=== PATIENT | male | born 1955 ===

== ENCOUNTER 2017-01-08 12:38 | Emergency (ER) | payer MEDICARE, OTHER ==
[2017-01-08 12:39] VITALS: BMI 23.4
[2017-01-08 13:04] VITALS: TEMP 98.5
--- NOTE | 2017-01-08 13:05 | C.PDOC ---
History Of Present Illness <Luisa Christy - Last Filed: 01/08/17 13:01> <Bebeto Wright Jr. - Last Filed: 01/08/17 14:39> A 61 year old male presents to the ER c/o vomiting and high blood pressure today. Patient notes vomiting usually occurs when he has high blood pressure, but patient notes feeling better now. Patient also reports vomiting after taking BP medication. Patient's last dialysis was [address] Juarez at [place]. Patient denies headache, chest pain, fever, chills, or any other complaints. 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 - Last Filed: 01/08/17 14:39> Chief Complaint (Nursing): High Blood Pressure Past Medical History - Medical History PMH: Diabetes, Fractures, HTN, Hypercholesterolemia, End Stage Renal Disease ( Lt. arm AV shunt, Dialysis TTHSAT) Surgical History: Hernia Repair, Pacemaker - Social History Hx Tobacco Use: No Hx Alcohol Use: No Hx Substance Use: No - Immunization History Hx Tetanus Toxoid Vaccination: No Hx Influenza Vaccination: Yes Hx Pneumococcal Vaccination: Yes <Luisa Christy - Last Filed: 01/08/17 13:01> Reviewed: Historical Data, Nursing Documentation, Vital Signs - Medical History PMH: Diabetes, Fractures, HTN, Hypercholesterolemia, End Stage Renal Disease Surgical History: Hernia Repair, Pacemaker Other Surgeries: Cardiac catheterization Family History: States: CAD, Diabetes, Hypertension, Other Other Family History: Sister had cancer. - Social History Hx Tobacco Use: No - Immunization History Hx Tetanus Toxoid Vaccination: No Hx Influenza Vaccination: Yes Hx Pneumococcal Vaccination: Yes <Bebeto Wright Jr. - Last Filed: 01/08/17 14:39> Vital Signs: Last Vital Signs Temp 98.5 F 01/08/17 12:47 Pulse 60 01/08/17 12:47 Resp 16 01/08/17 12:47 BP 192/61 H 01/08/17 12:47 Pulse Ox 95 01/08/17 13:39 - [facility] Procedures ENTERAL INFUSION OF CONCENTRATED NUT. SUBSTANCES (05/07/13) ESOPHAGOGASTRODUODENOSCOPY [EGD] W/CLOSED BIOPSY (05/02/13) HEMODIALYSIS (02/21/15) OPEN RED-INT FIX HUMERUS (02/21/15) PER NERVE ADHESIOLYS NEC (02/21/15) PERCUTANEOUS [ENDOSCOPIC] GASTROSTOMY [PEG] (05/02/13) PERIPH NERVE INCIS NEC (02/21/15) Review Of Systems Except As Marked, All Systems Reviewed And Found Negative. Constitutional: Positive for: Other (High blood pressure). Negative for: Fever , Chills Cardiovascular: Negative for: Chest Pain Gastrointestinal: Positive for: Vomiting (1x today) Neurological: Negative for: Headache <Bebeto Wright Jr. - Last Filed: 01/08/17 14:39> Physical Exam - Physical Exam Appears: Non-toxic, No Acute Distress Skin: Warm, Dry Head: Atraumatic, Normacephalic Cardiovascular: Rhythm Regular, No Murmur Respiratory: Normal Breath Sounds, No Rales, No Rhonchi, No Wheezing Extremity: No Tenderness, No Pedal Edema, No Swelling Neurological/Psych: Oriented x3, Normal Speech <Bebeto Wright Jr. - Last Filed: 01/08/17 14:39> ED Course And Treatment - Laboratory Results Result Diagrams: 01/08/17 14:19 O2 Sat by Pulse Oximetry: 95 (Room air) Pulse Ox Interpretation: Normal <Bebeto Wright Jr. - Last Filed: 01/08/17 14:39> Medical Decision Making <Luisa Christy - Last Filed: 01/08/17 13:01> <Bebeto Wright Jr. - Last Filed: 01/08/17 14:39> Medical Decision Making: Impression: A 61y/o c/o high BP and vomiting Plans: -Blood labs -Nephrology consult -Reassess and disposition (Bebeto Wright Jr.) <Luisa Christy - Last Filed: 01/08/17 13:01> - Scribe Statement The provider has reviewed the documentation as recorded by the Scribe <Bebeto Wright Jr. - Last Filed: 01/08/17 14:39> - Scribe Statement Kamryn guzman All medical record entries made by the Scribe were at my direction and personally dictated by me. I have reviewed the chart and agree that the record accurately reflects my personal performance of the history, physical exam, medical decision making, and the department course for this patient. I have also personally directed, reviewed, and agree with the discharge instructions and disposition. (Bebeto Wright Jr.)
[2017-01-08 14:27] LABS: BASO % 0.5 % (0.0-2.0); EOS # 0.2 K/uL (0.0-0.7); EOS % 2.9 % (0.0-4.0); HEMATOCRIT 28.5 % (35.0-51.0); LYMPH % 12.4 % (20.0-40.0); MEAN CELL VOLUME 88.5 fL (80.0-94.0); MEAN CORPUSCULAR HEMOGLOBIN 28.8 pg (27.0-31.0); MEAN CORPUSCULAR HGB CONC 32.5 g/dL (33.0-37.0); MEAN PLATELET VOLUME 8.6 fL (7.2-11.7); MONO # 0.5 K/uL (0.0-0.8); MONO % 5.9 % (0.0-10.0); RED CELL DISTRIBUTION WIDTH 15.7 % (11.5-14.5)
--- NOTE | 2017-01-08 14:52 | C.PDOC ---
History Of Present Illness Pt is a 61 year old male presents to the ED c/o vomiting and high blood pressure today. Patient notes vomiting usually occurs when he has high blood pressure, but patient notes feeling better now. Pt states that it is not unusual for him to have these episodes of vomiting. Patient did take his BP medication today. Patient's last dialysis was [address] Juarez (renal ) at [place]. Patient denies headache, chest pain, fever, chills, or any other complaints. Pt states he feels much better now and that he is due for dialysis today. PMD: Dr. 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[employer]) Onset/Duration Of Symptoms: Hrs Current Symptoms Are (Timing): Still Present Associated Symptoms: denies: Chest Pain, Headache Severity: Mild Recent travel outside of the [place]: No Additional History Per: Patient, Family Past Medical History Reviewed: Historical Data, Nursing Documentation, Vital Signs Vital Signs: Last Vital Signs Temp 98.5 F 01/08/17 12:47 Pulse 78 01/08/17 15:24 Resp 20 01/08/17 15:24 BP 191/81 H 01/08/17 15:24 Pulse Ox 98 01/08/17 15:24 - Medical History PMH: Diabetes, Fractures, HTN, Hypercholesterolemia, End Stage Renal Disease ( Dialysis TUES,TH,SAT) Surgical History: Hernia Repair, Pacemaker - [facility] Procedures ENTERAL INFUSION OF CONCENTRATED NUT. SUBSTANCES (05/07/13) ESOPHAGOGASTRODUODENOSCOPY [EGD] W/CLOSED BIOPSY (05/02/13) HEMODIALYSIS (02/21/15) OPEN RED-INT FIX HUMERUS (02/21/15) PER NERVE ADHESIOLYS NEC (02/21/15) PERCUTANEOUS [ENDOSCOPIC] GASTROSTOMY [PEG] (05/02/13) PERIPH NERVE INCIS NEC (02/21/15) Family History: States: Other Other Family History: Cancer - Social History Hx Tobacco Use: No Hx Alcohol Use: No Hx Substance Use: No - Immunization History Hx Tetanus Toxoid Vaccination: No Hx Influenza Vaccination: Yes Hx Pneumococcal Vaccination: Yes Review Of Systems Constitutional: Positive for: Other (High blood pressure). Negative for: Fever , Chills Cardiovascular: Negative for: Chest Pain Gastrointestinal: Positive for: Vomiting (1x) Neurological: Negative for: Headache Physical Exam - Physical Exam Appears: Well, Non-toxic, No Acute Distress Skin: Warm, Dry Head: Atraumatic, Normacephalic Eye(s): bilateral: Normal Inspection Ear(s): Bilateral: Normal Nose: Normal Oral Mucosa: Moist Lips: Normal Appearing Neck: Other (no JVD) Chest: Symmetrical Cardiovascular: Rhythm Regular, No Murmur Respiratory: Normal Breath Sounds, No Rales, No Rhonchi, No Wheezing Gastrointestinal/Abdominal: Soft, No Tenderness Extremity: No Tenderness, No Pedal Edema Neurological/Psych: Oriented x3, Normal Speech ED Course And Treatment - Laboratory Results Result Diagrams: 01/08/17 14:19 O2 Sat by Pulse Oximetry: 95 (Room air) Pulse Ox Interpretation: Normal Medical Decision Making Medical Decision Making: Initial Impression: Hypertension with vomiting--not atypical for this patient Initial Plan: I discussed case w/ sales and in home delivery specialist Dr. Juarez. He states if patient is no longer symptomatic, then d/c from ED now. He has called the dialysis center in [place] and they can do dialysis on the patient now. Since pt w/ no GIBSON, no CP and no more vomiting, I will d/c now and arrange for ambulance to take pt to dialysis. Disposition Counseled Patient/Family Regarding: Diagnosis, Need For Followup - Disposition Referrals: Eben Bynum DO [[facility]] - Disposition: HOME/ ROUTINE Disposition Time: 15:06 Condition: IMPROVED Additional Instructions: Mr. Castañeda, thank you for letting us take care of you today. Return to the ER if your symptoms worsen, or if any problems. When you leave the ER today, the ambulance will take you directly to your dialysis center. Follow their recommendations when you arrive. Follow up with Dr. Bynum next week for a re-evaluation. Instructions: Hypertension (ED), End Stage Kidney Disease (ED) Forms: Gen Discharge Inst German Print Language: CHINESE - POA Present On Arrival: None - Clinical Impression Clinical Impression: ESRD (end stage renal disease), HTN (hypertension) - Scribe Statement The provider has reviewed the documentation as recorded by the Scribe Kamryn guzman All medical record entries made by the Scribe were at my direction and personally dictated by me. I have reviewed the chart and agree that the record accurately reflects my personal performance of the history, physical exam, medical decision making, and the department course for this patient. I have also personally directed, reviewed, and agree with the discharge instructions and disposition.
[2017-01-08 15:24] VITALS: BP 191/81; PULSE 78; RESP 20
[2017-01-08 17:06] VITALS: O2SAT 95
== END 2017-01-08 16:10 | disposition home or self-care (01) ==
LOC: C.ER 12:38
DX: I12.0 Hypertensive chronic kidney disease with stage 5 chronic kidney disease or end stage renal disease (principal); N18.6 End stage renal disease

== ENCOUNTER 2017-02-08 14:47 | Inpatient (IN) | payer MEDICARE, OTHER ==
[2017-02-08 14:47] VITALS: BMI 23.4
[2017-02-08 15:19] LABS: BASO % 0.3 % (0.0-2.0); EOS % 0.5 % (0.0-4.0); HEMATOCRIT 32.7 % (35.0-51.0); LYMPH # 1.5 K/uL (1.0-4.3); LYMPH % 24.7 % (20.0-40.0); MEAN CELL VOLUME 88.9 fL (80.0-94.0); MEAN CORPUSCULAR HGB CONC 32.6 g/dL (33.0-37.0); MONO # 0.5 K/uL (0.0-0.8); MONO % 8.6 % (0.0-10.0); RED CELL DISTRIBUTION WIDTH 14.3 % (11.5-14.5); WHITE BLOOD COUNT 6.2 K/uL (4.8-10.8)
[2017-02-08 15:31] LABS: POTASSIUM 4.9 mmol/L (3.6-5.2)
[2017-02-08 15:33] LABS: ALB/GLOB RATIO 1.4 (1.0-2.1); BILIRUBIN,TOTAL 0.8 mg/dL (0.2-1.3); CALCIUM 8.9 mg/dl (8.6-10.4); TOTAL PROTEIN 7.5 g/dL (6.3-8.3)
[2017-02-08 15:35] LABS: INR 1.2
[2017-02-08 15:47] LABS: TROPONIN I 0.101 ng/mL (0.00-0.120)
--- NOTE | 2017-02-08 16:05 | CT ---
PROCEDURE: CT HEAD WITHOUT CONTRAST. HISTORY: generalized weakness COMPARISON: Comparison made with prior CT scan of the brain dated 04/05/[address] scan 10/2012. . TECHNIQUE: Axial computed tomography images were obtained through the head/brain without intravenous contrast. Radiation dose: Total exam DLP = 1045.31 mGy-cm. This CT exam was performed using one or more of the following dose reduction techniques: Automated exposure control, adjustment of the mA and/or kV according to patient size, and/or use of iterative reconstruction technique. FINDINGS: HEMORRHAGE: No acute parenchymal, subarachnoid or extra-axial hemorrhage. 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 Note that the possibility of a small hyperacute infarct on may not be visualized on initial CT imaging. Clinical correlation recommended. Mild to moderate generalized volume loss. VENTRICLES: No evidence of obstructive hydrocephalus. CALVARIUM: Calvarium appears grossly intact. PARANASAL SINUSES: Old right orbital floor fracture through which a small amount of orbital fat has herniated on into the superior margin of the right maxillary antrum. There is also some minor mucosal thickening right maxillary antrum and several ethmoid air cells. MASTOID AIR CELLS: Unremarkable as visualized. No inflammatory changes. OTHER FINDINGS: Hyperdense left globe. Rule out vitreous hemorrhage of versus old injury with developing phthisis bulbi. Right orbital floor fracture on as mentioned above. Status post right cataract surgery. IMPRESSION: No acute intracranial hemorrhage. Chronic bilateral basal nuclei ischemic ischemic changes. Moderate atrophy. . Hyperdense left globe. . Old right orbital floor fracture. Findings discussed with Dr. Salvador at approximately 4 p.m. with written down and read back verification.
[2017-02-08 16:08] LABS: VENOUS BLOOD GAS BASE EXCESS 13.6 mmol/L (0.0-2.0); VENOUS BLOOD GAS PCO2 58 mmHg (40-60); VENOUS BLOOD PH 7.45 (7.32-7.43)
[2017-02-08] MEDS ORDERED: cefTRIAXone IV 1 gm in Dextros 50 ML IV ONE (16:23)
[2017-02-08] MEDS ORDERED: Azithromycin 500mg/250ML NS 500 MG/250 ML BAG IV STA (16:31)
[2017-02-08] MEDS ORDERED: cefTRIAXone IV 1 gm in Dextros 50 ML IVPB ONE (17:04)
--- NOTE | 2017-02-08 17:10 | C.PDOC ---
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 As per , pt went to sleep last night at 10pm, and was asymptomatic at that time. states pt woke up later than usual, 1pm, and noticed that pt was slurring speech, soup was dripping from his mouth and his hand was weak. Otherwise, denies any cough, congestion, chest pain, shortness of breath, dizziness, or any other associated symptoms at this time. Time Seen by Provider: 02/08/17 15:09 Chief Complaint (Nursing): Weakness/Neurological Deficit History Per: Patient, Family History/Exam Limitations: language barrier, physical impairment Onset/Duration Of Symptoms: Hrs Current Symptoms Are (Timing): Still Present Severity: None Pain Scale Rating Of: 0 Recent travel outside of the [place]: No Past Medical History Reviewed: Historical Data, Nursing Documentation, Vital Signs Vital Signs: Last Vital Signs Temp 98.3 F 02/09/17 07:12 Pulse 68 02/09/17 07:12 Resp 18 02/09/17 07:12 BP 174/71 H 02/09/17 09:28 Pulse Ox 93 L 02/09/17 10:36 - Medical History PMH: CVA, Diabetes, Fractures, HTN, Hypercholesterolemia, End Stage Renal Disease (Dialysis TUES,THURS,SAT) Surgical History: Hernia Repair, Pacemaker - [facility] Procedures ENTERAL INFUSION OF CONCENTRATED NUT. SUBSTANCES (05/07/13) ESOPHAGOGASTRODUODENOSCOPY [EGD] W/CLOSED BIOPSY (05/02/13) HEMODIALYSIS (02/21/15) OPEN RED-INT FIX HUMERUS (02/21/15) PER NERVE ADHESIOLYS NEC (02/21/15) PERCUTANEOUS [ENDOSCOPIC] GASTROSTOMY [PEG] (05/02/13) PERIPH NERVE INCIS NEC (02/21/15) Family History: States: Unknown Family Hx - Social History Hx Tobacco Use: No Hx Alcohol Use: No Hx Substance Use: No - Immunization History Hx Tetanus Toxoid Vaccination: No Hx Influenza Vaccination: Yes Hx Pneumococcal Vaccination: Yes Review Of Systems Except As Marked, All Systems Reviewed And Found Negative. Constitutional: Negative for: Fever, Chills ENT: Negative for: Nose Congestion Cardiovascular: Negative for: Chest Pain, Palpitations Respiratory: Negative for: Cough, Shortness of Breath Gastrointestinal: Negative for: Nausea, Vomiting, Abdominal Pain Neurological: Positive for: Weakness (right side), Other (facial droop). Negative for: Numbness, Headache, Dizziness Physical Exam - Physical Exam Appears: Non-toxic, No Acute Distress Skin: Normal Color, Warm, Dry Head: Atraumatic, Normacephalic Eye(s): bilateral: Normal Inspection, EOMI Nose: Normal Oral Mucosa: Moist Neck: Normal ROM, Supple Chest: Symmetrical Cardiovascular: Rhythm Regular Respiratory: Normal Breath Sounds, No Rales, No Rhonchi, No Wheezing Gastrointestinal/Abdominal: Soft, No Tenderness Back: No CVA Tenderness, No Vertebral Tenderness Neurological/Psych: Oriented x3 ED Course And Treatment - Laboratory Results Result Diagrams: 02/09/17 08:03 02/09/17 08:03 ECG: Interpreted By Me, Viewed By Me ECG Rhythm: Atrial Fibrillation ECG Interpretation: No Changes From Prior Interpretation Of ECG: Non-specific changes. No acute change from prior EKG on 02/23/15. Rate From EC (bpm) O2 Sat by Pulse Oximetry: 93 - CT Scan/US Head CT Other Rad Studies (CT/US): Read By Radiologist, Radiology Report Reviewed CT/US Interpretation: FINDINGS: HEMORRHAGE: No acute parenchymal, subarachnoid or extra-axial hemorrhage. 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 Note that the possibility of a small hyperacute infarct on may not be visualized on initial CT imaging. Clinical correlation recommended. Mild to moderate generalized volume loss. VENTRICLES: No evidence of obstructive hydrocephalus. CALVARIUM: Calvarium appears grossly intact. PARANASAL SINUSES: Old right orbital floor fracture through which a small amount of orbital fat has herniated on into the superior margin of the right maxillary antrum. There is also some minor mucosal thickening right maxillary antrum and several ethmoid air cells. MASTOID AIR CELLS: Unremarkable as visualized. No inflammatory changes. OTHER FINDINGS: Hyperdense left globe. Rule out vitreous hemorrhage of versus old injury with developing phthisis bulbi. Right orbital floor fracture on as mentioned above. Status post right cataract surgery. IMPRESSION: No acute intracranial hemorrhage. Chronic bilateral basal nuclei ischemic ischemic changes. Moderate atrophy. . Hyperdense left globe. . Old right orbital floor fracture. Findings discussed with Dr. Salvador at approximately 4 p.m. with written down and read back verification. Progress Note: Labs, EKG, CXR, head CT was ordered. Patient was given Tylenol, Azithromycin, and Rocephin in the ER. Spoke with neurologist educational manager, Dr. Hagen , at 17:10, who requested consult with Dr. Bradley. Case discussed with Dr. Hudson at 17:15 who agrees with plan and admission. Case discussed with Dr Salvador, who evlauated pt and agreed upon plan and discharge. NIHSS Stroke Scale - Date/Time Evaluation Performed Date Performed: 02/08/17 Time Performed: 15:00 When Was NIHSS Performed: Baseline - How Severe is the Stoke Level of Consciousness: 0=Alert LOC to Questions: 0=Both comments correct LOC to commands: 0=Obeys both correctly Best Gaze: 0=Normal Visual: 0=No visual loss Facial: 1=Minor asymmetry Motor Arm - Left: 0=No drift Motor Arm - Right: 0=No drift Motor Leg - Left: 0=No drift Motor Leg - Right: 0=No drift Limb Ataxia: 0=Absent Sensory: 0=Normal Best Language: 1=Mild to moderate aphasia Dysarthia: 0=Normal articulation Extinction & Inattention (Neglect): 0=Normal, no object Score: 2 Severity Of Stroke: 0= No Stroke Disposition - Disposition Disposition: HOSPITALIZED Disposition Time: 18:00 Condition: STABLE - Clinical Impression Clinical Impression: ESRD (end stage renal disease), Slurred speech, Pneumonia, Muscle weakness - PA / DIETARY SERVICES DIRECTOR / Resident Statement MD/DO has reviewed & agrees with the documentation as recorded. - Scribe Statement The provider has reviewed the documentation as recorded by the Bethibsophie Scott All medical record entries made by the Betty were at my direction and personally dictated by me. I have reviewed the chart and agree that the record accurately reflects my personal performance of the history, physical exam, medical decision making, and the department course for this patient. I have also personally directed, reviewed, and agree with the discharge instructions and disposition.
--- NOTE | 2017-02-08 17:31 | RAD ---
HISTORY: pain COMPARISON: Comparison chest 03/01/2015 examination is somewhat limited due to patient rotation to FINDINGS: LUNGS: Elevation right hemidiaphragm possibly due to eventration. There also appears to be some mild right lower lobe atelectasis and possibly small effusion. . Right lower lobe infiltrate not excluded. . PLEURA: No significant pleural effusion identified, no pneumothorax apparent. CARDIOVASCULAR: Re- demonstrated is bipolar pacemaker. Heart appears enlarged. OSSEOUS STRUCTURES: No significant abnormalities. VISUALIZED UPPER ABDOMEN: Normal. OTHER FINDINGS: None. IMPRESSION: Elevation right hemidiaphragm. Right basilar atelectasis with possible small effusion. Right basilar infiltrate not excluded
[2017-02-08] MEDS ORDERED: Azithromycin 500mg/250ML NS 500 MG/250 ML BAG IVPB ONE (18:03)
[2017-02-08] MEDS ORDERED: Sodium Chloride 0.9% 1,000 ML IV SCH (19:15)
--- NOTE | 2017-02-08 19:32 | CP.PCM.HP ---
<Ehsan Lopez - Last Filed: 02/08/17 19:18> History of Present Illness - History of Present Illness History of Present Illness: cc: "slurred speech and fever" HPI: Patient is a 61 year old male with PMHx of DM, Htn, CVA in 2011, NE in 2011 , Pacemaker placement in 2011, presenting to the ED complaining of slurred speech and fever. Patient's at bedside giving history. Patient's went to wake up patient in AM, but he appeared a lot more lethargic than usual. When she tried to talk to him, she could not understand a word that he said, she said his speech was slurred. She also noticed he felt like he had a fever, so she brought him in to the hospital. At baseline, patient had no speech deficits since his last CVA, but the states his neck has been sidebent and rigid from him. He is also unable to ambulate due to fracturing his hip a few years ago, he is bedbound/ wheelchair bound at home. Patient currently has no acute complaints. The states his speech had improved since he has been in the hospital PMD: Dr. Bynum PMHx: As stated above PSHx: hernia repair, Gastric tube placement/removal, pacemaker placement Allergies: NKDA Fam hx: noncontributory Social hx: Denies smoking or drug hx. Former social drinker. Lives at home with . Present on Admission - Present on Admission Any Indicators Present on Admission: No Review of Systems - Constitutional Constitutional: Fever. absent: Anorexia, Chills, Weakness - EENT Eyes: absent: Blurred Vision, Change in Vision - Cardiovascular Cardiovascular: absent: Chest Pain, Claudication, Irregular Heart Rhythm, Leg Edema, Palpitations, Pedal Edema - Respiratory Respiratory: absent: Cough, Dyspnea, Wheezing - Gastrointestinal Gastrointestinal: absent: Abdominal Pain, Constipation, Diarrhea, Loose Stools, Nausea, Vomiting - Genitourinary Genitourinary: absent: Difficulty Urinating, Dysuria - Musculoskeletal Musculoskeletal: absent: Arthralgias, Atrophy - Integumentary Integumentary: absent: Bleeding Lesions, Change in Hair, Striae, Swelling, Wounds - Neurological Neurological: Abnormal Speech. absent: Abnormal Movements, Tingling, Tremor, Weakness - Psychiatric Psychiatric: absent: Anhedonia, Anxiety, Panic Attacks, Suicidal Ideation - Endocrine Endocrine: absent: Fatigue, Palpitations Past Patient History - Tetanus Immunizations Tetanus Immunization: Unknown - Past Medical History & Family History Past Medical History?: Yes - Past Social History Smoking Status: Never Smoked Chewing Tobacco Use: No Cigar Use: No Alcohol: None Drugs: Denies Home Situation {Lives}: With Family - CARDIAC Hx Hypercholesterolemia: Yes Hx Hypertension: Yes Hx Pacemaker: Yes - PULMONARY Hx Respiratory Disorders: No - NEUROLOGICAL HX Cerebrovascular Accident: Yes (MULTIPLE) - HEENT Hx HEENT Problems: Yes Hx Cataracts: Yes - RENAL Date of Last Dialysis Treatment: 01/06/17 - ENDOCRINE/METABOLIC Hx Endocrine Disorders: Yes Hx Diabetes Mellitus Type 2: Yes - HEMATOLOGICAL/ONCOLOGICAL Hx Blood Disorders: Yes Hx Blood Transfusions: Yes - INTEGUMENTARY Hx Dermatological Problems: No - MUSCULOSKELETAL/RHEUMATOLOGICAL Hx Fractures: Yes - GASTROINTESTINAL Hx Gastrointestinal Disorders: Yes Hx Constipation: Yes Other/Comment: history of PEG tube; no longer in - GENITOURINARY/GYNECOLOGICAL Hx Genitourinary Disorders: Yes Other/Comment: oliguria d/t dialysis - PSYCHIATRIC Hx Substance Use: No - SURGICAL HISTORY Hx Surgeries: Yes Other/Comment: hx of pacemaker and PEG - ANESTHESIA Hx Anesthesia: Yes Hx Anesthesia Reactions: No Meds Allergies/Adverse Reactions: Allergies Allergy/AdvReac Type Severity Reaction Status Date / Time No Known Allergies Allergy Verified 01/08/17 12:57 Physical Exam - Constitutional Appears: Non-toxic, No Acute Distress, Older Than Stated Age, Chronically Ill - Head Exam Head Exam: ATRAUMATIC, NORMAL INSPECTION, NORMOCEPHALIC - Eye Exam Pupil Exam: NORMAL ACCOMODATION, PERRL - ENT Exam ENT Exam: Mucous Membranes Moist - Neck Exam Additional comments: sidebent to left and rigid - Respiratory Exam Respiratory Exam: Clear to Auscultation Bilateral, NORMAL BREATHING PATTERN. absent: Prolonged Expiratory Phase, Rales, Rhonchi, Wheezes - Cardiovascular Exam Cardiovascular Exam: REGULAR RHYTHM, +S1, +S2 - GI/Abdominal Exam GI & Abdominal Exam: Normal Bowel Sounds, Soft. absent: Distended, Guarding, Hypoactive Bowel Sounds, Organomegaly, Tenderness - Extremities Exam Extremities exam: Positive for: normal capillary refill - Neurological Exam Neurological exam: Alert, CN II-XII Intact, Oriented x3, Reflexes Normal - Psychiatric Exam Psychiatric exam: Normal Affect, Normal Mood - Skin Skin Exam: Dry, Intact, Normal Color, Warm Results - Vital Signs Recent Vital Signs: Last Vital Signs Temp 99.3 F 02/08/17 18:21 Pulse 71 02/08/17 18:21 Resp 20 02/08/17 18:21 BP 160/66 H 02/08/17 18:21 Pulse Ox 93 L 02/08/17 18:58 - Labs Result Diagrams: 02/08/17 15:15 02/08/17 15:15 Assessment & Plan (1) Slurred speech Status: Acute Comment: Head CT- 02/08/17- No acute intracranial hemorrhage. Chronic bilateral basal nuclei ischemic changes. Moderate atrophy (Please see full report). Consult Neuro- Dr. Bradley. f/u MRI Brain w/o contrast. f/u carotids. will consider statin starting tomorrow. f/u swallow eval. NPO except meds. IVF NS @ 40cc/hr. NGT inserted today, okay for use. Asa 325mg ordered for today, Asa 81mg PO Daily starting tomorrow. Continue home med: Plavix 75mg PO Daily (2) Fever Status: Acute Comment: Tmax in ED- 102.8. WBC- 6.2. Lactate 1.1. F/u blood and urine cultures. f/u UA. CXR- 02/08/17- elevation of right hemidiaphragm. R basilar atelectasis with possible small effusion. R basilar infiltrate not excluded. given one dose of Vanco 1gm IVPB. Started on Azithromycin 500mg IVPB Daily (02/08). Started on Ceftriaxone 1gm IVPB Daily (02/08/17). f/u procalcitonin (3) EKG abnormalities Status: Acute Comment: Consult Cardio- Dr. Kirk. EKG shows questionable atrial fibrillation with t wave changes compared to previous EKG in 2015. Called [employer]- scheduled for interrogation tomorrow AM- confirmed [employer] Pacemaker in place. Will hold off on anticoagulation until rhythm is confirmed. HAS BLED score of 4- 8.9% risk of bleeding. ROMIs negative x 1, f/u ROMIs x 2 and EKGs x 2 (4) Diabetes mellitus Status: Chronic Comment: Accuchecks Q6h. Hold off on home insulin- Levemir 6U in AM and 14U in PM due to NPO. RISS. f/u HgbA1C (5) ESRD (end stage renal disease) Status: Chronic Comment: Consult nephro- Dr. Juarez. on Dialysis TTHS. Continue Renvela 800mg PO TID (6) HTN (hypertension) Status: Chronic Comment: Continue home meds: Norvasc 10mg PO Daily. Metoprolol 25mg PO BID. Hydralazine 10mg PO Daily (7) Prophylactic measure Status: Acute Comment: Protonix 40mg PO Daily. SCDs NIHSS Stroke Scale - Date/Time Evaluation Performed Date Performed: 02/08/17 Time Performed: 15:00 - How Severe is the Stoke Level of Consciousness: 0=Alert LOC to Questions: 0=Both comments correct LOC to commands: 0=Obeys both correctly Best Gaze: 0=Normal Visual: 0=No visual loss Facial: 0=Normal Motor Arm - Left: 0=No drift Motor Arm - Right: 0=No drift Motor Leg - Left: 0=No drift Motor Leg - Right: 0=No drift Limb Ataxia: 0=Absent Sensory: 0=Normal Best Language: 0=No aphasia Dysarthia: 1=Mild to moderate slurring Extinction & Inattention (Neglect): 0=Normal, no object Score: 1 Severity Of Stroke: 1-4= Minor Stroke <Vero Hudson V - Last Filed: 02/08/17 21:25> Results - Vital Signs Recent Vital Signs: Last Vital Signs Temp 99.7 F H 02/08/17 19:30 Pulse 60 02/08/17 20:18 Resp 20 02/08/17 19:30 BP 153/66 H 02/08/17 19:30 Pulse Ox 95 02/08/17 19:30 - Labs Result Diagrams: 02/08/17 15:15 02/08/17 15:15 Attending/Attestation - Attestation I have personally seen and examined this patient.: Yes I have fully participated in the care of the patient.: Yes I have reviewed all pertinent clinical information: Yes Notes (Text): Patient seen, examined in [facility] Bed 4 in the Emergency Room at approximately 6: 05PM on 02/08/17 Patient at bedside with his . Patient is awake, alert, but soft spoken. Per discussion with patient and , patient was tired more than his usual, reported dry cough, throat irritation, and associated subjective fevers. Denies recent travel, denies sick contacts. Patient lives on the 1st floor of apartment. Patient walkers with rolling chair. Patient had a prior stroke with associated deficits including right sided weakness, neck stiffness, unable to move his head side to side since the stroke per his , NE, and pacemaker placed in 2011, and noted multiple fractures in 2014. Patient used to have peg tube which was removed one year ago. 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 Chavez. Patient completed his dialysis yesterday without difficulty per discussion with , but she reports patient appears more tired that usual. In the ED, patient ordered for Rocephin and Azithromycin and Tylenol. Patient ordered for Aspirin stat. Assisted resident of placement of NGT tube, since patient did not take his oral medications today. Per review of chest xray, pending official report, appears below the diaphragm. Reviewed EKG with resident , patient have noted noise, difficult to discern p wave, no prior history of atrial fibrillation noted in review of EMR. In review of EMR, history of CVA, NE, PPM, HTN, DM, ESRD T//Thursday, and hx of multiple fractures. Discussed with ED PA, who had spoken with neurologist, Dr Hagen, symptoms likely due to infection worsening prior stroke symptoms On my exam, patient is side bent to the right, and neck difficult to move-->per has been like this since prior stroke, not an acute change. Patient speaks one to two words in liberian, but is lethargic, but follows commands including drinking water thru a straw for NGT tube insertion, strength 4/5 lower extremities, negative Babinskis' bilateral, sensation intact. PPM over left side of chest-nontender. Per patient has not fired nor felt burning sensation. Assessment/Plan (1) Slurred speech Status: Acute Comment: Head CT- 02/08/17- No acute intracranial hemorrhage. Chronic bilateral basal nuclei ischemic changes. Moderate atrophy (Please see full report). Consult Neuro- Dr. Bradley. f/u MRI Brain w/o contrast. f/u carotids. will consider statin starting tomorrow. f/u swallow eval. NPO except meds. IVF NS @ 40cc/hr. NGT inserted today, okay for use. Asa 325mg ordered for today, Asa 81mg PO Daily starting tomorrow. Continue home med: Plavix 75mg PO Daily Ordered for hgba1c, Lipid panel (2) Fever Status: Acute Comment: Tmax in ED- 102.8. WBC- 6.2. Lactate 1.1. F/u blood and urine cultures. f/u UA. CXR- 02/08/17- elevation of right hemidiaphragm. R basilar atelectasis with possible small effusion. R basilar infiltrate not excluded. Ordered for one dose of Vanco 1gm IVPB. In the ED, patient started on Azithromycin 500mg IVPB Daily (02/08/17). Started on Ceftriaxone 1gm IVPB Daily (02/08/17). Florastor 250mg PO bid f/u procalcitonin Order for Strep pneumonie, urine legionella, and Mycoplasma IgM (3) EKG abnormalities Status: Acute Comment: Consult Cardio- Dr. Kirk. EKG shows questionable atrial fibrillation with t wave changes compared to previous EKG in 2015. Resident Called [employer]- scheduled for interrogation tomorrow AM- confirmed [employer] Pacemaker in place. Will hold off on anticoagulation until rhythm is confirmed. HAS BLED score of 4 - 8.9% risk of bleeding. ROMIs negative x 1, f/u ROMIs x 2 and EKGs x 2 (4) Diabetes mellitus Status: Chronic Comment: Accuchecks Q6h. Hold off on home insulin- Levemir 6U in AM and 14U in PM due to NPO. f/u HgbA1C and lipid in AM (5) ESRD (end stage renal disease) Status: Chronic Comment: Consult nephro- Dr. Juarez. on Dialysis TTHS. Continue Renvela 800mg PO TID Consent for dialysis obtained by the resident (6) HTN (hypertension) Status: Chronic Comment: Continue home meds: Norvasc 10mg PO Daily. Metoprolol 25mg PO BID. will hold Hydralazine 10mg PO Daily Patient is ESRD on //Thu as outpatient (7) Prior history of CVA Head CT- 02/08/17- No acute intracranial hemorrhage. Chronic bilateral basal nuclei ischemic changes. Moderate atrophy (Please see full report). Consult Neuro- Dr. Bradley. f/u MRI Brain w/o contrast. (8) Prophylactic measure Status: Acute Comment: Protonix 40mg PO Daily. SCDs b/l Heparin 5000 units subq 12hours Swallow eval and treat PT/OT eval NGT tube in place Swallow eval
[2017-02-08] MEDS ORDERED: Acetaminophen 650mg/20.3ml solution UD NG PRN (19:41)
[2017-02-08] MEDS: Dextrose 5%/0.45% NS 1,000 ML IV SCH (21:31)
[2017-02-08] MEDS: (Novolin R) Insulin Human Regular 100 units/ml vial SC SCH (22:21)
[2017-02-09] MEDS: (Novolin R) Insulin Human Regular 100 units/ml vial SC SCH ×4 (02:40→20:24)
[2017-02-09 08:14] LABS: BASO % 0.6 % (0.0-2.0); EOS # 0.3 K/uL (0.0-0.7); HEMATOCRIT 29.9 % (35.0-51.0); LYMPH # 1.8 K/uL (1.0-4.3); LYMPH % 33.5 % (20.0-40.0); MEAN CELL VOLUME 88.2 fL (80.0-94.0); MEAN CORPUSCULAR HEMOGLOBIN 29.1 pg (27.0-31.0); MEAN PLATELET VOLUME 8.4 fL (7.2-11.7); MONO # 0.5 K/uL (0.0-0.8); MONO % 9.3 % (0.0-10.0); NRBC % 0.1 % (0.0-2.0); RED CELL DISTRIBUTION WIDTH 14.3 % (11.5-14.5); WHITE BLOOD COUNT 5.5 K/uL (4.8-10.8)
[2017-02-09 08:20] LABS: INR 1.1
[2017-02-09 08:22] LABS: POTASSIUM 4.7 mmol/L (3.6-5.2)
[2017-02-09 08:24] LABS: ALB/GLOB RATIO 1.3 (1.0-2.1); BILIRUBIN,TOTAL 0.8 mg/dL (0.2-1.3)
[2017-02-09 08:25] LABS: CALCIUM 8.8 mg/dl (8.6-10.4); MAGNESIUM 2.2 mg/dL (1.6-2.3)
[2017-02-09 08:54] LABS: THYROID STIMULATING HORMONE 0.74 mIU/L (0.46-4.68)
--- NOTE | 2017-02-09 09:43 | CP.PCM.PN ---
<BeniSarah pimentel - Last Filed: 02/09/17 15:41> Subjective - Date & Time of Evaluation Date of Evaluation: 02/09/17 Time of Evaluation: 09:26 - Subjective Subjective: Patient seen and examined at bedside. Per , patient's speech has improved but still is not normal. Patient denies headache, confusion, chest pain, palpitations, shortness of breath, abdominal pain, nausea, vomiting, constipation and diarrhea. He continues to have neck pain and immobility of neck which is noted to be chronic in nature. EKG reviewed and does not show atrial fibrillation. Objective - Vital Signs/Intake and Output Vital Signs (last 24 hours): Temp Pulse Resp BP Pulse Ox 98.3 F 68 18 136/63 99 02/09/17 07:12 02/09/17 07:12 02/09/17 07:12 02/09/17 07:12 02/09/17 07:12 Intake and Output: 02/09/17 02/09/17 06:59 18:59 Intake Total 350 Balance 350 - Medications Medications: Current Medications Acetaminophen (Tylenol 650mg/20.3ml Solution Ud) 650 mg NG Q6 PRN PRN Reason: Fever >100.4 F Amlodipine Besylate (Norvasc) 10 mg PO DAILY [facility] Aspirin (Aspirin Chewable) 81 mg PO DAILY [facility] Clopidogrel Bisulfate (Plavix) 75 mg PO DAILY [facility] Heparin Sodium (Porcine) (Heparin) 5,000 units SC Q12 [facility] Last Admin: 02/08/17 22:18 Dose: 5,000 units Hydroxyzine HCl (Atarax) 25 mg PO DAILY [facility] Azithromycin 500 mg/ Sodium (Chloride) 250 mls @ 250 mls/hr IVPB DAILY [facility] Ceftriaxone Sodium 1 gm/ (Sodium Chloride) 100 mls @ 100 mls/hr IVPB DAILY [facility] Dextrose/Sodium Chloride (Dextrose 5%/0.45% Ns 1000 Ml) 1,000 mls @ 50 mls/hr IV .Q20H [facility] Last Admin: 02/08/17 21:31 Dose: 50 mls/hr Insulin Human Regular (Novolin R) 0 unit SC Q6H [facility] PRN Reason: Protocol Last Admin: 02/09/17 08:18 Dose: 2 unit Metoprolol Tartrate (Lopressor) 25 mg PO Q12H [facility] Last Admin: 06/04/17 22:19 Dose: 25 mg Pantoprazole Sodium (Protonix Susp) 40 mg PO DAILY [facility] Saccharomyces Boulardii (Florastor) 250 mg PO BID [facility] Sevelamer Carbonate (Renvela) 800 mg PO TIDCC [facility] - Labs Labs: 02/09/17 08:03 02/09/17 08:03 PT 12.4 SECONDS (9.7-12.2) H 02/09/17 08:03 INR 1.1 02/09/17 08:03 APTT 28 SECONDS (21-34) 02/09/17 08:03 - Constitutional Appears: Non-toxic, No Acute Distress - Head Exam Head Exam: ATRAUMATIC, NORMAL INSPECTION, NORMOCEPHALIC - Eye Exam Eye Exam: EOMI, PERRL - ENT Exam ENT Exam: Mucous Membranes Moist - Neck Exam Neck Exam: Tenderness. absent: Full ROM Additional comments: side bent right - Respiratory Exam Respiratory Exam: Clear to Ausculation Bilateral, NORMAL BREATHING PATTERN. absent: Rales, Rhonchi, Wheezes - Cardiovascular Exam Cardiovascular Exam: +S1, +S2. absent: Bradycardia, Tachycardia, Murmur - GI/Abdominal Exam GI & Abdominal Exam: Soft, Normal Bowel Sounds. absent: Distended, Guarding, Rigid, Tenderness - Extremities Exam Extremities Exam: absent: Pedal Edema, Tenderness - Neurological Exam Neurological Exam: Alert, Awake, Oriented x3 Neuro motor strength exam: Left Upper Extremity: 5, Right Upper Extremity: 5, Left Lower Extremity: 5, Right Lower Extremity: 5 Additional comments: negative babinksi sensation intact bilaterally - Psychiatric Exam Psychiatric exam: Normal Affect, Normal Mood - Skin Skin Exam: Intact, Normal Color Assessment and Plan - Assessment and Plan (Free Text) Assessment: (1) Slurred speech likely secondary to metabolic causes Rule out CVA Patient has history of previous CVA Head CT- 02/08/17- No acute intracranial hemorrhage. Chronic bilateral basal nuclei ischemic changes. Moderate atrophy (Please see full report). Neuro, Dr. Hernandez, consulted. Follow-up recommendations. Recommends patient be continued on dual antiplatelet therapy for about 3 weeks as per the CHANCE trial. Afterward, continue only Plavix 75 mg daily, indefinitely. ASA 325 mg tab given f/u MRI Brain w/o contrast Carotid Doppler - mild disease to bilateral carotid arteries Will repeat CT Head without contrast tomorrow AM Lipid Panel: Triglycerides 231, Cholesterol 160, LDL 65, HDL 21 Patient failed swallow evaluation and was made NPO except meds. Speech evaluated and recommended finely chopped diet with thin liquids. Will discontinue NG tube. ASA 81mg po daily Continue home med: Plavix 75mg PO Daily (2) Fever WBC 5.5, afebrile overnight Tylenol 650 mg NG Q6 PRN for fever Tmax in ED- 102.8. WBC- 6.2. Lactate 1.1. f/u blood and urine cultures CXR- 02/08/17- elevation of right hemidiaphragm. R basilar atelectasis with possible small effusion. R basilar infiltrate not excluded. Given one dose of Vanco 1gm IVPB. Continue Azithromycin 500mg IVPB Daily (started 02/08/17) and Ceftriaxone 1gm IVPB Daily (started 02/08/17) f/u procalcitonin (3) EKG abnormalities EKG shows questionable atrial fibrillation with t wave changes compared to previous EKG in 2015. RAFFY: 0.1150 (02/08 22:37), 0.1220 (02/09 03:17) Consult Cardio- Dr. Kirk. Per Dr. Kirk - no atrial fibrillation identified on interrogation of pacemaker. Atrial leads will be adjusted. [employer] contacted and confirmed pacemaker in place. HAS BLED score of 4- 8.9% risk of bleeding. (4) Diabetes mellitus glucose 170 Accuchecks Q6h. home insulin- Levemir 6U in AM and 14U in PM - held RISS. f/u HgbA1C Monitor (5) ESRD (end stage renal disease) BUN/CR: 34/7.6 Nephrology- Dr. Juarez consulted. On Dialysis TTHS. Patient for dialysis tomorrow. Continue Renvela 800mg PO TID (6) HTN (hypertension) Continue home meds: Norvasc 10mg PO Daily. Metoprolol 25mg PO BID. Hydralazine 10mg PO Daily (7) Prophylactic measure Protonix 40mg PO Daily SCDs Florastor 250 mg po BID <Vero Hudson V - Last Filed: 02/09/17 17:26> Objective - Vital Signs/Intake and Output Vital Signs (last 24 hours): Temp Pulse Resp BP Pulse Ox 99.7 F H 60 18 134/64 93 L 02/09/17 16:00 02/09/17 16:00 02/09/17 16:00 02/09/17 16:00 02/09/17 17:03 Intake and Output: 02/09/17 02/09/17 06:59 18:59 Intake Total 350 Balance 350 - Medications Medications: Current Medications Acetaminophen (Tylenol 650mg/20.3ml Solution Ud) 650 mg NG Q6 PRN PRN Reason: Fever >100.4 F Amlodipine Besylate (Norvasc) 10 mg PO DAILY [facility] Last Admin: 02/09/17 10:50 Dose: 10 mg Aspirin (Aspirin Chewable) 81 mg PO DAILY [facility] Last Admin: 02/09/17 10:13 Dose: 81 mg Clopidogrel Bisulfate (Plavix) 75 mg PO DAILY [facility] Last Admin: 02/09/17 10:48 Dose: 75 mg Famotidine (Pepcid) 20 mg PO BID [facility] Last Admin: 02/09/17 13:02 Dose: 20 mg Heparin Sodium (Porcine) (Heparin) 5,000 units SC Q12 [facility] Last Admin: 02/09/17 10:48 Dose: 5,000 units Hydroxyzine HCl (Atarax) 25 mg PO DAILY [facility] Last Admin: 02/09/17 11:00 Dose: 25 mg Azithromycin 500 mg/ Sodium (Chloride) 250 mls @ 250 mls/hr IVPB DAILY [facility] Last Admin: 02/09/17 10:52 Dose: 250 mls/hr Ceftriaxone Sodium 1 gm/ (Sodium Chloride) 100 mls @ 100 mls/hr IVPB DAILY [facility] Last Admin: 02/09/17 10:49 Dose: 100 mls/hr Dextrose/Sodium Chloride (Dextrose 5%/0.45% Ns 1000 Ml) 1,000 mls @ 50 mls/hr IV .Q20H [facility] Last Admin: 02/08/17 21:31 Dose: 50 mls/hr Insulin Human Regular (Novolin R) 0 unit SC Q6H [facility] PRN Reason: Protocol Last Admin: 02/09/17 14:37 Dose: 6 unit Metoprolol Tartrate (Lopressor) 25 mg PO Q12H [facility] Last Admin: 02/09/17 09:28 Dose: 25 mg Saccharomyces Boulardii (Florastor) 250 mg PO BID [facility] Last Admin: 02/09/17 10:52 Dose: 250 mg Sevelamer Carbonate (Renvela) 800 mg PO TIDCC [facility] Last Admin: 02/09/17 14:26 Dose: 800 mg - Labs Labs: 02/09/17 08:03 02/09/17 08:03 PT 12.4 SECONDS (9.7-12.2) H 02/09/17 08:03 INR 1.1 02/09/17 08:03 APTT 28 SECONDS (21-34) 02/09/17 08:03 Attending/Attestation - Attestation I have personally seen and examined this patient.: Yes I have fully participated in the care of the patient.: Yes I have reviewed all pertinent clinical information, including history, physical exam and plan: Yes Notes (Text): Patient seen, examined and case discussed with day-time resident. patient seen at bedside with and patient's sister at bedside. Neurology consult-->appreciate evaluation Cardiology consult-->appreciate evaluation, patient's pacemaker interrogated, does not show events of atrial fib, per discussion with cards, and history of normal stress test Swallow eval appreciated; will discontinue NGT and start feed Assessment/Plan (1) Slurred speech Status: Acute Comment: Head CT- 02/08/17- No acute intracranial hemorrhage. Chronic bilateral basal nuclei ischemic changes. Moderate atrophy (Please see full report). Consult Neuro- Dr. Bradley. f/u carotids. Swallow eval: finely chopped solids for ease and thin liquids. Asa 81mg PO Daily; Plavix 75mg PO Daily for 3 weeks and then after Plavix indefinitely per neurology hgba1c:8.4, Lipid panel: Chol:231 TG;160 HDL:65 LDL: 21 (2) Fever Status: Acute Comment: Tmax in ED- 102.8. WBC- 6.2. Lactate 1.1. F/u blood and urine cultures. f/u UA. CXR- 02/08/17- elevation of right hemidiaphragm. R basilar atelectasis with possible small effusion. R basilar infiltrate not excluded. Received one dose of Vanco 1gm IVPB in the ED In the ED, patient started on Azithromycin 500mg IVPB Daily (02/08/17). Started on Ceftriaxone 1gm IVPB Daily (02/08/17). Florastor 250mg PO bid Procalcitonin:0.93 Order for Strep pneumonie, urine legionella, and Mycoplasma IgM pending Blood cultures Pending (3) EKG abnormalities Non-STEMI Status: Acute Comment: Consult Cardio- Dr. Kirk. EKG shows questionable atrial fibrillation with t wave changes compared to previous EKG in 2015. Resident Called [employer]- scheduled for interrogation tomorrow AM- confirmed [employer] Pacemaker in place. Pacemaker interrogated: no atrial fibrillation noted Continue Aspirin 81mg Po daily and Plavix 75mg Po daily (4) Diabetes mellitus Status: Chronic Comment: Accuchecks Q6h. hgba1c:8.4 Hold off on home insulin- Levemir 6U in AM and 14U in PM due to NPO. hgba1c:8.4, Lipid panel: Chol:231 TG;160 HDL:65 LDL: 21 (5) ESRD (end stage renal disease) Status: Chronic Comment: Consult nephro- Dr. Juarez. on Dialysis TTHS. Continue Renvela 800mg PO TID Consent for dialysis obtained by the resident Will resume dialysis tomorrow (6) HTN (hypertension) Status: Chronic Comment: Continue home meds: Norvasc 10mg PO Daily. Metoprolol 25mg PO BID. Patient is ESRD on //Thu as in patient (7) Prior history of CVA Head CT- 02/08/17- No acute intracranial hemorrhage. Chronic bilateral basal nuclei ischemic changes. Moderate atrophy (Please see full report). Consult Neuro- Dr. Bradley. f/u MRI Brain w/o contrast. (8) Prophylactic measure Status: Acute Comment: Protonix 40mg PO Daily. SCDs b/l Heparin 5000 units subq 12hours PT/OT eval Swallow eval: finely chopped solids for ease and thin liquids.
[2017-02-09] MEDS ORDERED: Pantoprazole 40 mg Susp UD PO SCH (10:00)
--- NOTE | 2017-02-09 10:20 | RAD ---
HISTORY: s/p NGT tube placement COMPARISON: 02/08/2017 at 3:18 p.m. FINDINGS: LUNGS: No active pulmonary disease. PLEURA: Minimally elevated right hemidiaphragm. Possible small right pleural effusion with mild blunting of the right costophrenic angle. No evidence of left pleural effusion. No pneumothorax. CARDIOVASCULAR: Possible mild cardiomegaly. Permanent pacemaker. No congestive change. OSSEOUS STRUCTURES: No significant abnormalities. VISUALIZED UPPER ABDOMEN: Normal. OTHER FINDINGS: New nasogastric tube extends to left upper quadrant of the abdomen. IMPRESSION: Possible small right pleural effusion. No acute infiltrate. New nasogastric tube in grossly appropriate position.
--- NOTE | 2017-02-09 10:28 | CP.PCM.CON ---
<Be Martin - Last Filed: 02/09/17 10:28> History of Present Illness - History of Present Illness History of Present Illness: Consult Note for Dr. Kirk 61 y/o M with PMH of HTN, DM, CVA with no residual deficits, [place] and Pacemaker placement in 2011 presented with difficulty speaking and subjective fever at home. Pt was initially accompanied by his when arriving to the hospital, although she is not at bedside this morning. According to patient and previous medical records, pt had increasing lethargy at home since yesterday morning. Pt was unable to effectively communicated with his as his speech was slurred. At this point, she did notice a subjective fever and was brought into the hospital. Pt is wheelchair bound at home due to hx of fractured hip. Head CT in the ED showed chronic ischemic basal ganglia changes and moderate atrophy, with no acute intracranial findings. PMH: HTN, DM, CVA with no residual deficits, [place] Surgical Hx: hernia repair, Gastric tube placement/removal, pacemaker placement in 2011 Social hx: Denies tobacco or illicit drug use. Prior alcohol use. Allergies: NKDA Review of Systems - Constitutional Constitutional: Fever, Lethargy. absent: Headache - Cardiovascular Cardiovascular: absent: Chest Pain, Palpitations - Respiratory Respiratory: absent: Cough, Dyspnea - Gastrointestinal Gastrointestinal: absent: Diarrhea, Vomiting - Genitourinary Genitourinary: absent: Hematuria - Neurological Neurological: absent: Syncope Past Patient History - Tetanus Immunizations Tetanus Immunization: Unknown - Past Medical History & Family History Past Medical History?: Yes - Past Social History Smoking Status: Never Smoked - CARDIAC Hx Hypercholesterolemia: Yes Hx Hypertension: Yes - PULMONARY Hx Respiratory Disorders: No - NEUROLOGICAL HX Cerebrovascular Accident: Yes (right side residual weakness) - HEENT Hx HEENT Problems: Yes Hx Cataracts: Yes - RENAL Date of Last Dialysis Treatment: 01/06/17 - ENDOCRINE/METABOLIC Hx Diabetes Mellitus Type 2: Yes - HEMATOLOGICAL/ONCOLOGICAL Hx Blood Disorders: Yes Hx Blood Transfusions: Yes - INTEGUMENTARY Hx Dermatological Problems: No - MUSCULOSKELETAL/RHEUMATOLOGICAL Hx Fractures: Yes - GASTROINTESTINAL Hx Gastrointestinal Disorders: Yes Hx Constipation: Yes Other/Comment: history of PEG tube; no longer in - GENITOURINARY/GYNECOLOGICAL Hx Genitourinary Disorders: Yes Other/Comment: oliguria d/t dialysis - PSYCHIATRIC Hx Substance Use: No - SURGICAL HISTORY Hx Surgeries: Yes Other/Comment: hx of pacemaker and PEG - ANESTHESIA Hx Anesthesia: Yes Hx Anesthesia Reactions: No Meds Allergies/Adverse Reactions: Allergies Allergy/AdvReac Type Severity Reaction Status Date / Time No Known Allergies Allergy Verified 01/08/17 12:57 - Medications Medications: Current Medications Acetaminophen (Tylenol 650mg/20.3ml Solution Ud) 650 mg NG Q6 PRN PRN Reason: Fever >100.4 F Amlodipine Besylate (Norvasc) 10 mg PO DAILY [facility] Aspirin (Aspirin Chewable) 81 mg PO DAILY [facility] Clopidogrel Bisulfate (Plavix) 75 mg PO DAILY [facility] Heparin Sodium (Porcine) (Heparin) 5,000 units SC Q12 [facility] Last Admin: 02/08/17 22:18 Dose: 5,000 units Hydroxyzine HCl (Atarax) 25 mg PO DAILY [facility] Azithromycin 500 mg/ Sodium (Chloride) 250 mls @ 250 mls/hr IVPB DAILY [facility] Ceftriaxone Sodium 1 gm/ (Sodium Chloride) 100 mls @ 100 mls/hr IVPB DAILY [facility] Dextrose/Sodium Chloride (Dextrose 5%/0.45% Ns 1000 Ml) 1,000 mls @ 50 mls/hr IV .Q20H [facility] Last Admin: 02/08/17 21:31 Dose: 50 mls/hr Insulin Human Regular (Novolin R) 0 unit SC Q6H [facility] PRN Reason: Protocol Last Admin: 02/09/17 08:18 Dose: 2 unit Metoprolol Tartrate (Lopressor) 25 mg PO Q12H [facility] Last Admin: 02/09/17 09:28 Dose: 25 mg Pantoprazole Sodium (Protonix Susp) 40 mg PO DAILY [facility] Saccharomyces Boulardii (Florastor) 250 mg PO BID [facility] Sevelamer Carbonate (Renvela) 800 mg PO TIDCC [facility] Last Admin: 02/09/17 09:24 Dose: 800 mg Physical Exam - Constitutional Appears: Non-toxic, No Acute Distress - Head Exam Head Exam: ATRAUMATIC, NORMAL INSPECTION, NORMOCEPHALIC - ENT Exam ENT Exam: Mucous Membranes Dry Additional comments: NGT in place - Respiratory Exam Respiratory Exam: Clear to Auscultation Bilateral, NORMAL BREATHING PATTERN. absent: Rhonchi, Wheezes - Cardiovascular Exam Cardiovascular Exam: RRR, +S1, +S2 - GI/Abdominal Exam GI & Abdominal Exam: Normal Bowel Sounds, Soft. absent: Tenderness - Extremities Exam Extremities exam: Positive for: normal inspection. Negative for: calf tenderness - Neurological Exam Neurological exam: Alert Results - Vital Signs Recent Vital Signs: Last Vital Signs Temp 98.3 F 02/09/17 07:12 Pulse 68 02/09/17 07:12 Resp 18 02/09/17 07:12 BP 174/71 H 02/09/17 09:28 Pulse Ox 99 02/09/17 07:12 - Labs Result Diagrams: 02/09/17 08:03 02/09/17 08:03 Labs: Laboratory Results - last 24 hr 02/08/17 02/08/17 02/08/17 21:45 22:37 22:37 WBC RBC Hgb Hct MCV MCH MCHC RDW Plt Count MPV Neut % (Auto) Lymph % (Auto) [place] % (Auto) Eos % (Auto) Baso % (Auto) Neut # Lymph # [place] # Eos # Baso # PT INR APTT 29 Sodium Potassium Chloride Carbon Dioxide Anion Gap BUN Creatinine Est GFR ( Amer) Est GFR (Non-Af Amer) POC Glucose (mg/dL) 214 H Random Glucose Calcium Phosphorus Magnesium Total Bilirubin AST ALT Alkaline Phosphatase Total Creatine Kinase CK-MB (Mass) Troponin I, Quant Total Protein Albumin Globulin Albumin/Globulin Ratio Triglycerides Cholesterol LDL Cholesterol Direct HDL Cholesterol TSH 3rd Generation Blood Type A POSITIVE Antibody Screen Negative 02/08/17 02/09/17 02/09/17 22:37 01:57 03:17 WBC RBC Hgb Hct MCV MCH MCHC RDW Plt Count MPV Neut % (Auto) Lymph % (Auto) [place] % (Auto) Eos % (Auto) Baso % (Auto) Neut # Lymph # [place] # Eos # Baso # PT INR APTT Sodium Potassium Chloride Carbon Dioxide Anion Gap BUN Creatinine Est GFR ( Amer) Est GFR (Non-Af Amer) POC Glucose (mg/dL) 190 H Random Glucose Calcium Phosphorus Magnesium Total Bilirubin AST ALT Alkaline Phosphatase Total Creatine Kinase 57 47 L CK-MB (Mass) 0.78 0.77 Troponin I, Quant 0.1150 0.1220 H* Total Protein Albumin Globulin Albumin/Globulin Ratio Triglycerides Cholesterol LDL Cholesterol Direct HDL Cholesterol TSH 3rd Generation Blood Type Antibody Screen 02/09/17 02/09/17 02/09/17 06:44 08:03 08:03 WBC 5.5 RBC 3.39 L Hgb 9.9 L Hct 29.9 L MCV 88.2 MCH 29.1 MCHC 33.0 RDW 14.3 Plt Count 229 MPV 8.4 Neut % (Auto) 51.6 Lymph % (Auto) 33.5 [place] % (Auto) 9.3 Eos % (Auto) 5.0 H Baso % (Auto) 0.6 Neut # 2.8 Lymph # 1.8 [place] # 0.5 Eos # 0.3 Baso # 0.0 PT INR APTT Sodium 137 Potassium 4.7 Chloride 89 L Carbon Dioxide 35 H Anion Gap 18 BUN 34 H Creatinine 7.6 H* D Est GFR ( Amer) 9 Est GFR (Non-Af Amer) 7 POC Glucose (mg/dL) 193 H Random Glucose 170 H Calcium 8.8 Phosphorus 5.0 H Magnesium 2.2 Total Bilirubin 0.8 AST 17 D ALT 15 L Alkaline Phosphatase 94 Total Creatine Kinase CK-MB (Mass) Troponin I, Quant Total Protein 7.0 Albumin 4.0 Globulin 3.0 Albumin/Globulin Ratio 1.3 Triglycerides 231 H D Cholesterol 160 LDL Cholesterol Direct 65 HDL Cholesterol 21 L TSH 3rd Generation 0.74 Blood Type Antibody Screen 02/09/17 08:03 WBC RBC Hgb Hct MCV MCH MCHC RDW Plt Count MPV Neut % (Auto) Lymph % (Auto) [place] % (Auto) Eos % (Auto) Baso % (Auto) Neut # Lymph # [place] # Eos # Baso # PT 12.4 H INR 1.1 APTT 28 Sodium Potassium Chloride Carbon Dioxide Anion Gap BUN Creatinine Est GFR ( Amer) Est GFR (Non-Af Amer) POC Glucose (mg/dL) Random Glucose Calcium Phosphorus Magnesium Total Bilirubin AST ALT Alkaline Phosphatase Total Creatine Kinase CK-MB (Mass) Troponin I, Quant Total Protein Albumin Globulin Albumin/Globulin Ratio Triglycerides Cholesterol LDL Cholesterol Direct HDL Cholesterol TSH 3rd Generation Blood Type Antibody Screen Assessment & Plan (1) EKG abnormalities Assessment and Plan: No atrial fibrillation at this time. Continue current medical management with ASA, amlodipine, plavix, lopressor. Status: Acute (2) Pacemaker Assessment and Plan: Awaiting pacemaker interrogation by [employer] Status: Chronic <Nilson Kirk - Last Filed: 02/09/17 11:42> Meds - Medications Medications: Current Medications Acetaminophen (Tylenol 650mg/20.3ml Solution Ud) 650 mg NG Q6 PRN PRN Reason: Fever >100.4 F Amlodipine Besylate (Norvasc) 10 mg PO DAILY [facility] Last Admin: 02/09/17 10:50 Dose: 10 mg Aspirin (Aspirin Chewable) 81 mg PO DAILY [facility] Clopidogrel Bisulfate (Plavix) 75 mg PO DAILY [facility] Last Admin: 02/09/17 10:48 Dose: 75 mg Famotidine (Pepcid) 20 mg PO BID [facility] Heparin Sodium (Porcine) (Heparin) 5,000 units SC Q12 [facility] Last Admin: 02/09/17 10:48 Dose: 5,000 units Hydroxyzine HCl (Atarax) 25 mg PO DAILY [facility] Last Admin: 02/09/17 11:00 Dose: 25 mg Azithromycin 500 mg/ Sodium (Chloride) 250 mls @ 250 mls/hr IVPB DAILY [facility] Last Admin: 02/09/17 10:52 Dose: 250 mls/hr Ceftriaxone Sodium 1 gm/ (Sodium Chloride) 100 mls @ 100 mls/hr IVPB DAILY [facility] Last Admin: 02/09/17 10:49 Dose: 100 mls/hr Dextrose/Sodium Chloride (Dextrose 5%/0.45% Ns 1000 Ml) 1,000 mls @ 50 mls/hr IV .Q20H [facility] Last Admin: 02/08/17 21:31 Dose: 50 mls/hr Insulin Human Regular (Novolin R) 0 unit SC Q6H [facility] PRN Reason: Protocol Last Admin: 02/09/17 08:18 Dose: 2 unit Metoprolol Tartrate (Lopressor) 25 mg PO Q12H [facility] Last Admin: 02/09/17 09:28 Dose: 25 mg Saccharomyces Boulardii (Florastor) 250 mg PO BID [facility] Last Admin: 02/09/17 10:52 Dose: 250 mg Sevelamer Carbonate (Renvela) 800 mg PO TIDCC [facility] Last Admin: 02/09/17 09:24 Dose: 800 mg Results - Vital Signs Recent Vital Signs: Last Vital Signs Temp 98.3 F 02/09/17 07:12 Pulse 68 02/09/17 07:12 Resp 18 02/09/17 07:12 BP 174/71 H 02/09/17 09:28 Pulse Ox 93 L 02/09/17 10:36 - Labs Result Diagrams: 02/09/17 08:03 02/09/17 08:03 Labs: Laboratory Results - last 24 hr 02/08/17 02/08/17 02/08/17 21:45 22:37 22:37 WBC RBC Hgb Hct MCV MCH MCHC RDW Plt Count MPV Neut % (Auto) Lymph % (Auto) [place] % (Auto) Eos % (Auto) Baso % (Auto) Neut # Lymph # [place] # Eos # Baso # PT INR APTT 29 Sodium Potassium Chloride Carbon Dioxide Anion Gap BUN Creatinine Est GFR ( Amer) Est GFR (Non-Af Amer) POC Glucose (mg/dL) 214 H Random Glucose Calcium Phosphorus Magnesium Total Bilirubin AST ALT Alkaline Phosphatase Total Creatine Kinase CK-MB (Mass) Troponin I, Quant Total Protein Albumin Globulin Albumin/Globulin Ratio Triglycerides Cholesterol LDL Cholesterol Direct HDL Cholesterol TSH 3rd Generation Blood Type A POSITIVE Antibody Screen Negative 02/08/17 02/09/17 02/09/17 22:37 01:57 03:17 WBC RBC Hgb Hct MCV MCH MCHC RDW Plt Count MPV Neut % (Auto) Lymph % (Auto) [place] % (Auto) Eos % (Auto) Baso % (Auto) Neut # Lymph # [place] # Eos # Baso # PT INR APTT Sodium Potassium Chloride Carbon Dioxide Anion Gap BUN Creatinine Est GFR ( Amer) Est GFR (Non-Af Amer) POC Glucose (mg/dL) 190 H Random Glucose Calcium Phosphorus Magnesium Total Bilirubin AST ALT Alkaline Phosphatase Total Creatine Kinase 57 47 L CK-MB (Mass) 0.78 0.77 Troponin I, Quant 0.1150 0.1220 H* Total Protein Albumin Globulin Albumin/Globulin Ratio Triglycerides Cholesterol LDL Cholesterol Direct HDL Cholesterol TSH 3rd Generation Blood Type Antibody Screen 02/09/17 02/09/17 02/09/17 06:44 08:03 08:03 WBC 5.5 RBC 3.39 L Hgb 9.9 L Hct 29.9 L MCV 88.2 MCH 29.1 MCHC 33.0 RDW 14.3 Plt Count 229 MPV 8.4 Neut % (Auto) 51.6 Lymph % (Auto) 33.5 [place] % (Auto) 9.3 Eos % (Auto) 5.0 H Baso % (Auto) 0.6 Neut # 2.8 Lymph # 1.8 [place] # 0.5 Eos # 0.3 Baso # 0.0 PT INR APTT Sodium 137 Potassium 4.7 Chloride 89 L Carbon Dioxide 35 H Anion Gap 18 BUN 34 H Creatinine 7.6 H* D Est GFR ( Amer) 9 Est GFR (Non-Af Amer) 7 POC Glucose (mg/dL) 193 H Random Glucose 170 H Calcium 8.8 Phosphorus 5.0 H Magnesium 2.2 Total Bilirubin 0.8 AST 17 D ALT 15 L Alkaline Phosphatase 94 Total Creatine Kinase CK-MB (Mass) Troponin I, Quant Total Protein 7.0 Albumin 4.0 Globulin 3.0 Albumin/Globulin Ratio 1.3 Triglycerides 231 H D Cholesterol 160 LDL Cholesterol Direct 65 HDL Cholesterol 21 L TSH 3rd Generation 0.74 Blood Type Antibody Screen 02/09/17 08:03 WBC RBC Hgb Hct MCV MCH MCHC RDW Plt Count MPV Neut % (Auto) Lymph % (Auto) [place] % (Auto) Eos % (Auto) Baso % (Auto) Neut # Lymph # [place] # Eos # Baso # PT 12.4 H INR 1.1 APTT 28 Sodium Potassium Chloride Carbon Dioxide Anion Gap BUN Creatinine Est GFR ( Amer) Est GFR (Non-Af Amer) POC Glucose (mg/dL) Random Glucose Calcium Phosphorus Magnesium Total Bilirubin AST ALT Alkaline Phosphatase Total Creatine Kinase CK-MB (Mass) Troponin I, Quant Total Protein Albumin Globulin Albumin/Globulin Ratio Triglycerides Cholesterol LDL Cholesterol Direct HDL Cholesterol TSH 3rd Generation Blood Type Antibody Screen Attending/Attestation - Attestation I have personally seen and examined this patient.: Yes I have fully participated in the care of the patient.: Yes I have reviewed all pertinent clinical information: Yes Notes (Text): 02/09/17 11:41 no atrial fibrillation on interrogation. Will adjust sensitivity of atrial lead to improve detection
[2017-02-09] MEDS: Saccharomyces Boulardi 250 mg Cap PO SCH ×2 (10:52→18:10)
[2017-02-09] MEDS: Azithromycin 500 MG in Sodium Chloride 0.9% 250 ML IVPB SCH (10:52)
[2017-02-09] MEDS ORDERED: Pantoprazole 40 mg EC Tab PO SCH (11:30)
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
--- NOTE | 2017-02-09 13:02 | CP.PCM.CON ---
History of Present Illness - History of Present Illness History of Present Illness: HPI: Patient is a 61 year old male with PMHx of DM, Htn, CVA in 2012, AK in 2012 , Pacemaker placement in 2012, presenting to the ED complaining of slurred speech and fever. Patient's at bedside giving history. Patient's went to wake up patient in AM, but he appeared a lot more lethargic than usual. When she tried to talk to him, she could not understand a word that he said, she said his speech was slurred. She also noticed he felt like he had a fever, so she brought him in to the hospital. At baseline, patient had no speech deficits since his last CVA, but the states his neck has been sidebent and rigid from him. He is also unable to ambulate due to fracturing his hip a few years ago, he is bedbound/ wheelchair bound at home. Patient currently has no acute complaints. The states his speech had improved since he has been in the hospital PMD: Dr. Bynum PMHx: As stated above PSHx: hernia repair, Gastric tube placement/removal, pacemaker placement Allergies: NKDA Fam hx: noncontributory Social hx: Denies smoking or drug hx. Former social drinker. Lives at home with . Events noted. Agree with neuro workup and treatment for pneumonia. Will arrange for dialysis in AM. Review of Systems - Review of Systems Systems not reviewed;Unavailable: Dementia Past Patient History - Tetanus Immunizations Tetanus Immunization: Unknown - Past Medical History & Family History Past Medical History?: Yes - Past Social History Smoking Status: Never Smoked - CARDIAC Hx Hypercholesterolemia: Yes Hx Hypertension: Yes - PULMONARY Hx Respiratory Disorders: No - NEUROLOGICAL HX Cerebrovascular Accident: Yes (right side residual weakness) - HEENT Hx HEENT Problems: Yes Hx Cataracts: Yes - RENAL Date of Last Dialysis Treatment: 01/06/17 - ENDOCRINE/METABOLIC Hx Diabetes Mellitus Type 2: Yes - HEMATOLOGICAL/ONCOLOGICAL Hx Blood Disorders: Yes Hx Blood Transfusions: Yes - INTEGUMENTARY Hx Dermatological Problems: No - MUSCULOSKELETAL/RHEUMATOLOGICAL Hx Fractures: Yes - GASTROINTESTINAL Hx Gastrointestinal Disorders: Yes Hx Constipation: Yes Other/Comment: history of PEG tube; no longer in - GENITOURINARY/GYNECOLOGICAL Hx Genitourinary Disorders: Yes Other/Comment: oliguria d/t dialysis - PSYCHIATRIC Hx Substance Use: No - SURGICAL HISTORY Hx Surgeries: Yes Other/Comment: hx of pacemaker and PEG - ANESTHESIA Hx Anesthesia: Yes Hx Anesthesia Reactions: No Meds Allergies/Adverse Reactions: Allergies Allergy/AdvReac Type Severity Reaction Status Date / Time No Known Allergies Allergy Verified 01/08/17 12:57 - Medications Medications: Current Medications Acetaminophen (Tylenol 650mg/20.3ml Solution Ud) 650 mg NG Q6 PRN PRN Reason: Fever >100.4 F Amlodipine Besylate (Norvasc) 10 mg PO DAILY [facility] Last Admin: 02/09/17 10:50 Dose: 10 mg Aspirin (Aspirin Chewable) 81 mg PO DAILY [facility] Clopidogrel Bisulfate (Plavix) 75 mg PO DAILY [facility] Last Admin: 02/09/17 10:48 Dose: 75 mg Famotidine (Pepcid) 20 mg PO BID [facility] Heparin Sodium (Porcine) (Heparin) 5,000 units SC Q12 [facility] Last Admin: 02/09/17 10:48 Dose: 5,000 units Hydroxyzine HCl (Atarax) 25 mg PO DAILY [facility] Last Admin: 02/09/17 11:00 Dose: 25 mg Azithromycin 500 mg/ Sodium (Chloride) 250 mls @ 250 mls/hr IVPB DAILY [facility] Last Admin: 02/09/17 10:52 Dose: 250 mls/hr Ceftriaxone Sodium 1 gm/ (Sodium Chloride) 100 mls @ 100 mls/hr IVPB DAILY [facility] Last Admin: 02/09/17 10:49 Dose: 100 mls/hr Dextrose/Sodium Chloride (Dextrose 5%/0.45% Ns 1000 Ml) 1,000 mls @ 50 mls/hr IV .Q20H [facility] Last Admin: 02/08/17 21:31 Dose: 50 mls/hr Insulin Human Regular (Novolin R) 0 unit SC Q6H [facility] PRN Reason: Protocol Last Admin: 02/09/17 08:18 Dose: 2 unit Metoprolol Tartrate (Lopressor) 25 mg PO Q12H [facility] Last Admin: 02/09/17 09:28 Dose: 25 mg Saccharomyces Boulardii (Florastor) 250 mg PO BID [facility] Last Admin: 02/09/17 10:52 Dose: 250 mg Sevelamer Carbonate (Renvela) 800 mg PO TIDCC [facility] Last Admin: 02/09/17 09:24 Dose: 800 mg Physical Exam - Constitutional Appears: No Acute Distress, Chronically Ill - Head Exam Head Exam: ATRAUMATIC, NORMAL INSPECTION - Eye Exam Eye Exam: EOMI, Normal appearance - Neck Exam Neck exam: Positive for: Normal Inspection. Negative for: Tenderness - Respiratory Exam Respiratory Exam: Decreased Breath Sounds, NORMAL BREATHING PATTERN - Cardiovascular Exam Cardiovascular Exam: Irregular Rhythm, +S1 - GI/Abdominal Exam GI & Abdominal Exam: Soft. absent: Tenderness - Extremities Exam Extremities exam: Positive for: normal inspection. Negative for: tenderness - Neurological Exam Neurological exam: Altered, Motor Sensory Deficit Results - Vital Signs Recent Vital Signs: Last Vital Signs Temp 98.3 F 02/09/17 07:12 Pulse 68 02/09/17 07:12 Resp 18 02/09/17 07:12 BP 174/71 H 02/09/17 09:28 Pulse Ox 93 L 02/09/17 10:36 - Labs Result Diagrams: 02/09/17 08:03 02/09/17 08:03 Labs: Laboratory Results - last 24 hr 02/08/17 02/08/17 02/08/17 21:45 22:37 22:37 WBC RBC Hgb Hct MCV MCH MCHC RDW Plt Count MPV Neut % (Auto) Lymph % (Auto) Millard % (Auto) Eos % (Auto) Baso % (Auto) Neut # Lymph # Millard # Eos # Baso # PT INR APTT 29 Sodium Potassium Chloride Carbon Dioxide Anion Gap BUN Creatinine Est GFR ( Amer) Est GFR (Non-Af Amer) POC Glucose (mg/dL) 214 H Random Glucose Calcium Phosphorus Magnesium Total Bilirubin AST ALT Alkaline Phosphatase Total Creatine Kinase CK-MB (Mass) Troponin I, Quant Total Protein Albumin Globulin Albumin/Globulin Ratio Triglycerides Cholesterol LDL Cholesterol Direct HDL Cholesterol TSH 3rd Generation Blood Type A POSITIVE Antibody Screen Negative 02/08/17 02/09/17 02/09/17 22:37 01:57 03:17 WBC RBC Hgb Hct MCV MCH MCHC RDW Plt Count MPV Neut % (Auto) Lymph % (Auto) Millard % (Auto) Eos % (Auto) Baso % (Auto) Neut # Lymph # Millard # Eos # Baso # PT INR APTT Sodium Potassium Chloride Carbon Dioxide Anion Gap BUN Creatinine Est GFR ( Amer) Est GFR (Non-Af Amer) POC Glucose (mg/dL) 190 H Random Glucose Calcium Phosphorus Magnesium Total Bilirubin AST ALT Alkaline Phosphatase Total Creatine Kinase 57 47 L CK-MB (Mass) 0.78 0.77 Troponin I, Quant 0.1150 0.1220 H* Total Protein Albumin Globulin Albumin/Globulin Ratio Triglycerides Cholesterol LDL Cholesterol Direct HDL Cholesterol TSH 3rd Generation Blood Type Antibody Screen 02/09/17 02/09/17 02/09/17 06:44 08:03 08:03 WBC 5.5 RBC 3.39 L Hgb 9.9 L Hct 29.9 L MCV 88.2 MCH 29.1 MCHC 33.0 RDW 14.3 Plt Count 229 MPV 8.4 Neut % (Auto) 51.6 Lymph % (Auto) 33.5 Millard % (Auto) 9.3 Eos % (Auto) 5.0 H Baso % (Auto) 0.6 Neut # 2.8 Lymph # 1.8 Millard # 0.5 Eos # 0.3 Baso # 0.0 PT INR APTT Sodium 137 Potassium 4.7 Chloride 89 L Carbon Dioxide 35 H Anion Gap 18 BUN 34 H Creatinine 7.6 H* D Est GFR ( Amer) 9 Est GFR (Non-Af Amer) 7 POC Glucose (mg/dL) 193 H Random Glucose 170 H Calcium 8.8 Phosphorus 5.0 H Magnesium 2.2 Total Bilirubin 0.8 AST 17 D ALT 15 L Alkaline Phosphatase 94 Total Creatine Kinase CK-MB (Mass) Troponin I, Quant Total Protein 7.0 Albumin 4.0 Globulin 3.0 Albumin/Globulin Ratio 1.3 Triglycerides 231 H D Cholesterol 160 LDL Cholesterol Direct 65 HDL Cholesterol 21 L TSH 3rd Generation 0.74 Blood Type Antibody Screen 02/09/17 08:03 WBC RBC Hgb Hct MCV MCH MCHC RDW Plt Count MPV Neut % (Auto) Lymph % (Auto) Millard % (Auto) Eos % (Auto) Baso % (Auto) Neut # Lymph # Millard # Eos # Baso # PT 12.4 H INR 1.1 APTT 28 Sodium Potassium Chloride Carbon Dioxide Anion Gap BUN Creatinine Est GFR ( Amer) Est GFR (Non-Af Amer) POC Glucose (mg/dL) Random Glucose Calcium Phosphorus Magnesium Total Bilirubin AST ALT Alkaline Phosphatase Total Creatine Kinase CK-MB (Mass) Troponin I, Quant Total Protein Albumin Globulin Albumin/Globulin Ratio Triglycerides Cholesterol LDL Cholesterol Direct HDL Cholesterol TSH 3rd Generation Blood Type Antibody Screen Assessment & Plan (1) Slurred speech Status: Acute Priority: High (2) CVA, old, aphasia Status: Acute (3) Diabetes mellitus Status: Chronic (4) ESRD (end stage renal disease) Status: Chronic (5) HTN (hypertension) Status: Chronic - Assessment and Plan (Free Text) Plan: Arrange for dialysis IV ABs Neuro workup
--- NOTE | 2017-02-09 13:12 | CARD ---
APPROVED REPORT EKG Measurement Heart [id number] <Conclusion> Atrial fibrillation Left ventricular hypertrophy with QRS widening Cannot rule out Septal infarct, age undetermined Marked ST abnormality, possible inferior subendocardial injury Abnormal ECG
[2017-02-09] MEDS: Dextrose 5%/0.45% NS 1,000 ML IV SCH ×2 (18:09→22:42)
--- NOTE | 2017-02-09 21:14 | CARD ---
APPROVED REPORT EXAM: Two-dimensional and M-mode echocardiogram with Doppler and color Doppler. Other Information Quality : AverageRhythm : NSR INDICATION CVA/TIA Atrial Fibrillation Surgery/Intervention Pacemaker: RISK FACTORS Hypertension Diabetes M-Mode DIMENSIONS RVDd1.68 (2.1-3.2cm)Left Atrium (MM)3.79 (2.5-4.0cm) IVSd1.37 (0.7-1.1cm)Aortic Root4.02 (2.2-3.7cm) LVDd6.40 (4.0-5.6cm)Aortic Cusp Exc.2.07 (1.5-2.0cm) PWd1.48 (0.7-1.1cm)FS (%) 32 % LVDs4.37 (2.0-3.8cm)LVEF (%)59 (>50%) Aortic Valve AoV Peak Idihtagp878.2cm/Jorge Peak GR.8mmHg Mitral Valve MV E Lzsuipii85.5cm/sMV A Ccmzhwty30.9cm/sE/A ratio1.2 TDI E/Lateral E'0.0E/Medial E'0.0 Tricuspid Valve TR Peak Gkomrosu310fn/sTR Peak Gr.[id number] LEFT VENTRICLE The left ventricle is normal size. There is mild concentric left ventricular hypertrophy. Left ventricle systolic function is mildly impaired. The Ejection Fraction is 50-55%. There is global hypokinesis of the left ventricle. Transmitral Doppler flow pattern is Grade I-abnormal relaxation pattern. There is no ventricular septal defect visualized. RIGHT VENTRICLE The right ventricle is normal size. The right ventricular systolic function is normal. There is a pacemaker lead in the right ventricle. ATRIA The left atrium size is normal. The right atrium size is normal. AORTIC VALVE The aortic valve is tri-cuspid. The aortic valve is normal in structure. No aortic regurgitation is present. There is no aortic valvular stenosis. MITRAL VALVE Mitral annular calcification is mild. There is no evidence of mitral valve prolapse. Mitral regurgitation is trace. TRICUSPID VALVE The tricuspid valve is normal in structure. There is mild tricuspid regurgitation. Right ventricular systolic pressure is estimated at 50-60 mmHg. There is moderate-severe pulmonary hypertension. PULMONIC VALVE The pulmonary valve is normal in structure. There is trace pulmonic valvular regurgitation. GREAT VESSELS The aortic root is mildly enlarged. The IVC is normal in size and collapses >50% with inspiration. PERICARDIAL EFFUSION There is no pericardial effusion. <Conclusion> There is mild concentric left ventricular hypertrophy. Left ventricle systolic function is mildly impaired. The Ejection Fraction is 50-55%. Transmitral Doppler flow pattern is Grade I-abnormal relaxation pattern. Mitral regurgitation is trace. There is moderate-severe pulmonary hypertension. The aortic root is mildly enlarged.
[2017-02-09 21:54] LABS: RBC URINE < 1 /hpf (0-3); URINE BILIRUBIN NEGATIVE (NEGATIVE); URINE BLOOD NEGATIVE (NEGATIVE); URINE COLOR Yellow (YELLOW); URINE GLUCOSE (UA) 1+ mg/dL (Normal); URINE KETONE NEGATIVE (NEGATIVE); URINE LEUKOCYTE ESTERASE NEG Leu/uL (Negative); URINE PROTEIN 2+ mg/dL (NEGATIVE); URINE UROBILINOGEN NORMAL mg/dL (0.2-1.0); WBC URINE 1 /hpf (0-5)
[2017-02-10] MEDS: (Novolin R) Insulin Human Regular 100 units/ml vial SC SCH ×3 (02:15→14:16)
[2017-02-10 06:33] LABS: BASO % 0.5 % (0.0-2.0); EOS # 0.5 K/uL (0.0-0.7); EOS % 9.6 % (0.0-4.0); LYMPH # 1.9 K/uL (1.0-4.3); LYMPH % 35.6 % (20.0-40.0); MEAN CELL VOLUME 87.9 fL (80.0-94.0); MEAN CORPUSCULAR HEMOGLOBIN 28.5 pg (27.0-31.0); MEAN CORPUSCULAR HGB CONC 32.4 g/dL (33.0-37.0); MEAN PLATELET VOLUME 8.5 fL (7.2-11.7); MONO # 0.5 K/uL (0.0-0.8); MONO % 8.5 % (0.0-10.0); NRBC % 0.1 % (0.0-2.0); RED CELL DISTRIBUTION WIDTH 14.3 % (11.5-14.5); WHITE BLOOD COUNT 5.4 K/uL (4.8-10.8)
[2017-02-10 06:42] LABS: POTASSIUM 4.6 mmol/L (3.6-5.2)
[2017-02-10 06:44] LABS: ALB/GLOB RATIO 1.3 (1.0-2.1); BILIRUBIN,TOTAL 0.7 mg/dL (0.2-1.3); TOTAL PROTEIN 6.4 g/dL (6.3-8.3)
[2017-02-10 06:45] LABS: CALCIUM 8.5 mg/dl (8.6-10.4); MAGNESIUM 2.1 mg/dL (1.6-2.3); PHOSPHOROUS 5.2 mg/dL (2.5-4.5)
--- NOTE | 2017-02-10 07:21 | CP.PCM.PN ---
<Sarah Clement - Last Filed: 02/10/17 11:24> Subjective - Date & Time of Evaluation Date of Evaluation: 02/10/17 Time of Evaluation: 07:16 - Subjective Subjective: Patient seen and examined at hemodialysis. Patient is speaking more clearly today. He notes he feels well and is asking when he will be discharged home. Patient denies headache but continues to have chronic neck stiffness. He is tolerating finely chopped diet well and having normal bowel movements. Patient denies fever, chills, chest pain, shortness of breath, palpitations, nausea, vomiting, abdominal pain and dysuria. Objective - Vital Signs/Intake and Output Vital Signs (last 24 hours): Temp Pulse Resp BP Pulse Ox 98.4 F 61 20 158/73 H 96 02/10/17 00:17 02/10/17 01:15 02/10/17 00:17 02/10/17 00:17 02/10/17 00:17 - Medications Medications: Current Medications Acetaminophen (Tylenol 650mg/20.3ml Solution Ud) 650 mg NG Q6 PRN PRN Reason: Fever >100.4 F Amlodipine Besylate (Norvasc) 10 mg PO DAILY [facility] Last Admin: 02/09/17 10:50 Dose: 10 mg Aspirin (Aspirin Chewable) 81 mg PO DAILY [facility] Last Admin: 02/09/17 10:13 Dose: 81 mg Clopidogrel Bisulfate (Plavix) 75 mg PO DAILY [facility] Last Admin: 02/09/17 10:48 Dose: 75 mg Famotidine (Pepcid) 20 mg PO BID [facility] Last Admin: 02/09/17 18:10 Dose: 20 mg Heparin Sodium (Porcine) (Heparin) 5,000 units SC Q12 [facility] Last Admin: 02/09/17 21:07 Dose: 5,000 units Hydroxyzine HCl (Atarax) 25 mg PO DAILY [facility] Last Admin: 02/09/17 11:00 Dose: 25 mg Azithromycin 500 mg/ Sodium (Chloride) 250 mls @ 250 mls/hr IVPB DAILY [facility] Last Admin: 02/09/17 10:52 Dose: 250 mls/hr Ceftriaxone Sodium 1 gm/ (Sodium Chloride) 100 mls @ 100 mls/hr IVPB DAILY [facility] Last Admin: 02/09/17 10:49 Dose: 100 mls/hr Dextrose/Sodium Chloride (Dextrose 5%/0.45% Ns 1000 Ml) 1,000 mls @ 50 mls/hr IV .Q20H [facility] Last Admin: 02/09/17 22:42 Dose: 50 mls/hr Insulin Human Regular (Novolin R) 0 unit SC Q6H [facility] PRN Reason: Protocol Last Admin: 02/10/17 02:15 Dose: Not Given Metoprolol Tartrate (Lopressor) 25 mg PO Q12H [facility] Last Admin: 02/09/17 20:25 Dose: 25 mg Saccharomyces Boulardii (Florastor) 250 mg PO BID [facility] Last Admin: 02/09/17 18:10 Dose: 250 mg Sevelamer Carbonate (Renvela) 800 mg PO TIDCC [facility] Last Admin: 02/09/17 18:10 Dose: 800 mg - Labs Labs: 02/10/17 06:18 02/10/17 06:18 PT 12.4 SECONDS (9.7-12.2) H 02/09/17 08:03 INR 1.1 02/09/17 08:03 APTT 28 SECONDS (21-34) 02/09/17 08:03 - Constitutional Appears: Non-toxic, No Acute Distress - Head Exam Head Exam: ATRAUMATIC, NORMAL INSPECTION, NORMOCEPHALIC - Eye Exam Eye Exam: EOMI, Normal appearance - ENT Exam ENT Exam: Mucous Membranes Moist - Neck Exam Neck Exam: absent: Full ROM Additional comments: side bent right - Respiratory Exam Respiratory Exam: Clear to Ausculation Bilateral, NORMAL BREATHING PATTERN. absent: Rales, Rhonchi, Wheezes - Cardiovascular Exam Cardiovascular Exam: +S1, +S2. absent: Bradycardia, Tachycardia, Murmur - GI/Abdominal Exam GI & Abdominal Exam: Soft, Normal Bowel Sounds. absent: Firm, Guarding, Tenderness - Extremities Exam Extremities Exam: Normal Inspection. absent: Pedal Edema, Tenderness - Neurological Exam Neurological Exam: Alert, Awake, Oriented x3 Neuro motor strength exam: Left Upper Extremity: 5, Right Upper Extremity: 5, Left Lower Extremity: 4, Right Lower Extremity: 4 - Psychiatric Exam Psychiatric exam: Normal Affect, Normal Mood - Skin Skin Exam: Intact, Normal Color Assessment and Plan - Assessment and Plan (Free Text) Assessment: (1) Slurred speech likely secondary to metabolic causes Rule out CVA Patient has history of previous CVA Head CT- 02/08/17- No acute intracranial hemorrhage. Chronic bilateral basal nuclei ischemic changes. Moderate atrophy (Please see full report). Neuro, Dr. Hernandez, consulted. Follow-up recommendations. Recommends patient be continued on dual antiplatelet therapy for about 3 weeks as per the CHANCE trial. Afterward, continue only Plavix 75 mg daily, indefinitely. f/u repeat CT Head without contrast ASA 325 mg tab given Carotid Doppler - mild disease to bilateral carotid arteries Lipid Panel: Triglycerides 231, Cholesterol 160, LDL 65, HDL 21 Tolerating finely chopped diet with thin liquids. NG tube discontinued. ASA 81mg po daily Continue home med: Plavix 75mg PO Daily (2) Fever WBC 5.4, Tmax 99.7 over 24 hours Tylenol 650 mg NG Q6 PRN for fever Tmax in ED- 102.8. WBC- 6.2. Lactate 1.1. f/u blood and urine cultures CXR- 02/08/17- elevation of right hemidiaphragm. R basilar atelectasis with possible small effusion. R basilar infiltrate not excluded. Given one dose of Vanco 1gm IVPB. Continue Azithromycin 500mg IVPB Daily (started 02/08/17) and Ceftriaxone 1gm IVPB Daily (started 02/08/17) procalcitonin mildly elevated at 0.93 (3) EKG abnormalities EKG shows questionable atrial fibrillation with t wave changes compared to previous EKG in 2015. Echocardiogram: mild concentric left ventricular hypertrophy. Left ventricle systolic function mildly impaired. EF is 50-55%. Grade I abnormal relaxation pattern. Trace mitral regurgitation. Moderate-severe pulmonary hypertension. Aortic root is mildly enlarged (see full report). RAFFY: 0.1150 (02/08 22:37), 0.1220 (02/09 03:17). Dr. Kirk notes patient had normal stress test in the past. Consult Cardio- Dr. Kirk. Per Dr. Kirk - no atrial fibrillation identified on interrogation of pacemaker. Atrial leads will be adjusted. [employer] contacted and confirmed pacemaker in place. HAS BLED score of 4- 8.9% risk of bleeding. (4) Diabetes mellitus glucose 112 Accuchecks Q6h. home insulin- Levemir 6U in AM and 14U in PM - held RISS. f/u HgbA1C Monitor (5) ESRD (end stage renal disease) BUN/CR: 45/9.4 Nephrology- Dr. Juarez consulted. On Dialysis TTHS. Patient for dialysis today. Continue Renvela 800mg PO TID (6) HTN (hypertension) BP: 158/73 Continue home meds: Norvasc 10mg PO Daily. Metoprolol 25mg PO BID. Hydralazine 10mg PO Daily Monitor (7) Prophylactic measure Protonix 40mg PO Daily [facility] Florastor 250 mg po BID <Vero Hudson V - Last Filed: 02/12/17 07:24> Objective - Vital Signs/Intake and Output Vital Signs (last 24 hours): Temp Pulse Resp BP Pulse Ox 98.8 F 60 20 155/66 H 96 02/11/17 23:00 02/12/17 00:00 02/11/17 23:00 02/11/17 23:00 02/11/17 23:00 Intake and Output: 02/12/17 02/12/17 06:59 18:59 Intake Total 300 Output Total 100 Balance 200 - Medications Medications: Current Medications Acetaminophen (Tylenol 650mg/20.3ml Solution Ud) 650 mg NG Q6 PRN PRN Reason: Fever >100.4 F Amlodipine Besylate (Norvasc) 10 mg PO DAILY [facility] Last Admin: 02/11/17 09:27 Dose: 10 mg Aspirin (Aspirin Chewable) 81 mg PO DAILY [facility] Last Admin: 02/11/17 09:28 Dose: 81 mg Clopidogrel Bisulfate (Plavix) 75 mg PO DAILY [facility] Last Admin: 02/11/17 09:27 Dose: 75 mg Docusate Sodium (Colace) 100 mg PO BID [facility] Last Admin: 02/11/17 17:30 Dose: 100 mg Famotidine (Pepcid) 20 mg PO BID [facility] Last Admin: 02/11/17 17:30 Dose: 20 mg Heparin Sodium (Porcine) (Heparin) 5,000 units SC Q12 [facility] Last Admin: 02/11/17 22:26 Dose: 5,000 units Hydroxyzine HCl (Atarax) 25 mg PO DAILY [facility] Last Admin: 02/11/17 09:26 Dose: 25 mg Azithromycin 500 mg/ Sodium (Chloride) 250 mls @ 250 mls/hr IVPB DAILY [facility] Last Admin: 02/11/17 10:36 Dose: 250 mls/hr Ceftriaxone Sodium 1 gm/ (Sodium Chloride) 100 mls @ 100 mls/hr IVPB DAILY [facility] Last Admin: 02/11/17 09:26 Dose: 100 mls/hr Vancomycin/Sodium Chloride (Vancocin) 1 gm in 200 mls @ 133.333 mls/hr IVPB TTS [facility] Stop: 02/17/17 10:01 Insulin Human Regular (Novolin R) 0 unit SC Q6H [facility] PRN Reason: Protocol Last Admin: 02/12/17 02:40 Dose: Not Given Metoprolol Tartrate (Lopressor) 25 mg PO Q12H [facility] Last Admin: 02/11/17 09:27 Dose: 25 mg Saccharomyces Boulardii (Florastor) 250 mg PO BID [facility] Last Admin: 02/11/17 17:30 Dose: 250 mg Sevelamer Carbonate (Renvela) 800 mg PO TIDCC [facility] Last Admin: 02/11/17 17:30 Dose: 800 mg - Labs Labs: 02/12/17 06:02 02/12/17 06:02 PT 12.4 SECONDS (9.7-12.2) H 02/09/17 08:03 INR 1.1 02/09/17 08:03 APTT 28 SECONDS (21-34) 02/09/17 08:03 Attending/Attestation - Attestation I have personally seen and examined this patient.: Yes I have fully participated in the care of the patient.: Yes I have reviewed all pertinent clinical information, including history, physical exam and plan: Yes Notes (Text): This is a late computer entry for 02/10/17. Patient seen, examined and case discussed with day-time resident. Patient ordered for repeat CT head and noted for chronic issues. Patient's dysarthria is improving. Patient is currently on IV antibiotics. Blood culture shows prelim gram negative cocci, will consult infectious disease. Patient currently on IV abx to cover for infection. Assessment/Plan (1) Slurred speech Status: Acute Comment: Likely secondary to metabolic changes Head CT- 02/08/17- No acute intracranial hemorrhage. Chronic bilateral basal nuclei ischemic changes. Moderate atrophy (Please see full report). Head CT-02/10/17 - chronic bilateral basal nuclei ischemic changes are seen agan. Note: that the possibility of a small hyercuate infract on may not be visualized on initial CT imaging. Suspect minor periventircular white matter ischemic changes as well. Mild to moderate generalized volume los (Please see full report) Consult Neuro- Dr. Bradley. Carotids: mild disease noted on prelim Swallow eval: finely chopped solids for ease and thin liquids. Asa 81mg PO Daily; Plavix 75mg PO Daily for 3 weeks and then after Plavix indefinitely per neurology hgba1c:8.4, Lipid panel: Chol:231 TG;160 HDL:65 LDL: 21 (2) Fever Status: Acute Comment: Infectious disease (Dr. Jeffers) on board-->help appreciated Tmax in ED- 102.8. WBC- 6.2. Lactate 1.1. F/u blood and urine cultures. f/u UA. CXR- 02/08/17- elevation of right hemidiaphragm. R basilar atelectasis with possible small effusion. R basilar infiltrate not excluded. Received one dose of Vanco 1gm IVPB in the ED, and during dialysis today In the ED, patient started on Azithromycin 500mg IVPB Daily (02/08/17). Started on Ceftriaxone 1gm IVPB Daily (02/08/17), Vancomycin 1gram IV TTHS (active since ) Florastor 250mg PO bid Procalcitonin:0.93 Strep pneumonie, urine legionella, and Mycoplasma IgM: negative Blood cultures: prelim read (3) EKG abnormalities Non-STEMI Status: Acute Comment: Consult Cardio- Dr. Kirk. EKG shows questionable atrial fibrillation with t wave changes compared to previous EKG in 2015. Interrogorated no noted atrial fibrillation Echocardiogram: mild concentric left ventricular hypertrophy. Left ventricle systolic function mildly impaired. EF is 50-55%. Grade I abnormal relaxation pattern. Trace mitral regurgitation. Moderate-severe pulmonary hypertension. Aortic root is mildly enlarged (see full report). Pacemaker interrogated: no atrial fibrillation noted Continue Aspirin 81mg Po daily and Plavix 75mg Po daily (4) Diabetes mellitus Status: Chronic Comment: Accuchecks Q6h. hgba1c:8.4 Hold off on home insulin- Levemir 6U in AM and 14U in PM due to NPO. hgba1c:8.4, Lipid panel: Chol:231 TG;160 HDL:65 LDL: 21 (5) ESRD (end stage renal disease) Status: Chronic Comment: Consult nephro- Dr. Juarez. on Dialysis TTHS. Continue Renvela 800mg PO TID Consent for dialysis obtained by the resident (6) HTN (hypertension) Status: Chronic Comment: Continue home meds: Norvasc 10mg PO Daily. Metoprolol 25mg PO BID. Patient is ESRD on //Thu as in patient (7) Prior history of CVA Head CT- 02/08/17- No acute intracranial hemorrhage. Chronic bilateral basal nuclei ischemic changes. Moderate atrophy (Please see full report). Consult Neuro- DrRick Bradley. Head CT-02/10/17 - chronic bilateral basal nuclei ischemic changes are seen agan. Note: that the possibility of a small hyercuate infract on may not be visualized on initial CT imaging. Suspect minor periventircular white matter ischemic changes as well. Mild to moderate generalized volume los (Please see full report) (8) Prophylactic measure Status: Acute Comment: Protonix 40mg PO Daily. SCDs b/l Heparin 5000 units subq 12hours PT/OT eval Swallow eval: finely chopped solids for ease and thin liquids.
[2017-02-10] MEDS: Saccharomyces Boulardi 250 mg Cap PO SCH ×2 (10:46→19:45)
--- NOTE | 2017-02-10 11:03 | CP.PCM.PN ---
Subjective - Date & Time of Evaluation Date of Evaluation: 02/10/17 Time of Evaluation: 11:02 - Subjective Subjective: seen in hd today, arousable, able to answer questions estimated uf 2.5L bp acceptable labs reviewed Objective - Vital Signs/Intake and Output Vital Signs (last 24 hours): Temp Pulse Resp BP Pulse Ox 98 F 60 16 153/67 H 99 02/10/17 09:15 02/10/17 10:28 02/10/17 10:28 02/10/17 10:28 02/10/17 09:15 - Medications Medications: Current Medications Acetaminophen (Tylenol 650mg/20.3ml Solution Ud) 650 mg NG Q6 PRN PRN Reason: Fever >100.4 F Amlodipine Besylate (Norvasc) 10 mg PO DAILY [facility] Last Admin: 02/09/17 10:50 Dose: 10 mg Aspirin (Aspirin Chewable) 81 mg PO DAILY [facility] Last Admin: 02/10/17 10:46 Dose: Not Given Clopidogrel Bisulfate (Plavix) 75 mg PO DAILY [facility] Last Admin: 02/09/17 10:48 Dose: 75 mg Famotidine (Pepcid) 20 mg PO BID [facility] Last Admin: 02/10/17 10:47 Dose: Not Given Heparin Sodium (Porcine) (Heparin) 5,000 units SC Q12 [facility] Last Admin: 02/10/17 10:47 Dose: Not Given Hydroxyzine HCl (Atarax) 25 mg PO DAILY [facility] Last Admin: 02/09/17 11:00 Dose: 25 mg Azithromycin 500 mg/ Sodium (Chloride) 250 mls @ 250 mls/hr IVPB DAILY [facility] Last Admin: 02/09/17 10:52 Dose: 250 mls/hr Ceftriaxone Sodium 1 gm/ (Sodium Chloride) 100 mls @ 100 mls/hr IVPB DAILY [facility] Last Admin: 02/09/17 10:49 Dose: 100 mls/hr Dextrose/Sodium Chloride (Dextrose 5%/0.45% Ns 1000 Ml) 1,000 mls @ 50 mls/hr IV .Q20H [facility] Last Admin: 02/09/17 22:42 Dose: 50 mls/hr Insulin Human Regular (Novolin R) 0 unit SC Q6H [facility] PRN Reason: Protocol Last Admin: 02/10/17 08:23 Dose: Not Given Metoprolol Tartrate (Lopressor) 25 mg PO Q12H [facility] Last Admin: 02/10/17 10:47 Dose: Not Given Saccharomyces Boulardii (Florastor) 250 mg PO BID [facility] Last Admin: 02/10/17 10:46 Dose: Not Given Sevelamer Carbonate (Renvela) 800 mg PO TIDCC [facility] Last Admin: 02/10/17 07:59 Dose: 800 mg - Labs Labs: 02/10/17 06:18 02/10/17 06:18 PT 12.4 SECONDS (9.7-12.2) H 02/09/17 08:03 INR 1.1 02/09/17 08:03 APTT 28 SECONDS (21-34) 02/09/17 08:03 - Constitutional Appears: Non-toxic, No Acute Distress, Older Than Stated Age - Head Exam Head Exam: NORMAL INSPECTION - Eye Exam Eye Exam: Normal appearance - ENT Exam ENT Exam: Mucous Membranes Moist, Normal Exam - Neck Exam Neck Exam: Normal Inspection - Respiratory Exam Respiratory Exam: Clear to Ausculation Bilateral, NORMAL BREATHING PATTERN - Cardiovascular Exam Cardiovascular Exam: REGULAR RHYTHM, RRR - GI/Abdominal Exam GI & Abdominal Exam: Distended, Soft, Normal Bowel Sounds - Extremities Exam Extremities Exam: Normal Inspection (lue av fistula) Assessment and Plan (1) Pneumonia Status: Acute (2) Slurred speech Status: Acute (3) ESRD (end stage renal disease) Status: Chronic (4) Diabetes mellitus Status: Chronic (5) HTN (hypertension) Status: Chronic - Assessment and Plan (Free Text) Assessment: hd today and tts bp acceptable neuro management
--- NOTE | 2017-02-10 11:28 | CP.PCM.PN ---
<Be Martin - Last Filed: 02/10/17 16:26> Subjective - Date & Time of Evaluation Date of Evaluation: 02/10/17 Time of Evaluation: 11:26 - Subjective Subjective: Pt seen and examined at bedside. No acute events overnight as per nursing. Pt is able to speak more clearly than yesterday. Pt states that he believes he is at his baseline and does not feel tired or lethargic. NGT removed yesterday. Pt with no acute complaints at this time. Denies CP, SOB, N/V/D. Objective - Vital Signs/Intake and Output Vital Signs (last 24 hours): Temp Pulse Resp BP Pulse Ox 98 F 60 16 153/67 H 99 02/10/17 09:15 02/10/17 10:28 02/10/17 10:28 02/10/17 10:28 02/10/17 09:15 - Medications Medications: Current Medications Acetaminophen (Tylenol 650mg/20.3ml Solution Ud) 650 mg NG Q6 PRN PRN Reason: Fever >100.4 F Amlodipine Besylate (Norvasc) 10 mg PO DAILY [facility] Last Admin: 02/09/17 10:50 Dose: 10 mg Aspirin (Aspirin Chewable) 81 mg PO DAILY [facility] Last Admin: 02/10/17 10:46 Dose: Not Given Clopidogrel Bisulfate (Plavix) 75 mg PO DAILY [facility] Last Admin: 02/09/17 10:48 Dose: 75 mg Famotidine (Pepcid) 20 mg PO BID [facility] Last Admin: 02/10/17 10:47 Dose: Not Given Heparin Sodium (Porcine) (Heparin) 5,000 units SC Q12 [facility] Last Admin: 02/10/17 10:47 Dose: Not Given Hydroxyzine HCl (Atarax) 25 mg PO DAILY [facility] Last Admin: 02/09/17 11:00 Dose: 25 mg Azithromycin 500 mg/ Sodium (Chloride) 250 mls @ 250 mls/hr IVPB DAILY [facility] Last Admin: 02/09/17 10:52 Dose: 250 mls/hr Ceftriaxone Sodium 1 gm/ (Sodium Chloride) 100 mls @ 100 mls/hr IVPB DAILY [facility] Last Admin: 02/09/17 10:49 Dose: 100 mls/hr Dextrose/Sodium Chloride (Dextrose 5%/0.45% Ns 1000 Ml) 1,000 mls @ 50 mls/hr IV .Q20H [facility] Last Admin: 02/09/17 22:42 Dose: 50 mls/hr Insulin Human Regular (Novolin R) 0 unit SC Q6H [facility] PRN Reason: Protocol Last Admin: 02/10/17 08:23 Dose: Not Given Metoprolol Tartrate (Lopressor) 25 mg PO Q12H [facility] Last Admin: 02/10/17 10:47 Dose: Not Given Saccharomyces Boulardii (Florastor) 250 mg PO BID [facility] Last Admin: 02/10/17 10:46 Dose: Not Given Sevelamer Carbonate (Renvela) 800 mg PO TIDCC [facility] Last Admin: 02/10/17 07:59 Dose: 800 mg - Labs Labs: 02/10/17 06:18 02/10/17 06:18 PT 12.4 SECONDS (9.7-12.2) H 02/09/17 08:03 INR 1.1 02/09/17 08:03 APTT 28 SECONDS (21-34) 02/09/17 08:03 - Constitutional Appears: Non-toxic, No Acute Distress - Head Exam Head Exam: ATRAUMATIC, NORMAL INSPECTION, NORMOCEPHALIC - Respiratory Exam Respiratory Exam: Clear to Ausculation Bilateral, NORMAL BREATHING PATTERN. absent: Rhonchi, Wheezes - Cardiovascular Exam Cardiovascular Exam: RRR, +S1, +S2 - GI/Abdominal Exam GI & Abdominal Exam: Soft, Normal Bowel Sounds. absent: Tenderness - Extremities Exam Extremities Exam: Normal Inspection. absent: Pedal Edema - Neurological Exam Neurological Exam: Alert, Awake Assessment and Plan (1) EKG abnormalities Assessment & Plan: No atrial fibrillation on interrogation Atrial lead sensitivity adjusted Pt tolerating well Continue current medical management Status: Acute (2) Pacemaker Assessment & Plan: Pacemaker interrogation showed no atrial fibrillation. Atrial leads adjusted Rate controlled Status: Chronic <Nilson Kirk - Last Filed: 02/11/17 10:08> Objective - Vital Signs/Intake and Output Vital Signs (last 24 hours): Temp Pulse Resp BP Pulse Ox 98.7 F 84 18 158/79 H 100 02/11/17 07:15 02/11/17 07:15 02/11/17 07:15 02/11/17 09:27 02/11/17 07:15 Intake and Output: 02/11/17 02/11/17 06:59 18:59 Intake Total 850 Output Total 0 Balance 850 - Medications Medications: Current Medications Acetaminophen (Tylenol 650mg/20.3ml Solution Ud) 650 mg NG Q6 PRN PRN Reason: Fever >100.4 F Amlodipine Besylate (Norvasc) 10 mg PO DAILY [facility] Last Admin: 02/11/17 09:27 Dose: 10 mg Aspirin (Aspirin Chewable) 81 mg PO DAILY [facility] Last Admin: 02/11/17 09:28 Dose: 81 mg Clopidogrel Bisulfate (Plavix) 75 mg PO DAILY [facility] Last Admin: 02/11/17 09:27 Dose: 75 mg Famotidine (Pepcid) 20 mg PO BID [facility] Last Admin: 02/11/17 09:27 Dose: 20 mg Heparin Sodium (Porcine) (Heparin) 5,000 units SC Q12 [facility] Last Admin: 02/11/17 09:27 Dose: 5,000 units Hydroxyzine HCl (Atarax) 25 mg PO DAILY [facility] Last Admin: 02/11/17 09:26 Dose: 25 mg Azithromycin 500 mg/ Sodium (Chloride) 250 mls @ 250 mls/hr IVPB DAILY [facility] Last Admin: 02/10/17 15:15 Dose: 250 mls/hr Ceftriaxone Sodium 1 gm/ (Sodium Chloride) 100 mls @ 100 mls/hr IVPB DAILY [facility] Last Admin: 02/11/17 09:26 Dose: 100 mls/hr Vancomycin/Sodium Chloride (Vancocin) 1 gm in 200 mls @ 133.333 mls/hr IVPB TTS [facility] Stop: 02/17/17 10:01 Insulin Human Regular (Novolin R) 0 unit SC Q6H [facility] PRN Reason: Protocol Last Admin: 02/11/17 09:25 Dose: 2 unit Metoprolol Tartrate (Lopressor) 25 mg PO Q12H [facility] Last Admin: 02/11/17 09:27 Dose: 25 mg Saccharomyces Boulardii (Florastor) 250 mg PO BID [facility] Last Admin: 02/11/17 09:27 Dose: 250 mg Sevelamer Carbonate (Renvela) 800 mg PO TIDCC [facility] Last Admin: 02/11/17 07:35 Dose: 800 mg - Labs Labs: 02/11/17 06:07 02/11/17 06:07 PT 12.4 SECONDS (9.7-12.2) H 02/09/17 08:03 INR 1.1 02/09/17 08:03 APTT 28 SECONDS (21-34) 02/09/17 08:03 Attending/Attestation - Attestation I have personally seen and examined this patient.: Yes I have fully participated in the care of the patient.: Yes I have reviewed all pertinent clinical information, including history, physical exam and plan: Yes Notes (Text): 02/11/17 10:07 Pt feeling better for dialysis continue bp control
--- NOTE | 2017-02-10 12:06 | CARD ---
APPROVED REPORT EKG Measurement Heart [id number] ID [id number] <Conclusion> Atrial-paced rhythm with prolonged AV conduction Left ventricular hypertrophy with QRS widening and repolarization abnormality Abnormal ECG
[2017-02-10] MEDS ORDERED: Vancomycin 750mg/D5W 150 ml 150 ML IV ONE (14:30)
--- NOTE | 2017-02-10 14:53 | CT ---
PROCEDURE: CT HEAD WITHOUT CONTRAST. HISTORY: reevaluation for presentation of slurred speech COMPARISON: None available. TECHNIQUE: Axial computed tomography images were obtained through the head/brain without intravenous contrast. Radiation dose: Total exam DLP = mGy-cm. This CT exam was performed using one or more of the following dose reduction techniques: Automated exposure control, adjustment of the mA and/or kV according to patient size, and/or use of iterative reconstruction technique. FINDINGS: HEMORRHAGE: No acute intracranial hemorrhage. 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 Note that the possibility of a small hyperacute infarct on may not be visualized on initial CT imaging. Clinical correlation recommended. Suspect minor chronic periventricular white matter ischemic changes as well. If acute infarct suspected clinically recommend followup MRI. Mild to moderate generalized volume loss. VENTRICLES: No evidence of obstructive hydrocephalus CALVARIUM: Unremarkable. PARANASAL SINUSES: Unremarkable as visualized. No significant inflammatory changes. MASTOID AIR CELLS: Unremarkable as visualized. No inflammatory changes. OTHER FINDINGS: No change dense left globe. IMPRESSION: Chronic bilateral basal nuclei ischemic changes are again seen. Note that the possibility of a small hyperacute infarct on may not be visualized on initial CT imaging. Clinical correlation recommended. Suspect minor chronic periventricular white matter ischemic changes as well. If acute infarct suspected clinically recommend followup MRI provided that there are no contraindications to MRI in this patient. Mild to moderate generalized volume loss.
[2017-02-10] MEDS: Azithromycin 500 MG in Sodium Chloride 0.9% 250 ML IVPB SCH (15:15)
--- NOTE | 2017-02-10 16:15 | VASCLAB ---
PROCEDURE: HISTORY: a fib, CVA COMPARISON: None available. TECHNIQUE: Grayscale and duplex Doppler evaluation of the cervical carotid and vertebral arteries were performed. The common carotid, carotid bifurcations and cervical Internal Carotid Artery (ICA) and proximal External Carotid Artery (ECA) were evaluated. The vertebral arteries were evaluated for gross patency and flow direction. Report prepared by Royer Mcdowell, BS, RVT. FINDINGS: RIGHT CAROTID ARTERIES: 1. Common Carotid Artery: No significant focal plaque formation of the right common carotid artery. Maximum Peak Systolic velocity: 82 cm/sec: End-diastolic velocity 9 cm/sec. 2. Carotid Bifurcation: Calcific plaque formation. Maximum Peak Systolic velocity: 87 cm/sec: End-diastolic velocity 11 cm/sec. 3. Internal Carotid Artery: Calcific Plaque description: 3.1. Proximal Segment: Peak systolic velocity 86 cm/sec: End-diastolic velocity 11 cm/sec - % stenosis 0-15% 3.2. Middle Segment: Peak systolic velocity 54 cm/sec: End-diastolic velocity 11 cm/sec - % stenosis 0-15% 3.3. Distal Segment: Peak systolic velocity 57 cm/sec: End-diastolic velocity 11 cm/sec - % stenosis 0-15% 4. External Carotid Artery: No significant focal plaque formation. Peak systolic velocity 143 cm/sec 5. ICA/CCA Ratio: 1.1 LEFT CAROTID ARTERIES: 1. Common Carotid Artery: No significant focal plaque formation of the left common carotid artery. Maximum Peak Systolic velocity: 91 cm/sec: End-diastolic velocity 0 cm/sec. 2. Carotid Bifurcation: plaque formation. Maximum Peak Systolic velocity: 82 cm/sec: End-diastolic velocity 0 cm/sec. 3. Internal Carotid Artery: Plaque description: 3.1. Proximal Segment: Peak systolic velocity 78 cm/sec: End-diastolic velocity 13 cm/sec - % stenosis 0-15% 3.2. Middle Segment: Peak systolic velocity 60 cm/sec: End-diastolic velocity 14 cm/sec - % stenosis 0-15% 3.3. Distal Segment: Peak systolic velocity 64 cm/sec: End-diastolic velocity 14 cm/sec - % stenosis 0-15% 4. External Carotid Artery: No significant focal plaque formation. Peak systolic velocity 129 cm/sec 5. ICA/CCA Ratio: 0.9 VERTEBRAL ARTERIES: 1. Right Vertebral Artery: The right vertebral artery flow direction is antegrade. 2. Left Vertebral Artery: The left vertebral artery flow direction is antegrade. OTHER FINDINGS: 1. Right Brachial Blood pressure: 148 mmHg. 2. Left Brachial Blood pressure: 142 mmHg. IMPRESSION: RIGHT: Duplex scan does not suggest hemodynamically significant stenosis of the right extracranial carotid arteries. LEFT: Duplex scan does not suggest hemodynamically significant stenosis of the left extracranial carotid arteries.
[2017-02-10] MEDS ORDERED: Vancomycin 1 gm/NS 200 ml 1 GM/200 ML BAG IVPB ONE (16:30)
[2017-02-10] MEDS ORDERED: Gentamicin 80 mg in 0.9% NS 80 MG/100 ML BAG IVPB SCH (17:30)
[2017-02-10] MEDS ORDERED: Gentamicin 80 mg in 0.9% NS 80 MG/100 ML BAG IVPB ONE (20:00)
[2017-02-11] MEDS: (Novolin R) Insulin Human Regular 100 units/ml vial SC SCH ×2 (02:25→09:25)
[2017-02-11] MEDS: Dextrose 5%/0.45% NS 1,000 ML IV SCH (05:40)
[2017-02-11 06:28] LABS: BASO % 0.5 % (0.0-2.0); EOS # 0.4 K/uL (0.0-0.7); EOS % 8.9 % (0.0-4.0); HEMATOCRIT 29.1 % (35.0-51.0); LYMPH # 1.6 K/uL (1.0-4.3); LYMPH % 34.1 % (20.0-40.0); MEAN CELL VOLUME 88.2 fL (80.0-94.0); MEAN CORPUSCULAR HEMOGLOBIN 28.8 pg (27.0-31.0); MEAN CORPUSCULAR HGB CONC 32.6 g/dL (33.0-37.0); MEAN PLATELET VOLUME 8.7 fL (7.2-11.7); MONO # 0.4 K/uL (0.0-0.8); MONO % 8.4 % (0.0-10.0); RED CELL DISTRIBUTION WIDTH 14.2 % (11.5-14.5); WHITE BLOOD COUNT 4.8 K/uL (4.8-10.8)
[2017-02-11 07:03] LABS: POTASSIUM 4.3 mmol/L (3.6-5.2)
[2017-02-11 07:05] LABS: ALB/GLOB RATIO 1.2 (1.0-2.1); BILIRUBIN,TOTAL 0.7 mg/dL (0.2-1.3); TOTAL PROTEIN 6.6 g/dL (6.3-8.3)
[2017-02-11 07:06] LABS: CALCIUM 8.4 mg/dl (8.6-10.4); PHOSPHOROUS 4.6 mg/dL (2.5-4.5)
[2017-02-11] MEDS: Saccharomyces Boulardi 250 mg Cap PO SCH ×2 (09:27→17:30)
--- NOTE | 2017-02-11 10:08 | CP.PCM.PN ---
<Sarah Clement - Last Filed: 02/11/17 11:16> Subjective - Date & Time of Evaluation Date of Evaluation: 02/11/17 Time of Evaluation: 09:50 - Subjective Subjective: Patient seen and examined at bedside. Patient demonstrating clear speech and is alert and oriented. He denies decreased strength. Patient also denies fever, chills, cough, shortness of breath, chest pain, and palpitations. Patient notes constipation and slight abdominal discomfort but denies nausea/vomiting. He is tolerating diet well. Patient informed he has infection in his blood and will be treated with antibiotics. Objective - Vital Signs/Intake and Output Vital Signs (last 24 hours): Temp Pulse Resp BP Pulse Ox 98.7 F 84 18 158/79 H 100 02/11/17 07:15 02/11/17 07:15 02/11/17 07:15 02/11/17 09:27 02/11/17 07:15 Intake and Output: 02/11/17 02/11/17 06:59 18:59 Intake Total 850 Output Total 0 Balance 850 - Medications Medications: Current Medications Acetaminophen (Tylenol 650mg/20.3ml Solution Ud) 650 mg NG Q6 PRN PRN Reason: Fever >100.4 F Amlodipine Besylate (Norvasc) 10 mg PO DAILY [facility] Last Admin: 02/11/17 09:27 Dose: 10 mg Aspirin (Aspirin Chewable) 81 mg PO DAILY [facility] Last Admin: 02/11/17 09:28 Dose: 81 mg Clopidogrel Bisulfate (Plavix) 75 mg PO DAILY [facility] Last Admin: 02/11/17 09:27 Dose: 75 mg Famotidine (Pepcid) 20 mg PO BID [facility] Last Admin: 02/11/17 09:27 Dose: 20 mg Heparin Sodium (Porcine) (Heparin) 5,000 units SC Q12 [facility] Last Admin: 02/11/17 09:27 Dose: 5,000 units Hydroxyzine HCl (Atarax) 25 mg PO DAILY [facility] Last Admin: 02/11/17 09:26 Dose: 25 mg Azithromycin 500 mg/ Sodium (Chloride) 250 mls @ 250 mls/hr IVPB DAILY [facility] Last Admin: 02/10/17 15:15 Dose: 250 mls/hr Ceftriaxone Sodium 1 gm/ (Sodium Chloride) 100 mls @ 100 mls/hr IVPB DAILY [facility] Last Admin: 02/11/17 09:26 Dose: 100 mls/hr Vancomycin/Sodium Chloride (Vancocin) 1 gm in 200 mls @ 133.333 mls/hr IVPB TTS [facility] Stop: 02/17/17 10:01 Insulin Human Regular (Novolin R) 0 unit SC Q6H [facility] PRN Reason: Protocol Last Admin: 02/11/17 09:25 Dose: 2 unit Metoprolol Tartrate (Lopressor) 25 mg PO Q12H [facility] Last Admin: 02/11/17 09:27 Dose: 25 mg Saccharomyces Boulardii (Florastor) 250 mg PO BID [facility] Last Admin: 02/11/17 09:27 Dose: 250 mg Sevelamer Carbonate (Renvela) 800 mg PO TIDCC [facility] Last Admin: 02/11/17 07:35 Dose: 800 mg - Labs Labs: 02/11/17 06:07 02/11/17 06:07 PT 12.4 SECONDS (9.7-12.2) H 02/09/17 08:03 INR 1.1 02/09/17 08:03 APTT 28 SECONDS (21-34) 02/09/17 08:03 - Constitutional Appears: Non-toxic, No Acute Distress - Head Exam Head Exam: ATRAUMATIC, NORMAL INSPECTION, NORMOCEPHALIC - Eye Exam Eye Exam: EOMI, PERRL - ENT Exam ENT Exam: Mucous Membranes Moist - Respiratory Exam Respiratory Exam: Clear to Ausculation Bilateral, NORMAL BREATHING PATTERN. absent: Rales, Rhonchi, Wheezes - Cardiovascular Exam Cardiovascular Exam: +S1, +S2. absent: Tachycardia, Murmur - GI/Abdominal Exam GI & Abdominal Exam: Soft, Normal Bowel Sounds. absent: Firm, Guarding, Tenderness - Extremities Exam Extremities Exam: Normal Inspection. absent: Pedal Edema, Tenderness - Neurological Exam Neurological Exam: Alert, Awake, Oriented x3 Neuro motor strength exam: Left Upper Extremity: 5, Right Upper Extremity: 5, Left Lower Extremity: 4, Right Lower Extremity: 4 - Psychiatric Exam Psychiatric exam: Normal Affect, Normal Mood - Skin Skin Exam: Intact, Normal Color Assessment and Plan - Assessment and Plan (Free Text) Assessment: (1) Slurred speech likely secondary to metabolic causes Resolved Rule out CVA Patient has history of previous CVA Head CT (02/08/17): No acute intracranial hemorrhage. Chronic bilateral basal nuclei ischemic changes. Moderate atrophy (Please see full report). Neuro, Dr. Hernandez, consulted. Follow-up recommendations. Recommends patient be continued on dual antiplatelet therapy for about 3 weeks as per the CHANCE trial. Afterward, continue only Plavix 75 mg daily, indefinitely. (see full report) Repeat CT Head without contrast (02/10/17): Chronic bilateral basal nuclei ischemic changes are again seen. Note that the possibility of a small hyperacute infarct on may not be visualized on initial CT imaging. Suspect minor chronic periventricular white matter ischemic changes as well. Mild to moderate generalized volume loss. (see full report) ASA 325 mg tab given Carotid Doppler - mild disease to bilateral carotid arteries Lipid Panel: Triglycerides 231, Cholesterol 160, LDL 65, HDL 21 Tolerating finely chopped diet with thin liquids. NG tube discontinued. ASA 81mg po daily Continue home med: Plavix 75mg PO Daily (2) Bacteremia Blood culture (02/08/17): positive for Micrococcus and related genera. Awaiting sensitivities. Infectious disease Dr. Jeffers, consulted. Started patient on Gentamicin 80 mg IVPB once (02/10/17), Vancomycin 1 gm IVPB once (02/10/17) and Vancomycin 1 gm IVPB TTS (active on 02/12/17) Repeat blood culture f/u repeat procalcitonin WBC 5.9, afebrile over 24 hours Tylenol 650 mg NG Q6 PRN for fever Continue Azithromycin 500mg IVPB Daily (started 02/08/17) and Ceftriaxone 1gm IVPB Daily (started 02/08/17) for possible pneumonia. Mycoplasma pneumon IgM negative. f/u serum L. Pneumo. f/u repeat CXR. procalcitonin mildly elevated at 0.93 Tmax in ED- 102.8. WBC- 6.2. Lactate 1.1. f/u blood and urine cultures CXR- 02/08/17- elevation of right hemidiaphragm. R basilar atelectasis with possible small effusion. R basilar infiltrate not excluded. Given one dose of Vanco 1gm IVPB. (3) EKG abnormalities EKG shows questionable atrial fibrillation with t wave changes compared to previous EKG in 2015. Echocardiogram: mild concentric left ventricular hypertrophy. Left ventricle systolic function mildly impaired. EF is 50-55%. Grade I abnormal relaxation pattern. Trace mitral regurgitation. Moderate-severe pulmonary hypertension. Aortic root is mildly enlarged (see full report). RAFFY: 0.1150 (02/08 22:37), 0.1220 (02/09 03:17). Dr. Kirk notes patient had normal stress test in the past. Consult Cardio- Dr. Kirk. Per Dr. Kirk - no atrial fibrillation identified on interrogation of pacemaker. Atrial leads adjusted. [employer] contacted and confirmed pacemaker in place. HAS BLED score of 4- 8.9% risk of bleeding. (4) Diabetes mellitus glucose 144 Accuchecks Q6h. home insulin- Levemir 6U in AM and 14U in PM - held RISS. f/u HgbA1C Monitor (5) ESRD (end stage renal disease) BUN/CR: 27/6.2 Nephrology- Dr. Juarez consulted. On Dialysis TTHS. Patient tolerated hemodialysis well last year. Continue Renvela 800mg PO TID (6) HTN (hypertension) Continue home meds: Norvasc 10mg PO Daily. Metoprolol 25mg PO BID. Hydralazine 10mg PO Daily Monitor (7) Prophylactic measure Protonix 40mg PO Daily Heparin 5000 units SC q12h [facility] Florastor 250 mg po BID (8) Discharge Planning Case Management referral for possible discharge to [facility] <Vero Hudson V - Last Filed: 02/12/17 07:20> Objective - Vital Signs/Intake and Output Vital Signs (last 24 hours): Temp Pulse Resp BP Pulse Ox 98.8 F 60 20 155/66 H 96 02/11/17 23:00 02/12/17 00:00 02/11/17 23:00 02/11/17 23:00 02/11/17 23:00 Intake and Output: 02/12/17 02/12/17 06:59 18:59 Intake Total 300 Output Total 100 Balance 200 - Medications Medications: Current Medications Acetaminophen (Tylenol 650mg/20.3ml Solution Ud) 650 mg NG Q6 PRN PRN Reason: Fever >100.4 F Amlodipine Besylate (Norvasc) 10 mg PO DAILY [facility] Last Admin: 02/11/17 09:27 Dose: 10 mg Aspirin (Aspirin Chewable) 81 mg PO DAILY [facility] Last Admin: 06/07/17 09:28 Dose: 81 mg Clopidogrel Bisulfate (Plavix) 75 mg PO DAILY [facility] Last Admin: 02/11/17 09:27 Dose: 75 mg Docusate Sodium (Colace) 100 mg PO BID [facility] Last Admin: 02/11/17 17:30 Dose: 100 mg Famotidine (Pepcid) 20 mg PO BID [facility] Last Admin: 02/11/17 17:30 Dose: 20 mg Heparin Sodium (Porcine) (Heparin) 5,000 units SC Q12 [facility] Last Admin: 02/11/17 22:26 Dose: 5,000 units Hydroxyzine HCl (Atarax) 25 mg PO DAILY [facility] Last Admin: 02/11/17 09:26 Dose: 25 mg Azithromycin 500 mg/ Sodium (Chloride) 250 mls @ 250 mls/hr IVPB DAILY [facility] Last Admin: 02/11/17 10:36 Dose: 250 mls/hr Ceftriaxone Sodium 1 gm/ (Sodium Chloride) 100 mls @ 100 mls/hr IVPB DAILY [facility] Last Admin: 02/11/17 09:26 Dose: 100 mls/hr Vancomycin/Sodium Chloride (Vancocin) 1 gm in 200 mls @ 133.333 mls/hr IVPB TTS [facility] Stop: 02/17/17 10:01 Insulin Human Regular (Novolin R) 0 unit SC Q6H [facility] PRN Reason: Protocol Last Admin: 02/12/17 02:40 Dose: Not Given Metoprolol Tartrate (Lopressor) 25 mg PO Q12H [facility] Last Admin: 02/11/17 09:27 Dose: 25 mg Saccharomyces Boulardii (Florastor) 250 mg PO BID [facility] Last Admin: 02/11/17 17:30 Dose: 250 mg Sevelamer Carbonate (Renvela) 800 mg PO TIDCC [facility] Last Admin: 02/11/17 17:30 Dose: 800 mg - Labs Labs: 02/12/17 06:02 02/12/17 06:02 PT 12.4 SECONDS (9.7-12.2) H 02/09/17 08:03 INR 1.1 02/09/17 08:03 APTT 28 SECONDS (21-34) 02/09/17 08:03 Attending/Attestation - Attestation I have personally seen and examined this patient.: Yes I have fully participated in the care of the patient.: Yes I have reviewed all pertinent clinical information, including history, physical exam and plan: Yes Notes (Text): This is a late computer entry fo 02/11/17. Patient seen, examined and case discussed with day-time resident. patient seen at bedside this morning. Patient is clinically improving, speech is improving, Blood culture came back showing Micrococcus; discussed with infectious disease: unclear if this a skin contaminant; repeated chest xray, blood cultures, and procalcitonin. Patient is currently on IV antibotics. Procalcitonin is improved. Repeat Blood cultures ordered and collected-->received Case management for subacute rehab re-eval Assessment/Plan (1) Slurred speech Status: Acute Comment: Head CT- 02/08/17- No acute intracranial hemorrhage. Chronic bilateral basal nuclei ischemic changes. Moderate atrophy (Please see full report). Head CT-02/10/17 - chronic bilateral basal nuclei ischemic changes are seen agan. Note: that the possibility of a small hyercuate infract on may not be visualized on initial CT imaging. Suspect minor periventircular white matter ischemic changes as well. Mild to moderate generalized volume los (Please see full report) Consult Neuro- Dr. Bradley. Carotids: normal Swallow eval: finely chopped solids for ease and thin liquids. Asa 81mg PO Daily; Plavix 75mg PO Daily for 3 weeks and then after Plavix indefinitely per neurology hgba1c:8.4, Lipid panel: Chol:231 TG;160 HDL:65 LDL: 21 (2) Fever Status: Acute Comment: Infectious disease (Dr. Jeffers) on board-->help appreciated Tmax in ED- 102.8. WBC- 6.2. Lactate 1.1. F/u blood and urine cultures. f/u UA. CXR- 02/08/17- elevation of right hemidiaphragm. R basilar atelectasis with possible small effusion. R basilar infiltrate not excluded. Received one dose of Vanco 1gm IVPB in the ED In the ED, patient started on Azithromycin 500mg IVPB Daily (02/08/17). Started on Ceftriaxone 1gm IVPB Daily (02/08/17), Vancomycin 1gram IV TTHS (active since ) Florastor 250mg PO bid Procalcitonin:0.93-->0.39 Strep pneumonie, urine legionella, and Mycoplasma IgM: negative Blood cultures: Micrococcus (1 out of 2 bottles) (3) EKG abnormalities Non-STEMI Status: Acute Comment: Consult Cardio- Dr. Kirk. EKG shows questionable atrial fibrillation with t wave changes compared to previous EKG in 2015. Interrogorated no noted atrial fibrillation Pacemaker interrogated: no atrial fibrillation noted Continue Aspirin 81mg Po daily and Plavix 75mg Po daily (4) Diabetes mellitus Status: Chronic Comment: Accuchecks Q6h. hgba1c:8.4 Hold off on home insulin- Levemir 6U in AM and 14U in PM due to NPO. hgba1c:8.4, Lipid panel: Chol:231 TG;160 HDL:65 LDL: 21 (5) ESRD (end stage renal disease) Status: Chronic Comment: Consult nephro- Dr. Juarez. on Dialysis TTHS. Continue Renvela 800mg PO TID Consent for dialysis obtained by the resident (6) HTN (hypertension) Status: Chronic Comment: Continue home meds: Norvasc 10mg PO Daily. Metoprolol 25mg PO BID. Patient is ESRD on //Thu as in patient (7) Prior history of CVA Head CT- 02/08/17- No acute intracranial hemorrhage. Chronic bilateral basal nuclei ischemic changes. Moderate atrophy (Please see full report). Consult Neuro- Dr. Bradley. Head CT-02/10/17 - chronic bilateral basal nuclei ischemic changes are seen agan. Note: that the possibility of a small hyercuate infract on may not be visualized on initial CT imaging. Suspect minor periventircular white matter ischemic changes as well. Mild to moderate generalized volume los (Please see full report) (8) Prophylactic measure Status: Acute Comment: Protonix 40mg PO Daily. SCDs b/l Heparin 5000 units subq 12hours PT/OT eval Swallow eval: finely chopped solids for ease and thin liquids.
[2017-02-11] MEDS: Azithromycin 500 MG in Sodium Chloride 0.9% 250 ML IVPB SCH (10:36)
[2017-02-11] MEDS ORDERED: Bisacodyl 5mg EC Tab PO ONE (11:13)
--- NOTE | 2017-02-11 13:07 | RAD ---
HISTORY: evaluate for pneumonia COMPARISON: 02/08/2017. FINDINGS: LUNGS: The lungs are clear. PLEURA: No significant pleural effusion identified, no pneumothorax apparent. CARDIOVASCULAR: The heart is normal in size. There is stable position of a left-sided dual lead transvenous permanent pacing device. OSSEOUS STRUCTURES: No significant abnormalities. VISUALIZED UPPER ABDOMEN: Normal. OTHER FINDINGS: None. IMPRESSION: No active pulmonary disease.
[2017-02-11 14:14] LABS: RBC URINE < 1 /hpf (0-3); URINE BILIRUBIN NEGATIVE (NEGATIVE); URINE BLOOD NEGATIVE (NEGATIVE); URINE COLOR Straw (YELLOW); URINE GLUCOSE (UA) 1+ mg/dL (Normal); URINE KETONE NEGATIVE (NEGATIVE); URINE LEUKOCYTE ESTERASE NEG Leu/uL (Negative); URINE PROTEIN 1+ mg/dL (NEGATIVE); URINE UROBILINOGEN NORMAL mg/dL (0.2-1.0); WBC URINE < 1 /hpf (0-5)
--- NOTE | 2017-02-11 14:22 | CP.PCM.PN ---
Subjective - Date & Time of Evaluation Date of Evaluation: 02/11/17 Time of Evaluation: 13:20 - Subjective Subjective: no acute events on ab eating small amounts on ivf at 50 cc/hr family at bedside no chest pain not sob no change in urine production no rash no headache no fever Objective - Vital Signs/Intake and Output Vital Signs (last 24 hours): Temp Pulse Resp BP Pulse Ox 98.7 F 86 18 158/79 H 100 02/11/17 07:15 02/11/17 08:00 02/11/17 07:15 02/11/17 09:27 02/11/17 07:15 Intake and Output: 02/11/17 02/11/17 06:59 18:59 Intake Total 850 Output Total 0 Balance 850 - Medications Medications: Current Medications Acetaminophen (Tylenol 650mg/20.3ml Solution Ud) 650 mg NG Q6 PRN PRN Reason: Fever >100.4 F Amlodipine Besylate (Norvasc) 10 mg PO DAILY [facility] Last Admin: 02/11/17 09:27 Dose: 10 mg Aspirin (Aspirin Chewable) 81 mg PO DAILY [facility] Last Admin: 02/11/17 09:28 Dose: 81 mg Clopidogrel Bisulfate (Plavix) 75 mg PO DAILY [facility] Last Admin: 02/11/17 09:27 Dose: 75 mg Docusate Sodium (Colace) 100 mg PO BID [facility] Famotidine (Pepcid) 20 mg PO BID [facility] Last Admin: 02/11/17 09:27 Dose: 20 mg Heparin Sodium (Porcine) (Heparin) 5,000 units SC Q12 [facility] Last Admin: 02/11/17 09:27 Dose: 5,000 units Hydroxyzine HCl (Atarax) 25 mg PO DAILY [facility] Last Admin: 02/11/17 09:26 Dose: 25 mg Azithromycin 500 mg/ Sodium (Chloride) 250 mls @ 250 mls/hr IVPB DAILY [facility] Last Admin: 02/11/17 10:36 Dose: 250 mls/hr Ceftriaxone Sodium 1 gm/ (Sodium Chloride) 100 mls @ 100 mls/hr IVPB DAILY [facility] Last Admin: 02/11/17 09:26 Dose: 100 mls/hr Vancomycin/Sodium Chloride (Vancocin) 1 gm in 200 mls @ 133.333 mls/hr IVPB TTS [facility] Stop: 02/17/17 10:01 Insulin Human Regular (Novolin R) 0 unit SC Q6H [facility] PRN Reason: Protocol Last Admin: 02/11/17 09:25 Dose: 2 unit Metoprolol Tartrate (Lopressor) 25 mg PO Q12H [facility] Last Admin: 02/11/17 09:27 Dose: 25 mg Saccharomyces Boulardii (Florastor) 250 mg PO BID [facility] Last Admin: 02/11/17 09:27 Dose: 250 mg Sevelamer Carbonate (Renvela) 800 mg PO TIDCC [facility] Last Admin: 02/11/17 12:00 Dose: 800 mg - Labs Labs: 02/11/17 06:07 02/11/17 06:07 PT 12.4 SECONDS (9.7-12.2) H 02/09/17 08:03 INR 1.1 02/09/17 08:03 APTT 28 SECONDS (21-34) 02/09/17 08:03 - Constitutional Appears: Chronically Ill - Eye Exam Eye Exam: EOMI - ENT Exam ENT Exam: Mucous Membranes Moist - Neck Exam Neck Exam: Full ROM. absent: Lymphadenopathy - Respiratory Exam Respiratory Exam: Clear to Ausculation Bilateral. absent: Accessory Muscle Use - Cardiovascular Exam Cardiovascular Exam: REGULAR RHYTHM. absent: Rubs - GI/Abdominal Exam GI & Abdominal Exam: Soft. absent: Guarding, Tenderness - Extremities Exam Extremities Exam: absent: Pedal Edema - Neurological Exam Neurological Exam: Awake, Oriented x3 Additional comments: weakness on right Assessment and Plan - Assessment and Plan (Free Text) Assessment: esrd, HD tomorrow new weakness, improving bacteremia, on ab old cva
--- NOTE | 2017-02-11 16:50 | CP.PCM.PN ---
<Be Martin - Last Filed: 02/11/17 16:47> Subjective - Date & Time of Evaluation Date of Evaluation: 02/11/17 Time of Evaluation: 16:47 - Subjective Subjective: Pt seen and examined at bedside. Pt doing well overnight with no acute events. Pt states he is doing well today and is resting comfortably in his bed. Pt continues to have have adequate BP and HR control. Denies CP, SOB, N/V/D, fever. Objective - Vital Signs/Intake and Output Vital Signs (last 24 hours): Temp Pulse Resp BP Pulse Ox 98.1 F 59 L 20 131/65 97 02/11/17 15:05 02/11/17 15:05 02/11/17 15:05 02/11/17 15:05 02/11/17 15:05 Intake and Output: 02/11/17 02/11/17 06:59 18:59 Intake Total 850 Output Total 0 Balance 850 - Medications Medications: Current Medications Acetaminophen (Tylenol 650mg/20.3ml Solution Ud) 650 mg NG Q6 PRN PRN Reason: Fever >100.4 F Amlodipine Besylate (Norvasc) 10 mg PO DAILY [facility] Last Admin: 02/11/17 09:27 Dose: 10 mg Aspirin (Aspirin Chewable) 81 mg PO DAILY [facility] Last Admin: 02/11/17 09:28 Dose: 81 mg Clopidogrel Bisulfate (Plavix) 75 mg PO DAILY [facility] Last Admin: 02/11/17 09:27 Dose: 75 mg Docusate Sodium (Colace) 100 mg PO BID [facility] Famotidine (Pepcid) 20 mg PO BID [facility] Last Admin: 02/11/17 09:27 Dose: 20 mg Heparin Sodium (Porcine) (Heparin) 5,000 units SC Q12 [facility] Last Admin: 02/11/17 09:27 Dose: 5,000 units Hydroxyzine HCl (Atarax) 25 mg PO DAILY [facility] Last Admin: 02/11/17 09:26 Dose: 25 mg Azithromycin 500 mg/ Sodium (Chloride) 250 mls @ 250 mls/hr IVPB DAILY [facility] Last Admin: 02/11/17 10:36 Dose: 250 mls/hr Ceftriaxone Sodium 1 gm/ (Sodium Chloride) 100 mls @ 100 mls/hr IVPB DAILY [facility] Last Admin: 02/11/17 09:26 Dose: 100 mls/hr Vancomycin/Sodium Chloride (Vancocin) 1 gm in 200 mls @ 133.333 mls/hr IVPB TTS [facility] Stop: 02/17/17 10:01 Insulin Human Regular (Novolin R) 0 unit SC Q6H [facility] PRN Reason: Protocol Last Admin: 02/11/17 09:25 Dose: 2 unit Metoprolol Tartrate (Lopressor) 25 mg PO Q12H [facility] Last Admin: 02/11/17 09:27 Dose: 25 mg Saccharomyces Boulardii (Florastor) 250 mg PO BID [facility] Last Admin: 02/11/17 09:27 Dose: 250 mg Sevelamer Carbonate (Renvela) 800 mg PO TIDCC [facility] Last Admin: 02/11/17 12:00 Dose: 800 mg - Labs Labs: 02/11/17 06:07 02/11/17 06:07 PT 12.4 SECONDS (9.7-12.2) H 02/09/17 08:03 INR 1.1 02/09/17 08:03 APTT 28 SECONDS (21-34) 02/09/17 08:03 - Constitutional Appears: Non-toxic, No Acute Distress - Head Exam Head Exam: ATRAUMATIC, NORMAL INSPECTION, NORMOCEPHALIC - ENT Exam ENT Exam: Mucous Membranes Moist - Respiratory Exam Respiratory Exam: Clear to Ausculation Bilateral, NORMAL BREATHING PATTERN. absent: Rhonchi, Wheezes - Cardiovascular Exam Cardiovascular Exam: RRR, +S1, +S2 - GI/Abdominal Exam GI & Abdominal Exam: Soft, Normal Bowel Sounds. absent: Tenderness - Extremities Exam Extremities Exam: Normal Inspection. absent: Pedal Edema - Neurological Exam Neurological Exam: Alert, Awake - Skin Skin Exam: Intact, Normal Color, Warm Assessment and Plan (1) EKG abnormalities Assessment & Plan: Atrial lead adjusted, pt doing well Hemodynamically stable Continue current medical management Status: Acute (2) Pacemaker Assessment & Plan: Atrial leads adjusted No A-fib Hemodynamically stable Continue current medical management Status: Chronic <Nilson Kirk A - Last Filed: 02/11/17 20:20> Objective - Vital Signs/Intake and Output Vital Signs (last 24 hours): Temp Pulse Resp BP Pulse Ox 98.1 F 59 L 20 131/65 97 02/11/17 15:05 02/11/17 15:05 02/11/17 15:05 02/11/17 15:05 02/11/17 15:05 - Medications Medications: Current Medications Acetaminophen (Tylenol 650mg/20.3ml Solution Ud) 650 mg NG Q6 PRN PRN Reason: Fever >100.4 F Amlodipine Besylate (Norvasc) 10 mg PO DAILY [facility] Last Admin: 02/11/17 09:27 Dose: 10 mg Aspirin (Aspirin Chewable) 81 mg PO DAILY [facility] Last Admin: 02/11/17 09:28 Dose: 81 mg Clopidogrel Bisulfate (Plavix) 75 mg PO DAILY [facility] Last Admin: 02/11/17 09:27 Dose: 75 mg Docusate Sodium (Colace) 100 mg PO BID [facility] Famotidine (Pepcid) 20 mg PO BID [facility] Last Admin: 02/11/17 09:27 Dose: 20 mg Heparin Sodium (Porcine) (Heparin) 5,000 units SC Q12 [facility] Last Admin: 02/11/17 09:27 Dose: 5,000 units Hydroxyzine HCl (Atarax) 25 mg PO DAILY [facility] Last Admin: 02/11/17 09:26 Dose: 25 mg Azithromycin 500 mg/ Sodium (Chloride) 250 mls @ 250 mls/hr IVPB DAILY [facility] Last Admin: 02/11/17 10:36 Dose: 250 mls/hr Ceftriaxone Sodium 1 gm/ (Sodium Chloride) 100 mls @ 100 mls/hr IVPB DAILY [facility] Last Admin: 02/11/17 09:26 Dose: 100 mls/hr Vancomycin/Sodium Chloride (Vancocin) 1 gm in 200 mls @ 133.333 mls/hr IVPB TTS [facility] Stop: 02/17/17 10:01 Insulin Human Regular (Novolin R) 0 unit SC Q6H [facility] PRN Reason: Protocol Last Admin: 02/11/17 09:25 Dose: 2 unit Metoprolol Tartrate (Lopressor) 25 mg PO Q12H [facility] Last Admin: 02/11/17 09:27 Dose: 25 mg Saccharomyces Boulardii (Florastor) 250 mg PO BID [facility] Last Admin: 02/11/17 09:27 Dose: 250 mg Sevelamer Carbonate (Renvela) 800 mg PO TIDCC [facility] Last Admin: 02/11/17 12:00 Dose: 800 mg - Labs Labs: 02/11/17 06:07 02/11/17 06:07 PT 12.4 SECONDS (9.7-12.2) H 02/09/17 08:03 INR 1.1 02/09/17 08:03 APTT 28 SECONDS (21-34) 02/09/17 08:03 Attending/Attestation - Attestation I have personally seen and examined this patient.: Yes I have fully participated in the care of the patient.: Yes I have reviewed all pertinent clinical information, including history, physical exam and plan: Yes Notes (Text): 02/11/17 20:20 ppm a lead reprogrammed
--- NOTE | 2017-02-11 18:38 | CON ---
DATE: 02/11/2017 REQUESTING PHYSICIAN: Dr. Hudson for a positive blood culture. HISTORY OF PRESENT ILLNESS: This patient is a 61-year-old male. He came in with slurred speech and fever. He has a history of diabetes, hypertension. He had a CVA in 2011 and also had an MO in 2011, had a pacemaker placed in 2011. He has a history of fracture of the pelvis and since then he has be en bedridden and came in with slurred speech and high fever. The fever just started that morning and he was very lethargic and brought to the hospital. He was having slurred speech and his neck was al so a little rigid and he has not been ambulating and has been bed/chair and wheelchair bound. I am a sked to see him because his blood culture yesterday came back as Micrococcus and I was asked to see h im. He is awake, alert at this time, able to answer a few questions. He only speaks Australian. He de nies any pain at this time. Denies any cough, cold. PAST MEDICAL HISTORY: Significant for diabetes, hypertension, CVA, MO, pacemaker placement in 2011. He has end-stage renal disease and has been on dialysis for the last 5 years. PAST SURGICAL HISTORY: Significant for hernia repair. He had a gastrostomy tube at one time when he had CVA and then it was removed. He also had a pacemaker placed and has an AV fistula on the left a rm. ALLERGIES: He is not allergic to any medicine. FAMILY HISTORY: Noncontributory. SOCIAL HISTORY: Negative for smoking or drinking now. He is a former social drinker. He lives at [facility] with his and they take care of him. MEDICATIONS: He is on Tylenol, Norvasc, aspirin, Zithromax, Rocephin, Plavix, Colace and famotidine. Also, on heparin, Atarax, Novolin R, Lopressor, Florastor, Renvela and he received vancomycin, whic h we gave yesterday and then he is going to get it tomorrow. He is on vancomycin and Rocephin as wel l as Zithromax. He has been here from 02/08, today is 02/11, so third day. REVIEW OF SYSTEMS: He came in with fever. He had no chills. He had no ear, nose, throat problems. No chest pain reported. No irregular heart. No palpitations. No pedal edema. He had no cough, no shortness of breath, no wheezing, no abdominal pain, no nausea, no vomiting, no diarrhea, no loose B M. No urinary complaints reported as such, he makes very little urine. He has end-stage renal disea se. Denied any joint pains, has no bleeding issues, no sacral wounds. He did have abnormal speech w hich corrected and the voices anyway different after the old CVA which was in 2011. He is bedbound. There is no psych history of any anxiety, panic attacks or suicidal ideation and he has no endocrine problems. No diabetes reported. His past medical history is as above. He has had multiple CVAs in the past time I am told and last dialysis before coming was on 02/06/2017. PHYSICAL EXAMINATION: VITAL SIGNS: Now I find his T-max is 98.7, pulse is 86, blood pressure is 158/79, respirations are 1 8. HEAD: Atraumatic, normocephalic. Tongue is moist. GENERAL: He is following commands voice appears to be normal. HEENT: Head is atraumatic, normocephalic. Eye movements are unremarkable, no icterus, no pallor pre sent. NECK: Supple. ANTOINE is flat. LUNGS: Clear. No crackles or rales heard. He does have a pacemaker on the left side, which was cody emily in 2011, the site appears unremarkable. HEART: S1, S2 is regular. No murmurs appreciated. ABDOMEN: Soft, nontender, no guarding, no rigidity present. On the left side he has an AV fistula w ith a dressing. EXTREMITIES: No edema, clubbing or cyanosis. LABORATORY DATA: Noted. Labs show white count is 4.8, hemoglobin 9.5, hematocrit 29.1, platelet cou nt is 233. Sodium is 135, potassium 4.3, chloride is 93, CO2 is 28, anion gap is 18, BUN was 27, cre atinine 6.2. He has end-stage renal disease. His sugars were fine . He also had serology done for hepatitis B, which is negative. Legionella is pending. Mycoplasma IgM is negative. UA shows protein 2+, glu cose 2+, otherwise his WBC is only 1. He already had an echo done, I was told on this admission, eran wang was on 02/08. Hence, I am not going to repeat another echo as it was just done on this admission and indication was CVA, TIA and atrial fibrillation. It shows final reading is mild concentric left ventricular hypertrophy, left ventricular systolic function is mildly impaired, ejection fraction is 50%-55%, mild regurg, moderate to severe pulmonary hypertension, aortic root is mildly enlarged, but there is no mention of any endocarditis. He had 2 sets of blood cultures on 02/08, one was negative and the other one is reported as Micrococcus and this could possibly be skin contaminant as one other set is negative and may be related to contaminated with dairy products on his skin or other. is negative and repeat cultures were done yesterday I am told by the attending, so blood cultur e set was done today, and only 1 set was done today. I would repeat another set in a little bit toda y again and if those 2 sets are negative I would assume that this was a skin contaminant. The patien t did come in with fever and his x-ray showed pneumonia and infiltrate on the right base. It could b e secondary to pneumonia. His last x-ray is reported to be negative at this time. If he improves, w ill send him home on an oral antibiotic soon, but I want to make sure the cultures are negative in e next 48. At this time, I would continue the vancomycin and we are waiting for the legionella titer to cut out the Zithromax and would leave the Rocephin. We will follow. Tonya Jeffers MD cc: [id number] TT: 02/11/2017 18:37:56 Confirmation # [id number] Dictation # [id number] adri
[2017-02-11] MEDS ORDERED: POLYETHYLENE GLYCOL 3350 17 GM/Dose PACKET PO SCH (22:00)
[2017-02-12] MEDS: (Novolin R) Insulin Human Regular 100 units/ml vial SC SCH ×3 (02:40→14:44)
--- NOTE | 2017-02-12 05:53 | CP.PCM.PN ---
<Sarah Clement - Last Filed: 02/12/17 13:19> Subjective - Date & Time of Evaluation Date of Evaluation: 02/12/17 Time of Evaluation: 05:53 - Subjective Subjective: Pt seen and examined at hemodialysis. Patient currently is resting comfortably and has no complaints. He denies fever, chills, nausea, vomiting, and abdominal pain. Patient denies weakness. Objective - Vital Signs/Intake and Output Vital Signs (last 24 hours): Temp Pulse Resp BP Pulse Ox 98.8 F 60 20 155/66 H 96 02/11/17 23:00 02/12/17 00:00 02/11/17 23:00 02/11/17 23:00 02/11/17 23:00 Intake and Output: 02/11/17 02/12/17 18:59 06:59 Intake Total 250 Output Total 100 Balance 150 - Medications Medications: Current Medications Acetaminophen (Tylenol 650mg/20.3ml Solution Ud) 650 mg NG Q6 PRN PRN Reason: Fever >100.4 F Amlodipine Besylate (Norvasc) 10 mg PO DAILY [facility] Last Admin: 02/11/17 09:27 Dose: 10 mg Aspirin (Aspirin Chewable) 81 mg PO DAILY [facility] Last Admin: 02/11/17 09:28 Dose: 81 mg Clopidogrel Bisulfate (Plavix) 75 mg PO DAILY [facility] Last Admin: 02/11/17 09:27 Dose: 75 mg Docusate Sodium (Colace) 100 mg PO BID [facility] Last Admin: 02/11/17 17:30 Dose: 100 mg Famotidine (Pepcid) 20 mg PO BID [facility] Last Admin: 02/11/17 17:30 Dose: 20 mg Heparin Sodium (Porcine) (Heparin) 5,000 units SC Q12 [facility] Last Admin: 02/11/17 22:26 Dose: 5,000 units Hydroxyzine HCl (Atarax) 25 mg PO DAILY [facility] Last Admin: 02/11/17 09:26 Dose: 25 mg Azithromycin 500 mg/ Sodium (Chloride) 250 mls @ 250 mls/hr IVPB DAILY [facility] Last Admin: 02/11/17 10:36 Dose: 250 mls/hr Ceftriaxone Sodium 1 gm/ (Sodium Chloride) 100 mls @ 100 mls/hr IVPB DAILY [facility] Last Admin: 02/11/17 09:26 Dose: 100 mls/hr Vancomycin/Sodium Chloride (Vancocin) 1 gm in 200 mls @ 133.333 mls/hr IVPB TTS [facility] Stop: 02/17/17 10:01 Insulin Human Regular (Novolin R) 0 unit SC Q6H [facility] PRN Reason: Protocol Last Admin: 02/12/17 02:40 Dose: Not Given Metoprolol Tartrate (Lopressor) 25 mg PO Q12H [facility] Last Admin: 02/11/17 09:27 Dose: 25 mg Saccharomyces Boulardii (Florastor) 250 mg PO BID [facility] Last Admin: 02/11/17 17:30 Dose: 250 mg Sevelamer Carbonate (Renvela) 800 mg PO TIDCC [facility] Last Admin: 02/11/17 17:30 Dose: 800 mg - Labs Labs: 02/11/17 06:07 02/11/17 06:07 PT 12.4 SECONDS (9.7-12.2) H 02/09/17 08:03 INR 1.1 02/09/17 08:03 APTT 28 SECONDS (21-34) 02/09/17 08:03 - Constitutional Appears: Non-toxic, No Acute Distress - Head Exam Head Exam: ATRAUMATIC, NORMAL INSPECTION, NORMOCEPHALIC - Eye Exam Eye Exam: EOMI, Normal appearance, PERRL - ENT Exam ENT Exam: Mucous Membranes Moist - Neck Exam Neck Exam: absent: Full ROM Additional comments: side bent right - Respiratory Exam Respiratory Exam: Clear to Ausculation Bilateral, NORMAL BREATHING PATTERN. absent: Rales, Rhonchi, Wheezes - Cardiovascular Exam Cardiovascular Exam: +S1, +S2. absent: Bradycardia, Tachycardia - GI/Abdominal Exam GI & Abdominal Exam: Soft, Normal Bowel Sounds. absent: Distended, Firm, Tenderness - Extremities Exam Extremities Exam: absent: Pedal Edema, Tenderness - Neurological Exam Neurological Exam: Alert, Awake, Oriented x3 - Psychiatric Exam Psychiatric exam: Normal Affect - Skin Skin Exam: Intact, Normal Color Assessment and Plan - Assessment and Plan (Free Text) Assessment: (1) Slurred speech likely secondary to metabolic causes Resolved Rule out CVA Patient has history of previous CVA Head CT (02/08/17): No acute intracranial hemorrhage. Chronic bilateral basal nuclei ischemic changes. Moderate atrophy (Please see full report). Neuro, Dr. Hernandez, consulted. Follow-up recommendations. Recommends patient be continued on dual antiplatelet therapy for about 3 weeks as per the CHANCE trial. Afterward, continue only Plavix 75 mg daily, indefinitely. (see full report) Repeat CT Head without contrast (02/10/17): Chronic bilateral basal nuclei ischemic changes are again seen. Note that the possibility of a small hyperacute infarct on may not be visualized on initial CT imaging. Suspect minor chronic periventricular white matter ischemic changes as well. Mild to moderate generalized volume loss. (see full report) ASA 325 mg tab given Carotid Doppler - mild disease to bilateral carotid arteries Lipid Panel: Triglycerides 231, Cholesterol 160, LDL 65, HDL 21 Tolerating finely chopped diet with thin liquids. NG tube discontinued. ASA 81mg po daily Continue home med: Plavix 75mg PO Daily (2) Bacteremia Blood culture (02/08/17): positive for Micrococcus and related genera. Awaiting sensitivities. Infectious disease Dr. Jeffers, consulted. Per Dr. Jeffers, as one blood cx was negative and the other positive, likely due to skin contaminate. Will follow-up repeat blood cultures x2 and if negative after 48 hours, patient can be discharged on po antibiotics. Started patient on Gentamicin 80 mg IVPB once (02/10/17), Vancomycin 1 gm IVPB once (02/10/17) and Vancomycin 1 gm IVPB TTS (active on 02/12/17) Repeat blood culture f/u repeat procalcitonin WBC 5.9, afebrile over 24 hours Tylenol 650 mg NG Q6 PRN for fever Continue Azithromycin 500mg IVPB Daily (started 02/08/17) and Ceftriaxone 1gm IVPB Daily (started 02/08/17) for possible pneumonia. Mycoplasma pneumon IgM negative. f/u serum L. Pneumo. f/u repeat CXR. procalcitonin mildly elevated at 0.93 Tmax in ED- 102.8. WBC- 6.2. Lactate 1.1. f/u blood and urine cultures CXR- 02/08/17- elevation of right hemidiaphragm. R basilar atelectasis with possible small effusion. R basilar infiltrate not excluded. Given one dose of Vanco 1gm IVPB. (3) EKG abnormalities EKG shows questionable atrial fibrillation with t wave changes compared to previous EKG in 2015. Echocardiogram: mild concentric left ventricular hypertrophy. Left ventricle systolic function mildly impaired. EF is 50-55%. Grade I abnormal relaxation pattern. Trace mitral regurgitation. Moderate-severe pulmonary hypertension. Aortic root is mildly enlarged (see full report). RAFFY: 0.1150 (02/08 22:37), 0.1220 (02/09 03:17). Dr. Kirk notes patient had normal stress test in the past. Consult Cardio- Dr. Kirk. Per Dr. Kirk - no atrial fibrillation identified on interrogation of pacemaker. Atrial leads adjusted. [employer] contacted and confirmed pacemaker in place. HAS BLED score of 4- 8.9% risk of bleeding. (4) Diabetes mellitus glucose 106 Accuchecks Q6h. home insulin- Levemir 6U in AM and 14U in PM - held RISS. f/u HgbA1C Monitor (5) ESRD (end stage renal disease) BUN/CR: 37/8.2 Hemodialysis today Nephrology- Dr. Juarez consulted. On Dialysis TTHS. Patient tolerated hemodialysis well last year. Continue Renvela 800mg PO TID (6) HTN (hypertension) Continue home meds: Norvasc 10mg PO Daily. Metoprolol 25mg PO BID. Hydralazine 10mg PO Daily Monitor (7) Prophylactic measure Protonix 40mg PO Daily Heparin 5000 units SC q12h SCDs Florastor 250 mg po BID (8) Discharge Planning Case Management referral for possible discharge to [facility] <Vero Hudson V - Last Filed: 02/12/17 15:51> Objective - Vital Signs/Intake and Output Vital Signs (last 24 hours): Temp Pulse Resp BP Pulse Ox 98.5 F 60 20 153/69 H 100 02/12/17 14:00 02/12/17 14:00 02/12/17 14:00 02/12/17 14:00 02/12/17 14:00 Intake and Output: 02/12/17 02/12/17 06:59 18:59 Intake Total 300 720 Output Total 100 Balance 200 720 - Medications Medications: Current Medications Acetaminophen (Tylenol 650mg/20.3ml Solution Ud) 650 mg NG Q6 PRN PRN Reason: Fever >100.4 F Amlodipine Besylate (Norvasc) 10 mg PO DAILY [facility] Last Admin: 02/12/17 10:15 Dose: Not Given Aspirin (Aspirin Chewable) 81 mg PO DAILY [facility] Last Admin: 02/12/17 14:36 Dose: 81 mg Clopidogrel Bisulfate (Plavix) 75 mg PO DAILY [facility] Last Admin: 02/12/17 14:36 Dose: 75 mg Docusate Sodium (Colace) 100 mg PO BID [facility] Last Admin: 02/12/17 10:29 Dose: Not Given Epoetin Shahram (Procrit) 10,000 unit IV TTS [facility] Stop: 02/17/17 10:01 Last Admin: 02/12/17 12:29 Dose: 10,000 unit Famotidine (Pepcid) 20 mg PO BID [facility] Last Admin: 02/12/17 10:30 Dose: Not Given Heparin Sodium (Porcine) (Heparin) 5,000 units SC Q12 [facility] Last Admin: 02/12/17 10:29 Dose: Not Given Hydroxyzine HCl (Atarax) 25 mg PO DAILY [facility] Last Admin: 02/12/17 14:36 Dose: 25 mg Azithromycin 500 mg/ Sodium (Chloride) 250 mls @ 250 mls/hr IVPB DAILY [facility] Last Admin: 02/12/17 14:58 Dose: 250 mls/hr Ceftriaxone Sodium 1 gm/ (Sodium Chloride) 100 mls @ 100 mls/hr IVPB DAILY [facility] Last Admin: 02/12/17 13:39 Dose: 100 mls/hr Vancomycin/Sodium Chloride (Vancocin) 1 gm in 200 mls @ 133.333 mls/hr IVPB TTS [facility] Stop: 02/17/17 10:01 Insulin Human Regular (Novolin R) 0 unit SC Q6H [facility] PRN Reason: Protocol Last Admin: 02/12/17 14:44 Dose: Not Given Metoprolol Tartrate (Lopressor) 25 mg PO Q12H [facility] Last Admin: 02/12/17 10:14 Dose: Not Given Saccharomyces Boulardii (Florastor) 250 mg PO BID [facility] Last Admin: 02/12/17 10:29 Dose: Not Given Sevelamer Carbonate (Renvela) 800 mg PO TIDCC [facility] Last Admin: 02/12/17 14:35 Dose: 800 mg - Labs Labs: 02/12/17 06:02 02/12/17 06:02 PT 12.4 SECONDS (9.7-12.2) H 02/09/17 08:03 INR 1.1 02/09/17 08:03 APTT 28 SECONDS (21-34) 02/09/17 08:03 Attending/Attestation - Attestation I have personally seen and examined this patient.: Yes I have fully participated in the care of the patient.: Yes I have reviewed all pertinent clinical information, including history, physical exam and plan: Yes Notes (Text): Patient seen, examined, and case discussed with day-time resident. Patient appears clinically improving and reports he would like to go home. Speech improving. Procalcitonin improved. Patient to be re-evaluated by infectious disease today for consideration for possible discharge home. Patient is currently on IV antibiotics. Discussed with lab, patient's repeat blood cultures are negative currently. Assessment/Plan (1) Slurred speech Status: Acute Comment: Likely due to metabolic causes Head CT- 02/08/17- No acute intracranial hemorrhage. Chronic bilateral basal nuclei ischemic changes. Moderate atrophy (Please see full report). Head CT-02/10/17 - chronic bilateral basal nuclei ischemic changes are seen agan. Note: that the possibility of a small hyercuate infract on may not be visualized on initial CT imaging. Suspect minor periventircular white matter ischemic changes as well. Mild to moderate generalized volume los (Please see full report) Consult Neuro- Dr. Bradley. Carotid duplex: does not suggest hemodynamically significant stenosis of the right extracranial cartoid arteries Swallow eval: finely chopped solids for ease and thin liquids. Recommended for dual platelet therapy: Asa 81mg PO Daily and Plavix 75mg PO Daily for 3 weeks; and then after Plavix indefinitely. hgba1c:8.4, Lipid panel: Chol:231 TG;160 HDL:65 LDL: 21 (2) Fever Status: Acute Comment: Infectious disease (Dr. Jeffers) on board-->help appreciated Tmax in ED- 102.8. WBC- 6.2. Lactate 1.1. Tmax: 98.9F CXR- 02/08/17- elevation of right hemidiaphragm. R basilar atelectasis with possible small effusion. R basilar infiltrate not excluded. CXR- 02/11/17- no active pulmonary disease Florastor 250mg PO bid Procalcitonin:0.93-->0.39 Strep pneumonie, urine legionella, and Mycoplasma IgM: negative Blood cultures (02/08/17): Micrococcus (1 out of 2 bottles) Urine culture (02/09/17): no growth Urine culture (02/11/17): no growth Abx: Rocephin 1 gram IV qdaily Azithromycin 500mg IV q daily Vancomycin 1 gram //Thu (active since 02/12/17-02/17/17) (3) EKG abnormalities Non-STEMI Status: Resolved Comment: Cardiology on board- Dr. Kirk-->he;p appreciated EKG shows questionable atrial fibrillation with t wave changes compared to previous EKG in 2015 on admission Interrogated no noted atrial fibrillation Continue Aspirin 81mg Po daily and Plavix 75mg Po daily Echocardiogram (02/09/17): mild concentric left ventricular hypertrophy, left ventricle systolic function is mildly impaired. EF: 50-55%. Mitral regurgitation is trace. Moderate-sever pulmonary hypertension. Aortic root is mildly enlarged (4) Diabetes mellitus Status: Chronic Comment: Accuchecks Q6h. hgba1c:8.4 Hold off on home insulin- Levemir 6U in AM and 14U in PM due to NPO. hgba1c:8.4, Lipid panel: Chol:231 TG;160 HDL:65 LDL: 21 (5) ESRD (end stage renal disease) Status: Chronic Comment: Consult nephro- Dr. Juarez. on Dialysis TTHS. Continue Renvela 800mg PO TID Consent for dialysis obtained by the resident (6) HTN (hypertension) Status: Chronic Comment: Continue home meds: Norvasc 10mg PO Daily. Metoprolol 25mg PO BID. Patient is ESRD on as in patient (7) Prior history of CVA Head CT- 02/08/17- No acute intracranial hemorrhage. Chronic bilateral basal nuclei ischemic changes. Moderate atrophy (Please see full report). Consult Neuro- Dr. Bradley. Head CT-02/10/17 - chronic bilateral basal nuclei ischemic changes are seen agan. Note: that the possibility of a small hyercuate infract on may not be visualized on initial CT imaging. Suspect minor periventircular white matter ischemic changes as well. Mild to moderate generalized volume los (Please see full report) (8) Prophylactic measure Status: Acute Comment: Protonix 40mg PO Daily. SCDs b/l Heparin 5000 units subq 12hours PT/OT eval-->family refuses service per review of case management notes Swallow eval: finely chopped solids for ease and thin liquids. Disposition: Follow-up with infectious disease regarding if patient is stable for discharge from their standpoint and ABx upon discharge.
[2017-02-12 06:13] LABS: BASO % 0.8 % (0.0-2.0); EOS # 0.4 K/uL (0.0-0.7); EOS % 10.1 % (0.0-4.0); HEMATOCRIT 26.7 % (35.0-51.0); LYMPH # 1.7 K/uL (1.0-4.3); LYMPH % 38.4 % (20.0-40.0); MEAN CELL VOLUME 87.4 fL (80.0-94.0); MEAN CORPUSCULAR HEMOGLOBIN 29.2 pg (27.0-31.0); MEAN CORPUSCULAR HGB CONC 33.4 g/dL (33.0-37.0); MEAN PLATELET VOLUME 8.4 fL (7.2-11.7); MONO # 0.4 K/uL (0.0-0.8); MONO % 9.3 % (0.0-10.0); NRBC % 0.1 % (0.0-2.0); RED CELL DISTRIBUTION WIDTH 14.2 % (11.5-14.5); WHITE BLOOD COUNT 4.4 K/uL (4.8-10.8)
[2017-02-12 06:25] LABS: POTASSIUM 4.5 mmol/L (3.6-5.2)
[2017-02-12 06:27] LABS: ALB/GLOB RATIO 1.3 (1.0-2.1); BILIRUBIN,TOTAL 0.6 mg/dL (0.2-1.3); TOTAL PROTEIN 6.3 g/dL (6.3-8.3)
[2017-02-12 06:28] LABS: CALCIUM 8.5 mg/dl (8.6-10.4); MAGNESIUM 2.2 mg/dL (1.6-2.3); PHOSPHOROUS 4.9 mg/dL (2.5-4.5)
--- NOTE | 2017-02-12 09:52 | CP.PCM.PN ---
Subjective - Date & Time of Evaluation Date of Evaluation: 02/12/17 Time of Evaluation: 09:48 - Subjective Subjective: Progress note for Dr. Kirk Pt seen and examined at bedside. No acute events overnight as per nursing. Pt states he feels well at this time and is back to normal. Denies CP, SOB, N/V/D, fever, trouble speaking. Objective - Vital Signs/Intake and Output Vital Signs (last 24 hours): Temp Pulse Resp BP Pulse Ox 98.9 F 60 16 159/71 H 97 02/12/17 09:05 02/12/17 09:05 02/12/17 09:00 02/12/17 09:46 02/12/17 09:05 Intake and Output: 02/12/17 02/12/17 06:59 18:59 Intake Total 300 Output Total 100 Balance 200 - Medications Medications: Current Medications Acetaminophen (Tylenol 650mg/20.3ml Solution Ud) 650 mg NG Q6 PRN PRN Reason: Fever >100.4 F Amlodipine Besylate (Norvasc) 10 mg PO DAILY [facility] Last Admin: 02/11/17 09:27 Dose: 10 mg Aspirin (Aspirin Chewable) 81 mg PO DAILY [facility] Last Admin: 02/11/17 09:28 Dose: 81 mg Clopidogrel Bisulfate (Plavix) 75 mg PO DAILY [facility] Last Admin: 02/11/17 09:27 Dose: 75 mg Docusate Sodium (Colace) 100 mg PO BID [facility] Last Admin: 02/11/17 17:30 Dose: 100 mg Famotidine (Pepcid) 20 mg PO BID [facility] Last Admin: 02/11/17 17:30 Dose: 20 mg Heparin Sodium (Porcine) (Heparin) 5,000 units SC Q12 [facility] Last Admin: 02/11/17 22:26 Dose: 5,000 units Hydroxyzine HCl (Atarax) 25 mg PO DAILY [facility] Last Admin: 02/11/17 09:26 Dose: 25 mg Azithromycin 500 mg/ Sodium (Chloride) 250 mls @ 250 mls/hr IVPB DAILY [facility] Last Admin: 02/11/17 10:36 Dose: 250 mls/hr Ceftriaxone Sodium 1 gm/ (Sodium Chloride) 100 mls @ 100 mls/hr IVPB DAILY [facility] Last Admin: 02/11/17 09:26 Dose: 100 mls/hr Vancomycin/Sodium Chloride (Vancocin) 1 gm in 200 mls @ 133.333 mls/hr IVPB TTS [facility] Stop: 02/17/17 10:01 Insulin Human Regular (Novolin R) 0 unit SC Q6H [facility] PRN Reason: Protocol Last Admin: 02/12/17 08:22 Dose: Not Given Metoprolol Tartrate (Lopressor) 25 mg PO Q12H [facility] Last Admin: 02/11/17 09:27 Dose: 25 mg Saccharomyces Boulardii (Florastor) 250 mg PO BID [facility] Last Admin: 02/11/17 17:30 Dose: 250 mg Sevelamer Carbonate (Renvela) 800 mg PO TIDCC [facility] Last Admin: 02/12/17 08:21 Dose: 800 mg - Labs Labs: 02/12/17 06:02 02/12/17 06:02 PT 12.4 SECONDS (9.7-12.2) H 02/09/17 08:03 INR 1.1 02/09/17 08:03 APTT 28 SECONDS (21-34) 02/09/17 08:03 - Constitutional Appears: Non-toxic, No Acute Distress - Head Exam Head Exam: ATRAUMATIC, NORMAL INSPECTION, NORMOCEPHALIC - Respiratory Exam Respiratory Exam: Clear to Ausculation Bilateral, NORMAL BREATHING PATTERN. absent: Rales, Rhonchi - Cardiovascular Exam Cardiovascular Exam: RRR, +S1, +S2 - GI/Abdominal Exam GI & Abdominal Exam: Soft, Normal Bowel Sounds. absent: Tenderness - Extremities Exam Extremities Exam: Normal Inspection. absent: Calf Tenderness, Pedal Edema - Neurological Exam Neurological Exam: Alert, Awake, Oriented x3 - Skin Skin Exam: Intact, Normal Color, Warm Assessment and Plan (1) Pacemaker Assessment & Plan: No atrial fibrillation noted Rate and BP adequately controlled at this time Continue current medical management Status: Chronic
[2017-02-12] MEDS ORDERED: Vancomycin 1 gm/NS 200 ml 1 GM/200 ML BAG IVPB SCH (10:00)
[2017-02-12] MEDS ORDERED: Epoetin Alfa 10,000 unit/ml Dialysis IV SCH (10:00)
--- NOTE | 2017-02-12 10:18 | CP.PCM.PN ---
Subjective - Date & Time of Evaluation Date of Evaluation: 02/12/17 Time of Evaluation: 10:15 - Subjective Subjective: Seen at dialysis - to UF 2500ml; tolertating treatment On treatment for bacteremia More alert; less dysneic No CP, n, v, diarrhea Objective - Vital Signs/Intake and Output Vital Signs (last 24 hours): Temp Pulse Resp BP Pulse Ox 98.9 F 60 16 159/71 H 97 02/12/17 09:05 02/12/17 09:05 02/12/17 09:00 02/12/17 09:46 02/12/17 09:05 Intake and Output: 02/12/17 02/12/17 06:59 18:59 Intake Total 300 Output Total 100 Balance 200 - Medications Medications: Current Medications Acetaminophen (Tylenol 650mg/20.3ml Solution Ud) 650 mg NG Q6 PRN PRN Reason: Fever >100.4 F Amlodipine Besylate (Norvasc) 10 mg PO DAILY [facility] Last Admin: 02/11/17 09:27 Dose: 10 mg Aspirin (Aspirin Chewable) 81 mg PO DAILY [facility] Last Admin: 02/11/17 09:28 Dose: 81 mg Clopidogrel Bisulfate (Plavix) 75 mg PO DAILY [facility] Last Admin: 02/11/17 09:27 Dose: 75 mg Docusate Sodium (Colace) 100 mg PO BID [facility] Last Admin: 02/11/17 17:30 Dose: 100 mg Epoetin Shahram (Procrit) 10,000 unit IV TTS [facility] Stop: 02/17/17 10:01 Famotidine (Pepcid) 20 mg PO BID [facility] Last Admin: 02/11/17 17:30 Dose: 20 mg Heparin Sodium (Porcine) (Heparin) 5,000 units SC Q12 [facility] Last Admin: 02/11/17 22:26 Dose: 5,000 units Hydroxyzine HCl (Atarax) 25 mg PO DAILY [facility] Last Admin: 02/11/17 09:26 Dose: 25 mg Azithromycin 500 mg/ Sodium (Chloride) 250 mls @ 250 mls/hr IVPB DAILY [facility] Last Admin: 02/11/17 10:36 Dose: 250 mls/hr Ceftriaxone Sodium 1 gm/ (Sodium Chloride) 100 mls @ 100 mls/hr IVPB DAILY [facility] Last Admin: 02/11/17 09:26 Dose: 100 mls/hr Vancomycin/Sodium Chloride (Vancocin) 1 gm in 200 mls @ 133.333 mls/hr IVPB TTS [facility] Stop: 02/17/17 10:01 Insulin Human Regular (Novolin R) 0 unit SC Q6H [facility] PRN Reason: Protocol Last Admin: 02/12/17 08:22 Dose: Not Given Metoprolol Tartrate (Lopressor) 25 mg PO Q12H [facility] Last Admin: 02/11/17 09:27 Dose: 25 mg Saccharomyces Boulardii (Florastor) 250 mg PO BID [facility] Last Admin: 02/11/17 17:30 Dose: 250 mg Sevelamer Carbonate (Renvela) 800 mg PO TIDCC [facility] Last Admin: 02/12/17 08:21 Dose: 800 mg - Labs Labs: 02/12/17 06:02 02/12/17 06:02 PT 12.4 SECONDS (9.7-12.2) H 02/09/17 08:03 INR 1.1 02/09/17 08:03 APTT 28 SECONDS (21-34) 02/09/17 08:03 - Constitutional Appears: No Acute Distress, Chronically Ill - Head Exam Head Exam: ATRAUMATIC, NORMAL INSPECTION - Eye Exam Eye Exam: EOMI, Normal appearance - Neck Exam Neck Exam: Normal Inspection. absent: Tenderness - Respiratory Exam Respiratory Exam: Clear to Ausculation Bilateral, NORMAL BREATHING PATTERN - Cardiovascular Exam Cardiovascular Exam: REGULAR RHYTHM, +S1 - GI/Abdominal Exam GI & Abdominal Exam: Soft. absent: Tenderness - Extremities Exam Extremities Exam: Normal Inspection. absent: Tenderness - Neurological Exam Neurological Exam: Alert, CN II-XII Intact - Skin Skin Exam: Dry, Warm Assessment and Plan (1) Slurred speech Status: Acute (2) CVA, old, aphasia Status: Acute (3) Diabetes mellitus Status: Chronic (4) ESRD (end stage renal disease) Status: Chronic (5) HTN (hypertension) Status: Chronic (6) Bacteremia Status: Acute - Assessment and Plan (Free Text) Plan: IV ABs Dialysis TTS Adequate UF Monitor labs Restart EPO
[2017-02-12] MEDS: Saccharomyces Boulardi 250 mg Cap PO SCH ×2 (10:29→17:39)
[2017-02-12 14:49] VITALS: RESP 20
[2017-02-12] MEDS: Azithromycin 500 MG in Sodium Chloride 0.9% 250 ML IVPB SCH (14:58)
[2017-02-12 16:00] VITALS: BP 154/69; TEMP 98; O2SAT 97
--- NOTE | 2017-02-12 16:00 | CP.PCM.PN ---
Subjective - Date & Time of Evaluation Date of Evaluation: 02/12/17 Time of Evaluation: 04:00 - Subjective Subjective: dictated Objective - Vital Signs/Intake and Output Vital Signs (last 24 hours): Temp Pulse Resp BP Pulse Ox 98.0 F 64 20 154/69 H 97 02/12/17 15:05 02/12/17 15:05 02/12/17 15:05 02/12/17 15:05 02/12/17 15:05 Intake and Output: 02/12/17 02/12/17 06:59 18:59 Intake Total 300 720 Output Total 100 Balance 200 720 - Medications Medications: Current Medications Acetaminophen (Tylenol 650mg/20.3ml Solution Ud) 650 mg NG Q6 PRN PRN Reason: Fever >100.4 F Amlodipine Besylate (Norvasc) 10 mg PO DAILY [facility] Last Admin: 02/12/17 10:15 Dose: Not Given Aspirin (Aspirin Chewable) 81 mg PO DAILY [facility] Last Admin: 02/12/17 14:36 Dose: 81 mg Clopidogrel Bisulfate (Plavix) 75 mg PO DAILY [facility] Last Admin: 02/12/17 14:36 Dose: 75 mg Docusate Sodium (Colace) 100 mg PO BID [facility] Last Admin: 02/12/17 10:29 Dose: Not Given Epoetin Shahram (Procrit) 10,000 unit IV TTS [facility] Stop: 02/17/17 10:01 Last Admin: 02/12/17 12:29 Dose: 10,000 unit Famotidine (Pepcid) 20 mg PO BID [facility] Last Admin: 02/12/17 10:30 Dose: Not Given Heparin Sodium (Porcine) (Heparin) 5,000 units SC Q12 [facility] Last Admin: 02/12/17 10:29 Dose: Not Given Hydroxyzine HCl (Atarax) 25 mg PO DAILY [facility] Last Admin: 02/12/17 14:36 Dose: 25 mg Azithromycin 500 mg/ Sodium (Chloride) 250 mls @ 250 mls/hr IVPB DAILY [facility] Last Admin: 02/12/17 14:58 Dose: 250 mls/hr Ceftriaxone Sodium 1 gm/ (Sodium Chloride) 100 mls @ 100 mls/hr IVPB DAILY [facility] Last Admin: 02/12/17 13:39 Dose: 100 mls/hr Vancomycin/Sodium Chloride (Vancocin) 1 gm in 200 mls @ 133.333 mls/hr IVPB TTS [facility] Stop: 02/17/17 10:01 Insulin Detemir (Levemir) 10 unit SC HS [facility] Insulin Human Regular (Novolin R) 0 unit SC Q6H [facility] PRN Reason: Protocol Last Admin: 02/12/17 14:44 Dose: Not Given Metoprolol Tartrate (Lopressor) 25 mg PO Q12H [facility] Last Admin: 02/12/17 10:14 Dose: Not Given Saccharomyces Boulardii (Florastor) 250 mg PO BID [facility] Last Admin: 02/12/17 10:29 Dose: Not Given Sevelamer Carbonate (Renvela) 800 mg PO TIDCC [facility] Last Admin: 02/12/17 14:35 Dose: 800 mg - Labs Labs: 02/12/17 06:02 02/12/17 06:02 PT 12.4 SECONDS (9.7-12.2) H 02/09/17 08:03 INR 1.1 02/09/17 08:03 APTT 28 SECONDS (21-34) 02/09/17 08:03
[2017-02-12 16:02] VITALS: PULSE 60
--- NOTE | 2017-02-12 16:47 | PN ---
DATE: 02/12/2017 SUBJECTIVE: The patient is afebrile. He feels better. He is not coughing. No fever. He wants to go home. He is getting some IV fluids. He is getting his IV antibiotics at this time. PHYSICAL EXAMINATION: VITAL SIGNS: T-max is 98, pulse is 64, blood pressure 154/69, respirations are 20. HEENT: Head is atraumatic, normocephalic. NECK: Supple. LUNGS: Clear. No crackles or rales present. HEART: S1, S2 are regular. ABDOMEN: Soft, nontender, no guarding, no rigidity present. EXTREMITIES: No edema, clubbing or cyanosis. Is mostly bedbound. LABORATORY DATA: He gets dialysis on Tuesdays, and Saturdays. White count is 4.4, hemoglo bin 8.9, hematocrit 26.7, platelet count is 222. Creatinine is 8.2. The x-ray which was done today shows no acute active disease. He is, therefore, in the hospital at this time, so he will be going h ome probably and the repeat culture is negative for 24 hours. Urine culture is negative. His one cu lture was micrococcus, which probably is a contaminant or real. It is unclear, but echo is negative a nd he did come with a fever of 102, could have been related to pneumonia and/or this bacteremia. Sug gest at this time to get vancomycin after each dialysis 1 gram for next 4 doses and to continue Zithr omax for 2 days more. We will follow. Discussed the plan with the resident. Tonya Jeffers MD cc: [id number] TT: 02/12/2017 16:46:13 Confirmation # [id number] Dictation # [id number]
[2017-02-12] MEDS ORDERED: Insulin Detemir 100 units/ml Vial (Levemir) SC SCH (22:00)
--- NOTE | 2017-02-13 22:24 | CP.PCM.DIS ---
Provider - Provider Date of Admission: 02/08/17 17:15 Attending physician: Vero Hudson DO Consults: Dr. Bradley - Neurology Dr. Jeffers - ID Dr. Juarez - Nephrology Time Spent in preparation of Discharge (in minutes): 31 Hospital Course - Lab Results Lab Results: Micro Results 02/08/17 20:00 Blood Blood Culture - Final NO GROWTH AFTER 5 DAYS 02/08/17 20:00 Blood Gram Stain - Final TEST NOT PERFORMED 02/11/17 11:30 Blood Blood Culture - Preliminary NO GROWTH AFTER 48 HOURS 02/11/17 12:00 Blood Blood Culture - Preliminary NO GROWTH AFTER 48 HOURS 02/12/17 14:12 Blood-Venous Blood Culture - Preliminary NO GROWTH AFTER 24 HOURS 02/11/17 13:56 Urine Urine Culture - Final No Growth (<1,000 CFU/ML) 02/09/17 Unknown Urine,Clean Catch Urine Culture - Final No Growth (<1,000 CFU/ML) 02/08/17 20:00 Blood S.aureus & Coag-Neg Staph PNA FISH - Final 02/08/17 20:00 Blood Blood Culture - Final Micrococcus & Related Genera 02/08/17 20:00 Blood Gram Stain - Final Most Recent Lab Values WBC 4.4 K/uL (4.8-10.8) L 02/12/17 06:02 RBC 3.05 Mil/uL (4.40-5.90) L 02/12/17 06:02 Hgb 8.9 g/dL (12.0-18.0) L 02/12/17 06:02 Hct 26.7 % (35.0-51.0) L 02/12/17 06:02 MCV 87.4 fL (80.0-94.0) 02/12/17 06:02 MCH 29.2 pg (27.0-31.0) 02/12/17 06:02 MCHC 33.4 g/dL (33.0-37.0) 02/12/17 06:02 RDW 14.2 % (11.5-14.5) 02/12/17 06:02 Plt Count 222 K/uL (130-400) 02/12/17 06:02 MPV 8.4 fL (7.2-11.7) 02/12/17 06:02 Neut % (Auto) 41.4 % (50.0-75.0) L 02/12/17 06:02 Lymph % (Auto) 38.4 % (20.0-40.0) 02/12/17 06:02 [place] % (Auto) 9.3 % (0.0-10.0) 02/12/17 06:02 Eos % (Auto) 10.1 % (0.0-4.0) H 02/12/17 06:02 Baso % (Auto) 0.8 % (0.0-2.0) 02/12/17 06:02 Neut # 1.8 K/uL (1.8-7.0) 02/12/17 06:02 Lymph # 1.7 K/uL (1.0-4.3) 02/12/17 06:02 [place] # 0.4 K/uL (0.0-0.8) 02/12/17 06:02 Eos # 0.4 K/uL (0.0-0.7) 02/12/17 06:02 Baso # 0.0 K/uL (0.0-0.2) 02/12/17 06:02 PT 12.4 SECONDS (9.7-12.2) H 02/09/17 08:03 INR 1.1 02/09/17 08:03 APTT 28 SECONDS (21-34) 02/09/17 08:03 pO2 31 mm/Hg (30-55) 02/08/17 16:05 VBG pH 7.45 (7.32-7.43) H 02/08/17 16:05 VBG pCO2 58 mmHg (40-60) 02/08/17 16:05 VBG HCO3 34.6 mmol/L 02/08/17 16:05 VBG Total CO2 42.1 mmol/L (22-28) H 02/08/17 16:05 VBG O2 Sat (Calc) 66.8 % (40-65) H 02/08/17 16:05 VBG Base Excess 13.6 mmol/L (0.0-2.0) H 02/08/17 16:05 VBG Potassium 4.3 mmol/L (3.6-5.2) 02/08/17 16:05 Sodium 138.0 mmol/l (132-148) 02/08/17 16:05 Chloride 98.0 mmol/L (98-107) 02/08/17 16:05 Glucose 255 mg/dl (75-110) H 02/08/17 16:05 Lactate 1.1 mmol/L (0.7-2.1) 02/08/17 16:05 Sodium 135 mmol/L (132-148) 02/12/17 06:02 Potassium 4.5 mmol/L (3.6-5.2) 02/12/17 06:02 Chloride 93 mmol/L (98-107) L 02/12/17 06:02 Carbon Dioxide 28 mmol/L (22-30) 02/12/17 06:02 Anion Gap 19 (10-20) 02/12/17 06:02 BUN 37 mg/dL (9-20) H 02/12/17 06:02 Creatinine 8.2 MG/DL (0.8-1.5) H* D 02/12/17 06:02 Est GFR ( Amer) 8 02/12/17 06:02 Est GFR (Non-Af Amer) 7 02/12/17 06:02 POC Glucose (mg/dL) 131 mg/dL (65-110) H 02/12/17 11:04 Random Glucose 106 mg/dL (75-110) 02/12/17 06:02 Hemoglobin A1c 8.4 % (4.2-6.5) H 02/08/17 15:15 Calcium 8.5 mg/dl (8.6-10.4) L 02/12/17 06:02 Phosphorus 4.9 mg/dL (2.5-4.5) H 02/12/17 06:02 Magnesium 2.2 mg/dL (1.6-2.3) 02/12/17 06:02 Total Bilirubin 0.6 mg/dL (0.2-1.3) 02/12/17 06:02 AST 26 U/L (17-59) 02/12/17 06:02 ALT 12 U/L (21-72) L 02/12/17 06:02 Alkaline Phosphatase 92 U/L (38-126) 02/12/17 06:02 Total Creatine Kinase 47 U/L (55-170) L 02/09/17 03:17 CK-MB (Mass) 0.77 ng/mL (0.0-3.38) 02/09/17 03:17 Troponin I 0.1010 ng/mL (0.00-0.120) 02/08/17 15:15 Troponin I, Quant 0.1220 ng/mL (0.00-0.120) H* 02/09/17 03:17 Total Protein 6.3 g/dL (6.3-8.3) 02/12/17 06:02 Albumin 3.6 g/dL (3.5-5.0) 02/12/17 06:02 Globulin 2.7 gm/dL (2.2-3.9) 02/12/17 06:02 Albumin/Globulin Ratio 1.3 (1.0-2.1) 02/12/17 06:02 Triglycerides 231 mg/dL (0-149) H D 02/09/17 08:03 Cholesterol 160 mg/dL (0-199) 02/09/17 08:03 LDL Cholesterol Direct 65 mg/dL (0-129) 02/09/17 08:03 HDL Cholesterol 21 mg/dL (30-70) L 02/09/17 08:03 Procalcitonin 0.39 NG/ML (0.19-0.49) 02/11/17 11:44 TSH 3rd Generation 0.74 mIU/L (0.46-4.68) 02/09/17 08:03 Venous Blood Potassium 4.3 mmol/L (3.6-5.2) 02/08/17 16:05 Urine Color Straw (YELLOW) 02/11/17 14:03 Urine Clarity Clear (Clear) 02/11/17 14:03 Urine pH 9.0 (5.0-8.0) 02/11/17 14:03 Ur Specific Purdy 1.005 (1.003-1.030) 02/11/17 14:03 Urine Protein 1+ mg/dL (NEGATIVE) H 02/11/17 14:03 Urine Glucose (UA) 1+ mg/dL (Normal) H 02/11/17 14:03 Urine Ketones Negative mg/dL (NEGATIVE) 02/11/17 14:03 Urine Blood Negative (NEGATIVE) 02/11/17 14:03 Urine Nitrate Negative (NEGATIVE) 02/11/17 14:03 Urine Bilirubin Negative (NEGATIVE) 02/11/17 14:03 Urine Urobilinogen Normal mg/dL (0.2-1.0) 02/11/17 14:03 Ur Leukocyte Esterase Neg Odilia/uL (Negative) 02/11/17 14:03 Urine WBC (Auto) < 1 /hpf (0-5) 02/11/17 14:03 Urine RBC (Auto) < 1 /hpf (0-3) 02/11/17 14:03 Hep Bs Antigen Negative (NEGATIVE) 02/10/17 17:40 Mycoplasma pneumon IgM Negative (NEGATIVE) 02/08/17 22:37 Blood Type A POSITIVE 02/08/17 22:37 Antibody Screen Negative 02/08/17 22:37 Discharge Exam - Head Exam Head Exam: ATRAUMATIC, NORMAL INSPECTION, NORMOCEPHALIC Discharge Plan - Discharge Medications Prescriptions: Azithromycin 500 mg PO DAILY #2 tablet - Follow Up Plan Condition: STABLE Disposition: HOME/ ROUTINE Instructions: Azithromycin (By mouth), Dialysis Diet (DC), Pneumonia (DC), End Stage Kidney Disease (DC) Additional Instructions: Patient medically stable for discharge home. Patient to resume home medications. Patient to complete antibiotics as prescribed: Azithromycin 500 mg tab by mouth daily for 2 days Vancomycin 1 gm by IVPB on hemodialysis days x 4 days Patient to receive home physical therapy. Patient instructed to follow-up with his primary care doctor within one week of discharge. Patient instructed to return to the emergency department if symptoms recur. Patient given detailed instructions at bedside. Patient understands and agrees. Referrals: Bo Juarez MD [Staff Provider] -
== END 2017-02-12 19:45 | disposition home or self-care (01) | DRG 193 ==
LOC: C.ER 14:47 → C.9E 17:15 → C.6T 18:10
PROVIDERS: ADMIT Hospitalist; ATTEND Hospitalist
PROC: 5A1D00Z (ICD-10-PCS; principal; 2017-02-12)
DX: J18.9 Pneumonia, unspecified organism (principal); N18.6 End stage renal disease; I12.0 Hypertensive chronic kidney disease with stage 5 chronic kidney disease or end stage renal disease; E11.22 Type 2 diabetes mellitus with diabetic chronic kidney disease; R78.81 Bacteremia; I27.2 Other secondary pulmonary hypertension; I69.351 Hemiplegia and hemiparesis following cerebral infarction affecting right dominant side; G31.89 Other specified degenerative diseases of nervous system; Z95.0 Presence of cardiac pacemaker; E78.00 Pure hypercholesterolemia, unspecified; Z79.4 Long term (current) use of insulin; M62.81 Muscle weakness (generalized); Z74.01 Bed confinement status; R47.1 Dysarthria and anarthria; I25.2 Old myocardial infarction; I34.0 Nonrheumatic mitral (valve) insufficiency

== ENCOUNTER 2017-07-16 19:35 | Inpatient (IN) | payer MEDICARE, OTHER ==
[2017-07-16 19:35] VITALS: BMI 23.4
[2017-07-16 20:09] LABS: BASO # 0.1 K/uL (0.0-0.2); BASO % 0.6 % (0.0-2.0); HEMATOCRIT 30.9 % (35.0-51.0); LYMPH % 9.4 % (20.0-40.0); MEAN CORPUSCULAR HEMOGLOBIN 29.3 pg (27.0-31.0); MEAN CORPUSCULAR HGB CONC 32.4 g/dL (33.0-37.0); MEAN PLATELET VOLUME 8.9 fL (7.2-11.7); MONO # 1.2 K/uL (0.0-0.8); MONO % 10.7 % (0.0-10.0)
[2017-07-16] MEDS ORDERED: Acetaminophen 650mg/20.3ml solution UD PO STA (20:10)
[2017-07-16 20:12] LABS: VENOUS BLOOD GAS BASE EXCESS 11.5 mmol/L (0.0-2.0); VENOUS BLOOD GAS PCO2 61 mmHg (40-60); VENOUS BLOOD PH 7.41 (7.32-7.43)
[2017-07-16] MEDS ORDERED: Acetaminophen 650mg/20.3ml solution UD ONE (20:12)
[2017-07-16] MEDS ORDERED: Sodium Chloride 0.9% 1,000 ML ONE (20:17)
[2017-07-16 20:18] LABS: INR 1.2
[2017-07-16 20:19] LABS: POTASSIUM 3.6 mmol/L (3.6-5.2)
[2017-07-16 20:21] LABS: MEAN CELL VOLUME 90.4 fL (80.0-94.0); PLATELET COUNT 335 K/uL (130-400); WHITE BLOOD COUNT 10.9 K/uL (4.8-10.8)
[2017-07-16 20:22] LABS: BILIRUBIN,TOTAL 1.1 mg/dL (0.2-1.3); TOTAL PROTEIN 9.4 g/dL (6.3-8.3)
[2017-07-16 20:23] LABS: CALCIUM 9.1 mg/dl (8.6-10.4)
[2017-07-16] MEDS ORDERED: Vancomycin 1 GM 1 GM/250 ML BAG IVPB STA (20:39)
[2017-07-16] MEDS ORDERED: Sodium Chloride 0.9% 500 ML IV ONE (20:40)
[2017-07-16] MEDS ORDERED: cefTRIAXone 2 GM in Sodium Chloride 0.9% 100 ML IVPB STA (20:40)
--- NOTE | 2017-07-16 20:41 | C.PDOC ---
History Of Present Illness 61 y/o male with PMHx of DM and End stage renal disease presents to ED with complaints of fever and cough with associated decrease of energy for 2 days. As per patient is not as talkative as usual and cough is productive with yellow phlegm. After dialysis today patient was less active and was brought to ED for evaluation, patient noted to have 101 fever. No other complaints at this time. PMD: Dr. Bynum Chief Complaint (Nursing): Cough, Cold, Congestion History Per: Patient, Family History/Exam Limitations: no limitations Onset/Duration Of Symptoms: Hrs Current Symptoms Are (Timing): Still Present Past Medical History Reviewed: Historical Data, Nursing Documentation, Vital Signs Vital Signs: Last Vital Signs Temp 98.5 F 07/16/17 22:28 Pulse 69 07/16/17 22:28 Resp 20 07/16/17 22:28 BP 129/46 L 07/16/17 22:28 Pulse Ox 98 07/16/17 22:28 - Medical History PMH: CVA, Diabetes, Fractures, HTN, Hypercholesterolemia, End Stage Renal Disease (Dialysis TUES,THURS,SAT), Chronic Kidney Disease Surgical History: Hernia Repair, Pacemaker - [facility] Procedures ENTERAL INFUSION OF CONCENTRATED NUT. SUBSTANCES (05/07/13) ESOPHAGOGASTRODUODENOSCOPY [EGD] W/CLOSED BIOPSY (05/02/13) HEMODIALYSIS (02/21/15) OPEN RED-INT FIX HUMERUS (02/21/15) PER NERVE ADHESIOLYS NEC (02/21/15) PERCUTANEOUS [ENDOSCOPIC] GASTROSTOMY [PEG] (05/02/13) PERFORMANCE OF URINARY FILTRATION, SINGLE (02/08/17) PERIPH NERVE INCIS NEC (02/21/15) Family History: States: No Known Family Hx - Social History Hx Tobacco Use: No Hx Alcohol Use: No Hx Substance Use: No - Immunization History Hx Tetanus Toxoid Vaccination: No Hx Influenza Vaccination: Yes Hx Pneumococcal Vaccination: Yes Review Of Systems Constitutional: Positive for: Fever. Negative for: Chills, Sweats Respiratory: Positive for: Cough Gastrointestinal: Negative for: Nausea, Vomiting Skin: Negative for: Rash Neurological: Positive for: Weakness. Negative for: Numbness Physical Exam - Physical Exam Appears: Other (Lethargic ) Skin: Warm, Dry, No Rash Head: Atraumatic, Normacephalic Eye(s): bilateral: Normal Inspection, PERRL, EOMI Oral Mucosa: Moist Neck: Normal ROM, Supple Chest: Symmetrical, Other (Pacer to left chest wall) Cardiovascular: Rhythm Regular Respiratory: No Rales, Rhonchi (On auscultation bilaterally), No Wheezing Gastrointestinal/Abdominal: Soft, No Tenderness, No Guarding, No Rebound Extremity: No Tenderness, No Deformity, Other (AV fistula to left anticubital fossa) Pulses: Left Radial: Normal, Right Radial: Normal Neurological/Psych: Oriented x3, Normal Speech, Normal Cognition, Normal Cranial Nerves, Normal Motor, Normal Sensation ED Course And Treatment - Laboratory Results Result Diagrams: 07/16/17 20:02 07/16/17 20:02 ECG: Interpreted By Me ECG Rhythm: Sinus Rhythm, 1st Degree HB ECG Interpretation: No Acute Changes Interpretation Of ECG: NSR,LVH with strain,1st deg AV block O2 Sat by Pulse Oximetry: 98 (RA) Pulse Ox Interpretation: Normal - Radiology CXR: Interpreted by Me CXR Interpretation: Yes: Infiltrates, Other (R perihilar infiltrate) - Physician Consult Information Time Consulting Physician Contacted: 21:35 Physician Contacted: Perez Frey (approved of admission under sepsis and pneumonia) Medical Decision Making Medical Decision Making: Impression: Sepsis likely from Pulmonary Source Plan: IV fluids, Antibiotics, Progress: Admit to medical services Disposition - Disposition Disposition: HOSPITALIZED Disposition Time: 01:01 Condition: SERIOUS - Clinical Impression Clinical Impression: Pneumonia, Sepsis - Scribe Statement The provider has reviewed the documentation as recorded by the Bethibsophie German All medical record entries made by the Scribe were at my direction and personally dictated by me. I have reviewed the chart and agree that the record accurately reflects my personal performance of the history, physical exam, medical decision making, and the department course for this patient. I have also personally directed, reviewed, and agree with the discharge instructions and disposition. Decision To Admit - Pt Status Changed To: Hospital Disposition Of: Inpatient - Admit Certification Admit to Inpatient:: After my assessment, the patient will require hospitalization for at least two midnights. This is because of the severity of symptoms shown, intensity of services needed, and/or the medical risk in this patient being treated as an outpatient. - InPatient: Physician Admission Certification: I certify that this patient requires 2 or more midnights of care for the following reason:: pneumonia,sepsis - . Bed Request Type: Telemetry Admitting Physician: Perez Frey Patient Diagnosis: Pneumonia, Sepsis
[2017-07-16] MEDS ORDERED: Vancomycin 1 gm/NS 200 ml 1 GM/200 ML BAG IVPB STA (20:43)
[2017-07-16] MEDS ORDERED: cefTRIAXone 2 GM in Dextrose 5% In Water 100 ML IVPB STA (20:43)
[2017-07-16 21:22] LABS: BASOPHIL 1 % (0-2); NEUTROPHIL 72 % (50-75); TOTAL CELLS COUNTED 100
--- NOTE | 2017-07-16 21:46 | CP.PCM.HP ---
<Surinder Vargas - Last Filed: 07/17/17 07:02> History of Present Illness - History of Present Illness History of Present Illness: CC: "My cold is getting worse and I've been coughing a lot" HPI: Patient is a 61 year old male, with PMHx of T1DM, [place], Pacemaker implantation, CVA, HTN, hyperlipidemia, presenting to [facility] ED c/o fever and cough. Family at bedside helping with interpretation and history. Family reports patient began complaining of chills and cough two days ago. The cough has worsened and he is now producing yellow sputum. They deny taking patient's temperature at home. Patient went for schedule dialysis today and family noted he was "more sluggish than usual" and becoming increasingly short of breath, so they wanted him brought to ED for evaluation. states 3 liters were taken off at dialysis, and patients dry weight is 78 kg. They report patient adheres to 32 oz fluid restriction daily. Both family members reports "cold like symptoms: runny nose, cough, chills" over the past few days. Patient denies chest pain, palpitations, abdominal pain, nausea, vomiting, or diarrhea. PMHx: T1DM, IN, Pacemaker implantation, CVA, HTN, hyperlipidemia PShx: Pacemaker (2011) FAm hx: Mom: Diabetes, Father: denies Soc hx: denies tobacco/etoh/illici drug use Allergies: No known Meds: Hydralazine 10mg PO BID, Amlodipine 10mg Daily, Pepcid 20mg Daily, Clopidogrel 75mg Daily, Renvela 800mg TID, Lopressor 25mg BID Levemir 14 units AM, 6 units PM, Humalog sliding scale PMD: Bynum Nephro: Larry Cardio: Carlos Present on Admission - Present on Admission Any Indicators Present on Admission: No Review of Systems - Constitutional Constitutional: Chills, Fatigue. absent: Fever, Headache, Night Sweats, Weight Loss - EENT Eyes: absent: Change in Vision Ears: absent: Decreased Hearing Nose/Mouth/Throat: absent: Nasal Discharge, Sinus Pressure, Sore Throat - Cardiovascular Cardiovascular: Dyspnea. absent: Chest Pain, Chest Pain at Rest - Respiratory Respiratory: Dyspnea, Chest Congestion - Gastrointestinal Gastrointestinal: absent: Abdominal Pain, Nausea, Vomiting - Genitourinary Genitourinary: absent: Dysuria - Musculoskeletal Musculoskeletal: absent: Back Pain, Numbness, Tingling - Integumentary Integumentary: absent: Dry Skin, Wounds - Neurological Neurological: absent: Tingling, Weakness - Psychiatric Psychiatric: absent: Anxiety, Depression - Endocrine Endocrine: Fatigue Past Patient History - Infectious Disease Hx of Infectious Diseases: None - Tetanus Immunizations Tetanus Immunization: Unknown - Past Medical History & Family History Past Medical History?: Yes - Past Social History Smoking Status: Never Smoked - CARDIAC Hx Hypercholesterolemia: Yes Hx Hypertension: Yes Hx Pacemaker: Yes - PULMONARY Hx Respiratory Disorders: No - NEUROLOGICAL HX Cerebrovascular Accident: Yes (right side residual weakness) - HEENT Hx HEENT Problems: Yes Hx Cataracts: Yes - RENAL Hx Chronic Kidney Disease: Yes - ENDOCRINE/METABOLIC Hx Diabetes Mellitus Type 2: Yes - HEMATOLOGICAL/ONCOLOGICAL Hx Blood Disorders: Yes Hx Blood Transfusions: Yes - INTEGUMENTARY Hx Dermatological Problems: No - MUSCULOSKELETAL/RHEUMATOLOGICAL Hx Fractures: Yes - GASTROINTESTINAL Hx Gastrointestinal Disorders: Yes Hx Constipation: Yes Other/Comment: history of PEG tube; no longer in - GENITOURINARY/GYNECOLOGICAL Hx Genitourinary Disorders: Yes Other/Comment: oliguria d/t dialysis - PSYCHIATRIC Hx Substance Use: No - SURGICAL HISTORY Hx Surgeries: Yes Hx Orthopedic Surgery: Yes (right humerus fx post fall) Other/Comment: hx of pacemaker and PEG - ANESTHESIA Hx Anesthesia: Yes Hx Anesthesia Reactions: No Hx Malignant Hyperthermia: No Meds Allergies/Adverse Reactions: Allergies Allergy/AdvReac Type Severity Reaction Status Date / Time No Known Allergies Allergy Verified 07/16/17 19:39 Physical Exam - Constitutional Appears: Chronically Ill - Head Exam Head Exam: ATRAUMATIC, NORMOCEPHALIC - Eye Exam Eye Exam: EOMI. absent: Scleral icterus - ENT Exam ENT Exam: Mucous Membranes Moist - Neck Exam Additional comments: No JVD appreciated - Respiratory Exam Respiratory Exam: Rhonchi. absent: Clear to Auscultation Bilateral, Rales, Wheezes - Cardiovascular Exam Cardiovascular Exam: +S1, +S2. absent: Systolic Murmur Additional comments: PAcemaker noted - GI/Abdominal Exam GI & Abdominal Exam: Normal Bowel Sounds, Soft. absent: Guarding, Rigid, Tenderness - Extremities Exam Extremities exam: Positive for: normal inspection. Negative for: pedal edema, tenderness Additional comments: AVF to left antecubital fossa - Back Exam Back exam: absent: CVA tenderness (L), CVA tenderness (R) - Neurological Exam Neurological exam: Alert, Oriented x3 - Psychiatric Exam Psychiatric exam: Normal Affect, Normal Mood - Skin Skin Exam: Normal Color, Warm Results - Vital Signs Recent Vital Signs: Last Vital Signs Temp 99.5 F 07/16/17 20:52 Pulse 70 07/16/17 21:32 Resp 18 07/16/17 21:32 BP 125/42 L 07/16/17 21:32 Pulse Ox 99 07/16/17 21:32 - Labs Result Diagrams: 07/17/17 06:00 07/17/17 06:00 Labs: Laboratory Results - last 24 hr 07/16/17 07/16/17 07/16/17 20:02 20:02 20:02 WBC 10.9 H D RBC 3.42 L Hgb 10.0 L Hct 30.9 L MCV 90.4 D MCH 29.3 MCHC 32.4 L RDW 16.0 H Plt Count 335 D MPV 8.9 Neut % (Auto) 79.3 H Lymph % (Auto) 9.4 L [place] % (Auto) 10.7 H Eos % (Auto) 0.0 Baso % (Auto) 0.6 Neut # 8.7 H Lymph # 1.0 [place] # 1.2 H Eos # 0.0 Baso # 0.1 Neutrophils % (Manual) 72 Band Neutrophils % 11 H* Lymphocytes % (Manual) 6 L Monocytes % (Manual) 10 Basophils % (Manual) 1 Platelet Estimate Normal Hypochromasia (manual) Slight Poikilocytosis (manual Slight Anisocytosis (manual) Slight Target Cells Slight PT 13.6 H INR 1.2 APTT 30 pO2 VBG pH VBG pCO2 VBG HCO3 VBG Total CO2 VBG O2 Sat (Calc) VBG Base Excess VBG Potassium Glucose Lactate Sodium 137 Potassium 3.6 Chloride 89 L Carbon Dioxide 33 H Anion Gap 19 BUN 14 Creatinine 3.6 H Est GFR ( Amer) 21 Est GFR (Non-Af Amer) 17 Random Glucose 183 H Calcium 9.1 Total Bilirubin 1.1 AST 19 ALT 22 Alkaline Phosphatase 152 H Total Protein 9.4 H Albumin 4.7 Globulin 4.7 H Albumin/Globulin Ratio 1.0 Venous Blood Potassium 07/16/17 20:08 WBC RBC Hgb Hct MCV MCH MCHC RDW Plt Count MPV Neut % (Auto) Lymph % (Auto) [place] % (Auto) Eos % (Auto) Baso % (Auto) Neut # Lymph # [place] # Eos # Baso # Neutrophils % (Manual) Band Neutrophils % Lymphocytes % (Manual) Monocytes % (Manual) Basophils % (Manual) Platelet Estimate Hypochromasia (manual) Poikilocytosis (manual Anisocytosis (manual) Target Cells PT INR APTT pO2 19 L VBG pH 7.41 VBG pCO2 61 H VBG HCO3 32.1 VBG Total CO2 40.6 H VBG O2 Sat (Calc) 31.5 L VBG Base Excess 11.5 H VBG Potassium 3.6 Glucose 206 H Lactate 3.0 H Sodium 139.0 Potassium Chloride 96.0 L Carbon Dioxide Anion Gap BUN Creatinine Est GFR ( Amer) Est GFR (Non-Af Amer) Random Glucose Calcium Total Bilirubin AST ALT Alkaline Phosphatase Total Protein Albumin Globulin Albumin/Globulin Ratio Venous Blood Potassium 3.6 Assessment & Plan - Assessment and Plan (Free Text) Plan: Sepsis SIRS: (Temp >100.9, Resp >20) Source: Pneumonia CODE SEPSIS initiated Pt febrile (Tmax 101.9 =- rectal) WBC 10.9 - left shift, 11 Bands Lactate 3.0 - repeat lactate 0.9 CXR (07/16/17): Questionable Right perihilar infiltrate (wet read, f/u official report) -f/u CT Chest EKG: NSR, 1st degree AV block, T wave inversions in LVH strain pattern Avelox 400mg IV Q24H - Ceftriaxone 2gm IV once in ED Vancomycin 1gm IV Stat - check AM level NS 500c bolus ONCE in ED Possible Pneumonia Patient febrile (Tmax 101.9 - rectal) CXR (07/16/17): Questionable Right perihilar infiltrate (wet read, f/u official report) Avelox 400mg IV Q24H - Ceftriaxone 2gm IV once in ED Vancomycin 1gm IV Stat - check AM level to determine Vancomycin dose moving forward Tylenol 650mg Q6H PRN fever f/u atypicals, influenza f/u procalcitonin ESRD Dialysis (-Thu) Dr. Juarez, Nephro consult: help appreciated -f/u reccs Hx of CVA CVA 2011, sequelae of right sided weakness CAD Clopidogrel 75mg PO Daily HTN Mild Hypotension on admission Continue Home meds: Amlodipine 10mg Daily Hydralazine 10mg PO BID T1DM Levemir 6 units AM, 14 units PM MISS Hypoglycemia protocol Accuchecks A1C in 01/21: 8.4 f/u A1c, lipid panel Prophylaxis SCDs Heparin 5000u Q12H Pepcid 20mg PO BID Surinder Gagnonkathleen PGY-[address] Frey <Perez Frey - Last Filed: 07/17/17 07:49> Results - Vital Signs Recent Vital Signs: Last Vital Signs Temp 98.4 F 07/16/17 23:55 Pulse 73 07/17/17 04:03 Resp 20 07/16/17 23:55 BP 119/59 L 07/16/17 23:55 Pulse Ox 98 07/17/17 01:01 - Labs Result Diagrams: 07/17/17 06:00 07/17/17 06:00 Labs: Laboratory Results - last 24 hr 07/16/17 07/16/17 07/16/17 20:02 20:02 20:02 WBC 10.9 H D RBC 3.42 L Hgb 10.0 L Hct 30.9 L MCV 90.4 D MCH 29.3 MCHC 32.4 L RDW 16.0 H Plt Count 335 D MPV 8.9 Neut % (Auto) 79.3 H Lymph % (Auto) 9.4 L [place] % (Auto) 10.7 H Eos % (Auto) 0.0 Baso % (Auto) 0.6 Neut # 8.7 H Lymph # 1.0 [place] # 1.2 H Eos # 0.0 Baso # 0.1 Neutrophils % (Manual) 72 Band Neutrophils % 11 H* Lymphocytes % (Manual) 6 L Monocytes % (Manual) 10 Basophils % (Manual) 1 Platelet Estimate Normal Hypochromasia (manual) Slight Poikilocytosis (manual Slight Anisocytosis (manual) Slight Target Cells Slight PT 13.6 H INR 1.2 APTT 30 pO2 VBG pH VBG pCO2 VBG HCO3 VBG Total CO2 VBG O2 Sat (Calc) VBG Base Excess VBG Potassium Glucose Lactate Sodium 137 Potassium 3.6 Chloride 89 L Carbon Dioxide 33 H Anion Gap 19 BUN 14 Creatinine 3.6 H Est GFR ( Amer) 21 Est GFR (Non-Af Amer) 17 POC Glucose (mg/dL) Random Glucose 183 H Lactic Acid Calcium 9.1 Phosphorus Magnesium Total Bilirubin 1.1 AST 19 ALT 22 Alkaline Phosphatase 152 H Total Protein 9.4 H Albumin 4.7 Globulin 4.7 H Albumin/Globulin Ratio 1.0 Triglycerides Cholesterol LDL Cholesterol Direct HDL Cholesterol Venous Blood Potassium Random Vancomycin Influenza Typ A,B (EIA) 07/16/17 07/16/17 07/17/17 20:08 22:52 01:37 WBC RBC Hgb Hct MCV MCH MCHC RDW Plt Count MPV Neut % (Auto) Lymph % (Auto) [place] % (Auto) Eos % (Auto) Baso % (Auto) Neut # Lymph # [place] # Eos # Baso # Neutrophils % (Manual) Band Neutrophils % Lymphocytes % (Manual) Monocytes % (Manual) Basophils % (Manual) Platelet Estimate Hypochromasia (manual) Poikilocytosis (manual Anisocytosis (manual) Target Cells PT INR APTT pO2 19 L VBG pH 7.41 VBG pCO2 61 H VBG HCO3 32.1 VBG Total CO2 40.6 H VBG O2 Sat (Calc) 31.5 L VBG Base Excess 11.5 H VBG Potassium 3.6 Glucose 206 H Lactate 3.0 H Sodium 139.0 Potassium Chloride 96.0 L Carbon Dioxide Anion Gap BUN Creatinine Est GFR ( Amer) Est GFR (Non-Af Amer) POC Glucose (mg/dL) Random Glucose Lactic Acid 0.9 Calcium Phosphorus Magnesium Total Bilirubin AST ALT Alkaline Phosphatase Total Protein Albumin Globulin Albumin/Globulin Ratio Triglycerides Cholesterol LDL Cholesterol Direct HDL Cholesterol Venous Blood Potassium 3.6 Random Vancomycin Influenza Typ A,B (EIA) Negative for flu a/b 07/17/17 07/17/17 07/17/17 06:00 06:00 06:00 WBC 9.8 RBC 3.13 L Hgb 9.3 L Hct 28.2 L MCV 90.2 MCH 29.7 MCHC 33.0 RDW 15.9 H Plt Count 309 MPV 9.1 Neut % (Auto) 76.4 H Lymph % (Auto) 12.3 L [place] % (Auto) 10.9 H Eos % (Auto) 0.2 Baso % (Auto) 0.2 Neut # 7.5 H Lymph # 1.2 [place] # 1.1 H Eos # 0.0 Baso # 0.0 Neutrophils % (Manual) Band Neutrophils % Lymphocytes % (Manual) Monocytes % (Manual) Basophils % (Manual) Platelet Estimate Hypochromasia (manual) Poikilocytosis (manual Anisocytosis (manual) Target Cells PT INR APTT pO2 VBG pH VBG pCO2 VBG HCO3 VBG Total CO2 VBG O2 Sat (Calc) VBG Base Excess VBG Potassium Glucose Lactate Sodium 137 Potassium 3.7 Chloride 92 L Carbon Dioxide 33 H Anion Gap 16 BUN 21 H Creatinine 4.2 H Est GFR ( Amer) 18 Est GFR (Non-Af Amer) 15 POC Glucose (mg/dL) Random Glucose 127 H Lactic Acid Calcium 9.0 Phosphorus 3.5 Magnesium 1.9 Total Bilirubin 1.2 AST 17 ALT 28 Alkaline Phosphatase 123 Total Protein 7.5 Albumin 4.2 Globulin 3.3 Albumin/Globulin Ratio 1.3 Triglycerides 187 H Cholesterol 130 LDL Cholesterol Direct 45 HDL Cholesterol 25 L Venous Blood Potassium Random Vancomycin 14.48 Influenza Typ A,B (EIA) 07/17/17 07/17/17 06:00 06:48 WBC RBC Hgb Hct MCV MCH MCHC RDW Plt Count MPV Neut % (Auto) Lymph % (Auto) [place] % (Auto) Eos % (Auto) Baso % (Auto) Neut # Lymph # [place] # Eos # Baso # Neutrophils % (Manual) Band Neutrophils % Lymphocytes % (Manual) Monocytes % (Manual) Basophils % (Manual) Platelet Estimate Hypochromasia (manual) Poikilocytosis (manual Anisocytosis (manual) Target Cells PT INR APTT pO2 VBG pH VBG pCO2 VBG HCO3 VBG Total CO2 VBG O2 Sat (Calc) VBG Base Excess VBG Potassium Glucose Lactate Sodium Potassium Chloride Carbon Dioxide Anion Gap BUN Creatinine Est GFR ( Amer) Est GFR (Non-Af Amer) POC Glucose (mg/dL) 134 H Random Glucose Lactic Acid 0.9 Calcium Phosphorus Magnesium Total Bilirubin AST ALT Alkaline Phosphatase Total Protein Albumin Globulin Albumin/Globulin Ratio Triglycerides Cholesterol LDL Cholesterol Direct HDL Cholesterol Venous Blood Potassium Random Vancomycin Influenza Typ A,B (EIA) Attending/Attestation - Attestation I have personally seen and examined this patient.: Yes I have fully participated in the care of the patient.: Yes I have reviewed all pertinent clinical information: Yes Notes (Text): Assessment * Fever with no clear source, with family sick with clinically viral URTI, suspected same cause DD of secondary bact infn, bacterimia * ESRD on HD, TTS * Multiple prior strokes * Patient is bed/wheel chair bound but normally alert and oriented, this admission was tiered but oriented x3 * DM Plan * Empiric vanco, avelox * Continue HD, nephrology consult * CT chest if recurrent fever to confirm pna * GI and DVT prophylaxis.
--- NOTE | 2017-07-17 00:58 | PCM.SEPTIC ---
Sepsis Progress Note - Reassessment Type Date of Evaluation: 07/17/17 Time of Evaluation: 00:57 Reassessment Type: Non-invasive reassessment - Non Invasive Reassessment Were the most recent vital sign reviewed: Yes Vital Sign (Latest): Temp Pulse Resp BP Pulse Ox 98.5 F 69 20 129/46 L 98 07/16/17 22:28 07/16/17 22:28 07/16/17 22:28 07/16/17 22:28 07/16/17 22:28 Cardiovascular: Yes: Regular Rate, Rhythm. No: Edema, JVD, Murmur, Bradycardia , Tachycardia Respiratory: Yes: Rhonchi Capillary Refill: Normal (Less than 2 sec) Pulses: Normal Radial, Normal Dorsalis Pedis, Normal Posterior Tibialis Skin: Warm, Dry - Invasive Reassessment (complete 2 of 4) Was a Central Venous Pressure Measurement obtained within 6 Hours after the presentation of septic shock: No Was a bedside cardiovascular ultrasound performed within 6 hours after the presentation of septic shock: No Fluid Challenge performed: Yes
[2017-07-17 06:04] LABS: BASO % 0.2 % (0.0-2.0); EOS % 0.2 % (0.0-4.0); HEMATOCRIT 28.2 % (35.0-51.0); LYMPH # 1.2 K/uL (1.0-4.3); LYMPH % 12.3 % (20.0-40.0); MEAN CELL VOLUME 90.2 fL (80.0-94.0); MEAN CORPUSCULAR HEMOGLOBIN 29.7 pg (27.0-31.0); MEAN PLATELET VOLUME 9.1 fL (7.2-11.7); MONO # 1.1 K/uL (0.0-0.8); MONO % 10.9 % (0.0-10.0); RED CELL DISTRIBUTION WIDTH 15.9 % (11.5-14.5); WHITE BLOOD COUNT 9.8 K/uL (4.8-10.8)
[2017-07-17 06:18] LABS: POTASSIUM 3.7 mmol/L (3.6-5.2)
[2017-07-17 06:20] LABS: ALB/GLOB RATIO 1.3 (1.0-2.1); BILIRUBIN,TOTAL 1.2 mg/dL (0.2-1.3); TOTAL PROTEIN 7.5 g/dL (6.3-8.3)
[2017-07-17 06:21] LABS: MAGNESIUM 1.9 mg/dL (1.6-2.3); PHOSPHOROUS 3.5 mg/dL (2.5-4.5)
--- NOTE | 2017-07-17 07:55 | RAD ---
HISTORY: congestion fever COMPARISON: Portable chest 02/11/2017. FINDINGS: Bipolar Tay cardiac pacemaker again identified. An interval vascular stent is seen at the left subclavian region. LUNGS: Limited right basilar atelectasis or infiltrate is identified. None is seen the left. Overall inspiratory volume appears diminished. PLEURA: No significant pleural effusion identified, no pneumothorax apparent. CARDIOVASCULAR: Prominent cardiac silhouette appears stable. No pulmonary vascular derangement. OSSEOUS STRUCTURES: No significant abnormalities. VISUALIZED UPPER ABDOMEN: Normal. OTHER FINDINGS: None. IMPRESSION: Limited right basilar atelectasis or infiltrate is identified. None is seen the left. Stable prominent appearing cardiac silhouette.
[2017-07-17] MEDS: Moxifloxacin IV 400mg/250ml NS 400 MG/250 ML BAG IVPB SCH (10:33)
[2017-07-17] MEDS: Insulin Detemir 100 units/ml Vial (Levemir) SC SCH ×2 (10:34→17:45)
[2017-07-17] MEDS: Brimonidine 0.2% Opth Sol (5ml) OD SCH ×2 (10:47→17:37)
--- NOTE | 2017-07-17 14:31 | CP.PCM.CON ---
History of Present Illness - History of Present Illness History of Present Illness: Patient is a 61 year old male, with PMHx of T1DM, MT, Pacemaker implantation, CVA, HTN, hyperlipidemia, presenting to [facility] ED c/o fever and cough. Family at bedside helping with interpretation and history. Family reports patient began complaining of chills and cough two days ago. The cough has worsened and he is now producing yellow sputum. They deny taking patient's temperature at home. Patient went for schedule dialysis today and family noted he was "more sluggish than usual" and becoming increasingly short of breath, so they wanted him brought to ED for evaluation. states 3 liters were taken off at dialysis, and patients dry weight is 78 kg. They report patient adheres to 32 oz fluid restriction daily. Both family members reports "cold like symptoms: runny nose, cough, chills" over the past few days. Patient denies chest pain, palpitations, abdominal pain, nausea, vomiting, or diarrhea. PMHx: T1DM, MT, Pacemaker implantation, CVA, HTN, hyperlipidemia; ESRD PShx: Pacemaker (2011); AV fistula FAm hx: Mom: Diabetes, Father: denies Soc hx: denies tobacco/etoh/illici drug use Allergies: No known Meds: Hydralazine 10mg PO BID, Amlodipine 10mg Daily, Pepcid 20mg Daily, Clopidogrel 75mg Daily, Renvela 800mg TID, Lopressor 25mg BID Levemir 14 units AM, 6 units PM, Humalog sliding scale PMD: Bynum Nephro: Larry Cardio: Carlos had Tmax 101.9 in ED; afebrile since on dialysis TTS dry cough; otherwise feel ok Review of Systems - Constitutional Constitutional: Fever, Weakness - EENT Eyes: absent: As Per HPI, Blind Spots, Blurred Vision, Change in Vision, Decreased Night Vision, Diplopia, Discharge, Dry Eye, Exophthalmos, Floaters, Irritation, Itchy Eyes, Loss of Peripheral Vision, Pain, Photophobia, Requires Corrective Lenses, Sees Flashes, Spots in Vision, Tunnel Vision, Other Visual Disturbances, Loss of Vision, Other Ears: absent: As Per HPI, Decreased Hearing, Ear Discharge, Ear Pain, Tinnitus, Abnormal Hearing, Disequilibrium, Dizziness, Other Nose/Mouth/Throat: absent: As Per HPI, Epistaxis, Nasal Congestion, Nasal Discharge, Nasal Obstruction, Nasal Trauma, Nose Pain, Post Nasal Drip, Sinus Pain, Sinus Pressure, Bleeding Gums, Change in Voice, Dental Pain, Dry Mouth, Dysphagia, Halitosis, Hoarsness, Lip Swelling, Mouth Lesions, Mouth Pain, Odynophagia, Sore Throat, Throat Swelling, Tongue Swelling, Facial Pain, Neck Pain, Neck Mass, Other - Cardiovascular Cardiovascular: Dyspnea on Exertion, Palpitations - Respiratory Respiratory: Cough, Dyspnea - Gastrointestinal Gastrointestinal: absent: As Per HPI, Abdominal Pain, Belching, Bloating, Change in Bowel Habits, Change in Stool Character, Coffee Ground Emesis, Constipation, Cramping, Diarrhea, Dyspepsia, Dysphagia, Early Satiety, Excessive Flatus, Fecal Incontinence, Heartburn, Hematemesis, Hematochezia, Loose Stools, Melena, Nausea, Odynophagia, Temesmus, Vomiting, Other - Genitourinary Genitourinary: As Per HPI - Musculoskeletal Musculoskeletal: Muscle Cramps, Muscle Weakness - Integumentary Integumentary: absent: As Per HPI, Acne, Alopecia, Bleeding Lesions, Change in Hair, Change in Nails, Change in Pigmentation, Changing Lesions, Dry Skin, Erythema, Furuncle, Hirsutism, Lesions, New Lesions, Non-Healing Lesions, Photosensitivity, Pruritus, Rash, Skin Pain, Skin Ulcer, Sores, Striae, Swelling , Unusual Bruising, Wounds, Jaundice, Other - Neurological Neurological: Focal Weakness, Weakness Past Patient History - Infectious Disease Hx of Infectious Diseases: None - Tetanus Immunizations Tetanus Immunization: Unknown - Past Medical History & Family History Past Medical History?: Yes Past Family History: Reviewed and not pertinent - Past Social History Smoking Status: Never Smoked Chewing Tobacco Use: No Cigar Use: No Alcohol: None Drugs: Denies Home Situation {Lives}: With Family - CARDIAC Hx Hypercholesterolemia: Yes Hx Hypertension: Yes Hx Pacemaker: Yes - PULMONARY Hx Respiratory Disorders: No - NEUROLOGICAL HX Cerebrovascular Accident: Yes (right side residual weakness) - HEENT Hx HEENT Problems: Yes Hx Cataracts: Yes - RENAL Hx Chronic Kidney Disease: Yes - ENDOCRINE/METABOLIC Hx Diabetes Mellitus Type 2: Yes - HEMATOLOGICAL/ONCOLOGICAL Hx Blood Disorders: Yes Hx Blood Transfusions: Yes - INTEGUMENTARY Hx Dermatological Problems: No - MUSCULOSKELETAL/RHEUMATOLOGICAL Hx Fractures: Yes - GASTROINTESTINAL Hx Gastrointestinal Disorders: Yes Hx Constipation: Yes Other/Comment: history of PEG tube; no longer in - GENITOURINARY/GYNECOLOGICAL Hx Genitourinary Disorders: Yes Other/Comment: oliguria d/t dialysis - PSYCHIATRIC Hx Substance Use: No - SURGICAL HISTORY Hx Surgeries: Yes Hx Orthopedic Surgery: Yes (right humerus fx post fall) Other/Comment: hx of pacemaker and PEG - ANESTHESIA Hx Anesthesia: Yes Hx Anesthesia Reactions: No Hx Malignant Hyperthermia: No Meds Allergies/Adverse Reactions: Allergies Allergy/AdvReac Type Severity Reaction Status Date / Time No Known Allergies Allergy Verified 07/16/17 19:39 - Medications Medications: Current Medications Acetaminophen (Tylenol 325mg Tab) 650 mg PO Q6 PRN PRN Reason: Fever >100.4 F Amlodipine Besylate (Norvasc) 10 mg PO DAILY [facility] Last Admin: 07/17/17 10:32 Dose: 10 mg Brimonidine Tartrate (Alphagan 0.2% Opht) 0 ml OD BID [facility] Last Admin: 07/17/17 10:47 Dose: 1 drop Clopidogrel Bisulfate (Plavix) 75 mg PO DAILY [facility] Last Admin: 07/17/17 10:32 Dose: 75 mg Famotidine (Pepcid) 20 mg PO DAILY [facility] Last Admin: 07/17/17 12:38 Dose: 20 mg Heparin Sodium (Porcine) (Heparin) 5,000 units SC Q12 [facility] Last Admin: 07/17/17 10:32 Dose: 5,000 units Hydralazine HCl (Apresoline) 10 mg PO BID [facility] Last Admin: 07/17/17 10:44 Dose: 10 mg Moxifloxacin HCl (Avelox Iv 400mg/250ml Ns) 400 mg in 250 mls @ 167 mls/hr IVPB Q24H [facility] Last Admin: 07/17/17 10:33 Dose: 167 mls/hr Insulin Detemir (Levemir) 6 unit SC QAM [facility] Last Admin: 07/17/17 10:34 Dose: 6 unit Insulin Detemir (Levemir) 14 unit SC QPM [facility] Metoprolol Tartrate (Lopressor) 25 mg PO BID [facility] Last Admin: 07/17/17 10:37 Dose: 25 mg Sevelamer Carbonate (Renvela) 800 mg PO TIDCC [facility] Last Admin: 07/17/17 12:38 Dose: 800 mg Physical Exam - Constitutional Appears: Non-toxic, No Acute Distress, Chronically Ill - Head Exam Head Exam: ATRAUMATIC, NORMAL INSPECTION - Eye Exam Eye Exam: EOMI, Normal appearance - Neck Exam Neck exam: Positive for: Normal Inspection. Negative for: Tenderness - Respiratory Exam Respiratory Exam: Clear to Auscultation Bilateral, NORMAL BREATHING PATTERN - Cardiovascular Exam Cardiovascular Exam: REGULAR RHYTHM, +S1 - GI/Abdominal Exam GI & Abdominal Exam: Soft. absent: Tenderness - Extremities Exam Extremities exam: Positive for: normal inspection. Negative for: pedal edema, tenderness - Neurological Exam Neurological exam: Alert, Motor Sensory Deficit - Skin Skin Exam: Dry, Warm Results - Vital Signs Recent Vital Signs: Last Vital Signs Temp 97 F L 07/17/17 07:25 Pulse 71 07/17/17 07:25 Resp 18 07/17/17 07:25 BP 135/65 07/17/17 10:37 Pulse Ox 93 L 07/17/17 07:25 - Labs Result Diagrams: 07/17/17 06:00 07/17/17 06:00 Labs: Laboratory Results - last 24 hr 07/16/17 07/16/17 07/16/17 20:02 20:02 20:02 WBC 10.9 H D RBC 3.42 L Hgb 10.0 L Hct 30.9 L MCV 90.4 D MCH 29.3 MCHC 32.4 L RDW 16.0 H Plt Count 335 D MPV 8.9 Neut % (Auto) 79.3 H Lymph % (Auto) 9.4 L [place] % (Auto) 10.7 H Eos % (Auto) 0.0 Baso % (Auto) 0.6 Neut # 8.7 H Lymph # 1.0 [place] # 1.2 H Eos # 0.0 Baso # 0.1 Neutrophils % (Manual) 72 Band Neutrophils % 11 H* Lymphocytes % (Manual) 6 L Monocytes % (Manual) 10 Basophils % (Manual) 1 Platelet Estimate Normal Hypochromasia (manual) Slight Poikilocytosis (manual Slight Anisocytosis (manual) Slight Target Cells Slight PT 13.6 H INR 1.2 APTT 30 pO2 VBG pH VBG pCO2 VBG HCO3 VBG Total CO2 VBG O2 Sat (Calc) VBG Base Excess VBG Potassium Glucose Lactate Sodium 137 Potassium 3.6 Chloride 89 L Carbon Dioxide 33 H Anion Gap 19 BUN 14 Creatinine 3.6 H Est GFR ( Amer) 21 Est GFR (Non-Af Amer) 17 POC Glucose (mg/dL) Random Glucose 183 H Hemoglobin A1c Lactic Acid Calcium 9.1 Phosphorus Magnesium Total Bilirubin 1.1 AST 19 ALT 22 Alkaline Phosphatase 152 H Total Protein 9.4 H Albumin 4.7 Globulin 4.7 H Albumin/Globulin Ratio 1.0 Triglycerides Cholesterol LDL Cholesterol Direct HDL Cholesterol Procalcitonin Venous Blood Potassium Random Vancomycin Influenza Typ A,B (EIA) 07/16/17 07/16/17 07/17/17 20:08 22:52 01:37 WBC RBC Hgb Hct MCV MCH MCHC RDW Plt Count MPV Neut % (Auto) Lymph % (Auto) [place] % (Auto) Eos % (Auto) Baso % (Auto) Neut # Lymph # [place] # Eos # Baso # Neutrophils % (Manual) Band Neutrophils % Lymphocytes % (Manual) Monocytes % (Manual) Basophils % (Manual) Platelet Estimate Hypochromasia (manual) Poikilocytosis (manual Anisocytosis (manual) Target Cells PT INR APTT pO2 19 L VBG pH 7.41 VBG pCO2 61 H VBG HCO3 32.1 VBG Total CO2 40.6 H VBG O2 Sat (Calc) 31.5 L VBG Base Excess 11.5 H VBG Potassium 3.6 Glucose 206 H Lactate 3.0 H Sodium 139.0 Potassium Chloride 96.0 L Carbon Dioxide Anion Gap BUN Creatinine Est GFR ( Amer) Est GFR (Non-Af Amer) POC Glucose (mg/dL) Random Glucose Hemoglobin A1c Lactic Acid 0.9 Calcium Phosphorus Magnesium Total Bilirubin AST ALT Alkaline Phosphatase Total Protein Albumin Globulin Albumin/Globulin Ratio Triglycerides Cholesterol LDL Cholesterol Direct HDL Cholesterol Procalcitonin Venous Blood Potassium 3.6 Random Vancomycin Influenza Typ A,B (EIA) Negative for flu a/b 07/17/17 07/17/17 07/17/17 06:00 06:00 06:00 WBC 9.8 RBC 3.13 L Hgb 9.3 L Hct 28.2 L MCV 90.2 MCH 29.7 MCHC 33.0 RDW 15.9 H Plt Count 309 MPV 9.1 Neut % (Auto) 76.4 H Lymph % (Auto) 12.3 L [place] % (Auto) 10.9 H Eos % (Auto) 0.2 Baso % (Auto) 0.2 Neut # 7.5 H Lymph # 1.2 [place] # 1.1 H Eos # 0.0 Baso # 0.0 Neutrophils % (Manual) Band Neutrophils % Lymphocytes % (Manual) Monocytes % (Manual) Basophils % (Manual) Platelet Estimate Hypochromasia (manual) Poikilocytosis (manual Anisocytosis (manual) Target Cells PT INR APTT pO2 VBG pH VBG pCO2 VBG HCO3 VBG Total CO2 VBG O2 Sat (Calc) VBG Base Excess VBG Potassium Glucose Lactate Sodium 137 Potassium 3.7 Chloride 92 L Carbon Dioxide 33 H Anion Gap 16 BUN 21 H Creatinine 4.2 H Est GFR ( Amer) 18 Est GFR (Non-Af Amer) 15 POC Glucose (mg/dL) Random Glucose 127 H Hemoglobin A1c Lactic Acid Calcium 9.0 Phosphorus 3.5 Magnesium 1.9 Total Bilirubin 1.2 AST 17 ALT 28 Alkaline Phosphatase 123 Total Protein 7.5 Albumin 4.2 Globulin 3.3 Albumin/Globulin Ratio 1.3 Triglycerides 187 H Cholesterol 130 LDL Cholesterol Direct 45 HDL Cholesterol 25 L Procalcitonin Venous Blood Potassium Random Vancomycin 14.48 Influenza Typ A,B (EIA) 07/17/17 07/17/17 07/17/17 06:00 06:00 06:00 WBC RBC Hgb Hct MCV MCH MCHC RDW Plt Count MPV Neut % (Auto) Lymph % (Auto) [place] % (Auto) Eos % (Auto) Baso % (Auto) Neut # Lymph # [place] # Eos # Baso # Neutrophils % (Manual) Band Neutrophils % Lymphocytes % (Manual) Monocytes % (Manual) Basophils % (Manual) Platelet Estimate Hypochromasia (manual) Poikilocytosis (manual Anisocytosis (manual) Target Cells PT INR APTT pO2 VBG pH VBG pCO2 VBG HCO3 VBG Total CO2 VBG O2 Sat (Calc) VBG Base Excess VBG Potassium Glucose Lactate Sodium Potassium Chloride Carbon Dioxide Anion Gap BUN Creatinine Est GFR ( Amer) Est GFR (Non-Af Amer) POC Glucose (mg/dL) Random Glucose Hemoglobin A1c 8.5 H Lactic Acid 0.9 Calcium Phosphorus Magnesium Total Bilirubin AST ALT Alkaline Phosphatase Total Protein Albumin Globulin Albumin/Globulin Ratio Triglycerides Cholesterol LDL Cholesterol Direct HDL Cholesterol Procalcitonin 20.68 H Venous Blood Potassium Random Vancomycin Influenza Typ A,B (EIA) 07/17/17 07/17/17 06:48 11:18 WBC RBC Hgb Hct MCV MCH MCHC RDW Plt Count MPV Neut % (Auto) Lymph % (Auto) [place] % (Auto) Eos % (Auto) Baso % (Auto) Neut # Lymph # [place] # Eos # Baso # Neutrophils % (Manual) Band Neutrophils % Lymphocytes % (Manual) Monocytes % (Manual) Basophils % (Manual) Platelet Estimate Hypochromasia (manual) Poikilocytosis (manual Anisocytosis (manual) Target Cells PT INR APTT pO2 VBG pH VBG pCO2 VBG HCO3 VBG Total CO2 VBG O2 Sat (Calc) VBG Base Excess VBG Potassium Glucose Lactate Sodium Potassium Chloride Carbon Dioxide Anion Gap BUN Creatinine Est GFR ( Amer) Est GFR (Non-Af Amer) POC Glucose (mg/dL) 134 H 188 H Random Glucose Hemoglobin A1c Lactic Acid Calcium Phosphorus Magnesium Total Bilirubin AST ALT Alkaline Phosphatase Total Protein Albumin Globulin Albumin/Globulin Ratio Triglycerides Cholesterol LDL Cholesterol Direct HDL Cholesterol Procalcitonin Venous Blood Potassium Random Vancomycin Influenza Typ A,B (EIA) Assessment & Plan (1) CVA (cerebral vascular accident) Status: Acute (2) Type 2 diabetes mellitus with diabetic nephropathy Status: Acute (3) ESRD (end stage renal disease) Status: Chronic (4) HTN (hypertension) Status: Chronic (5) Pacemaker Status: Chronic - Assessment and Plan (Free Text) Plan: Blood cultures IV ABs- ordered If fevers persist or culture positive consider OMAR to r/o vegetation
--- NOTE | 2017-07-17 18:21 | CP.PCM.PN ---
<Jeffry Baird - Last Filed: 07/17/17 18:37> Subjective - Date & Time of Evaluation Date of Evaluation: 07/17/17 Time of Evaluation: 18:14 - Subjective Subjective: PGY1 Note for Dr. Whitlock HPI: Patient seen and examined at bedside. No chest pain or SOB. No fevers or chills. Doing well with no complaints at this time Objective - Vital Signs/Intake and Output Vital Signs (last 24 hours): Temp Pulse Resp BP Pulse Ox 99.8 F H 67 20 118/61 95 07/17/17 15:08 07/17/17 15:08 07/17/17 15:08 07/17/17 17:45 07/17/17 15:08 Intake and Output: 07/17/17 07/17/17 06:59 18:59 Intake Total 100 730 Output Total 0 Balance 100 730 - Medications Medications: Current Medications Acetaminophen (Tylenol 325mg Tab) 650 mg PO Q6 PRN PRN Reason: Fever >100.4 F Amlodipine Besylate (Norvasc) 10 mg PO DAILY [facility] Last Admin: 07/17/17 10:32 Dose: 10 mg Brimonidine Tartrate (Alphagan 0.2% Opht) 0 ml OD BID [facility] Last Admin: 07/17/17 17:37 Dose: 1 drop Clopidogrel Bisulfate (Plavix) 75 mg PO DAILY [facility] Last Admin: 07/17/17 10:32 Dose: 75 mg Famotidine (Pepcid) 20 mg PO DAILY [facility] Last Admin: 07/17/17 12:38 Dose: 20 mg Heparin Sodium (Porcine) (Heparin) 5,000 units SC Q12 [facility] Last Admin: 07/17/17 10:32 Dose: 5,000 units Hydralazine HCl (Apresoline) 10 mg PO BID [facility] Last Admin: 07/17/17 17:41 Dose: 10 mg Moxifloxacin HCl (Avelox Iv 400mg/250ml Ns) 400 mg in 250 mls @ 167 mls/hr IVPB Q24H [facility] Last Admin: 07/17/17 10:33 Dose: 167 mls/hr Insulin Detemir (Levemir) 6 unit SC QAM [facility] Last Admin: 07/17/17 10:34 Dose: 6 unit Insulin Detemir (Levemir) 14 unit SC QPM [facility] Last Admin: 07/17/17 17:45 Dose: 14 unit Metoprolol Tartrate (Lopressor) 25 mg PO BID [facility] Last Admin: 07/17/17 17:45 Dose: 25 mg Sevelamer Carbonate (Renvela) 800 mg PO TIDCC [facility] Last Admin: 07/17/17 17:37 Dose: 800 mg - Labs Labs: 07/17/17 06:00 07/17/17 06:00 PT 13.6 SECONDS (9.7-12.2) H 07/16/17 20:02 INR 1.2 07/16/17 20:02 APTT 30 SECONDS (21-34) 07/16/17 20:02 - Constitutional Appears: Well, No Acute Distress - Head Exam Head Exam: ATRAUMATIC, NORMAL INSPECTION, NORMOCEPHALIC - Eye Exam Eye Exam: EOMI Pupil Exam: NORMAL ACCOMODATION - Respiratory Exam Respiratory Exam: Clear to Ausculation Bilateral - Cardiovascular Exam Cardiovascular Exam: REGULAR RHYTHM - GI/Abdominal Exam GI & Abdominal Exam: Soft, Normal Bowel Sounds. absent: Distended, Tenderness - Back Exam Back Exam: absent: CVA tenderness (L), CVA tenderness (R) - Neurological Exam Neurological Exam: Alert, Awake, Oriented x3 - Psychiatric Exam Psychiatric exam: Normal Affect, Normal Mood Assessment and Plan - Assessment and Plan (Free Text) Assessment: Sepsis SIRS: (Temp >100.9, Resp >20) Source: Pneumonia CODE SEPSIS initiated Pt febrile (Tmax 101.9 =- rectal) WBC 10.9 - left shift, 11 Bands Lactate 3.0 - repeat lactate 0.9 CXR (07/16/17): R. Basilar infiltrate EKG: NSR, 1st degree AV block, T wave inversions in LVH strain pattern Avelox 400mg IV Q24H - Ceftriaxone 2gm IV once in ED Vancomycin 1gm IV Stat - Random vanco 12 NS 500c bolus ONCE in ED Possible Pneumonia Patient febrile (Tmax 101.9 - rectal) CXR (07/16/17): Questionable Right perihilar infiltrate (wet read, f/u official report) Avelox 400mg IV Q24H - Ceftriaxone 2gm IV once in ED Vancomycin 1gm IV Stat Tylenol 650mg Q6H PRN fever influenza negative procalcitonin 20.68 ESRD Dialysis (-Sat) Dr. Silvestre, Nephro consult: help appreciated - Consider OMAR for vegetations Hx of CVA CVA 2011, sequelae of right sided weakness CAD Clopidogrel 75mg PO Daily HTN Mild Hypotension on admission Continue Home meds: Amlodipine 10mg Daily Hydralazine 10mg PO BID T1DM Levemir 6 units AM, 14 units PM MISS Hypoglycemia protocol Accuchecks A1C in 01/21: 8.4, repeat 8.5 lipid panel * Aminah 130 * TG 187 * LDL 45 * HDL 25 Prophylaxis SCDs Heparin 5000u Q12H Pepcid 20mg PO BID <Juliano Whitlcok - Last Filed: 07/17/17 18:50> Objective - Vital Signs/Intake and Output Vital Signs (last 24 hours): Temp Pulse Resp BP Pulse Ox 99.8 F H 67 20 118/61 95 07/17/17 15:08 07/17/17 15:08 07/17/17 15:08 07/17/17 17:45 07/17/17 15:08 Intake and Output: 07/17/17 07/17/17 06:59 18:59 Intake Total 100 730 Output Total 0 Balance 100 730 - Medications Medications: Current Medications Acetaminophen (Tylenol 325mg Tab) 650 mg PO Q6 PRN PRN Reason: Fever >100.4 F Amlodipine Besylate (Norvasc) 10 mg PO DAILY [facility] Last Admin: 07/17/17 10:32 Dose: 10 mg Brimonidine Tartrate (Alphagan 0.2% Opht) 0 ml OD BID [facility] Last Admin: 07/17/17 17:37 Dose: 1 drop Clopidogrel Bisulfate (Plavix) 75 mg PO DAILY [facility] Last Admin: 07/17/17 10:32 Dose: 75 mg Famotidine (Pepcid) 20 mg PO DAILY [facility] Last Admin: 07/17/17 12:38 Dose: 20 mg Heparin Sodium (Porcine) (Heparin) 5,000 units SC Q12 [facility] Last Admin: 07/17/17 10:32 Dose: 5,000 units Hydralazine HCl (Apresoline) 10 mg PO BID [facility] Last Admin: 07/17/17 17:41 Dose: 10 mg Moxifloxacin HCl (Avelox Iv 400mg/250ml Ns) 400 mg in 250 mls @ 167 mls/hr IVPB Q24H [facility] Last Admin: 07/17/17 10:33 Dose: 167 mls/hr Insulin Detemir (Levemir) 6 unit SC QAM [facility] Last Admin: 07/17/17 10:34 Dose: 6 unit Insulin Detemir (Levemir) 14 unit SC QPM [facility] Last Admin: 07/17/17 17:45 Dose: 14 unit Metoprolol Tartrate (Lopressor) 25 mg PO BID [facility] Last Admin: 07/17/17 17:45 Dose: 25 mg Sevelamer Carbonate (Renvela) 800 mg PO TIDCC [facility] Last Admin: 07/17/17 17:37 Dose: 800 mg - Labs Labs: 07/17/17 06:00 07/17/17 06:00 PT 13.6 SECONDS (9.7-12.2) H 07/16/17 20:02 INR 1.2 07/16/17 20:02 APTT 30 SECONDS (21-34) 07/16/17 20:02 Attending/Attestation - Attestation I have personally seen and examined this patient.: Yes I have fully participated in the care of the patient.: Yes I have reviewed all pertinent clinical information, including history, physical exam and plan: Yes Notes (Text): 1. Sepsis Leukocytosis with bands,lactate high chest x ray with possible infiltrate and has cough with yellow sputum continue Avelox and vanco.Todays Vanco level is 14 give Vanco at dialysis tomorrow follow cultures 2.ESRD on HD d/w Dr silvestre,next dose of vanco tomorrow after dialysis 3.CVA right side weankess Pt is w/c bound 4.CAD-plavix 5.HTN-continue home meds 6.DM-home meds and monitor sugar Prophylaxis SCDs Heparin 5000u Q12H Pepcid 20mg PO BID
--- NOTE | 2017-07-17 18:40 | CP.PCM.PN ---
Subjective - Date & Time of Evaluation Date of Evaluation: 07/17/17 Time of Evaluation: 14:00 - Subjective Subjective: Lying comfortable.c/o cough and feeling warm" Objective - Vital Signs/Intake and Output Vital Signs (last 24 hours): Temp Pulse Resp BP Pulse Ox 99.8 F H 67 20 118/61 95 07/17/17 15:08 07/17/17 15:08 07/17/17 15:08 07/17/17 17:45 07/17/17 15:08 Intake and Output: 07/17/17 07/17/17 06:59 18:59 Intake Total 100 730 Output Total 0 Balance 100 730 - Medications Medications: Current Medications Acetaminophen (Tylenol 325mg Tab) 650 mg PO Q6 PRN PRN Reason: Fever >100.4 F Amlodipine Besylate (Norvasc) 10 mg PO DAILY [facility] Last Admin: 07/17/17 10:32 Dose: 10 mg Brimonidine Tartrate (Alphagan 0.2% Opht) 0 ml OD BID [facility] Last Admin: 07/17/17 17:37 Dose: 1 drop Clopidogrel Bisulfate (Plavix) 75 mg PO DAILY [facility] Last Admin: 07/17/17 10:32 Dose: 75 mg Famotidine (Pepcid) 20 mg PO DAILY [facility] Last Admin: 07/17/17 12:38 Dose: 20 mg Heparin Sodium (Porcine) (Heparin) 5,000 units SC Q12 [facility] Last Admin: 07/17/17 10:32 Dose: 5,000 units Hydralazine HCl (Apresoline) 10 mg PO BID [facility] Last Admin: 07/17/17 17:41 Dose: 10 mg Moxifloxacin HCl (Avelox Iv 400mg/250ml Ns) 400 mg in 250 mls @ 167 mls/hr IVPB Q24H [facility] Last Admin: 07/17/17 10:33 Dose: 167 mls/hr Insulin Detemir (Levemir) 6 unit SC QAM [facility] Last Admin: 07/17/17 10:34 Dose: 6 unit Insulin Detemir (Levemir) 14 unit SC QPM [facility] Last Admin: 07/17/17 17:45 Dose: 14 unit Metoprolol Tartrate (Lopressor) 25 mg PO BID [facility] Last Admin: 07/17/17 17:45 Dose: 25 mg Sevelamer Carbonate (Renvela) 800 mg PO TIDCC [facility] Last Admin: 07/17/17 17:37 Dose: 800 mg - Labs Labs: 07/17/17 06:00 07/17/17 06:00 PT 13.6 SECONDS (9.7-12.2) H 07/16/17 20:02 INR 1.2 07/16/17 20:02 APTT 30 SECONDS (21-34) 07/16/17 20:02 - Constitutional Appears: Non-toxic - Head Exam Head Exam: NORMAL INSPECTION - Eye Exam Eye Exam: Normal appearance - ENT Exam ENT Exam: Mucous Membranes Moist - Neck Exam Neck Exam: Full ROM - Respiratory Exam Respiratory Exam: Rales (few bilateral basal), NORMAL BREATHING PATTERN - Cardiovascular Exam Cardiovascular Exam: REGULAR RHYTHM - GI/Abdominal Exam GI & Abdominal Exam: Soft, Normal Bowel Sounds - Extremities Exam Extremities Exam: Full ROM - Neurological Exam Neurological Exam: Alert - Psychiatric Exam Psychiatric exam: Normal Mood - Skin Skin Exam: Dry Assessment and Plan - Assessment and Plan (Free Text) Assessment: 1. Sepsis Leukocytosis with bands,lactate high chest x ray with possible infiltrate and has cough with yellow sputum continue Avelox and vanco.Todays Vanco level is 14 give Vanco at dialysis tomorrow follow cultures 2.ESRD on HD d/w Dr silvestre,next dose of vanco tomorrow after dialysis 3.CVA right side weankess Pt is w/c bound 4.CAD-plavix 5.HTN-continue home meds 6.DM-home meds and monitor sugar Prophylaxis SCDs Heparin 5000u Q12H Pepcid 20mg PO BID
[2017-07-18] MEDS ORDERED: Vancomycin 1 gm/NS 200 ml 1 GM/200 ML BAG IVPB ONE ×2 (08:00)
[2017-07-18] MEDS: Insulin Detemir 100 units/ml Vial (Levemir) SC SCH ×2 (09:27→20:23)
[2017-07-18] MEDS: Brimonidine 0.2% Opth Sol (5ml) OD SCH ×2 (09:29→19:30)
[2017-07-18] MEDS: Moxifloxacin IV 400mg/250ml NS 400 MG/250 ML BAG IVPB SCH (10:00)
--- NOTE | 2017-07-18 11:01 | CP.PCM.PN ---
Subjective - Date & Time of Evaluation Date of Evaluation: 07/18/17 Time of Evaluation: 10:35 - Subjective Subjective: seen on Hd 2 kg uf says he feels better no chest pain no rash appetite fair no arthralgias no abdominal pain no headache oliguric no nasal congestion cough minimal breathing ok Objective - Vital Signs/Intake and Output Vital Signs (last 24 hours): Temp Pulse Resp BP Pulse Ox 98 F 75 24 104/54 L 100 07/18/17 09:55 07/18/17 09:55 07/18/17 09:55 07/18/17 10:40 07/18/17 07:57 Intake and Output: 07/18/17 07/18/17 06:59 18:59 Intake Total 360 Balance 360 - Medications Medications: Current Medications Acetaminophen (Tylenol 325mg Tab) 650 mg PO Q6 PRN PRN Reason: Fever >100.4 F Amlodipine Besylate (Norvasc) 10 mg PO DAILY [facility] Last Admin: 07/17/17 10:32 Dose: 10 mg Brimonidine Tartrate (Alphagan 0.2% Opht) 0 ml OD BID [facility] Last Admin: 07/17/17 17:37 Dose: 1 drop Clopidogrel Bisulfate (Plavix) 75 mg PO DAILY [facility] Last Admin: 07/18/17 09:27 Dose: 75 mg Famotidine (Pepcid) 20 mg PO DAILY [facility] Last Admin: 07/18/17 09:27 Dose: 20 mg Heparin Sodium (Porcine) (Heparin) 5,000 units SC Q12 [facility] Last Admin: 07/18/17 09:25 Dose: 5,000 units Hydralazine HCl (Apresoline) 10 mg PO BID [facility] Last Admin: 07/17/17 17:41 Dose: 10 mg Moxifloxacin HCl (Avelox Iv 400mg/250ml Ns) 400 mg in 250 mls @ 167 mls/hr IVPB Q24H [facility] Last Admin: 07/17/17 10:33 Dose: 167 mls/hr Insulin Detemir (Levemir) 6 unit SC QAM [facility] Last Admin: 07/18/17 09:27 Dose: 6 unit Insulin Detemir (Levemir) 14 unit SC QPM [facility] Last Admin: 07/17/17 17:45 Dose: 14 unit Metoprolol Tartrate (Lopressor) 25 mg PO BID [facility] Last Admin: 07/17/17 17:45 Dose: 25 mg Sevelamer Carbonate (Renvela) 800 mg PO TIDCC [facility] Last Admin: 07/18/17 08:38 Dose: 800 mg - Labs Labs: 07/17/17 06:00 07/17/17 06:00 PT 13.6 SECONDS (9.7-12.2) H 07/16/17 20:02 INR 1.2 07/16/17 20:02 APTT 30 SECONDS (21-34) 07/16/17 20:02 - Constitutional Appears: Non-toxic, Chronically Ill - Head Exam Head Exam: ATRAUMATIC - Eye Exam Eye Exam: EOMI - ENT Exam ENT Exam: Mucous Membranes Moist - Neck Exam Neck Exam: Full ROM. absent: Lymphadenopathy - Respiratory Exam Respiratory Exam: Decreased Breath Sounds. absent: Accessory Muscle Use - Cardiovascular Exam Cardiovascular Exam: REGULAR RHYTHM. absent: Rubs - Neurological Exam Neurological Exam: Alert, Oriented x3 Assessment and Plan - Assessment and Plan (Free Text) Plan: esrd chf/pneumonia continue uf and AB pulmonary toilet
--- NOTE | 2017-07-18 12:41 | CP.PCM.PN ---
<Jonny Anna - Last Filed: 07/18/17 12:43> Subjective - Date & Time of Evaluation Date of Evaluation: 07/18/17 Time of Evaluation: 12:40 - Subjective Subjective: Progress note. Attending: Dr. Whitlock Pt seen and examined at bedside. No acute distress. No events overnight. No fevers, chills, vomiting, diarrhea. Getting dialysis today. Objective - Vital Signs/Intake and Output Vital Signs (last 24 hours): Temp Pulse Resp BP Pulse Ox 98 F 75 24 104/49 L 100 07/18/17 09:55 07/18/17 11:00 07/18/17 11:00 07/18/17 11:55 07/18/17 07:57 Intake and Output: 07/18/17 07/18/17 06:59 18:59 Intake Total 360 Balance 360 - Medications Medications: Current Medications Acetaminophen (Tylenol 325mg Tab) 650 mg PO Q6 PRN PRN Reason: Fever >100.4 F Last Admin: 07/18/17 12:27 Dose: 650 mg Amlodipine Besylate (Norvasc) 10 mg PO DAILY [facility] Last Admin: 07/17/17 10:32 Dose: 10 mg Brimonidine Tartrate (Alphagan 0.2% Opht) 0 ml OD BID [facility] Last Admin: 07/17/17 17:37 Dose: 1 drop Clopidogrel Bisulfate (Plavix) 75 mg PO DAILY [facility] Last Admin: 07/18/17 09:27 Dose: 75 mg Famotidine (Pepcid) 20 mg PO DAILY [facility] Last Admin: 07/18/17 09:27 Dose: 20 mg Heparin Sodium (Porcine) (Heparin) 5,000 units SC Q12 [facility] Last Admin: 07/18/17 09:25 Dose: 5,000 units Hydralazine HCl (Apresoline) 10 mg PO BID [facility] Last Admin: 07/17/17 17:41 Dose: 10 mg Moxifloxacin HCl (Avelox Iv 400mg/250ml Ns) 400 mg in 250 mls @ 167 mls/hr IVPB Q24H [facility] Last Admin: 07/17/17 10:33 Dose: 167 mls/hr Insulin Detemir (Levemir) 6 unit SC QAM [facility] Last Admin: 07/18/17 09:27 Dose: 6 unit Insulin Detemir (Levemir) 14 unit SC QPM [facility] Last Admin: 07/17/17 17:45 Dose: 14 unit Metoprolol Tartrate (Lopressor) 25 mg PO BID [facility] Last Admin: 07/17/17 17:45 Dose: 25 mg Sevelamer Carbonate (Renvela) 800 mg PO TIDCC [facility] Last Admin: 07/18/17 08:38 Dose: 800 mg - Labs Labs: 07/17/17 06:00 07/17/17 06:00 PT 13.6 SECONDS (9.7-12.2) H 07/16/17 20:02 INR 1.2 07/16/17 20:02 APTT 30 SECONDS (21-34) 07/16/17 20:02 - Constitutional Appears: Non-toxic, No Acute Distress - Head Exam Head Exam: ATRAUMATIC, NORMAL INSPECTION, NORMOCEPHALIC - Eye Exam Eye Exam: EOMI - ENT Exam ENT Exam: Mucous Membranes Moist - Neck Exam Neck Exam: Full ROM, Normal Inspection - Respiratory Exam Respiratory Exam: NORMAL BREATHING PATTERN. absent: Respiratory Distress - Cardiovascular Exam Cardiovascular Exam: +S1, +S2 - GI/Abdominal Exam GI & Abdominal Exam: Soft, Normal Bowel Sounds. absent: Tenderness - Extremities Exam Extremities Exam: Full ROM, Normal Inspection - Neurological Exam Neurological Exam: Alert, Awake, Oriented x3 - Psychiatric Exam Psychiatric exam: Normal Affect, Normal Mood - Skin Skin Exam: Dry, Intact, Normal Color, Warm Assessment and Plan - Assessment and Plan (Free Text) Assessment: This is a 61 yo male with Sepsis -likely secondary to pneumonia -procal elevated at 20 -tylenol for fevers -moxifloxacin 400 mg daily -will given vancomycin after dialysis today. -blood and sputum cultures negative. ESRD Dialysis (--Thu) Dr. Juarez, Nephro consult: help appreciated - Consider OMAR for vegetations -continue renvela Hx of CVA -CVA 2011, sequelae of right sided weakness CAD -Clopidogrel 75mg PO Daily -continue lopressor 25 BID HTN Mild Hypotension on admission Continue Home meds: Amlodipine 10mg Daily Hydralazine 10mg PO BID Type 1 DM -Levemir 6 units AM, 14 units PM -insulin sliding scale Hypoglycemia protocol Accuchecks A1C in 01/21: 8.4, repeat 8.5 lipid panel * Aminah 130 * TG 187 * LDL 45 * HDL 25 GI/DVT Prophylaxis SCDs Heparin 5000u Q12H Pepcid 20mg PO BID discussed with Dr. Whitlock <Juliano Whitlock - Last Filed: 07/19/17 21:29> Objective - Vital Signs/Intake and Output Vital Signs (last 24 hours): Temp Pulse Resp BP Pulse Ox 98.9 F 90 20 120/70 93 L 07/19/17 15:19 07/19/17 15:19 07/19/17 15:19 07/19/17 18:52 07/19/17 15:19 Intake and Output: 07/19/17 07/20/17 18:59 06:59 Intake Total 200 Balance 200 - Medications Medications: Current Medications Acetaminophen (Tylenol 325mg Tab) 650 mg PO Q6 PRN PRN Reason: Fever >100.4 F Last Admin: 07/18/17 12:27 Dose: 650 mg Amlodipine Besylate (Norvasc) 10 mg PO DAILY [facility] Last Admin: 07/19/17 10:05 Dose: 10 mg Brimonidine Tartrate (Alphagan 0.2% Opht) 0 ml OD BID [facility] Last Admin: 07/18/17 19:30 Dose: 1 drop Clopidogrel Bisulfate (Plavix) 75 mg PO DAILY [facility] Last Admin: 07/19/17 10:50 Dose: 75 mg Famotidine (Pepcid) 20 mg PO DAILY [facility] Last Admin: 07/19/17 10:50 Dose: 20 mg Heparin Sodium (Porcine) (Heparin) 5,000 units SC Q12 [facility] Last Admin: 07/19/17 10:50 Dose: 5,000 units Hydralazine HCl (Apresoline) 10 mg PO BID [facility] Last Admin: 07/19/17 10:50 Dose: 10 mg Moxifloxacin HCl (Avelox Iv 400mg/250ml Ns) 400 mg in 250 mls @ 167 mls/hr IVPB Q24H [facility] Last Admin: 07/19/17 10:50 Dose: 167 mls/hr Insulin Detemir (Levemir) 6 unit SC QAM [facility] Last Admin: 07/19/17 10:50 Dose: 1 unit Insulin Detemir (Levemir) 14 unit SC QPM [facility] Last Admin: 07/19/17 18:48 Dose: 14 unit Metoprolol Tartrate (Lopressor) 25 mg PO BID [facility] Last Admin: 07/19/17 18:52 Dose: 25 mg Sevelamer Carbonate (Renvela) 800 mg PO TIDCC [facility] Last Admin: 07/19/17 18:51 Dose: 800 mg - Labs Labs: 07/19/17 08:14 07/19/17 08:14 PT 13.6 SECONDS (9.7-12.2) H 07/16/17 20:02 INR 1.2 07/16/17 20:02 APTT 30 SECONDS (21-34) 07/16/17 20:02 Attending/Attestation - Attestation I have personally seen and examined this patient.: Yes I have fully participated in the care of the patient.: Yes I have reviewed all pertinent clinical information, including history, physical exam and plan: Yes Notes (Text): Patient was seen and examined. Has cough.No SOB,No fever S/P Vanco at dialysis d/w the resident I agree with the resident's documentation of the assessment and the plan
[2017-07-19 08:29] LABS: BASO % 0.4 % (0.0-2.0); EOS # 0.3 K/uL (0.0-0.7); HEMATOCRIT 29.4 % (35.0-51.0); LYMPH # 1.5 K/uL (1.0-4.3); LYMPH % 17.3 % (20.0-40.0); MEAN CELL VOLUME 89.5 fL (80.0-94.0); MEAN CORPUSCULAR HEMOGLOBIN 29.9 pg (27.0-31.0); MEAN CORPUSCULAR HGB CONC 33.4 g/dL (33.0-37.0); MEAN PLATELET VOLUME 8.7 fL (7.2-11.7); MONO # 0.7 K/uL (0.0-0.8); MONO % 8.5 % (0.0-10.0); RED CELL DISTRIBUTION WIDTH 15.6 % (11.5-14.5); WHITE BLOOD COUNT 8.5 K/uL (4.8-10.8)
[2017-07-19 08:44] LABS: POTASSIUM 4.5 mmol/L (3.6-5.2)
[2017-07-19 08:46] LABS: ALB/GLOB RATIO 0.9 (1.0-2.1); BILIRUBIN,TOTAL 0.7 mg/dL (0.2-1.3); PHOSPHOROUS 3.5 mg/dL (2.5-4.5); TOTAL PROTEIN 8.9 g/dL (6.3-8.3)
[2017-07-19 08:47] LABS: CALCIUM 9.7 mg/dl (8.6-10.4); MAGNESIUM 2.2 mg/dL (1.6-2.3)
[2017-07-19] MEDS: Moxifloxacin IV 400mg/250ml NS 400 MG/250 ML BAG IVPB SCH (10:50)
[2017-07-19] MEDS: Insulin Detemir 100 units/ml Vial (Levemir) SC SCH ×2 (10:50→18:48)
--- NOTE | 2017-07-19 14:35 | CP.PCM.PN ---
<Jonny Anna - Last Filed: 07/19/17 14:38> Subjective - Date & Time of Evaluation Date of Evaluation: 07/19/17 Time of Evaluation: 14:30 - Subjective Subjective: Progress note. Attending: Dr. Whitlock Pt seen and examined at bedside. No acute distress. No events overnight. No fevers, chills, vomiting, diarrhea. Some crackles on exam. Objective - Vital Signs/Intake and Output Vital Signs (last 24 hours): Temp Pulse Resp BP Pulse Ox 98.0 F 64 18 132/69 98 07/19/17 08:01 07/19/17 08:01 07/19/17 08:01 07/19/17 10:49 07/19/17 08:01 - Medications Medications: Current Medications Acetaminophen (Tylenol 325mg Tab) 650 mg PO Q6 PRN PRN Reason: Fever >100.4 F Last Admin: 07/18/17 12:27 Dose: 650 mg Amlodipine Besylate (Norvasc) 10 mg PO DAILY [facility] Last Admin: 07/19/17 10:05 Dose: 10 mg Brimonidine Tartrate (Alphagan 0.2% Opht) 0 ml OD BID [facility] Last Admin: 07/18/17 19:30 Dose: 1 drop Clopidogrel Bisulfate (Plavix) 75 mg PO DAILY [facility] Last Admin: 07/19/17 10:50 Dose: 75 mg Famotidine (Pepcid) 20 mg PO DAILY [facility] Last Admin: 07/19/17 10:50 Dose: 20 mg Heparin Sodium (Porcine) (Heparin) 5,000 units SC Q12 [facility] Last Admin: 07/19/17 10:50 Dose: 5,000 units Hydralazine HCl (Apresoline) 10 mg PO BID [facility] Last Admin: 07/19/17 10:50 Dose: 10 mg Moxifloxacin HCl (Avelox Iv 400mg/250ml Ns) 400 mg in 250 mls @ 167 mls/hr IVPB Q24H [facility] Last Admin: 07/19/17 10:50 Dose: 167 mls/hr Insulin Detemir (Levemir) 6 unit SC QAM [facility] Last Admin: 07/19/17 10:50 Dose: 1 unit Insulin Detemir (Levemir) 14 unit SC QPM [facility] Last Admin: 07/18/17 20:23 Dose: 14 unit Metoprolol Tartrate (Lopressor) 25 mg PO BID [facility] Last Admin: 07/19/17 10:49 Dose: 25 mg Sevelamer Carbonate (Renvela) 800 mg PO TIDCC [facility] Last Admin: 07/19/17 12:12 Dose: 800 mg - Labs Labs: 07/19/17 08:14 07/19/17 08:14 PT 13.6 SECONDS (9.7-12.2) H 07/16/17 20:02 INR 1.2 07/16/17 20:02 APTT 30 SECONDS (21-34) 07/16/17 20:02 - Constitutional Appears: Non-toxic, No Acute Distress - Head Exam Head Exam: ATRAUMATIC, NORMAL INSPECTION, NORMOCEPHALIC - Eye Exam Eye Exam: EOMI - ENT Exam ENT Exam: Mucous Membranes Moist - Neck Exam Neck Exam: Full ROM, Normal Inspection - Respiratory Exam Respiratory Exam: Rales. absent: Respiratory Distress - Cardiovascular Exam Cardiovascular Exam: +S1, +S2 - GI/Abdominal Exam GI & Abdominal Exam: Soft, Normal Bowel Sounds. absent: Tenderness - Extremities Exam Extremities Exam: Full ROM, Normal Inspection - Neurological Exam Neurological Exam: Alert, Awake, Oriented x3 - Psychiatric Exam Psychiatric exam: Normal Affect, Normal Mood Assessment and Plan - Assessment and Plan (Free Text) Assessment: This is a 61 yo male with Sepsis -likely secondary to pneumonia -procal elevated at 20 -tylenol for fevers -moxifloxacin 400 mg daily -may need to give additional vanco after next dialysis session. -blood and sputum cultures negative. ESRD Dialysis (T--Sat) Dr. Juarez, Nephro consult: help appreciated - Consider OMAR for vegetations -continue renvela Hx of CVA -CVA 2011, sequelae of right sided weakness CAD -Clopidogrel 75mg PO Daily -continue lopressor 25 BID HTN Mild Hypotension on admission Continue Home meds: Amlodipine 10mg Daily Hydralazine 10mg PO BID Type 1 DM -Levemir 6 units AM, 14 units PM -insulin sliding scale Hypoglycemia protocol Accuchecks A1C in 01/21: 8.4, repeat 8.5 lipid panel * Aminah 130 * TG 187 * LDL 45 * HDL 25 GI/DVT Prophylaxis SCDs Heparin 5000u Q12H Pepcid 20mg PO BID discussed with Dr. Whitlock <Juliano Whitlock - Last Filed: 07/19/17 21:35> Objective - Vital Signs/Intake and Output Vital Signs (last 24 hours): Temp Pulse Resp BP Pulse Ox 98.9 F 90 20 120/70 93 L 07/19/17 15:19 07/19/17 15:19 07/19/17 15:19 07/19/17 18:52 07/19/17 15:19 Intake and Output: 07/19/17 07/20/17 18:59 06:59 Intake Total 200 Balance 200 - Medications Medications: Current Medications Acetaminophen (Tylenol 325mg Tab) 650 mg PO Q6 PRN PRN Reason: Fever >100.4 F Last Admin: 07/18/17 12:27 Dose: 650 mg Amlodipine Besylate (Norvasc) 10 mg PO DAILY [facility] Last Admin: 07/19/17 10:05 Dose: 10 mg Brimonidine Tartrate (Alphagan 0.2% Opht) 0 ml OD BID [facility] Last Admin: 07/18/17 19:30 Dose: 1 drop Clopidogrel Bisulfate (Plavix) 75 mg PO DAILY [facility] Last Admin: 07/19/17 10:50 Dose: 75 mg Famotidine (Pepcid) 20 mg PO DAILY [facility] Last Admin: 07/19/17 10:50 Dose: 20 mg Heparin Sodium (Porcine) (Heparin) 5,000 units SC Q12 [facility] Last Admin: 07/19/17 10:50 Dose: 5,000 units Hydralazine HCl (Apresoline) 10 mg PO BID [facility] Last Admin: 07/19/17 10:50 Dose: 10 mg Moxifloxacin HCl (Avelox Iv 400mg/250ml Ns) 400 mg in 250 mls @ 167 mls/hr IVPB Q24H [facility] Last Admin: 07/19/17 10:50 Dose: 167 mls/hr Insulin Detemir (Levemir) 6 unit SC QAM [facility] Last Admin: 07/19/17 10:50 Dose: 1 unit Insulin Detemir (Levemir) 14 unit SC QPM [facility] Last Admin: 07/19/17 18:48 Dose: 14 unit Metoprolol Tartrate (Lopressor) 25 mg PO BID [facility] Last Admin: 07/19/17 18:52 Dose: 25 mg Sevelamer Carbonate (Renvela) 800 mg PO TIDCC [facility] Last Admin: 07/19/17 18:51 Dose: 800 mg - Labs Labs: 07/19/17 08:14 07/19/17 08:14 PT 13.6 SECONDS (9.7-12.2) H 07/16/17 20:02 INR 1.2 07/16/17 20:02 APTT 30 SECONDS (21-34) 07/16/17 20:02 Attending/Attestation - Attestation I have personally seen and examined this patient.: Yes I have fully participated in the care of the patient.: Yes I have reviewed all pertinent clinical information, including history, physical exam and plan: Yes Notes (Text): Patient was seen and examined Has cough with yellow sputum. No fever,no SOB Had vancomycin yesterday On Moxifloxacin continue home meds Blood culture no growth Pneumonia improving.Possible d/c on oral antibiotics tomorrow
[2017-07-19] MEDS: Brimonidine 0.2% Opth Sol (5ml) OD SCH (18:40)
[2017-07-20 07:28] LABS: BASO % 0.6 % (0.0-2.0); EOS # 0.2 K/uL (0.0-0.7); EOS % 3.6 % (0.0-4.0); HEMATOCRIT 28.3 % (35.0-51.0); LYMPH # 1.6 K/uL (1.0-4.3); LYMPH % 23.8 % (20.0-40.0); MEAN CELL VOLUME 89.8 fL (80.0-94.0); MEAN CORPUSCULAR HEMOGLOBIN 30.1 pg (27.0-31.0); MEAN CORPUSCULAR HGB CONC 33.5 g/dL (33.0-37.0); MEAN PLATELET VOLUME 8.7 fL (7.2-11.7); MONO # 0.7 K/uL (0.0-0.8); MONO % 10.1 % (0.0-10.0); RED CELL DISTRIBUTION WIDTH 15.6 % (11.5-14.5); WHITE BLOOD COUNT 6.9 K/uL (4.8-10.8)
[2017-07-20 07:37] LABS: POTASSIUM 3.9 mmol/L (3.6-5.2)
[2017-07-20 07:39] LABS: ALB/GLOB RATIO 1.3 (1.0-2.1); BILIRUBIN,TOTAL 0.8 mg/dL (0.2-1.3); TOTAL PROTEIN 7.1 g/dL (6.3-8.3)
[2017-07-20 07:40] LABS: MAGNESIUM 2.1 mg/dL (1.6-2.3); PHOSPHOROUS 4.1 mg/dL (2.5-4.5)
[2017-07-20] MEDS: Moxifloxacin IV 400mg/250ml NS 400 MG/250 ML BAG IVPB SCH (09:16)
[2017-07-20] MEDS: Brimonidine 0.2% Opth Sol (5ml) OD SCH ×2 (09:17→18:02)
[2017-07-20] MEDS: Insulin Detemir 100 units/ml Vial (Levemir) SC SCH ×2 (09:20→18:01)
--- NOTE | 2017-07-20 12:17 | CP.PCM.PN ---
Subjective - Date & Time of Evaluation Date of Evaluation: 07/20/17 Time of Evaluation: 12:14 - Subjective Subjective: Doing better no fevers, chills, less cough No CPs, n, v, HAs HG low- continue ESAs, check fe roberto Same ABs per medicine; same dialysis Objective - Vital Signs/Intake and Output Vital Signs (last 24 hours): Temp Pulse Resp BP Pulse Ox 98.4 F 64 18 148/71 96 07/20/17 08:16 07/20/17 08:27 07/20/17 08:16 07/20/17 09:19 07/20/17 08:16 - Medications Medications: Current Medications Acetaminophen (Tylenol 325mg Tab) 650 mg PO Q6 PRN PRN Reason: Fever >100.4 F Last Admin: 07/18/17 12:27 Dose: 650 mg Amlodipine Besylate (Norvasc) 10 mg PO DAILY [facility] Last Admin: 07/20/17 09:19 Dose: 10 mg Brimonidine Tartrate (Alphagan 0.2% Opht) 0 ml OD BID [facility] Last Admin: 07/20/17 09:17 Dose: 1 drop Clopidogrel Bisulfate (Plavix) 75 mg PO DAILY [facility] Last Admin: 07/20/17 09:19 Dose: 75 mg Famotidine (Pepcid) 20 mg PO DAILY [facility] Last Admin: 07/20/17 09:19 Dose: 20 mg Heparin Sodium (Porcine) (Heparin) 5,000 units SC Q12 [facility] Last Admin: 07/20/17 09:19 Dose: 5,000 units Hydralazine HCl (Apresoline) 10 mg PO BID [facility] Last Admin: 07/20/17 09:20 Dose: 10 mg Moxifloxacin HCl (Avelox Iv 400mg/250ml Ns) 400 mg in 250 mls @ 167 mls/hr IVPB Q24H [facility] Last Admin: 07/20/17 09:16 Dose: 167 mls/hr Insulin Detemir (Levemir) 6 unit SC QAM [facility] Last Admin: 07/20/17 09:20 Dose: 6 unit Insulin Detemir (Levemir) 14 unit SC QPM [facility] Last Admin: 07/19/17 18:48 Dose: 14 unit Metoprolol Tartrate (Lopressor) 25 mg PO BID [facility] Last Admin: 11/13/17 09:19 Dose: 25 mg Sevelamer Carbonate (Renvela) 800 mg PO TIDCC [facility] Last Admin: 07/20/17 11:51 Dose: 800 mg - Labs Labs: 07/20/17 07:02 07/20/17 07:02 PT 13.6 SECONDS (9.7-12.2) H 07/16/17 20:02 INR 1.2 07/16/17 20:02 APTT 30 SECONDS (21-34) 07/16/17 20:02 - Constitutional Appears: No Acute Distress, Chronically Ill - Head Exam Head Exam: ATRAUMATIC, NORMAL INSPECTION - Eye Exam Eye Exam: EOMI, Normal appearance - Neck Exam Neck Exam: Normal Inspection. absent: Tenderness - Respiratory Exam Respiratory Exam: Clear to Ausculation Bilateral, NORMAL BREATHING PATTERN - Cardiovascular Exam Cardiovascular Exam: REGULAR RHYTHM, +S1 - GI/Abdominal Exam GI & Abdominal Exam: Soft. absent: Tenderness - Extremities Exam Extremities Exam: Normal Inspection. absent: Tenderness - Neurological Exam Neurological Exam: Awake, Motor Sensory Deficit - Skin Skin Exam: Dry, Warm Assessment and Plan (1) CVA (cerebral vascular accident) Status: Acute (2) Type 2 diabetes mellitus with diabetic nephropathy Status: Acute (3) ESRD (end stage renal disease) Status: Chronic (4) HTN (hypertension) Status: Chronic (5) Pacemaker Status: Chronic - Assessment and Plan (Free Text) Plan: Same dialysis TTS check iron stores IV ABs as per medicine
--- NOTE | 2017-07-20 19:12 | CP.PCM.PN ---
<Deepak Ivory - Last Filed: 07/20/17 18:59> Subjective - Date & Time of Evaluation Date of Evaluation: 07/20/17 Time of Evaluation: 09:45 - Subjective Subjective: PGY-[address] Mclain. No acute events overnight. Patient was seen and examined this AM with brother present. Patient complained of cough, productive, yellow. He denied chest pain, shortness of breath, abdominal pain, fever, chills. Objective - Vital Signs/Intake and Output Vital Signs (last 24 hours): Temp Pulse Resp BP Pulse Ox 98.6 F 65 20 135/63 99 07/20/17 15:25 07/20/17 15:25 07/20/17 15:25 07/20/17 18:01 07/20/17 15:25 - Medications Medications: Current Medications Acetaminophen (Tylenol 325mg Tab) 650 mg PO Q6 PRN PRN Reason: Fever >100.4 F Last Admin: 07/18/17 12:27 Dose: 650 mg Amlodipine Besylate (Norvasc) 10 mg PO DAILY [facility] Last Admin: 07/20/17 09:19 Dose: 10 mg Brimonidine Tartrate (Alphagan 0.2% Opht) 0 ml OD BID [facility] Last Admin: 07/20/17 18:02 Dose: 1 drop Clopidogrel Bisulfate (Plavix) 75 mg PO DAILY [facility] Last Admin: 07/20/17 09:19 Dose: 75 mg Epoetin Shahram (Procrit) 10,000 unit IV TTS [facility] Famotidine (Pepcid) 20 mg PO DAILY [facility] Last Admin: 07/20/17 09:19 Dose: 20 mg Heparin Sodium (Porcine) (Heparin) 5,000 units SC Q12 [facility] Last Admin: 07/20/17 09:19 Dose: 5,000 units Hydralazine HCl (Apresoline) 10 mg PO BID [facility] Last Admin: 07/20/17 18:00 Dose: 10 mg Insulin Detemir (Levemir) 6 unit SC QAM [facility] Last Admin: 07/20/17 09:20 Dose: 6 unit Insulin Detemir (Levemir) 14 unit SC QPM [facility] Last Admin: 07/20/17 18:01 Dose: 14 unit Metoprolol Tartrate (Lopressor) 25 mg PO BID [facility] Last Admin: 07/20/17 18:01 Dose: 25 mg Moxifloxacin HCl (Avelox) 400 mg PO DAILY [facility] Sevelamer Carbonate (Renvela) 800 mg PO TIDCC [facility] Last Admin: 07/20/17 18:00 Dose: 800 mg - Labs Labs: 07/20/17 07:02 07/20/17 07:02 PT 13.6 SECONDS (9.7-12.2) H 07/16/17 20:02 INR 1.2 07/16/17 20:02 APTT 30 SECONDS (21-34) 07/16/17 20:02 - Additional Findings Additional findings: - Constitutional Appears: Chronically Ill - Head Exam Head Exam: ATRAUMATIC, NORMOCEPHALIC - Eye Exam Eye Exam: EOMI. absent: Scleral icterus - ENT Exam ENT Exam: Mucous Membranes Moist - Neck Exam Additional comments: No JVD appreciated - Respiratory Exam Respiratory Exam: Rhonchi. absent: Clear to Auscultation Bilateral, Rales, Wheezes - Cardiovascular Exam Cardiovascular Exam: +S1, +S2. absent: Systolic Murmur Additional comments: PAcemaker noted - GI/Abdominal Exam GI & Abdominal Exam: Normal Bowel Sounds, Soft. absent: Guarding, Rigid, Tenderness - Extremities Exam Extremities exam: Positive for: normal inspection. Negative for: pedal edema, tenderness Additional comments: AVF to left antecubital fossa - Back Exam Back exam: absent: CVA tenderness (L), CVA tenderness (R) - Neurological Exam Neurological exam: Alert, Oriented x3 - Psychiatric Exam Psychiatric exam: Normal Affect, Normal Mood - Skin Skin Exam: Normal Color, Warm Assessment and Plan - Assessment and Plan (Free Text) Assessment: Sepsis Possibly 2/2 to pneumonia On admission: SIRS: (Temp >100.9, Resp >20), Source: Pneumonia, CODE SEPSIS initiated, Pt febrile (Tmax 101.9 =- rectal), WBC 10.9, left shift, 11 Bands On admission: Lactate 3.0, repeat lactate 0.9 Influenza Typ A,B: negative Mycoplasma pneumon IgM negative Mycoplasma pneumon IgG 1.54 (high) procalcitonin 07/17: 20.68 procalcitonin 07/20: 13.32 Meds: Avelox 400mg IV Q24H Tylenol 650mg Q6H PRN fever Imaging: CXR 07/16: Limited right basilar atelectasis or infiltrate is identified. None is seen the left. Stable prominent appearing cardiac silhouette. EKG: NSR, 1st degree AV block, T wave inversions in LVH strain pattern ESRD Dr. Juarez, Nephro consult: help appreciated Dialysis (--Thu) Epoetin 10,000u IV TTS Con't home med sevelamer 800mg PO TIDCC F/U % Iron F/U Ferritin Hx of CVA CVA 2011, sequelae of right sided weakness CAD Clopidogrel 75mg PO Daily HTN Mild Hypotension on admission Continue Home meds: Amlodipine 10mg Daily Hydralazine 10mg PO BID T1DM Levemir 6 units AM, 14 units PM MISS Hypoglycemia protocol Accuchecks A1C in 01/21: 8.4 A1C 07/17: 8.5 Prophylaxis SCDs Heparin 5000u Q12H Pepcid 20mg PO BID Renal Diet <Bebeto Mclain H - Last Filed: 07/21/17 09:38> Objective - Vital Signs/Intake and Output Vital Signs (last 24 hours): Temp Pulse Resp BP Pulse Ox 97.9 F 60 20 152/73 H 100 07/21/17 07:00 07/21/17 07:00 07/21/17 07:00 07/21/17 07:00 07/21/17 07:00 Intake and Output: 07/21/17 07/21/17 06:59 18:59 Intake Total 240 Balance 240 - Medications Medications: Current Medications Acetaminophen (Tylenol 325mg Tab) 650 mg PO Q6 PRN PRN Reason: Fever >100.4 F Last Admin: 07/18/17 12:27 Dose: 650 mg Amlodipine Besylate (Norvasc) 10 mg PO DAILY [facility] Last Admin: 07/20/17 09:19 Dose: 10 mg Brimonidine Tartrate (Alphagan 0.2% Opht) 0 ml OD BID [facility] Last Admin: 07/20/17 18:02 Dose: 1 drop Clopidogrel Bisulfate (Plavix) 75 mg PO DAILY [facility] Last Admin: 07/20/17 09:19 Dose: 75 mg Epoetin Shahram (Procrit) 10,000 unit IV TTS [facility] Famotidine (Pepcid) 20 mg PO DAILY [facility] Last Admin: 07/20/17 09:19 Dose: 20 mg Heparin Sodium (Porcine) (Heparin) 5,000 units SC Q12 [facility] Last Admin: 07/20/17 21:55 Dose: 5,000 units Hydralazine HCl (Apresoline) 10 mg PO BID [facility] Last Admin: 07/20/17 18:00 Dose: 10 mg Insulin Detemir (Levemir) 6 unit SC QAM [facility] Last Admin: 07/20/17 09:20 Dose: 6 unit Insulin Detemir (Levemir) 14 unit SC QPM [facility] Last Admin: 07/20/17 18:01 Dose: 14 unit Metoprolol Tartrate (Lopressor) 25 mg PO BID [facility] Last Admin: 07/20/17 18:01 Dose: 25 mg Moxifloxacin HCl (Avelox) 400 mg PO DAILY [facility] Sevelamer Carbonate (Renvela) 800 mg PO TIDCC [facility] Last Admin: 07/20/17 18:00 Dose: 800 mg - Labs Labs: 07/21/17 06:15 07/21/17 06:15 PT 13.6 SECONDS (9.7-12.2) H 07/16/17 20:02 INR 1.2 07/16/17 20:02 APTT 30 SECONDS (21-34) 07/16/17 20:02 Attending/Attestation - Attestation I have personally seen and examined this patient.: Yes I have fully participated in the care of the patient.: Yes I have reviewed all pertinent clinical information, including history, physical exam and plan: Yes Notes (Text): 07/21/17 09:38 Medical Attending: Patient was seen and examined by me, agrees the above note by the veterinary medical officer. This is a 61-year-old male who is being seen for sepsis secondary to pneumonia. He previously had a much higher lactic acid level, a high pro-calcitonin level temperature as well as a and is on IV Avelox at this time. The patient has end-stage renal disease and has been receiving hemodialysis TTS Also need to follow the patient's blood pressure as well as sugars thank you Bebeot Mclain
[2017-07-21 06:34] LABS: BASO % 0.6 % (0.0-2.0); EOS # 0.3 K/uL (0.0-0.7); HEMATOCRIT 27.5 % (35.0-51.0); LYMPH # 1.6 K/uL (1.0-4.3); LYMPH % 23.9 % (20.0-40.0); MEAN CELL VOLUME 88.9 fL (80.0-94.0); MEAN CORPUSCULAR HEMOGLOBIN 30.3 pg (27.0-31.0); MEAN PLATELET VOLUME 8.4 fL (7.2-11.7); MONO # 0.7 K/uL (0.0-0.8); MONO % 10.3 % (0.0-10.0); RED CELL DISTRIBUTION WIDTH 15.1 % (11.5-14.5); WHITE BLOOD COUNT 6.7 K/uL (4.8-10.8)
[2017-07-21 07:15] LABS: POTASSIUM 4.3 mmol/L (3.6-5.2)
[2017-07-21 07:17] LABS: ALB/GLOB RATIO 1.3 (1.0-2.1); BILIRUBIN,TOTAL 0.8 mg/dL (0.2-1.3)
[2017-07-21] MEDS ORDERED: EPOETIN ALFA 10,000 UNIT/ML ML IV SCH (10:00)
[2017-07-21] MEDS ORDERED: Epoetin Alfa 10,000 unit/ml Dialysis IV SCH (11:00)
--- NOTE | 2017-07-21 11:06 | CARD ---
APPROVED REPORT EKG Measurement Heart [id number] <Conclusion> Sinus rhythm with 1st degree AV block with premature atrial complexes Left ventricular hypertrophy with QRS widening and repolarization abnormality Abnormal ECG
--- NOTE | 2017-07-21 11:11 | CP.PCM.PN ---
Subjective - Date & Time of Evaluation Date of Evaluation: 07/21/17 Time of Evaluation: 11:10 - Subjective Subjective: seen and examined on hd cough improved, yellowish sputum sob improved no chest pain palpitations nausea vomiting diarrhea rash fevers chills Objective - Vital Signs/Intake and Output Vital Signs (last 24 hours): Temp Pulse Resp BP Pulse Ox 97.6 F 62 19 146/53 L 100 07/21/17 09:45 07/21/17 10:58 07/21/17 10:58 07/21/17 10:58 07/21/17 10:58 Intake and Output: 07/21/17 07/21/17 06:59 18:59 Intake Total 240 Balance 240 - Medications Medications: Current Medications Acetaminophen (Tylenol 325mg Tab) 650 mg PO Q6 PRN PRN Reason: Fever >100.4 F Last Admin: 07/18/17 12:27 Dose: 650 mg Amlodipine Besylate (Norvasc) 10 mg PO DAILY [facility] Last Admin: 07/20/17 09:19 Dose: 10 mg Brimonidine Tartrate (Alphagan 0.2% Opht) 0 ml OD BID [facility] Last Admin: 07/20/17 18:02 Dose: 1 drop Clopidogrel Bisulfate (Plavix) 75 mg PO DAILY [facility] Last Admin: 07/20/17 09:19 Dose: 75 mg Epoetin Shahram (Procrit) 10,000 unit IV TTS [facility] Last Admin: 07/21/17 11:02 Dose: 10,000 unit Famotidine (Pepcid) 20 mg PO DAILY [facility] Last Admin: 07/20/17 09:19 Dose: 20 mg Heparin Sodium (Porcine) (Heparin) 5,000 units SC Q12 [facility] Last Admin: 07/20/17 21:55 Dose: 5,000 units Hydralazine HCl (Apresoline) 10 mg PO BID [facility] Last Admin: 07/20/17 18:00 Dose: 10 mg Insulin Detemir (Levemir) 6 unit SC QAM [facility] Last Admin: 07/20/17 09:20 Dose: 6 unit Insulin Detemir (Levemir) 14 unit SC QPM [facility] Last Admin: 07/20/17 18:01 Dose: 14 unit Metoprolol Tartrate (Lopressor) 25 mg PO BID [facility] Last Admin: 07/20/17 18:01 Dose: 25 mg Moxifloxacin HCl (Avelox) 400 mg PO DAILY [facility] Sevelamer Carbonate (Renvela) 800 mg PO TIDCC [facility] Last Admin: 07/20/17 18:00 Dose: 800 mg - Labs Labs: 07/21/17 06:15 07/21/17 06:15 PT 13.6 SECONDS (9.7-12.2) H 07/16/17 20:02 INR 1.2 07/16/17 20:02 APTT 30 SECONDS (21-34) 07/16/17 20:02 - Constitutional Appears: Non-toxic, No Acute Distress, Chronically Ill - Head Exam Head Exam: NORMAL INSPECTION - Eye Exam Eye Exam: Normal appearance - ENT Exam ENT Exam: Mucous Membranes Moist, Normal Exam - Neck Exam Neck Exam: Normal Inspection - Respiratory Exam Respiratory Exam: Clear to Ausculation Bilateral, NORMAL BREATHING PATTERN - Cardiovascular Exam Cardiovascular Exam: REGULAR RHYTHM, RRR - GI/Abdominal Exam GI & Abdominal Exam: Soft, Normal Bowel Sounds - Extremities Exam Extremities Exam: Normal Inspection Additional comments: lue avf hand contractures - Neurological Exam Neurological Exam: Alert, Awake, Oriented x3 - Psychiatric Exam Psychiatric exam: Normal Affect, Normal Mood - Skin Skin Exam: Dry, Warm Assessment and Plan (1) Pneumonia Status: Acute (2) Type 2 diabetes mellitus with diabetic nephropathy Status: Acute (3) CVA, old, aphasia Status: Acute (4) ESRD (end stage renal disease) Status: Chronic (5) HTN (hypertension) Status: Chronic - Assessment and Plan (Free Text) Assessment: maintain hd tts antibiotics supportive care abel w/ hd
--- NOTE | 2017-07-21 11:16 | CP.PCM.PN ---
<Deepak Ivory - Last Filed: 07/21/17 11:12> Subjective - Date & Time of Evaluation Date of Evaluation: 07/21/17 Time of Evaluation: 11:12 - Subjective Subjective: PGY-[address] Mclain. No acute events overnight. Patient was seen and examined this AM at bedside with nurse present who was translating. Patient complains of cough which is better. He denied shortness of breath, chest pain, abdominal pain, fever, chills , nausea, vomiting. He is scheduled to get his dialysis session today. Objective - Vital Signs/Intake and Output Vital Signs (last 24 hours): Temp Pulse Resp BP Pulse Ox 97.6 F 62 19 146/53 L 100 07/21/17 09:45 07/21/17 10:58 07/21/17 10:58 07/21/17 10:58 07/21/17 10:58 Intake and Output: 07/21/17 07/21/17 06:59 18:59 Intake Total 240 Balance 240 - Medications Medications: Current Medications Acetaminophen (Tylenol 325mg Tab) 650 mg PO Q6 PRN PRN Reason: Fever >100.4 F Last Admin: 07/18/17 12:27 Dose: 650 mg Amlodipine Besylate (Norvasc) 10 mg PO DAILY [facility] Last Admin: 07/20/17 09:19 Dose: 10 mg Brimonidine Tartrate (Alphagan 0.2% Opht) 0 ml OD BID [facility] Last Admin: 07/20/17 18:02 Dose: 1 drop Clopidogrel Bisulfate (Plavix) 75 mg PO DAILY [facility] Last Admin: 07/20/17 09:19 Dose: 75 mg Epoetin Shahram (Procrit) 10,000 unit IV TTS [facility] Last Admin: 07/21/17 11:02 Dose: 10,000 unit Famotidine (Pepcid) 20 mg PO DAILY [facility] Last Admin: 07/20/17 09:19 Dose: 20 mg Heparin Sodium (Porcine) (Heparin) 5,000 units SC Q12 [facility] Last Admin: 07/20/17 21:55 Dose: 5,000 units Hydralazine HCl (Apresoline) 10 mg PO BID [facility] Last Admin: 07/20/17 18:00 Dose: 10 mg Insulin Detemir (Levemir) 6 unit SC QAM [facility] Last Admin: 07/20/17 09:20 Dose: 6 unit Insulin Detemir (Levemir) 14 unit SC QPM [facility] Last Admin: 07/20/17 18:01 Dose: 14 unit Metoprolol Tartrate (Lopressor) 25 mg PO BID [facility] Last Admin: 07/20/17 18:01 Dose: 25 mg Moxifloxacin HCl (Avelox) 400 mg PO DAILY [facility] Sevelamer Carbonate (Renvela) 800 mg PO TIDCC [facility] Last Admin: 07/20/17 18:00 Dose: 800 mg - Labs Labs: 07/21/17 06:15 07/21/17 06:15 PT 13.6 SECONDS (9.7-12.2) H 07/16/17 20:02 INR 1.2 07/16/17 20:02 APTT 30 SECONDS (21-34) 07/16/17 20:02 - Additional Findings Additional findings: - Constitutional Appears: Chronically Ill - Head Exam Head Exam: ATRAUMATIC, NORMOCEPHALIC - Eye Exam Eye Exam: EOMI. absent: Scleral icterus - ENT Exam ENT Exam: Mucous Membranes Moist - Neck Exam Additional comments: No JVD appreciated - Respiratory Exam Respiratory Exam: Rhonchi. absent: Clear to Auscultation Bilateral, Rales, Wheezes - Cardiovascular Exam Cardiovascular Exam: +S1, +S2. absent: Systolic Murmur Additional comments: Pacemaker noted - GI/Abdominal Exam GI & Abdominal Exam: Normal Bowel Sounds, Soft. absent: Guarding, Rigid, Tenderness - Extremities Exam Extremities exam: Positive for: normal inspection. Negative for: pedal edema, tenderness Additional comments: AVF to left antecubital fossa - Back Exam Back exam: absent: CVA tenderness (L), CVA tenderness (R) - Neurological Exam Neurological exam: Alert, Oriented x3, right sided weakness from prior CVA - Psychiatric Exam Psychiatric exam: Normal Affect, Normal Mood - Skin Skin Exam: Normal Color, Warm Assessment and Plan - Assessment and Plan (Free Text) Assessment: Sepsis Possibly 2/2 to pneumonia On admission: SIRS: (Temp >100.9, Resp >20), Source: Pneumonia, CODE SEPSIS initiated, Pt febrile (Tmax 101.9 =- rectal), WBC 10.9, left shift, 11 Bands On admission: Lactate 3.0, repeat lactate 0.9 Influenza Typ A,B: negative Mycoplasma pneumon IgM negative Mycoplasma pneumon IgG 1.54 (high) procalcitonin 07/17: 20.68 procalcitonin 07/20: 13.32 Meds: Avelox 400mg IV Q24H Tylenol 650mg Q6H PRN fever Imaging: CXR 07/16: Limited right basilar atelectasis or infiltrate is identified. None is seen the left. Stable prominent appearing cardiac silhouette. EKG: NSR, 1st degree AV block, T wave inversions in LVH strain pattern ESRD Dr. Juarez, Nephro consult: help appreciated Dialysis () Epoetin 10,000u IV TTS Con't home med sevelamer 800mg PO TIDCC F/U % Iron F/U Ferritin Hx of CVA CVA 2011, sequelae of right sided weakness CAD Clopidogrel 75mg PO Daily HTN Mild Hypotension on admission Continue Home meds: Amlodipine 10mg Daily Hydralazine 10mg PO BID T1DM Levemir 6 units AM, 14 units PM MISS Hypoglycemia protocol Accuchecks A1C in 01/21: 8.4 A1C 07/17: 8.5 Prophylaxis SCDs Heparin 5000u Q12H Pepcid 20mg PO BID Renal Diet <Bebeto Mclain H - Last Filed: 07/22/17 07:23> Objective - Vital Signs/Intake and Output Vital Signs (last 24 hours): Temp Pulse Resp BP Pulse Ox 97.6 F 59 L 20 134/66 96 07/21/17 23:30 07/21/17 23:30 07/21/17 23:30 07/21/17 23:30 07/21/17 23:30 Intake and Output: 07/22/17 07/22/17 06:59 18:59 Intake Total 0 Balance 0 - Medications Medications: Current Medications Acetaminophen (Tylenol 325mg Tab) 650 mg PO Q6 PRN PRN Reason: Fever >100.4 F Last Admin: 07/18/17 12:27 Dose: 650 mg Amlodipine Besylate (Norvasc) 10 mg PO DAILY [facility] Last Admin: 07/21/17 14:34 Dose: 10 mg Brimonidine Tartrate (Alphagan 0.2% Opht) 0 ml OD BID [facility] Last Admin: 07/21/17 18:20 Dose: 1 drop Clopidogrel Bisulfate (Plavix) 75 mg PO DAILY [facility] Last Admin: 07/21/17 14:32 Dose: 75 mg Epoetin Shahram (Procrit) 10,000 unit IV TTS [facility] Last Admin: 07/21/17 11:02 Dose: 10,000 unit Famotidine (Pepcid) 20 mg PO DAILY [facility] Last Admin: 07/21/17 14:34 Dose: 20 mg Heparin Sodium (Porcine) (Heparin) 5,000 units SC Q12 [facility] Last Admin: 07/21/17 21:22 Dose: 5,000 units Hydralazine HCl (Apresoline) 10 mg PO BID [facility] Last Admin: 07/21/17 18:19 Dose: 10 mg Insulin Detemir (Levemir) 6 unit SC QAM [facility] Last Admin: 07/21/17 14:31 Dose: 6 unit Insulin Detemir (Levemir) 14 unit SC QPM [facility] Last Admin: 07/21/17 18:21 Dose: 14 unit Metoprolol Tartrate (Lopressor) 25 mg PO BID [facility] Last Admin: 07/21/17 18:19 Dose: 25 mg Moxifloxacin HCl (Avelox) 400 mg PO DAILY [facility] Last Admin: 07/21/17 14:35 Dose: 400 mg Sevelamer Carbonate (Renvela) 800 mg PO TIDCC [facility] Last Admin: 07/21/17 18:20 Dose: 800 mg - Labs Labs: 07/21/17 06:15 07/21/17 06:15 PT 13.6 SECONDS (9.7-12.2) H 07/16/17 20:02 INR 1.2 07/16/17 20:02 APTT 30 SECONDS (21-34) 07/16/17 20:02 Attending/Attestation - Attestation I have personally seen and examined this patient.: Yes I have fully participated in the care of the patient.: Yes I have reviewed all pertinent clinical information, including history, physical exam and plan: Yes Notes (Text): 07/22/17 07:23 Medical attending: Patient was seen and examined by me, agrees the above note by medical assistant ob gyn. At this time was to continue IV antibiotics for sepsis secondary to pneumonia. He previously had a very large temperature as well as a high white blood cell count and left shift with bands since then this is resolved. Her still continue with IV Avelox at this time The blood cultures have been negative for past 4 days now sputum culture results as well Later on in the day underwent hemodialysis for his end-stage renal disease. It is not immediately clear to me how much the patient is able to ambulate or if he is not able to ambulate. Will have PT/OT come by and see the patient. Thank you very much, Bebeto Mclain
[2017-07-21] MEDS: Insulin Detemir 100 units/ml Vial (Levemir) SC SCH ×2 (14:31→18:21)
[2017-07-21] MEDS: Brimonidine 0.2% Opth Sol (5ml) OD SCH ×3 (14:32→18:20)
[2017-07-21 15:58] VITALS: RESP 20
[2017-07-22 07:32] LABS: BASO % 0.4 % (0.0-2.0); EOS # 0.1 K/uL (0.0-0.7); EOS % 2.1 % (0.0-4.0); LYMPH # 1.4 K/uL (1.0-4.3); LYMPH % 20.7 % (20.0-40.0); MEAN CELL VOLUME 89.7 fL (80.0-94.0); MEAN CORPUSCULAR HEMOGLOBIN 30.1 pg (27.0-31.0); MEAN CORPUSCULAR HGB CONC 33.5 g/dL (33.0-37.0); MEAN PLATELET VOLUME 8.2 fL (7.2-11.7); MONO # 0.8 K/uL (0.0-0.8); MONO % 11.6 % (0.0-10.0); RED CELL DISTRIBUTION WIDTH 15.3 % (11.5-14.5)
[2017-07-22 07:54] LABS: ALB/GLOB RATIO 1.2 (1.0-2.1); BILIRUBIN,TOTAL 0.8 mg/dL (0.2-1.3); CALCIUM 8.7 mg/dl (8.6-10.4); POTASSIUM 3.8 mmol/L (3.6-5.2); TOTAL PROTEIN 7.1 g/dL (6.3-8.3)
[2017-07-22 08:43] VITALS: BP 155/63; TEMP 97.8; O2SAT 100
[2017-07-22] MEDS: Brimonidine 0.2% Opth Sol (5ml) OD SCH (09:35)
--- NOTE | 2017-07-22 11:33 | CP.PCM.DIS ---
<Deepak Ivory - Last Filed: 07/22/17 11:30> Provider - Provider Date of Admission: 07/16/17 21:24 Attending physician: Perez Frey MD Primary care physician: Nas Bynum DO Consults: Nephrology - Dr Juarez Time Spent in preparation of Discharge (in minutes): 45 Diagnosis - Discharge Diagnosis (1) Pneumonia Status: Resolved Priority: High (2) Sepsis Status: Resolved Priority: High Hospital Course - Lab Results Lab Results: Micro Results 07/16/17 19:50 Blood-Venous Blood Culture - Final NO GROWTH AFTER 5 DAYS 07/16/17 19:50 Blood-Venous Gram Stain - Final TEST NOT PERFORMED 07/16/17 20:20 Blood-Venous Blood Culture - Final NO GROWTH AFTER 5 DAYS 07/16/17 20:20 Blood-Venous Gram Stain - Final TEST NOT PERFORMED 07/17/17 14:00 Sputum Gram Stain - Final 07/17/17 14:00 Sputum Sputum Culture - Final NORMAL ORAL AMBER Most Recent Lab Values WBC 7.0 K/uL (4.8-10.8) 07/22/17 07:26 RBC 3.24 Mil/uL (4.40-5.90) L 07/22/17 07:26 Hgb 9.7 g/dL (12.0-18.0) L 07/22/17 07:26 Hct 29.0 % (35.0-51.0) L 07/22/17 07:26 MCV 89.7 fL (80.0-94.0) 07/22/17 07:26 MCH 30.1 pg (27.0-31.0) 07/22/17 07:26 MCHC 33.5 g/dL (33.0-37.0) 07/22/17 07:26 RDW 15.3 % (11.5-14.5) H 07/22/17 07:26 Plt Count 368 K/uL (130-400) 07/22/17 07:26 MPV 8.2 fL (7.2-11.7) 07/22/17 07:26 Neut % (Auto) 65.2 % (50.0-75.0) 07/22/17 07:26 Lymph % (Auto) 20.7 % (20.0-40.0) 07/22/17 07:26 Hall % (Auto) 11.6 % (0.0-10.0) H 07/22/17 07: Eos % (Auto) 2.1 % (0.0-4.0) 07/22/17: Baso % (Auto) 0.4 % (0.0-2.0) 07/22/17 07: Neut # 4.5 K/uL (1.8-7.0) 07/22/17: Lymph # 1.4 K/uL (1.0-4.3) 07/22/17: Hall # 0.8 K/uL (0.0-0.8) 07/22/17: Eos # 0.1 K/uL (0.0-0.7) 07/22/17: Baso # 0.0 K/uL (0.0-0.2) 07/22/17 07: Neutrophils % (Manual) 72 % (50-75) 07/16/17 20:02 Band Neutrophils % 11 % (0-2) H* 07/16/17 20:02 Lymphocytes % (Manual) 6 % (20-40) L 07/16/17 20:02 Monocytes % (Manual) 10 % (0-10) 07/16/17 20:02 Basophils % (Manual) 1 % (0-2) 07/16/17 20:02 Platelet Estimate Normal (NORMAL) 07/16/17 20:02 Hypochromasia (manual) Slight 07/16/17 20:02 Poikilocytosis (manual Slight 07/16/17 20:02 Anisocytosis (manual) Slight 07/16/17 20:02 Target Cells Slight 07/16/17 20:02 PT 13.6 SECONDS (9.7-12.2) H 07/16/17 20:02 INR 1.2 07/16/17 20:02 APTT 30 SECONDS (21-34) 07/16/17 20:02 pO2 19 mm/Hg (30-55) L 07/16/17 20:08 VBG pH 7.41 (7.32-7.43) 07/16/17 20:08 VBG pCO2 61 mmHg (40-60) H 07/16/17 20:08 VBG HCO3 32.1 mmol/L 07/16/17 20:08 VBG Total CO2 40.6 mmol/L (22-28) H 07/16/17 20:08 VBG O2 Sat (Calc) 31.5 % (40-65) L 07/16/17 20:08 VBG Base Excess 11.5 mmol/L (0.0-2.0) H 07/16/17 20:08 VBG Potassium 3.6 mmol/L (3.6-5.2) 07/16/17 20:08 Sodium 139.0 mmol/l (132-148) 07/16/17 20:08 Chloride 96.0 mmol/L (98-107) L 07/16/17 20:08 Glucose 206 mg/dl (75-110) H 07/16/17 20:08 Lactate 3.0 mmol/L (0.7-2.1) H 07/16/17 20:08 Sodium 136 mmol/L (132-148) 07/22/17 07:26 Potassium 3.8 mmol/L (3.6-5.2) 07/22/17 07:26 Chloride 95 mmol/L (98-107) L 07/22/17 07:26 Carbon Dioxide 31 mmol/L (22-30) H 07/22/17 07:26 Anion Gap 14 (10-20) 07/22/17 07:26 BUN 38 mg/dL (9-20) H 07/22/17 07:26 Creatinine 5.6 mg/dL (0.8-1.5) H 07/22/17 07:26 Est GFR ( Amer) 13 07/22/17 07:26 Est GFR (Non-Af Amer) 10 07/22/17 07:26 POC Glucose (mg/dL) 164 mg/dL (65-110) H 07/22/17 06:24 Random Glucose 128 mg/dL (75-110) H 07/22/17 07:26 Hemoglobin A1c 8.5 % (4.2-6.5) H 07/17/17 06:00 Lactic Acid 0.9 mmol/L (0.7-2.1) 07/17/17 06:00 Calcium 8.7 mg/dl (8.6-10.4) 07/22/17 07:26 Phosphorus 4.1 mg/dL (2.5-4.5) 07/20/17 07:02 Magnesium 2.1 mg/dL (1.6-2.3) 07/20/17 07:02 % Saturation 22 (20-55) 07/21/17 06:15 Ferritin 815.0 ng/mL 07/21/17 06:15 Total Bilirubin 0.8 mg/dL (0.2-1.3) 07/22/17 07:26 AST 30 U/L (17-59) 07/22/17 07:26 ALT 21 U/L (21-72) D 07/22/17 07:26 Alkaline Phosphatase 149 U/L (38-126) H 07/22/17 07:26 Total Protein 7.1 g/dL (6.3-8.3) 07/22/17 07:26 Albumin 3.9 g/dL (3.5-5.0) 07/22/17 07:26 Globulin 3.2 gm/dL (2.2-3.9) 07/22/17 07:26 Albumin/Globulin Ratio 1.2 (1.0-2.1) 07/22/17 07:26 Triglycerides 187 mg/dL (0-149) H 07/17/17 06:00 Cholesterol 130 mg/dL (0-199) 07/17/17 06:00 LDL Cholesterol Direct 45 mg/dL (0-129) 07/17/17 06:00 HDL Cholesterol 25 mg/dL (30-70) L 07/17/17 06:00 Procalcitonin 13.32 NG/ML (0.19-0.49) H 07/20/17 12:32 Venous Blood Potassium 3.6 mmol/L (3.6-5.2) 07/16/17 20:08 Random Vancomycin 12.94 ug/mL 07/17/17 16:55 Hep Bs Antigen Negative (NEGATIVE) 07/18/17 12:31 Hep Bs Antibody Positive (NEGATIVE) 07/18/17 12:31 Hep B Core IgM Ab Negative (NEGATIVE) 07/18/17 12:31 Influenza Typ A,B (EIA) Negative for flu a/b (NEGATIVE) 07/17/17 01:37 Ur L.pneumophila Ag Negative (NEGATIVE) 07/17/17 00:22 Mycoplasma pneumon IgG 1.54 (<=0.90) H 07/17/17 06:00 Mycoplasma pneumon IgM 134 U/mL (<770) 07/17/17 06:00 - Hospital Course Hospital Course: CC: "My cold is getting worse and I've been coughing a lot" HPI: Patient is a 61 year old male, with PMHx of T1DM, [place], Pacemaker implantation, CVA, HTN, hyperlipidemia, presenting to [facility] ED c/o fever and cough. Family at bedside helping with interpretation and history. Family reports patient began complaining of chills and cough two days ago. The cough has worsened and he is now producing yellow sputum. They deny taking patient's temperature at home. Patient went for schedule dialysis today and family noted he was "more sluggish than usual" and becoming increasingly short of breath, so they wanted him brought to ED for evaluation. states 3 liters were taken off at dialysis, and patients dry weight is 78 kg. They report patient adheres to 32 oz fluid restriction daily. Both family members reports "cold like symptoms: runny nose, cough, chills" over the past few days. Patient denies chest pain, palpitations, abdominal pain, nausea, vomiting, or diarrhea. PMHx: T1DM, [place], Pacemaker implantation, CVA, HTN, hyperlipidemia PShx: Pacemaker (2011) FAm hx: Mom: Diabetes, Father: denies Soc hx: denies tobacco/etoh/illici drug use Allergies: No known Meds: Hydralazine 10mg PO BID, Amlodipine 10mg Daily, Pepcid 20mg Daily, Clopidogrel 75mg Daily, Renvela 800mg TID, Lopressor 25mg BID Levemir 14 units AM, 6 units PM, Humalog sliding scale PMD: Bynum Nephro: Larry Cardio: Gonzalez HOSPITAL COURSE: This is a patient with a history of ESRD, CVA and right-sided weakness who had an admitting diagnosis of sepsis secondary to pneumonia. On admission the patient met sirs criteria with source likely being penumonia. Code sepsis was initiated on admissioni. He was febrile with a temp of 101.9, a WBC of 10.9, left shift, 11 Bands and Lactate 3.0. His influenza, mycoplasma IgM were negative. His mycoplasma IgG was high however that only signifies immunity or infection in the past. His procalcitonin was very high at 20.68, a repeat done 3 days later was 12.32. A CXR done on admission showed "Limited right basilar atelectasis or infiltrate is identified. None is seen the left. Stable prominent appearing cardiac silhouette". An EKG showed NSR, 1st degree AV block , T wave inversions in LVH strain pattern. His infection was treated with Avelox 400mg IV Q24H and his fevers were controlled with tylenol. By discharge he had no leukocytosis and he was afebrile with only a minor cough that was non- productive. Given his ESRD, [employer], Dr Juarez was consulted. He was started on epoetin [id number] IV TTS and his home med sevelamer 800mg PO TIDCC was continued. He resumed his dialysis schedule of . Iron studies were also ordered. His home medications were continued to treat his chronic conditions of CAD, HTN , T1DM. These medications include sevelamer 800mg PO TIDCC, clopidogrel 75mg PO QD, amlodipine 10mg PO QD, hydralazine 10mg PO BID, levemir 6 units in AM and 14 units in PM. He was put on a renal diet. Discharge instructions and discharge medications are shown below. Discharge Exam - Head Exam Head Exam: NORMAL INSPECTION - Additional Findings Additional findings: - Constitutional Appears: Chronically Ill - Head Exam Head Exam: ATRAUMATIC, NORMOCEPHALIC - Eye Exam Eye Exam: EOMI. absent: Scleral icterus - ENT Exam ENT Exam: Mucous Membranes Moist - Neck Exam Additional comments: No JVD appreciated - Respiratory Exam Respiratory Exam: Rhonchi. absent: Clear to Auscultation Bilateral, Rales, Wheezes - Cardiovascular Exam Cardiovascular Exam: +S1, +S2. absent: Systolic Murmur Additional comments: Pacemaker noted - GI/Abdominal Exam GI & Abdominal Exam: Normal Bowel Sounds, Soft. absent: Guarding, Rigid, Tenderness - Extremities Exam Extremities exam: Positive for: normal inspection. Negative for: pedal edema, tenderness Additional comments: AVF to left antecubital fossa - Back Exam Back exam: absent: CVA tenderness (L), CVA tenderness (R) - Neurological Exam Neurological exam: Alert, Oriented x3, right sided weakness from prior CVA - Psychiatric Exam Psychiatric exam: Normal Affect, Normal Mood - Skin Skin Exam: Normal Color, Warm Discharge Plan - Discharge Medications Prescriptions: Moxifloxacin [Avelox] 400 mg PO DAILY 4 Days #4 tab - Follow Up Plan Condition: SERIOUS Disposition: HOME/ ROUTINE Instructions: Moxifloxacin (By mouth), Dialysis Diet (DC), Heart Healthy Diet ( DC), Sepsis (GEN), Pneumonia (DC), End Stage Kidney Disease (DC) Additional Instructions: Patient is medically stable for discharge. Patient will be discharged with a script for the following NEW medication to be taken as instructed: Avelox 400mg PO Daily for 4 days (take 1 tablet by mouth once a day for 4 days) Patient should resume his home medications including: amlodipine 10mg PO QD famotidine 20mg PO QD Sevelamer 800mg PO TID Plavix 75mg PO QD Brimonidine 0.2% OD BID Hydralazine 10mg PO BID Metoprolol tartrate 25mg PO BID Patient should follow-up with his PMD, Dr Bynum, in 1 week so he may be aware of this admission and follow his PMD's instructions. If symptoms return or worsen, patient is to return to the ER. Referrals: Nas Bynum, [Primary Care Provider] - <Bebeto Mclain - Last Filed: 07/23/17 07:21> Provider - Provider Date of Admission: 07/16/17 21:24 Attending physician: Perez Frey MD Primary care physician: Nas Bynum DO Hospital Course - Lab Results Lab Results: Micro Results 07/21/17 10:30 Blood Blood Culture - Preliminary NO GROWTH AFTER 24 HOURS 07/21/17 11:00 Blood Blood Culture - Preliminary NO GROWTH AFTER 24 HOURS 07/16/17 19:50 Blood-Venous Blood Culture - Final NO GROWTH AFTER 5 DAYS 07/16/17 19:50 Blood-Venous Gram Stain - Final TEST NOT PERFORMED 07/16/17 20:20 Blood-Venous Blood Culture - Final NO GROWTH AFTER 5 DAYS 07/16/17 20:20 Blood-Venous Gram Stain - Final TEST NOT PERFORMED 07/17/17 14:00 Sputum Gram Stain - Final 07/17/17 14:00 Sputum Sputum Culture - Final NORMAL ORAL AMBER Most Recent Lab Values WBC 7.0 K/uL (4.8-10.8) 07/22/17 07:26 RBC 3.24 Mil/uL (4.40-5.90) L 07/22/17 07:26 Hgb 9.7 g/dL (12.0-18.0) L 07/22/17 07:26 Hct 29.0 % (35.0-51.0) L 07/22/17 07:26 MCV 89.7 fL (80.0-94.0) 07/22/17 07:26 MCH 30.1 pg (27.0-31.0) 07/22/17 07: MCHC 33.5 g/dL (33.0-37.0) 07/22/17 07: RDW 15.3 % (11.5-14.5) H 07/22/17 07:26 Plt Count 368 K/uL (130-400) 07/22/17 07: MPV 8.2 fL (7.2-11.7) 07/22/17 07:26 Neut % (Auto) 65.2 % (50.0-75.0) 07/22/17 07:26 Lymph % (Auto) 20.7 % (20.0-40.0) 07/22/17 07:26 Hall % (Auto) 11.6 % (0.0-10.0) H 07/22/17 07:26 Eos % (Auto) 2.1 % (0.0-4.0) 07/22/17 07: Baso % (Auto) 0.4 % (0.0-2.0) 07/22/17 07:26 Neut # 4.5 K/uL (1.8-7.0) 07/22/17 07:26 Lymph # 1.4 K/uL (1.0-4.3) 07/22/17 07:26 Hall # 0.8 K/uL (0.0-0.8) 07/22/17 07:26 Eos # 0.1 K/uL (0.0-0.7) 07/22/17 07:26 Baso # 0.0 K/uL (0.0-0.2) 07/22/17 07:26 Neutrophils % (Manual) 72 % (50-75) 07/16/17 20:02 Band Neutrophils % 11 % (0-2) H* 07/16/17 20:02 Lymphocytes % (Manual) 6 % (20-40) L 07/16/17 20:02 Monocytes % (Manual) 10 % (0-10) 07/16/17 20:02 Basophils % (Manual) 1 % (0-2) 07/16/17 20:02 Platelet Estimate Normal (NORMAL) 07/16/17 20:02 Hypochromasia (manual) Slight 07/16/17 20:02 Poikilocytosis (manual Slight 07/16/17 20:02 Anisocytosis (manual) Slight 07/16/17 20:02 Target Cells Slight 07/16/17 20:02 PT 13.6 SECONDS (9.7-12.2) H 07/16/17 20: INR 1.2 07/16/17 20:02 APTT 30 SECONDS (21-34) 07/16/17 20: pO2 19 mm/Hg (30-55) L 07/16/17 20:08 VBG pH 7.41 (7.32-7.43) 07/16/17 20:08 VBG pCO2 61 mmHg (40-60) H 07/16/17 20:08 VBG HCO3 32.1 mmol/L 07/16/17 20:08 VBG Total CO2 40.6 mmol/L (22-28) H 07/16/17 20:08 VBG O2 Sat (Calc) 31.5 % (40-65) L 07/16/17 20:08 VBG Base Excess 11.5 mmol/L (0.0-2.0) H 07/16/17 20:08 VBG Potassium 3.6 mmol/L (3.6-5.2) 07/16/17 20:08 Sodium 139.0 mmol/l (132-148) 07/16/17 20:08 Chloride 96.0 mmol/L (98-107) L 07/16/17 20:08 Glucose 206 mg/dl (75-110) H 07/16/17 20:08 Lactate 3.0 mmol/L (0.7-2.1) H 07/16/17 20:08 Sodium 136 mmol/L (132-148) 07/22/17 07:26 Potassium 3.8 mmol/L (3.6-5.2) 07/22/17 07:26 Chloride 95 mmol/L (98-107) L 07/22/17 07:26 Carbon Dioxide 31 mmol/L (22-30) H 07/22/17 07:26 Anion Gap 14 (10-20) 07/22/17 07:26 BUN 38 mg/dL (9-20) H 07/22/17 07:26 Creatinine 5.6 mg/dL (0.8-1.5) H 07/22/17 07:26 Est GFR ( Amer) 13 07/22/17 07:26 Est GFR (Non-Af Amer) 10 07/22/17 07:26 POC Glucose (mg/dL) 190 mg/dL (65-110) H 07/22/17 10:49 Random Glucose 128 mg/dL (75-110) H 07/22/17 07:26 Hemoglobin A1c 8.5 % (4.2-6.5) H 07/17/17 06:00 Lactic Acid 0.9 mmol/L (0.7-2.1) 07/17/17 06:00 Calcium 8.7 mg/dl (8.6-10.4) 07/22/17 07:26 Phosphorus 4.1 mg/dL (2.5-4.5) 07/20/17 07:02 Magnesium 2.1 mg/dL (1.6-2.3) 07/20/17 07:02 % Saturation 22 (20-55) 07/21/17 06:15 Ferritin 815.0 ng/mL 07/21/17 06:15 Total Bilirubin 0.8 mg/dL (0.2-1.3) 07/22/17 07:26 AST 30 U/L (17-59) 07/22/17 07:26 ALT 21 U/L (21-72) D 07/22/17 07:26 Alkaline Phosphatase 149 U/L (38-126) H 07/22/17 07:26 Total Protein 7.1 g/dL (6.3-8.3) 07/22/17 07:26 Albumin 3.9 g/dL (3.5-5.0) 07/22/17 07:26 Globulin 3.2 gm/dL (2.2-3.9) 07/22/17 07:26 Albumin/Globulin Ratio 1.2 (1.0-2.1) 07/22/17 07:26 Triglycerides 187 mg/dL (0-149) H 07/17/17 06:00 Cholesterol 130 mg/dL (0-199) 07/17/17 06:00 LDL Cholesterol Direct 45 mg/dL (0-129) 07/17/17 06:00 HDL Cholesterol 25 mg/dL (30-70) L 07/17/17 06:00 Procalcitonin 13.32 NG/ML (0.19-0.49) H 07/20/17 12:32 Venous Blood Potassium 3.6 mmol/L (3.6-5.2) 07/16/17 20:08 Random Vancomycin 12.94 ug/mL 07/17/17 16:55 Hep Bs Antigen Negative (NEGATIVE) 07/18/17 12:31 Hep Bs Antibody Positive (NEGATIVE) 07/18/17 12:31 Hep B Core IgM Ab Negative (NEGATIVE) 07/18/17 12:31 Influenza Typ A,B (EIA) Negative for flu a/b (NEGATIVE) 07/17/17 01:37 Ur L.pneumophila Ag Negative (NEGATIVE) 07/17/17 00:22 Mycoplasma pneumon IgG 1.54 (<=0.90) H 07/17/17 06:00 Mycoplasma pneumon IgM 134 U/mL (<770) 07/17/17 06:00 Attending/Attestation - Attestation I have personally seen and examined this patient.: Yes I have fully participated in the care of the patient.: Yes I have reviewed all pertinent clinical information, including history, physical exam and plan: Yes Notes (Text): 07/23/17 07:21 Medical attending: Patient was seen and examined by me, agree with the above note by medical records auditor. The patient will be discharged to home today. From what I understand family did not want him to go to any type of rehabilitation Center. While here he has been on IV antibiotics, he initially had a very elevated temperature when he came in. He never had an elevated white blood cell count however he did have very significant bandemia as well as left shift. Furthermore on admission he had a very high calcitonin levels during his course here is bandemia, left shift, medical calcitonin level decreased. He also continue to receive hemodialysis while here as well Thank you very much, Bebeto Mclain
--- NOTE | 2017-07-22 14:13 | CP.PCM.PN ---
Subjective - Date & Time of Evaluation Date of Evaluation: 07/22/17 Time of Evaluation: 14:10 - Subjective Subjective: Doing better; no new complaint Afebrile course now, no more cough s/p dialysis 07/21- UF 2000ml Likely for discharge today Objective - Vital Signs/Intake and Output Vital Signs (last 24 hours): Temp Pulse Resp BP Pulse Ox 97.8 F 78 20 155/63 H 100 07/22/17 07:00 07/22/17 07:00 07/22/17 07:00 07/22/17 09:35 07/22/17 07:00 Intake and Output: 07/22/17 07/22/17 06:59 18:59 Intake Total 0 Balance 0 - Medications Medications: Current Medications Acetaminophen (Tylenol 325mg Tab) 650 mg PO Q6 PRN PRN Reason: Fever >100.4 F Last Admin: 07/18/17 12:27 Dose: 650 mg Amlodipine Besylate (Norvasc) 10 mg PO DAILY [facility] Last Admin: 07/22/17 09:37 Dose: 10 mg Brimonidine Tartrate (Alphagan 0.2% Opht) 0 ml OD BID [facility] Last Admin: 07/22/17 09:35 Dose: 1 drop Clopidogrel Bisulfate (Plavix) 75 mg PO DAILY [facility] Last Admin: 07/22/17 09:36 Dose: 75 mg Epoetin Shahram (Procrit) 10,000 unit IV TTS [facility] Last Admin: 07/21/17 11:02 Dose: 10,000 unit Famotidine (Pepcid) 20 mg PO DAILY [facility] Last Admin: 07/22/17 09:36 Dose: 20 mg Heparin Sodium (Porcine) (Heparin) 5,000 units SC Q12 [facility] Last Admin: 07/22/17 09:36 Dose: 5,000 units Hydralazine HCl (Apresoline) 10 mg PO BID [facility] Last Admin: 07/22/17 09:34 Dose: 10 mg Insulin Detemir (Levemir) 6 unit SC QAM [facility] Last Admin: 07/21/17 14:31 Dose: 6 unit Insulin Detemir (Levemir) 14 unit SC QPM [facility] Last Admin: 07/21/17 18:21 Dose: 14 unit Metoprolol Tartrate (Lopressor) 25 mg PO BID [facility] Last Admin: 11/15/17 09:35 Dose: 25 mg Moxifloxacin HCl (Avelox) 400 mg PO DAILY [facility] Last Admin: 07/22/17 09:37 Dose: 400 mg Sevelamer Carbonate (Renvela) 800 mg PO TIDCC [facility] Last Admin: 07/22/17 12:52 Dose: 800 mg - Labs Labs: 07/22/17 07:26 07/22/17 07:26 PT 13.6 SECONDS (9.7-12.2) H 07/16/17 20:02 INR 1.2 07/16/17 20:02 APTT 30 SECONDS (21-34) 07/16/17 20:02 - Constitutional Appears: Non-toxic, No Acute Distress, Chronically Ill - Head Exam Head Exam: ATRAUMATIC, NORMAL INSPECTION - Eye Exam Eye Exam: EOMI, Normal appearance - Neck Exam Neck Exam: Normal Inspection. absent: Tenderness - Respiratory Exam Respiratory Exam: Clear to Ausculation Bilateral, NORMAL BREATHING PATTERN - Cardiovascular Exam Cardiovascular Exam: REGULAR RHYTHM, +S1 - GI/Abdominal Exam GI & Abdominal Exam: Soft. absent: Tenderness - Extremities Exam Extremities Exam: Normal Inspection. absent: Tenderness - Neurological Exam Neurological Exam: Alert, Motor Sensory Deficit - Skin Skin Exam: Dry, Warm Assessment and Plan (1) CVA (cerebral vascular accident) Status: Acute (2) Type 2 diabetes mellitus with diabetic nephropathy Status: Acute (3) ESRD (end stage renal disease) Status: Chronic (4) HTN (hypertension) Status: Chronic (5) Pacemaker Status: Chronic - Assessment and Plan (Free Text) Plan: Will follow up at outpt dialysis labs and BP acceptable
[2017-07-22 17:07] VITALS: PULSE 68
== END 2017-07-22 15:52 | disposition home or self-care (01) | DRG 871 ==
LOC: SUPCPDRO 19:35 → C.ER 19:35 → C.9E 21:24 → C.6T 22:23
PROVIDERS: ADMIT Internal Medicine; ATTEND Internal Medicine
PROC: 5A1D70Z Performance of Urinary Filtration, Intermittent, Less than 6 Hours Per Day (ICD-10-PCS; principal; 2017-07-18)
DX: A41.9 Sepsis, unspecified organism (principal); J18.9 Pneumonia, unspecified organism; N18.6 End stage renal disease; I12.0 Hypertensive chronic kidney disease with stage 5 chronic kidney disease or end stage renal disease; E10.21 Type 1 diabetes mellitus with diabetic nephropathy; J98.11 Atelectasis; I69.351 Hemiplegia and hemiparesis following cerebral infarction affecting right dominant side; E10.22 Type 1 diabetes mellitus with diabetic chronic kidney disease; I25.10 Atherosclerotic heart disease of native coronary artery without angina pectoris; E78.00 Pure hypercholesterolemia, unspecified; E78.5 Hyperlipidemia, unspecified; I44.0 Atrioventricular block, first degree; I69.320 Aphasia following cerebral infarction; Z93.1 Gastrostomy status; Z79.4 Long term (current) use of insulin; Z83.3 Family history of diabetes mellitus; Z95.0 Presence of cardiac pacemaker; Z99.2 Dependence on renal dialysis; Z99.3 Dependence on wheelchair

== ENCOUNTER 2017-10-20 17:41 | Emergency (ER) | payer MEDICARE, OTHER ==
[2017-10-20 17:41] VITALS: BMI 23.4
[2017-10-20 19:21] LABS: BASO % 0.6 % (0.0-2.0); EOS # 0.1 K/uL (0.0-0.7); EOS % 1.5 % (0.0-4.0); HEMOGLOBIN 10.7 g/dL (12.0-18.0); LYMPH % 14.1 % (20.0-40.0); MEAN CORPUSCULAR HEMOGLOBIN 29.7 pg (27.0-31.0); MEAN CORPUSCULAR HGB CONC 33.9 g/dL (33.0-37.0); MEAN PLATELET VOLUME 8.2 fL (7.2-11.7); MONO # 0.4 K/uL (0.0-0.8); NEUT # 5.4 K/uL (1.8-7.0); NEUT % 77.8 % (50.0-75.0); NRBC % 0.1 % (0.0-2.0); RBC 3.59 Mil/uL (4.40-5.90); RED CELL DISTRIBUTION WIDTH 14.9 % (11.5-14.5); WHITE BLOOD COUNT 6.9 K/uL (4.8-10.8)
[2017-10-20 19:25] LABS: MEAN CELL VOLUME 87.4 fL (80.0-94.0)
[2017-10-20 19:27] LABS: PROTHROMBIN TIME 11.3 SECONDS (9.7-12.2)
[2017-10-20 19:35] LABS: ALB/GLOB RATIO 1.1 (1.0-2.1); ALBUMIN 4.3 g/dL (3.5-5.0); CALCIUM 9.6 mg/dl (8.6-10.4); GFR AFRICAN-AMERICAN 21; GFR NON-AFRICAN AMERICAN 17
[2017-10-20 19:36] LABS: ALT/SGPT 15 U/L (21-72); AST/SGOT 26 U/L (17-59); BLOOD UREA NITROGEN 18 mg/dL (9-20)
--- NOTE | 2017-10-20 19:39 | CT ---
EXAM: CT Head Without Intravenous Contrast EXAM DATE/TIME: Exam ordered 10/20/2017 6:31 PM CLINICAL HISTORY: 62 years old, male; Signs and symptoms; Altered mental status/memory loss; Confusion or disorientation; Additional info: AMS TECHNIQUE: Axial computed tomography images of the head/brain without intravenous contrast. All CT scans at this facility use one or more dose reduction techniques, viz.: automated exposure control; ma/kV adjustment per patient size (including targeted exams where dose is matched to indication; i.e. head); or iterative reconstruction technique. COMPARISON: No relevant prior studies available. FINDINGS: Brain: Areas of low density are noted within the lentiform nuclei bilaterally each measuring approximately 1.7 x 0.7 cm. (transverse and AP). Basal ganglia calcification is noted. No hemorrhage. No significant white matter disease. Ventricles: Unremarkable. No ventriculomegaly. Bones/joints: Unremarkable. No acute fracture. Soft tissues: Calcifications are noted the within the skin and the scalp. Sinuses: Unremarkable as visualized. No acute sinusitis. Mastoid air cells: Unremarkable as visualized. No mastoid effusion. Orbits: Hyperdensity is noted within the posterior chamber of the left globe. IMPRESSION: 1. No acute findings. 2. Symmetric low density foci noted within the lentiform nuclei suggests prominent perivascular spaces. Lacunar infarct is another consideration. 2. Hyperdensity noted within the left globe may be related to intraocular silicone oil injection.
[2017-10-20 20:13] LABS: SQUAMOUS EPITHIAL < 1 /hpf (0-5); URINE BILIRUBIN NEGATIVE (NEGATIVE); URINE BLOOD NEGATIVE (NEGATIVE); URINE CLARITY Hazy (Clear); URINE COLOR Yellow (YELLOW); URINE GLUCOSE (UA) 1+ mg/dL (Normal); URINE LEUKOCYTE ESTERASE NEG Leu/uL (Negative); URINE NITRATE NEGATIVE (NEGATIVE); URINE PROTEIN 2+ mg/dL (NEGATIVE); URINE UROBILINOGEN NORMAL mg/dL (0.2-1.0)
[2017-10-20 20:33] LABS: BARBITURATES, UR NEGATIVE (NEGATIVE); BENZODIAZEPINES, UR NEGATIVE (NEGATIVE); OPIATES, UR NEGATIVE (NEGATIVE); PHENCYCLIDINE, UR NEGATIVE (NEGATIVE)
--- NOTE | 2017-10-20 21:16 | C.PDOC ---
Time Seen by Provider: 10/20/17 18:03 Chief Complaint (Nursing): Altered Mental Status History Per: Patient, Family Onset/Duration Of Symptoms: Waxing/Waning Current Symptoms Are (Timing): Still Present Usual Baseline: Alert Oriented, Wheelchair Bound Severity: Moderate Additional History Per: Prior Records Associated Symptoms: Confused (?), Other (Hallucinations? Insomnia) Past Medical History Reviewed: Historical Data, Nursing Documentation, Vital Signs Vital Signs: Last Vital Signs Temp 99.2 F 10/20/17 19:30 Pulse 81 10/20/17 19:30 Resp 16 10/20/17 19:30 BP 161/90 H 10/20/17 19:30 Pulse Ox 96 10/20/17 19:30 - Medical History PMH: Atrial Fibrillation, CVA, Diabetes, Fractures, HTN, Hypercholesterolemia, End Stage Renal Disease (Dialysis TUES,THURS,SAT), Chronic Kidney Disease Surgical History: Hernia Repair, Pacemaker - [facility] Procedures (07/16/17) ENTERAL INFUSION OF CONCENTRATED NUT. SUBSTANCES (05/07/13) ESOPHAGOGASTRODUODENOSCOPY [EGD] W/CLOSED BIOPSY (05/02/13) HEMODIALYSIS (02/21/15) OPEN RED-INT FIX HUMERUS (02/21/15) PER NERVE ADHESIOLYS NEC (02/21/15) PERCUTANEOUS [ENDOSCOPIC] GASTROSTOMY [PEG] (05/02/13) PERFORMANCE OF URINARY FILTRATION, SINGLE (02/08/17) PERIPH NERVE INCIS NEC (02/21/15) Family History: States: Unknown Family Hx - Social History Hx Tobacco Use: No Hx Alcohol Use: No Hx Substance Use: No - Immunization History Hx Tetanus Toxoid Vaccination: No Hx Influenza Vaccination: Yes Hx Pneumococcal Vaccination: Yes Review Of Systems Except As Marked, All Systems Reviewed And Found Negative. Constitutional: Negative for: Fever Cardiovascular: Negative for: Chest Pain Respiratory: Negative for: Shortness of Breath Gastrointestinal: Negative for: Vomiting, Abdominal Pain Musculoskeletal: Negative for: Neck Pain Neurological: Negative for: Seizures Psych: Positive for: Psychosis (?), Other (Insomnia). Negative for: Suicidal ideation Physical Exam - Physical Exam Appears: No Acute Distress, Chronically Ill Skin: Warm, Dry Head: Atraumatic Eye(s): bilateral: PERRL, EOMI Neck: Normal ROM, Supple Cardiovascular: Rhythm Irregular Respiratory: Normal Breath Sounds, No Accessory Muscle Use Gastrointestinal/Abdominal: Soft, No Tenderness Extremity: Normal ROM Neurological/Psych: Oriented x3, Slow To Respond With Command ED Course And Treatment - Laboratory Results Result Diagrams: 10/20/17 19:13 10/20/17 19:15 Lab Interpretation: No Changes Compared To Prior Results ECG: Interpreted By Me, Viewed By Me ECG Rhythm: Atrial Fibrillation, Nonspecific Changes ECG Interpretation: No Changes From Prior Interpretation Of ECG: LVH Rate From EC O2 Sat by Pulse Oximetry: 96 Pulse Ox Interpretation: Normal - Radiology CXR: Interpreted by Me, Viewed By Me CXR Interpretation: Yes: No Acute Disease - CT Scan/US CT head Other Rad Studies (CT/US): Read By Radiologist, Radiology Report Reviewed CT/US Interpretation: IMPRESSION: 1. No acute findings. . 2. Symmetric low density foci noted within the lentiform nuclei suggests. prominent perivascular spaces. Lacunar infarct is another consideration. . 2. Hyperdensity noted within the left globe may be related to intraocular. silicone oil injection. Disposition Counseled Patient/Family Regarding: Studies Performed, Diagnosis, Need For Followup, Rx Given - Disposition Disposition: HOME/ ROUTINE Disposition Time: 21:19 Condition: STABLE Additional Instructions: Follow up with your doctor for further evaluation and treatment. Return to the ER if you develop worsening of symptoms or if you have any other concerns. Prescriptions: Zolpidem [Ambien] 5 mg PO HS PRN #10 tab PRN Reason: Insomnia Instructions: Insomnia (ED) Forms: [facility] ([place]), Gen Discharge Inst [place], General Discharge Instructions Print Language: AZERI - Clinical Impression Clinical Impression: Insomnia, Hallucinations
[2017-10-20 21:49] VITALS: BP 151/69; PULSE 75; RESP 20; TEMP 98.6; O2SAT 95
--- NOTE | 2017-10-21 10:27 | RAD ---
HISTORY: AMS COMPARISON: Chest x-ray performed 07/16/17 TECHNIQUE: Chest, one view. FINDINGS: LUNGS: No focal consolidation. Please note that chest x-ray has limited sensitivity for the detection of pulmonary masses. PLEURA: Right pleural thickening versus small pleural effusion. No definite pneumothorax . CARDIOVASCULAR: Cardiomegaly. Left-sided pacemaker. Atherosclerotic calcifications of the aorta. OSSEOUS STRUCTURES: Partially imaged deformity of the proximal right humerus. Partially imaged vascular stent within the left upper extremity. VISUALIZED UPPER ABDOMEN: Elevation of the right hemidiaphragm. OTHER FINDINGS: None. IMPRESSION: Right pleural thickening or small effusion. Cardiomegaly.
--- NOTE | 2017-10-21 16:28 | CARD ---
APPROVED REPORT EKG Measurement Heart [id number] <Conclusion> Atrial fibrillation Left ventricular hypertrophy with QRS widening Marked T wave abnormality, consider anterolateral ischemia Abnormal ECG
== END 2017-10-20 21:59 | disposition home or self-care (01) ==
LOC: C.ER 17:41
DX: G47.00 Insomnia, unspecified (principal); R44.3 Hallucinations, unspecified; E78.00 Pure hypercholesterolemia, unspecified; I48.91 Unspecified atrial fibrillation; I12.0 Hypertensive chronic kidney disease with stage 5 chronic kidney disease or end stage renal disease; N18.6 End stage renal disease; Z99.2 Dependence on renal dialysis
CPT/HCPCS: 70450; 71045; 80053; 81001; 82140; 84484; 85025; 85610; 85730; 93005; 99285; G0480

== ENCOUNTER 2017-12-10 02:56 | Inpatient (IN) | payer MEDICARE, OTHER ==
[2017-12-10 02:58] VITALS: BMI 23.4
--- NOTE | 2017-12-10 03:11 | C.PDOC ---
History Of Present Illness 62 y/o male brought in by family for complaints of chest discomfort. No fever or chills. On arrival patient is speaking in full sentences. Patient has PMHx of previous stroke with resulting left-sided weakness. Time Seen by Provider: 12/10/17 03:08 Chief Complaint (Nursing): Chest Pain History Per: Family History/Exam Limitations: no limitations Onset/Duration Of Symptoms: Hrs Current Symptoms Are (Timing): Still Present Severity: Moderate Pain Scale Rating Of: 4 Reports Recently: Seen In ED, Treated By A Physician, Hospitalized Recent travel outside of the [place]: No Additional History Per: Family Past Medical History Reviewed: Historical Data, Nursing Documentation, Vital Signs Vital Signs: Last Vital Signs Temp 98.6 F 12/10/17 03:12 Pulse 91 H 12/10/17 03:12 Resp 22 12/10/17 03:12 BP 153/62 H 12/10/17 03:12 Pulse Ox 98 12/10/17 04:06 - Medical History PMH: Atrial Fibrillation, CVA, Diabetes, Fractures, HTN, Hypercholesterolemia, End Stage Renal Disease (Dialysis TUES,THURS,SAT), Chronic Kidney Disease Surgical History: Hernia Repair, Pacemaker - [facility] Procedures (07/16/17) ENTERAL INFUSION OF CONCENTRATED NUT. SUBSTANCES (05/07/13) ESOPHAGOGASTRODUODENOSCOPY [EGD] W/CLOSED BIOPSY (05/02/13) HEMODIALYSIS (02/21/15) OPEN RED-INT FIX HUMERUS (02/21/15) PER NERVE ADHESIOLYS NEC (02/21/15) PERCUTANEOUS [ENDOSCOPIC] GASTROSTOMY [PEG] (05/02/13) PERFORMANCE OF URINARY FILTRATION, SINGLE (02/08/17) PERIPH NERVE INCIS NEC (02/21/15) Family History: States: Unknown Family Hx - Social History Hx Tobacco Use: No Hx Alcohol Use: No Hx Substance Use: No - Immunization History Hx Tetanus Toxoid Vaccination: No Hx Influenza Vaccination: Yes Hx Pneumococcal Vaccination: Yes Review Of Systems Constitutional: Negative for: Fever, Chills Cardiovascular: Positive for: Chest Pain Respiratory: Negative for: Shortness of Breath Gastrointestinal: Negative for: Vomiting Musculoskeletal: Negative for: Back Pain Skin: Negative for: Rash Neurological: Positive for: Weakness (chronic left-sided weakness) Psych: Negative for: Anxiety Physical Exam - Physical Exam Appears: Non-toxic, No Acute Distress Skin: Warm, Dry Head: Normacephalic Eye(s): bilateral: Normal Inspection Oral Mucosa: Moist Neck: Supple Chest: Symmetrical, No Tenderness, Other (left pacemaker in place at chest wall) Cardiovascular: Rhythm Regular Respiratory: No Rales, No Rhonchi, No Wheezing Gastrointestinal/Abdominal: Bowel Sounds (tympanic to percussion), Soft, No Tenderness, Distention, No Guarding Back: No CVA Tenderness Extremity: No Tenderness Extremity: Left: Other (Left arm antecubital fossa with AV shunt in place), Bilateral: Atraumatic, Normal Color And Temperature Pulses: Left Dorsalis Pedis: Normal, Right Dorsalis Pedis: Normal Neurological/Psych: Oriented x3, Other (Left-sided weakness from previous stroke ) Gait: Unable To Assess ED Course And Treatment - Laboratory Results Result Diagrams: 12/10/17 04:09 12/10/17 04:09 ECG: Interpreted By Me, Viewed By Me O2 Sat by Pulse Oximetry: 98 (NC) Pulse Ox Interpretation: Normal - Radiology CXR: Interpreted by Me, Viewed By Me CXR Interpretation: Yes: Cardiomegaly, Other (r pacer, mild chf). No: Infiltrates, Fracture Progress Note: Ordered and reviewed: labs, EKG, and chest x-ray. Disposition Discussed With : Sahil Andrea Comment: accepted the pt on his service and took over the care at 5:19AM Counseled Patient/Family Regarding: Studies Performed, Diagnosis - Disposition Disposition: HOSPITALIZED Disposition Time: 03:11 Condition: FAIR Forms: [facility] ([place]) - POA Present On Arrival: Poor Glycemic Control - Clinical Impression Clinical Impression: Chest pain, ESRD needing dialysis - Scribe Statement The provider has reviewed the documentation as recorded by the Betty Llanes Provider Attestation: All medical record entries made by the Betty were at my direction and personally dictated by me. I have reviewed the chart and agree that the record accurately reflects my personal performance of the history, physical exam, medical decision making, and the department course for this patient. I have also personally directed, reviewed, and agree with the discharge instructions and disposition. Decision To Admit - Pt Status Changed To: Hospital Disposition Of: Inpatient - Admit Certification Admit to Inpatient:: After my assessment, the patient will require hospitalization for at least two midnights. This is because of the severity of symptoms shown, intensity of services needed, and/or the medical risk in this patient being treated as an outpatient. - InPatient: Physician Admission Certification: I certify that this patient requires 2 or more midnights of care for the following reason:: After my assessment, the patient will require hospitalization for at least two midnights. This is because of the severity of symptoms shown, intensity of services needed, and/or the medical risk in this patient being treated as an outpatient. - . Bed Request Type: Telemetry Admitting Physician: Sahil Andrea Patient Diagnosis: Chest pain, ESRD needing dialysis
[2017-12-10 04:18] LABS: BASO % 0.7 % (0.0-2.0); EOS # 0.3 K/uL (0.0-0.7); EOS % 4.3 % (0.0-4.0); LYMPH # 0.9 K/uL (1.0-4.3); LYMPH % 13.6 % (20.0-40.0); MEAN CELL VOLUME 87.4 fL (80.0-94.0); MEAN CORPUSCULAR HEMOGLOBIN 28.8 pg (27.0-31.0); MEAN PLATELET VOLUME 7.7 fL (7.2-11.7); MONO # 0.3 K/uL (0.0-0.8); MONO % 4.9 % (0.0-10.0); NEUT # 5.1 K/uL (1.8-7.0); NEUT % 76.5 % (50.0-75.0); RBC 2.98 Mil/uL (4.40-5.90); RED CELL DISTRIBUTION WIDTH 14.9 % (11.5-14.5); WHITE BLOOD COUNT 6.6 K/uL (4.8-10.8)
[2017-12-10 04:19] LABS: HEMOGLOBIN 8.6 g/dL (12.0-18.0)
[2017-12-10 04:20] LABS: INR 1.1; PROTHROMBIN TIME 12.5 SECONDS (9.7-12.2)
[2017-12-10 04:24] LABS: ALB/GLOB RATIO 1.1 (1.0-2.1); ALBUMIN 3.9 g/dL (3.5-5.0); CALCIUM 9.5 mg/dl (8.6-10.4)
[2017-12-10 05:08] LABS: TROPONIN I 0.036 ng/mL (0.00-0.120)
[2017-12-10] MEDS: (Novolin R) Insulin Human Regular 100 units/ml vial SC SCH ×4 (08:29→21:10)
--- NOTE | 2017-12-10 09:35 | CP.PCM.CON ---
History of Present Illness - History of Present Illness History of Present Illness: 62 y/o HM admitted with vague CPs this AM No c/o CPs now; K elevated and pt due for dialysis s/p recent PPM insertion. s/p CVA PMH: ESRD DIALYSIS X 6-7 YEARS HTN DM 1 CVA CHF EPISODES DL PSH: AV FISTULA PPM Review of Systems - Review of Systems Systems not reviewed;Unavailable: Dementia - Constitutional Constitutional: Lethargy, Weakness - EENT Eyes: absent: As Per HPI, Blind Spots, Blurred Vision, Change in Vision, Decreased Night Vision, Diplopia, Discharge, Dry Eye, Exophthalmos, Floaters, Irritation, Itchy Eyes, Loss of Peripheral Vision, Pain, Photophobia, Requires Corrective Lenses, Sees Flashes, Spots in Vision, Tunnel Vision, Other Visual Disturbances, Loss of Vision, Other Ears: absent: As Per HPI, Decreased Hearing, Ear Discharge, Ear Pain, Tinnitus, Abnormal Hearing, Disequilibrium, Dizziness, Other Nose/Mouth/Throat: absent: As Per HPI, Epistaxis, Nasal Congestion, Nasal Discharge, Nasal Obstruction, Nasal Trauma, Nose Pain, Post Nasal Drip, Sinus Pain, Sinus Pressure, Bleeding Gums, Change in Voice, Dental Pain, Dry Mouth, Dysphagia, Halitosis, Hoarsness, Lip Swelling, Mouth Lesions, Mouth Pain, Odynophagia, Sore Throat, Throat Swelling, Tongue Swelling, Facial Pain, Neck Pain, Neck Mass, Other - Cardiovascular Cardiovascular: Chest Pain, Dyspnea on Exertion - Respiratory Respiratory: Dyspnea on Exertion - Gastrointestinal Gastrointestinal: absent: As Per HPI, Abdominal Pain, Belching, Bloating, Change in Bowel Habits, Change in Stool Character, Coffee Ground Emesis, Constipation, Cramping, Diarrhea, Dyspepsia, Dysphagia, Early Satiety, Excessive Flatus, Fecal Incontinence, Heartburn, Hematemesis, Hematochezia, Loose Stools, Melena, Nausea, Odynophagia, Temesmus, Vomiting, Other - Genitourinary Genitourinary: As Per HPI - Musculoskeletal Musculoskeletal: Muscle Cramps, Muscle Weakness, Myalgias - Integumentary Integumentary: Skin Pain - Neurological Neurological: Focal Weakness, Lack of Coordination, Paresthesias Past Patient History - Infectious Disease Hx of Infectious Diseases: None - Tetanus Immunizations Tetanus Immunization: Unknown - Past Medical History & Family History Past Medical History?: Yes Past Family History: Reviewed and not pertinent - Past Social History Smoking Status: Never Smoked Chewing Tobacco Use: No Cigar Use: No Alcohol: None Drugs: Denies Home Situation {Lives}: With Family - CARDIAC Hx Atrial Fibrillation: Yes Hx Hypercholesterolemia: Yes Hx Hypertension: Yes Hx Pacemaker: Yes - PULMONARY Hx Respiratory Disorders: No - NEUROLOGICAL HX Cerebrovascular Accident: Yes - HEENT Hx HEENT Problems: Yes Hx Cataracts: Yes - RENAL Date of Last Dialysis Treatment: 12/08/17 - ENDOCRINE/METABOLIC Hx Endocrine Disorders: Yes Hx Diabetes Mellitus Type 2: Yes - HEMATOLOGICAL/ONCOLOGICAL Hx Blood Disorders: Yes Hx Blood Transfusions: Yes - INTEGUMENTARY Hx Dermatological Problems: No - MUSCULOSKELETAL/RHEUMATOLOGICAL Hx Falls: Yes Hx Fractures: Yes - GASTROINTESTINAL Hx Gastrointestinal Disorders: Yes Hx Constipation: Yes Other/Comment: history of PEG tube; no longer in - GENITOURINARY/GYNECOLOGICAL Hx Genitourinary Disorders: Yes Other/Comment: oliguria d/t dialysis - PSYCHIATRIC Hx Substance Use: No - SURGICAL HISTORY Hx Surgeries: Yes Hx Herniorrhaphy: Yes (bilateral inguina hernia) Hx Orthopedic Surgery: Yes (right humerus fx post fall) Other/Comment: hx of pacemaker and PEG - ANESTHESIA Hx Anesthesia: Yes Hx Anesthesia Reactions: No Hx Malignant Hyperthermia: No Meds Allergies/Adverse Reactions: Allergies Allergy/AdvReac Type Severity Reaction Status Date / Time No Known Allergies Allergy Verified 12/10/17 03:44 - Medications Medications: Current Medications Amlodipine Besylate (Norvasc) 5 mg PO DAILY [facility] Aspirin (Ecotrin) 81 mg PO DAILY [facility] Clopidogrel Bisulfate (Plavix) 75 mg PO DAILY [facility] Cyclobenzaprine HCl (Flexeril) 10 mg PO DAILY [facility] Famotidine (Pepcid) 20 mg PO DAILY [facility] Heparin Sodium (Porcine) (Heparin) 5,000 units SC Q8 [facility] Home Med (Insulin Detemir [Levemir]) 14 unit SC QPM [facility] Hydralazine HCl (Apresoline) 10 mg PO BID [facility] Hydroxyzine HCl (Atarax) 25 mg PO DAILY [facility] Insulin Detemir (Levemir) 6 unit SC QAM [facility] Insulin Human Regular (Novolin R) 0 unit SC ACHS [facility] PRN Reason: Protocol Last Admin: 12/10/17 08:29 Dose: 2 unit Metoprolol Tartrate (Lopressor) 25 mg PO BID [facility] Rosuvastatin Calcium (Crestor) 10 mg PO HS [facility] Sevelamer Carbonate (Renvela) 800 mg PO TID [facility] Physical Exam - Constitutional Appears: No Acute Distress, Older Than Stated Age, Chronically Ill - Head Exam Head Exam: ATRAUMATIC, NORMAL INSPECTION - Eye Exam Eye Exam: EOMI, Normal appearance - Neck Exam Neck exam: Positive for: Normal Inspection. Negative for: Tenderness - Respiratory Exam Respiratory Exam: Clear to Auscultation Bilateral, NORMAL BREATHING PATTERN - Cardiovascular Exam Cardiovascular Exam: REGULAR RHYTHM, +S1 - GI/Abdominal Exam GI & Abdominal Exam: Soft. absent: Tenderness - Extremities Exam Extremities exam: Positive for: normal inspection. Negative for: tenderness - Neurological Exam Neurological exam: Altered, Motor Sensory Deficit - Skin Skin Exam: Dry, Warm Results - Vital Signs Recent Vital Signs: Last Vital Signs Temp 97.9 F 12/10/17 08:09 Pulse 90 12/10/17 08:09 Resp 20 12/10/17 08:09 BP 162/82 H 12/10/17 08:09 Pulse Ox 97 12/10/17 08:09 - Labs Result Diagrams: 12/10/17 04:09 12/10/17 04:09 Labs: Laboratory Results - last 24 hr 12/10/17 12/10/17 12/10/17 04:09 04:09 04:09 WBC 6.6 RBC 2.98 L Hgb 8.6 L D Hct 26.1 L MCV 87.4 MCH 28.8 MCHC 33.0 RDW 14.9 H Plt Count 319 MPV 7.7 Neut % (Auto) 76.5 H Lymph % (Auto) 13.6 L [place] % (Auto) 4.9 Eos % (Auto) 4.3 H Baso % (Auto) 0.7 Neut # (Auto) 5.1 Lymph # (Auto) 0.9 L [place] # (Auto) 0.3 Eos # (Auto) 0.3 Baso # (Auto) 0.0 PT 12.5 H INR 1.1 APTT 30 Sodium 139 Potassium 5.8 H Chloride 95 L Carbon Dioxide 29 Anion Gap 21 H BUN 31 H Creatinine 5.2 H Est GFR ( Amer) 14 Est GFR (Non-Af Amer) 11 POC Glucose (mg/dL) Random Glucose 257 H Calcium 9.5 Magnesium 2.0 Total Bilirubin 0.6 AST 16 L D ALT 11 L D Alkaline Phosphatase 133 H Troponin I NT-Pro-B Natriuret Pep Total Protein 7.5 Albumin 3.9 Globulin 3.6 Albumin/Globulin Ratio 1.1 12/10/17 12/10/17 04:44 06:48 WBC RBC Hgb Hct MCV MCH MCHC RDW Plt Count MPV Neut % (Auto) Lymph % (Auto) [place] % (Auto) Eos % (Auto) Baso % (Auto) Neut # (Auto) Lymph # (Auto) [place] # (Auto) Eos # (Auto) Baso # (Auto) PT INR APTT Sodium Potassium Chloride Carbon Dioxide Anion Gap BUN Creatinine Est GFR ( Amer) Est GFR (Non-Af Amer) POC Glucose (mg/dL) 229 H Random Glucose Calcium Magnesium Total Bilirubin AST ALT Alkaline Phosphatase Troponin I 0.0360 NT-Pro-B Natriuret Pep 56013 H Total Protein Albumin Globulin Albumin/Globulin Ratio Assessment & Plan (1) Type 1 diabetes mellitus with diabetic nephropathy Status: Acute (2) End stage renal disease Status: Acute (3) CVA (cerebral vascular accident) Status: Acute (4) Chest pain Status: Acute (5) Pacemaker Status: Chronic - Assessment and Plan (Free Text) Plan: schedule dialysis [facility] due to hyperkalemia resume meds cardio workup repeat labs
[2017-12-10] MEDS ORDERED: EPOETIN ALFA 10,000 UNIT/ML ML IV ONE (09:45)
--- NOTE | 2017-12-10 09:56 | RAD ---
PROCEDURE: CHEST RADIOGRAPH, 1 VIEW HISTORY: Shortness of breath COMPARISON: 10/20/2017. FINDINGS: There is stable appearance of left subclavian and axillary endovascular stents. LUNGS: There is low lung volume on the right. The left lung is clear. There is severe pulmonary venous congestion. PLEURA: No pneumothorax. Small right pleural effusion. CARDIOVASCULAR: There is persistent moderate cardiomegaly and prominent central vasculature. There is stable position of left-sided dual lead transvenous permanent pacing device. OSSEOUS STRUCTURES: No significant abnormalities. VISUALIZED UPPER ABDOMEN: Normal. OTHER FINDINGS: None. IMPRESSION: Severe pulmonary venous congestion, worse in the right lung with low lung volume on the right and small right pleural effusion. No active pulmonary disease.
[2017-12-10] MEDS ORDERED: Epoetin Alfa 10,000 unit/ml Dialysis IV SCH (10:00)
--- NOTE | 2017-12-10 10:11 | CP.PCM.CON ---
History of Present Illness - History of Present Illness History of Present Illness: Patient is a 62 year old male with past medical history of ESRD on HD, CVA, HTN , HLD, Diabetes Mellitus, s/p pacemaker placement in 2011 presented to [facility] initially with complaints of chest discomfort. While patient was on the floors, patient was thought to have VTACH. Patient was given Amiodarone bolus and transferred to the ICU for monitoring. Upon review of rhythm strip and EKG, patient had paced rhythm. Cardiology to evaluate the patient. Patient is doing well, denies headaches, dizziness, cp, palpitations, sob, abdominal pain. PMD: [place] Allergies: NKDA Medical History: Type 1 diabetes mellitus, pacemaker, CVA, HTN, hyperlipidemia Surgical History: Pacemaker, AV fistula Social History: Denies alcohol, tobacco, drug use Family History: Non-contributory Past Patient History - Infectious Disease Hx of Infectious Diseases: None - Tetanus Immunizations Tetanus Immunization: Unknown - Past Medical History & Family History Past Medical History?: Yes Past Family History: Reviewed and not pertinent - Past Social History Smoking Status: Never Smoked Chewing Tobacco Use: No Cigar Use: No Alcohol: None Drugs: Denies Home Situation {Lives}: With Family - CARDIAC Hx Atrial Fibrillation: Yes Hx Hypercholesterolemia: Yes Hx Hypertension: Yes Hx Pacemaker: Yes - PULMONARY Hx Respiratory Disorders: No - NEUROLOGICAL HX Cerebrovascular Accident: Yes - HEENT Hx HEENT Problems: Yes Hx Cataracts: Yes - RENAL Date of Last Dialysis Treatment: 12/08/17 - ENDOCRINE/METABOLIC Hx Endocrine Disorders: Yes Hx Diabetes Mellitus Type 2: Yes - HEMATOLOGICAL/ONCOLOGICAL Hx Blood Disorders: Yes Hx Blood Transfusions: Yes - INTEGUMENTARY Hx Dermatological Problems: No - MUSCULOSKELETAL/RHEUMATOLOGICAL Hx Falls: Yes Hx Fractures: Yes - GASTROINTESTINAL Hx Gastrointestinal Disorders: Yes Hx Constipation: Yes Other/Comment: history of PEG tube; no longer in - GENITOURINARY/GYNECOLOGICAL Hx Genitourinary Disorders: Yes Other/Comment: oliguria d/t dialysis - PSYCHIATRIC Hx Substance Use: No - SURGICAL HISTORY Hx Surgeries: Yes Hx Herniorrhaphy: Yes (bilateral inguina hernia) Hx Orthopedic Surgery: Yes (right humerus fx post fall) Other/Comment: hx of pacemaker and PEG - ANESTHESIA Hx Anesthesia: Yes Hx Anesthesia Reactions: No Hx Malignant Hyperthermia: No Meds Allergies/Adverse Reactions: Allergies Allergy/AdvReac Type Severity Reaction Status Date / Time No Known Allergies Allergy Verified 12/10/17 03:44 - Medications Medications: Current Medications Amlodipine Besylate (Norvasc) 5 mg PO DAILY [facility] Amlodipine Besylate (Norvasc) 5 mg PO DAILY [facility] Aspirin (Ecotrin) 81 mg PO DAILY [facility] Clopidogrel Bisulfate (Plavix) 75 mg PO DAILY [facility] Cyclobenzaprine HCl (Flexeril) 10 mg PO DAILY [facility] Epoetin Shahram (Procrit) 10,000 unit IV TTS [facility] Famotidine (Pepcid) 20 mg PO DAILY [facility] Heparin Sodium (Porcine) (Heparin) 5,000 units SC Q8 [facility] Home Med (Insulin Detemir [Levemir]) 14 unit SC QPM [facility] Hydralazine HCl (Apresoline) 10 mg PO BID [facility] Hydroxyzine HCl (Atarax) 25 mg PO DAILY [facility] Insulin Detemir (Levemir) 6 unit SC QAM [facility] Insulin Human Regular (Novolin R) 0 unit SC ACHS [facility] PRN Reason: Protocol Last Admin: 12/10/17 08:29 Dose: 2 unit Metoprolol Tartrate (Lopressor) 25 mg PO BID [facility] Rosuvastatin Calcium (Crestor) 10 mg PO HS [facility] Sevelamer Carbonate (Renvela) 800 mg PO TID [facility] Physical Exam - Constitutional Appears: Non-toxic, No Acute Distress, Chronically Ill - Head Exam Head Exam: ATRAUMATIC, NORMAL INSPECTION, NORMOCEPHALIC - Eye Exam Eye Exam: EOMI, Normal appearance Pupil Exam: PERRL - ENT Exam ENT Exam: Mucous Membranes Moist - Respiratory Exam Respiratory Exam: Clear to Auscultation Bilateral, NORMAL BREATHING PATTERN. absent: Rales, Rhonchi, Wheezes - Cardiovascular Exam Cardiovascular Exam: REGULAR RHYTHM - GI/Abdominal Exam GI & Abdominal Exam: Normal Bowel Sounds, Soft - Extremities Exam Extremities exam: Positive for: normal inspection - Neurological Exam Neurological exam: Alert, Oriented x3 - Psychiatric Exam Psychiatric exam: Normal Affect, Normal Mood - Skin Skin Exam: Dry, Normal Color, Warm Results - Vital Signs Recent Vital Signs: Last Vital Signs Temp 97.9 F 12/10/17 08:09 Pulse 79 12/10/17 09:54 Resp 20 12/10/17 09:54 BP 158/77 H 12/10/17 09:54 Pulse Ox 91 L 12/10/17 09:54 - Labs Result Diagrams: 12/10/17 04:09 12/10/17 04:09 Labs: Laboratory Results - last 24 hr 12/10/17 12/10/17 12/10/17 04:09 04:09 04:09 WBC 6.6 RBC 2.98 L Hgb 8.6 L D Hct 26.1 L MCV 87.4 MCH 28.8 MCHC 33.0 RDW 14.9 H Plt Count 319 MPV 7.7 Neut % (Auto) 76.5 H Lymph % (Auto) 13.6 L [place] % (Auto) 4.9 Eos % (Auto) 4.3 H Baso % (Auto) 0.7 Neut # (Auto) 5.1 Lymph # (Auto) 0.9 L [place] # (Auto) 0.3 Eos # (Auto) 0.3 Baso # (Auto) 0.0 PT 12.5 H INR 1.1 APTT 30 Sodium 139 Potassium 5.8 H Chloride 95 L Carbon Dioxide 29 Anion Gap 21 H BUN 31 H Creatinine 5.2 H Est GFR ( Amer) 14 Est GFR (Non-Af Amer) 11 POC Glucose (mg/dL) Random Glucose 257 H Calcium 9.5 Magnesium 2.0 Total Bilirubin 0.6 AST 16 L D ALT 11 L D Alkaline Phosphatase 133 H Troponin I NT-Pro-B Natriuret Pep Total Protein 7.5 Albumin 3.9 Globulin 3.6 Albumin/Globulin Ratio 1.1 12/10/17 12/10/17 04:44 06:48 WBC RBC Hgb Hct MCV MCH MCHC RDW Plt Count MPV Neut % (Auto) Lymph % (Auto) [place] % (Auto) Eos % (Auto) Baso % (Auto) Neut # (Auto) Lymph # (Auto) [place] # (Auto) Eos # (Auto) Baso # (Auto) PT INR APTT Sodium Potassium Chloride Carbon Dioxide Anion Gap BUN Creatinine Est GFR ( Amer) Est GFR (Non-Af Amer) POC Glucose (mg/dL) 229 H Random Glucose Calcium Magnesium Total Bilirubin AST ALT Alkaline Phosphatase Troponin I 0.0360 NT-Pro-B Natriuret Pep 92864 H Total Protein Albumin Globulin Albumin/Globulin Ratio Assessment & Plan - Assessment and Plan (Free Text) Assessment: Patient is a 62 year old male with past medical history of ESRD on HD, Diabetes Mellitus, s/p pacemaker placement presented to [facility] initially with complaints of chest discomfort. Patient had paced rhythm. He is stable at this time. Called [employer] for pacemaker interrogation. Cardiology to evaluate the patient. For HD today. Continue current management. Will observe on telemetry. Plan discussed with Dr Scott.
[2017-12-10] MEDS ORDERED: Sodium Chloride 0.9% 500 ML IV ONE (10:14)
[2017-12-10] MEDS: Insulin Detemir 100 units/ml Vial (Levemir) SC SCH (11:22)
[2017-12-10 15:35] LABS: CK-MB 1.16 ng/mL (0.0-3.38); TROPONIN I 0.088 ng/mL (0.00-0.120)
--- NOTE | 2017-12-10 17:49 | CP.PCM.PN ---
Subjective - Date & Time of Evaluation Date of Evaluation: 12/10/17 Time of Evaluation: 10:00 Objective - Vital Signs/Intake and Output Vital Signs (last 24 hours): Temp Pulse Resp BP Pulse Ox 98 F 667 H 20 139/68 98 12/10/17 13:20 12/10/17 17:00 12/10/17 17:00 12/10/17 17:28 12/10/17 17:00 Intake and Output: 12/10/17 12/10/17 06:59 18:59 Intake Total 620 Balance 620 - Medications Medications: Current Medications Amlodipine Besylate (Norvasc) 10 mg PO DAILY [facility] Last Admin: 12/10/17 11:21 Dose: 10 mg Aspirin (Ecotrin) 81 mg PO DAILY [facility] Last Admin: 12/10/17 11:20 Dose: 81 mg Clopidogrel Bisulfate (Plavix) 75 mg PO DAILY [facility] Last Admin: 12/10/17 11:21 Dose: 75 mg Cyclobenzaprine HCl (Flexeril) 10 mg PO DAILY [facility] Last Admin: 12/10/17 13:12 Dose: 10 mg Epoetin Shahram (Procrit) 10,000 unit IV TTS [facility] Last Admin: 12/10/17 16:31 Dose: Not Given Famotidine (Pepcid) 20 mg PO DAILY [facility] Last Admin: 12/10/17 11:21 Dose: 20 mg Heparin Sodium (Porcine) (Heparin) 5,000 units SC Q8 [facility] Last Admin: 12/10/17 14:52 Dose: 5,000 units Hydralazine HCl (Apresoline) 10 mg PO BID [facility] Last Admin: 12/10/17 17:28 Dose: 10 mg Hydroxyzine HCl (Atarax) 25 mg PO DAILY [facility] Last Admin: 12/10/17 13:12 Dose: 25 mg Insulin Detemir (Levemir) 14 unit SC [facility] Insulin Detemir (Levemir) 6 unit SC QAM [facility] Last Admin: 12/10/17 11:22 Dose: 6 unit Insulin Human Regular (Novolin R) 0 unit SC ACHS [facility] PRN Reason: Protocol Last Admin: 12/10/17 16:44 Dose: Not Given Metoprolol Tartrate (Lopressor) 25 mg PO BID [facility] Last Admin: 12/10/17 17:28 Dose: 25 mg Rosuvastatin Calcium (Crestor) 10 mg PO HS [facility] Sevelamer Carbonate (Renvela) 800 mg PO TID [facility] Last Admin: 12/10/17 17:28 Dose: 800 mg - Labs Labs: 12/10/17 04:09 12/10/17 04:09 PT 12.5 SECONDS (9.7-12.2) H 12/10/17 04:09 INR 1.1 12/10/17 04:09 APTT 30 SECONDS (21-34) 12/10/17 04:09
--- NOTE | 2017-12-10 20:02 | CP.PCM.CON ---
History of Present Illness - History of Present Illness History of Present Illness: Reason For Consultation: Tachyarrythmia Patient is a 62 year old male with past medical history of ESRD on HD, CVA, HTN , HLD, Diabetes Mellitus, s/p pacemaker placement in 2011 presented to [facility] initially with complaints of chest discomfort. While patient was on the floors, patient was thought to have VTACH. Patient was given Amiodarone bolus and transferred to the ICU for monitoring. Upon review of rhythm strip and EKG, patient had paced rhythm. Allergies: NKDA Medical History: Type 1 diabetes mellitus, pacemaker, CVA, HTN, hyperlipidemia Surgical History: Pacemaker, AV fistula Social History: Denies alcohol, tobacco, drug use Family History: Non-contributory Review Of Systems Constitutional: Negative for: Fever, Chills Cardiovascular: Positive for: Chest Pain Respiratory: Negative for: Shortness of Breath Gastrointestinal: Negative for: Vomiting Musculoskeletal: Negative for: Back Pain Skin: Negative for: Rash Neurological: Positive for: Weakness (chronic left-sided weakness) Psych: Negative for: Anxiety Physical Exam - Constitutional Appears: Non-toxic, No Acute Distress, Chronically Ill - Head Exam Head Exam: ATRAUMATIC, NORMAL INSPECTION, NORMOCEPHALIC - Eye Exam Eye Exam: EOMI, Normal appearance Pupil Exam: PERRL - ENT Exam ENT Exam: Mucous Membranes Moist - Respiratory Exam Respiratory Exam: Clear to Auscultation Bilateral, NORMAL BREATHING PATTERN. absent: Rales, Rhonchi, Wheezes - Cardiovascular Exam Cardiovascular Exam: REGULAR RHYTHM - GI/Abdominal Exam GI & Abdominal Exam: Normal Bowel Sounds, Soft - Extremities Exam Extremities exam: Positive for: normal inspection - Neurological Exam Neurological exam: Alert, Oriented x3 - Psychiatric Exam Psychiatric exam: Normal Affect, Normal Mood - Skin Skin Exam: Dry, Normal Color, Warm Past Patient History - Infectious Disease Hx of Infectious Diseases: None - Tetanus Immunizations Tetanus Immunization: Unknown - Past Medical History & Family History Past Medical History?: Yes Past Family History: Reviewed and not pertinent - Past Social History Smoking Status: Never Smoked Chewing Tobacco Use: No Cigar Use: No Alcohol: None Drugs: Denies Home Situation {Lives}: With Family - CARDIAC Hx Atrial Fibrillation: Yes Hx Hypercholesterolemia: Yes Hx Hypertension: Yes Hx Pacemaker: Yes - PULMONARY Hx Respiratory Disorders: No - NEUROLOGICAL HX Cerebrovascular Accident: Yes - HEENT Hx HEENT Problems: Yes Hx Cataracts: Yes - RENAL Date of Last Dialysis Treatment: 12/08/17 - ENDOCRINE/METABOLIC Hx Endocrine Disorders: Yes Hx Diabetes Mellitus Type 2: Yes - HEMATOLOGICAL/ONCOLOGICAL Hx Blood Disorders: Yes Hx Blood Transfusions: Yes - INTEGUMENTARY Hx Dermatological Problems: No - MUSCULOSKELETAL/RHEUMATOLOGICAL Hx Falls: Yes Hx Fractures: Yes - GASTROINTESTINAL Hx Gastrointestinal Disorders: Yes Hx Constipation: Yes Other/Comment: history of PEG tube; no longer in - GENITOURINARY/GYNECOLOGICAL Hx Genitourinary Disorders: Yes Other/Comment: oliguria d/t dialysis - PSYCHIATRIC Hx Substance Use: No - SURGICAL HISTORY Hx Surgeries: Yes Hx Herniorrhaphy: Yes (bilateral inguina hernia) Hx Orthopedic Surgery: Yes (right humerus fx post fall) Other/Comment: hx of pacemaker and PEG - ANESTHESIA Hx Anesthesia: Yes Hx Anesthesia Reactions: No Hx Malignant Hyperthermia: No Meds Allergies/Adverse Reactions: Allergies Allergy/AdvReac Type Severity Reaction Status Date / Time No Known Allergies Allergy Verified 12/10/17 03:44 - Medications Medications: Current Medications Amlodipine Besylate (Norvasc) 10 mg PO DAILY [facility] Last Admin: 12/10/17 11:21 Dose: 10 mg Aspirin (Ecotrin) 81 mg PO DAILY [facility] Last Admin: 12/10/17 11:20 Dose: 81 mg Clopidogrel Bisulfate (Plavix) 75 mg PO DAILY [facility] Last Admin: 12/10/17 11:21 Dose: 75 mg Cyclobenzaprine HCl (Flexeril) 10 mg PO DAILY [facility] Last Admin: 12/10/17 13:12 Dose: 10 mg Epoetin Shahram (Procrit) 10,000 unit IV TTS [facility] Last Admin: 12/10/17 16:31 Dose: Not Given Famotidine (Pepcid) 20 mg PO DAILY [facility] Last Admin: 12/10/17 11:21 Dose: 20 mg Heparin Sodium (Porcine) (Heparin) 5,000 units SC Q8 [facility] Last Admin: 12/10/17 14:52 Dose: 5,000 units Hydralazine HCl (Apresoline) 10 mg PO BID [facility] Last Admin: 12/10/17 17:28 Dose: 10 mg Hydroxyzine HCl (Atarax) 25 mg PO DAILY [facility] Last Admin: 12/10/17 13:12 Dose: 25 mg Insulin Detemir (Levemir) 14 unit SC [facility] Insulin Detemir (Levemir) 6 unit SC QAM [facility] Last Admin: 12/10/17 11:22 Dose: 6 unit Insulin Human Regular (Novolin R) 0 unit SC ACHS [facility] PRN Reason: Protocol Last Admin: 12/10/17 16:44 Dose: Not Given Metoprolol Tartrate (Lopressor) 25 mg PO BID [facility] Last Admin: 12/10/17 17:28 Dose: 25 mg Rosuvastatin Calcium (Crestor) 10 mg PO HS [facility] Sevelamer Carbonate (Renvela) 800 mg PO TID [facility] Last Admin: 12/10/17 17:28 Dose: 800 mg Results - Vital Signs Recent Vital Signs: Last Vital Signs Temp 98 F 12/10/17 13:20 Pulse 68 12/10/17 18:20 Resp 25 H 12/10/17 18:20 BP 152/71 H 12/10/17 17:35 Pulse Ox 100 12/10/17 18:20 - Labs Result Diagrams: 12/10/17 04:09 12/10/17 04:09 Labs: Laboratory Results - last 24 hr 12/10/17 12/10/17 12/10/17 04:09 04:09 04:09 WBC 6.6 RBC 2.98 L Hgb 8.6 L D Hct 26.1 L MCV 87.4 MCH 28.8 MCHC 33.0 RDW 14.9 H Plt Count 319 MPV 7.7 Neut % (Auto) 76.5 H Lymph % (Auto) 13.6 L [place] % (Auto) 4.9 Eos % (Auto) 4.3 H Baso % (Auto) 0.7 Neut # (Auto) 5.1 Lymph # (Auto) 0.9 L [place] # (Auto) 0.3 Eos # (Auto) 0.3 Baso # (Auto) 0.0 PT 12.5 H INR 1.1 APTT 30 Sodium 139 Potassium 5.8 H Chloride 95 L Carbon Dioxide 29 Anion Gap 21 H BUN 31 H Creatinine 5.2 H Est GFR ( Amer) 14 Est GFR (Non-Af Amer) 11 POC Glucose (mg/dL) Random Glucose 257 H Hemoglobin A1c Calcium 9.5 Magnesium 2.0 Total Bilirubin 0.6 AST 16 L D ALT 11 L D Alkaline Phosphatase 133 H Total Creatine Kinase CK-MB (Mass) Troponin I NT-Pro-B Natriuret Pep Total Protein 7.5 Albumin 3.9 Globulin 3.6 Albumin/Globulin Ratio 1.1 Triglycerides Cholesterol LDL Cholesterol Direct HDL Cholesterol 12/10/17 12/10/17 12/10/17 04:44 06:48 10:04 WBC RBC Hgb Hct MCV MCH MCHC RDW Plt Count MPV Neut % (Auto) Lymph % (Auto) [place] % (Auto) Eos % (Auto) Baso % (Auto) Neut # (Auto) Lymph # (Auto) [place] # (Auto) Eos # (Auto) Baso # (Auto) PT INR APTT Sodium Potassium Chloride Carbon Dioxide Anion Gap BUN Creatinine Est GFR ( Amer) Est GFR (Non-Af Amer) POC Glucose (mg/dL) 229 H Random Glucose Hemoglobin A1c 9.5 H Calcium Magnesium Total Bilirubin AST ALT Alkaline Phosphatase Total Creatine Kinase CK-MB (Mass) Troponin I 0.0360 NT-Pro-B Natriuret Pep 08467 H Total Protein Albumin Globulin Albumin/Globulin Ratio Triglycerides Cholesterol LDL Cholesterol Direct HDL Cholesterol 12/10/17 12/10/17 12/10/17 12:45 14:58 16:29 WBC RBC Hgb Hct MCV MCH MCHC RDW Plt Count MPV Neut % (Auto) Lymph % (Auto) [place] % (Auto) Eos % (Auto) Baso % (Auto) Neut # (Auto) Lymph # (Auto) [place] # (Auto) Eos # (Auto) Baso # (Auto) PT INR APTT Sodium Potassium Chloride Carbon Dioxide Anion Gap BUN Creatinine Est GFR ( Amer) Est GFR (Non-Af Amer) POC Glucose (mg/dL) 205 H 108 Random Glucose Hemoglobin A1c Calcium Magnesium Total Bilirubin AST ALT Alkaline Phosphatase Total Creatine Kinase 53 L CK-MB (Mass) 1.16 Troponin I 0.0880 NT-Pro-B Natriuret Pep Total Protein Albumin Globulin Albumin/Globulin Ratio Triglycerides 133 D Cholesterol 126 LDL Cholesterol Direct 64 HDL Cholesterol 33 Assessment & Plan - Assessment and Plan (Free Text) Assessment: 1. Tachyarrthmia with demand pacing. HR normal after Amiodarone 2. Non cardiac chest pain: Trops negative 3. CRF on HD 4. DM 2, HTN and hyperlipidemia on meds Will consider stress test prior to discharge will follow DVT and GI prophylaxis
[2017-12-10] MEDS ORDERED: Insulin Detemir 100 units/ml Vial (Levemir) SC SCH (22:00)
--- NOTE | 2017-12-10 23:25 | CP.PCM.HP ---
History of Present Illness - History of Present Illness History of Present Illness: CC: chest pain HPI: Patient is a 62 year old male with past medical history of ESRD on HD, CVA , HTN, HLD, Diabetes Mellitus, s/p pacemaker placement in 2011 presented to [facility] initially with complaints of chest discomfort. While patient was on the floors, patient was thought to have VTACH. Patient was given Amiodarone bolus and transferred to the ICU for monitoring. Upon review of rhythm strip and EKG, patient had paced rhythm. Allergies: NKDA Medical History: Type 1 diabetes mellitus, pacemaker, CVA, HTN, hyperlipidemia Surgical History: Pacemaker, AV fistula Social History: Denies alcohol, tobacco, drug use Family History: [id number] y/o HM admitted with vague CPs this AM No c/o CPs now; K elevated and pt due for dialysis s/p recent PPM insertion. s/p CVA Past Patient History - Infectious Disease Hx of Infectious Diseases: None - Tetanus Immunizations Tetanus Immunization: Unknown - Past Medical History & Family History Past Medical History?: Yes Past Family History: Reviewed and not pertinent - Past Social History Smoking Status: Never Smoked Chewing Tobacco Use: No Cigar Use: No Alcohol: None Drugs: Denies Home Situation {Lives}: With Family - CARDIAC Hx Atrial Fibrillation: Yes Hx Hypercholesterolemia: Yes Hx Hypertension: Yes Hx Pacemaker: Yes - PULMONARY Hx Respiratory Disorders: No - NEUROLOGICAL HX Cerebrovascular Accident: Yes - HEENT Hx HEENT Problems: Yes Hx Cataracts: Yes - RENAL Date of Last Dialysis Treatment: 12/08/17 - ENDOCRINE/METABOLIC Hx Endocrine Disorders: Yes Hx Diabetes Mellitus Type 2: Yes - HEMATOLOGICAL/ONCOLOGICAL Hx Blood Disorders: Yes Hx Blood Transfusions: Yes - INTEGUMENTARY Hx Dermatological Problems: No - MUSCULOSKELETAL/RHEUMATOLOGICAL Hx Falls: Yes Hx Fractures: Yes - GASTROINTESTINAL Hx Gastrointestinal Disorders: Yes Hx Constipation: Yes Other/Comment: history of PEG tube; no longer in - GENITOURINARY/GYNECOLOGICAL Hx Genitourinary Disorders: Yes Other/Comment: oliguria d/t dialysis - PSYCHIATRIC Hx Substance Use: No - SURGICAL HISTORY Hx Surgeries: Yes Hx Herniorrhaphy: Yes (bilateral inguina hernia) Hx Orthopedic Surgery: Yes (right humerus fx post fall) Other/Comment: hx of pacemaker and PEG - ANESTHESIA Hx Anesthesia: Yes Hx Anesthesia Reactions: No Hx Malignant Hyperthermia: No Meds Allergies/Adverse Reactions: Allergies Allergy/AdvReac Type Severity Reaction Status Date / Time No Known Allergies Allergy Verified 12/10/17 03:44 Results - Vital Signs Recent Vital Signs: Last Vital Signs Temp 98.3 F 12/10/17 20:00 Pulse 81 12/10/17 20:00 Resp 23 12/10/17 20:00 BP 136/65 12/10/17 20:00 Pulse Ox 99 12/10/17 20:00 - Labs Result Diagrams: 12/10/17 04:09 12/10/17 04:09 Labs: Laboratory Results - last 24 hr 12/10/17 12/10/17 12/10/17 04:09 04:09 04:09 WBC 6.6 RBC 2.98 L Hgb 8.6 L D Hct 26.1 L MCV 87.4 MCH 28.8 MCHC 33.0 RDW 14.9 H Plt Count 319 MPV 7.7 Neut % (Auto) 76.5 H Lymph % (Auto) 13.6 L [place] % (Auto) 4.9 Eos % (Auto) 4.3 H Baso % (Auto) 0.7 Neut # (Auto) 5.1 Lymph # (Auto) 0.9 L [place] # (Auto) 0.3 Eos # (Auto) 0.3 Baso # (Auto) 0.0 PT 12.5 H INR 1.1 APTT 30 Sodium 139 Potassium 5.8 H Chloride 95 L Carbon Dioxide 29 Anion Gap 21 H BUN 31 H Creatinine 5.2 H Est GFR ( Amer) 14 Est GFR (Non-Af Amer) 11 POC Glucose (mg/dL) Random Glucose 257 H Hemoglobin A1c Calcium 9.5 Magnesium 2.0 Total Bilirubin 0.6 AST 16 L D ALT 11 L D Alkaline Phosphatase 133 H Total Creatine Kinase CK-MB (Mass) Troponin I NT-Pro-B Natriuret Pep Total Protein 7.5 Albumin 3.9 Globulin 3.6 Albumin/Globulin Ratio 1.1 Triglycerides Cholesterol LDL Cholesterol Direct HDL Cholesterol 12/10/17 12/10/17 12/10/17 04:44 06:48 10:04 WBC RBC Hgb Hct MCV MCH MCHC RDW Plt Count MPV Neut % (Auto) Lymph % (Auto) [place] % (Auto) Eos % (Auto) Baso % (Auto) Neut # (Auto) Lymph # (Auto) [place] # (Auto) Eos # (Auto) Baso # (Auto) PT INR APTT Sodium Potassium Chloride Carbon Dioxide Anion Gap BUN Creatinine Est GFR ( Amer) Est GFR (Non-Af Amer) POC Glucose (mg/dL) 229 H Random Glucose Hemoglobin A1c 9.5 H Calcium Magnesium Total Bilirubin AST ALT Alkaline Phosphatase Total Creatine Kinase CK-MB (Mass) Troponin I 0.0360 NT-Pro-B Natriuret Pep 03063 H Total Protein Albumin Globulin Albumin/Globulin Ratio Triglycerides Cholesterol LDL Cholesterol Direct HDL Cholesterol 12/10/17 12/10/17 12/10/17 12:45 14:58 16:29 WBC RBC Hgb Hct MCV MCH MCHC RDW Plt Count MPV Neut % (Auto) Lymph % (Auto) [place] % (Auto) Eos % (Auto) Baso % (Auto) Neut # (Auto) Lymph # (Auto) [place] # (Auto) Eos # (Auto) Baso # (Auto) PT INR APTT Sodium Potassium Chloride Carbon Dioxide Anion Gap BUN Creatinine Est GFR ( Amer) Est GFR (Non-Af Amer) POC Glucose (mg/dL) 205 H 108 Random Glucose Hemoglobin A1c Calcium Magnesium Total Bilirubin AST ALT Alkaline Phosphatase Total Creatine Kinase 53 L CK-MB (Mass) 1.16 Troponin I 0.0880 NT-Pro-B Natriuret Pep Total Protein Albumin Globulin Albumin/Globulin Ratio Triglycerides 133 D Cholesterol 126 LDL Cholesterol Direct 64 HDL Cholesterol 33 12/10/17 21:02 WBC RBC Hgb Hct MCV MCH MCHC RDW Plt Count MPV Neut % (Auto) Lymph % (Auto) [place] % (Auto) Eos % (Auto) Baso % (Auto) Neut # (Auto) Lymph # (Auto) [place] # (Auto) Eos # (Auto) Baso # (Auto) PT INR APTT Sodium Potassium Chloride Carbon Dioxide Anion Gap BUN Creatinine Est GFR ( Amer) Est GFR (Non-Af Amer) POC Glucose (mg/dL) 199 H Random Glucose Hemoglobin A1c Calcium Magnesium Total Bilirubin AST ALT Alkaline Phosphatase Total Creatine Kinase CK-MB (Mass) Troponin I NT-Pro-B Natriuret Pep Total Protein Albumin Globulin Albumin/Globulin Ratio Triglycerides Cholesterol LDL Cholesterol Direct HDL Cholesterol Assessment & Plan (1) Chest pain Status: Acute (2) ESRD needing dialysis Status: Acute (3) Type 1 diabetes mellitus with diabetic nephropathy Status: Acute
[2017-12-11 06:31] LABS: BASO # 0.1 K/uL (0.0-0.2); BASO % 0.8 % (0.0-2.0); EOS # 0.1 K/uL (0.0-0.7); EOS % 1.6 % (0.0-4.0); HEMOGLOBIN 8.1 g/dL (12.0-18.0); LYMPH # 1.2 K/uL (1.0-4.3); LYMPH % 19.3 % (20.0-40.0); MEAN CORPUSCULAR HEMOGLOBIN 29.2 pg (27.0-31.0); MEAN CORPUSCULAR HGB CONC 33.6 g/dL (33.0-37.0); MEAN PLATELET VOLUME 8.4 fL (7.2-11.7); MONO # 0.5 K/uL (0.0-0.8); MONO % 7.8 % (0.0-10.0); NEUT # 4.5 K/uL (1.8-7.0); NEUT % 70.5 % (50.0-75.0); NRBC % 0.1 % (0.0-2.0); RBC 2.75 Mil/uL (4.40-5.90); RED CELL DISTRIBUTION WIDTH 15.3 % (11.5-14.5); WHITE BLOOD COUNT 6.4 K/uL (4.8-10.8)
[2017-12-11 06:54] LABS: ALBUMIN 3.8 g/dL (3.5-5.0); CALCIUM 9.2 mg/dl (8.6-10.4)
[2017-12-11] MEDS: (Novolin R) Insulin Human Regular 100 units/ml vial SC SCH ×3 (07:39→16:38)
--- NOTE | 2017-12-11 08:37 | CP.PCM.PN ---
Subjective - Date & Time of Evaluation Date of Evaluation: 12/11/17 Time of Evaluation: 08:34 - Subjective Subjective: s/p dialysis 4/5 sent to ICU for arrhythmias- has paced rhythm now UF 2500ml with HD alert BSs low- to get D10W fluids no n, v, diarrhea, SOB.f, chills Objective - Vital Signs/Intake and Output Vital Signs (last 24 hours): Temp Pulse Resp BP Pulse Ox 98.7 F 71 21 127/52 L 94 L 12/11/17 04:00 12/11/17 04:00 12/11/17 04:00 12/11/17 04:00 12/11/17 04:00 Intake and Output: 12/11/17 12/11/17 06:59 18:59 Intake Total 250 Balance 250 - Medications Medications: Current Medications Amlodipine Besylate (Norvasc) 10 mg PO DAILY [facility] Last Admin: 12/10/17 11:21 Dose: 10 mg Aspirin (Ecotrin) 81 mg PO DAILY [facility] Last Admin: 12/10/17 11:20 Dose: 81 mg Clopidogrel Bisulfate (Plavix) 75 mg PO DAILY [facility] Last Admin: 12/10/17 11:21 Dose: 75 mg Cyclobenzaprine HCl (Flexeril) 10 mg PO DAILY [facility] Last Admin: 12/10/17 13:12 Dose: 10 mg Epoetin Shahram (Procrit) 10,000 unit IV TTS [facility] Last Admin: 12/10/17 16:31 Dose: Not Given Famotidine (Pepcid) 20 mg PO DAILY [facility] Last Admin: 12/10/17 11:21 Dose: 20 mg Heparin Sodium (Porcine) (Heparin) 5,000 units SC Q8 [facility] Last Admin: 12/11/17 05:37 Dose: 5,000 units Hydralazine HCl (Apresoline) 10 mg PO BID [facility] Last Admin: 12/10/17 17:28 Dose: 10 mg Hydroxyzine HCl (Atarax) 25 mg PO DAILY [facility] Last Admin: 12/10/17 13:12 Dose: 25 mg Dextrose (Dextrose 10% In Water) 1,000 mls @ 30 mls/hr IV .Q24H [facility] Last Admin: 12/11/17 08:18 Dose: 30 mls/hr Insulin Detemir (Levemir) 14 unit SC HS [facility] Last Admin: 12/10/17 21:18 Dose: 14 unit Insulin Detemir (Levemir) 6 unit SC QAM [facility] Last Admin: 12/10/17 11:22 Dose: 6 unit Insulin Human Regular (Novolin R) 0 unit SC ACHS [facility] PRN Reason: Protocol Last Admin: 12/11/17 07:39 Dose: Not Given Metoprolol Tartrate (Lopressor) 25 mg PO BID [facility] Last Admin: 12/10/17 17:28 Dose: 25 mg Rosuvastatin Calcium (Crestor) 10 mg PO HS [facility] Last Admin: 12/10/17 21:18 Dose: 10 mg Sevelamer Carbonate (Renvela) 800 mg PO TID [facility] Last Admin: 12/10/17 17:28 Dose: 800 mg - Labs Labs: 12/11/17 06:15 12/11/17 06:15 PT 12.5 SECONDS (9.7-12.2) H 12/10/17 04:09 INR 1.1 12/10/17 04:09 APTT 30 SECONDS (21-34) 12/10/17 04:09 - Constitutional Appears: No Acute Distress, Chronically Ill - Head Exam Head Exam: ATRAUMATIC, NORMAL INSPECTION - Eye Exam Eye Exam: EOMI, Normal appearance - Respiratory Exam Respiratory Exam: Clear to Ausculation Bilateral, NORMAL BREATHING PATTERN - Cardiovascular Exam Cardiovascular Exam: Tachycardia, +S1 - GI/Abdominal Exam GI & Abdominal Exam: Soft. absent: Tenderness - Extremities Exam Extremities Exam: Normal Inspection. absent: Tenderness - Neurological Exam Neurological Exam: Altered, Motor Sensory Deficit - Skin Skin Exam: Dry Assessment and Plan (1) Type 1 diabetes mellitus with diabetic nephropathy Status: Acute (2) End stage renal disease Status: Acute (3) CVA (cerebral vascular accident) Status: Acute (4) Chest pain Status: Acute (5) Pacemaker Status: Chronic - Assessment and Plan (Free Text) Plan: D10W for now would adjust insulin dialysis TTS monitor rhythm EPO. check iron stores
[2017-12-11] MEDS: Insulin Detemir 100 units/ml Vial (Levemir) SC SCH (09:16)
--- NOTE | 2017-12-11 13:05 | CP.PCM.PN ---
Addendum entered and electronically signed by Bebeto Alexandre DO 12/11/17 13:17: Physical Exam - Constitutional Appears: Non-toxic, No Acute Distress, Chronically Ill - Head Exam Head Exam: ATRAUMATIC, NORMAL INSPECTION, NORMOCEPHALIC - Eye Exam Eye Exam: EOMI, Normal appearance Pupil Exam: PERRL - ENT Exam ENT Exam: Mucous Membranes Moist - Respiratory Exam Respiratory Exam: Clear to Auscultation Bilateral, NORMAL BREATHING PATTERN. absent: Rales, Rhonchi, Wheezes - Cardiovascular Exam Cardiovascular Exam: REGULAR RHYTHM, +S1, +S2 absent: JVD, Murmur - GI/Abdominal Exam GI & Abdominal Exam: Normal Bowel Sounds, Soft - Extremities Exam Extremities exam: Positive for: normal inspection - Neurological Exam Neurological exam: Alert, Oriented x3 - Psychiatric Exam Psychiatric exam: Normal Affect, Normal Mood - Skin Skin Exam: Dry, Normal Color, Warm Original Note: <Bebeto Alexandre - Last Filed: 12/11/17 13:02> Subjective - Date & Time of Evaluation Date of Evaluation: 12/11/17 Time of Evaluation: 09:50 - Subjective Subjective: PGY2 Cardiology Progress Note for Dr. Miguel Patient seen and examined at bedside. No acute distress. Patient is very sedated 2/2 Atarax treatment. Denies chest pain or SOB. 12-point review of systems could not be fully obtained 2/2 sedation. Objective - Vital Signs/Intake and Output Vital Signs (last 24 hours): Temp Pulse Resp BP Pulse Ox 97.9 F 65 20 136/56 L 97 12/11/17 08:00 12/11/17 10:54 12/11/17 10:54 12/11/17 10:54 12/11/17 10:50 Intake and Output: 12/11/17 12/11/17 06:59 18:59 Intake Total 250 440 Balance 250 440 - Medications Medications: Current Medications Amlodipine Besylate (Norvasc) 10 mg PO DAILY [facility] Last Admin: 12/11/17 09:27 Dose: 10 mg Aspirin (Ecotrin) 81 mg PO DAILY [facility] Last Admin: 12/11/17 09:28 Dose: 81 mg Clopidogrel Bisulfate (Plavix) 75 mg PO DAILY [facility] Last Admin: 12/11/17 09:28 Dose: 75 mg Cyclobenzaprine HCl (Flexeril) 10 mg PO DAILY [facility] Last Admin: 12/11/17 09:28 Dose: 10 mg Epoetin Shahram (Procrit) 10,000 unit IV TTS [facility] Last Admin: 12/10/17 16:31 Dose: Not Given Famotidine (Pepcid) 20 mg PO DAILY [facility] Last Admin: 12/11/17 09:28 Dose: 20 mg Heparin Sodium (Porcine) (Heparin) 5,000 units SC Q8 [facility] Last Admin: 12/11/17 05:37 Dose: 5,000 units Hydralazine HCl (Apresoline) 10 mg PO BID [facility] Last Admin: 12/11/17 10:55 Dose: 10 mg Hydroxyzine HCl (Atarax) 25 mg PO DAILY [facility] Last Admin: 12/11/17 09:28 Dose: 25 mg Dextrose (Dextrose 10% In Water) 1,000 mls @ 30 mls/hr IV .Q24H [facility] Last Admin: 12/11/17 08:18 Dose: 30 mls/hr Insulin Detemir (Levemir) 6 unit SC BID [facility] Insulin Human Regular (Novolin R) 0 unit SC ACHS [facility] PRN Reason: Protocol Last Admin: 12/11/17 11:32 Dose: 1 unit Metoprolol Tartrate (Lopressor) 25 mg PO BID [facility] Last Admin: 12/11/17 09:28 Dose: 25 mg Rosuvastatin Calcium (Crestor) 10 mg PO HS [facility] Last Admin: 12/10/17 21:18 Dose: 10 mg Sevelamer Carbonate (Renvela) 800 mg PO TIDCC [facility] - Labs Labs: 12/11/17 06:15 12/11/17 06:15 PT 12.5 SECONDS (9.7-12.2) H 12/10/17 04:09 INR 1.1 12/10/17 04:09 APTT 30 SECONDS (21-34) 12/10/17 04:09 Assessment and Plan - Assessment and Plan (Free Text) Assessment: Tachyarrthmia 6: HR stable 71. BP 127/52. - with demand pacing - HR normal after Amiodarone - Will consider stress test prior to discharge - pt is s/p pacemaker placement in 2011. [place] called for pacemaker interrogation Non cardiac chest pain Trops negative Hypertension - Continue Norvasc 10mg PO qD, Hydralazin 10mg PO BID, Metoprolol 25mg PO BID Hyperlipidemia - Continue Crestor 10mg, Plavix 75mg Case Discussed with Dr. Lamont Alexandre, PGY2 <Jeffry Miguel - Last Filed: 12/12/17 10:28> Objective - Vital Signs/Intake and Output Vital Signs (last 24 hours): Temp Pulse Resp BP Pulse Ox 97.5 F L 62 24 131/72 99 12/11/17 20:00 12/11/17 13:50 12/11/17 13:50 12/11/17 18:05 12/11/17 12:30 Intake and Output: 12/12/17 12/12/17 06:59 18:59 Intake Total 30 Output Total 0 Balance 30 - Labs Labs: 12/11/17 06:15 12/11/17 06:15 PT 12.5 SECONDS (9.7-12.2) H 12/10/17 04:09 INR 1.1 12/10/17 04:09 APTT 30 SECONDS (21-34) 12/10/17 04:09 Assessment and Plan - Assessment and Plan (Free Text) Plan: Patient seen and evaluated personally by hi Plan of care d/w the chief medical technologist and as documented Stress test as out patient
[2017-12-11 14:00] VITALS: PULSE 62; RESP 24; O2SAT 99
--- NOTE | 2017-12-11 15:42 | CP.PCM.PN ---
Subjective - Date & Time of Evaluation Date of Evaluation: 12/11/17 Time of Evaluation: 15:42 - Subjective Subjective: PATIENT WAS ADMITTED FOR CHEST PAIN DENIES AT THIS TIME DENIES SOB NO SIGN OF DISTRESS NOTED Objective - Vital Signs/Intake and Output Vital Signs (last 24 hours): Temp Pulse Resp BP Pulse Ox 97.5 F L 62 24 143/63 99 12/11/17 12:00 12/11/17 13:50 12/11/17 13:50 12/11/17 13:24 12/11/17 12:30 Intake and Output: 12/11/17 12/11/17 06:59 18:59 Intake Total 250 860 Balance 250 860 - Medications Medications: Current Medications Amlodipine Besylate (Norvasc) 10 mg PO DAILY [facility] Last Admin: 12/11/17 09:27 Dose: 10 mg Aspirin (Ecotrin) 81 mg PO DAILY [facility] Last Admin: 12/11/17 09:28 Dose: 81 mg Clopidogrel Bisulfate (Plavix) 75 mg PO DAILY [facility] Last Admin: 12/11/17 09:28 Dose: 75 mg Cyclobenzaprine HCl (Flexeril) 10 mg PO DAILY [facility] Last Admin: 12/11/17 09:28 Dose: 10 mg Epoetin Shahram (Procrit) 10,000 unit IV TTS [facility] Last Admin: 12/10/17 16:31 Dose: Not Given Famotidine (Pepcid) 20 mg PO DAILY [facility] Last Admin: 12/11/17 09:28 Dose: 20 mg Heparin Sodium (Porcine) (Heparin) 5,000 units SC Q8 [facility] Last Admin: 12/11/17 13:56 Dose: 5,000 units Hydralazine HCl (Apresoline) 10 mg PO BID [facility] Last Admin: 12/11/17 10:55 Dose: 10 mg Hydroxyzine HCl (Atarax) 25 mg PO DAILY [facility] Last Admin: 12/11/17 09:28 Dose: 25 mg Dextrose (Dextrose 10% In Water) 1,000 mls @ 30 mls/hr IV .Q24H [facility] Last Admin: 12/11/17 08:18 Dose: 30 mls/hr Insulin Detemir (Levemir) 6 unit SC BID [facility] Insulin Human Regular (Novolin R) 0 unit SC ACHS [facility] PRN Reason: Protocol Last Admin: 04/06/18 11:32 Dose: 1 unit Metoprolol Tartrate (Lopressor) 25 mg PO BID [facility] Last Admin: 12/11/17 09:28 Dose: 25 mg Rosuvastatin Calcium (Crestor) 10 mg PO HS [facility] Last Admin: 12/10/17 21:18 Dose: 10 mg Sevelamer Carbonate (Renvela) 800 mg PO TIDCC [facility] Last Admin: 12/11/17 13:56 Dose: 800 mg - Labs Labs: 12/11/17 06:15 12/11/17 06:15 PT 12.5 SECONDS (9.7-12.2) H 12/10/17 04:09 INR 1.1 12/10/17 04:09 APTT 30 SECONDS (21-34) 12/10/17 04:09 Assessment and Plan - Assessment and Plan (Free Text) Assessment: PATIENT SEEN AND EXAMINED AT THE BEDSIDE TNI IS NEG PACE RHYTHM ON THE MONITOR PER DR CLAIRE PATIENT WILL NEED A STRESS TEST WHICH CAN BE DONE OUT PATIENT BY EITHER HIM OR PATIENT'S FLUX TUBE ATTENDANT DISCUSS WITH DR MORALES WHO CLEAR PATIENT FOR DC FOLLOW UP WITH DR MORALES IN 1-2 WEEKS AT HIS OFFICE ---CALL FOR APPOINTMENT FOLLOW UP WITH DAKOTAH OR YOUR FLUX TUBE ATTENDANT NEXT WEEK AT THEIR OFFICE ---CALL FOR APPOINTMENT CONTINUE ALL YOUR HOME MEDICATION ORDER NEW PRESCRIPTION GIVEN ASPIRIN 81 MG BY MOUTH DAILY CRESTOR 20 MG BY MOUTH AT NIGHT DIALYSIS SCHEDULE ACTIVITY TOLERATED CALL DR MORALES OR GO TO THE EMERGENCY ROOM IF SYMPTOMS RETURN OR WORSENING DISCUSS WITH PATIENT AND PATIENT'FAMILY WHO AGREE AND VERBALIZED UNDERSTANDING
[2017-12-11] MEDS ORDERED: Insulin Detemir 100 units/ml Vial (Levemir) SC SCH (18:00)
[2017-12-11 18:07] VITALS: BP 131/72
[2017-12-11 20:36] VITALS: TEMP 97.5
--- NOTE | 2017-12-11 22:37 | CARD ---
APPROVED REPORT EKG Measurement Heart [id number] [id number] <Conclusion> Ventricular-paced rhythm Abnormal ECG
--- NOTE | 2017-12-11 22:49 | CP.PCM.DIS ---
Provider - Provider Date of Admission: 12/10/17 05:19 Attending physician: Sahil Andrea MD Diagnosis - Discharge Diagnosis (1) Chest pain Status: Acute (2) ESRD needing dialysis Status: Acute (3) Type 1 diabetes mellitus with diabetic nephropathy Status: Acute Hospital Course - Lab Results Lab Results: Micro Results 12/10/17 11:00 Naris MRSA Culture (Admit) - Final MRSA NOT DETECTED Most Recent Lab Values WBC 6.4 K/uL (4.8-10.8) 12/11/17 06:15 RBC 2.75 Mil/uL (4.40-5.90) L 12/11/17 06:15 Hgb 8.1 g/dL (12.0-18.0) L 12/11/17 06:15 Hct 24.0 % (35.0-51.0) L 12/11/17 06:15 MCV 87.0 fL (80.0-94.0) 12/11/17 06:15 MCH 29.2 pg (27.0-31.0) 12/11/17 06:15 MCHC 33.6 g/dL (33.0-37.0) 12/11/17 06:15 RDW 15.3 % (11.5-14.5) H 12/11/17 06:15 Plt Count 301 K/uL (130-400) 12/11/17 06:15 MPV 8.4 fL (7.2-11.7) 12/11/17 06:15 Neut % (Auto) 70.5 % (50.0-75.0) 12/11/17 06:15 Lymph % (Auto) 19.3 % (20.0-40.0) L 12/11/17 06:15 [place] % (Auto) 7.8 % (0.0-10.0) 12/11/17 06:15 Eos % (Auto) 1.6 % (0.0-4.0) 12/11/17 06:15 Baso % (Auto) 0.8 % (0.0-2.0) 12/11/17 06:15 Neut # (Auto) 4.5 K/uL (1.8-7.0) 12/11/17 06:15 Lymph # (Auto) 1.2 K/uL (1.0-4.3) 12/11/17 06:15 [place] # (Auto) 0.5 K/uL (0.0-0.8) 12/11/17 06:15 Eos # (Auto) 0.1 K/uL (0.0-0.7) 12/11/17 06:15 Baso # (Auto) 0.1 K/uL (0.0-0.2) 12/11/17 06:15 PT 12.5 SECONDS (9.7-12.2) H 12/10/17 04:09 INR 1.1 12/10/17 04:09 APTT 30 SECONDS (21-34) 12/10/17 04:09 Sodium 139 mmol/L (132-148) 12/11/17 06:15 Potassium 4.5 mmol/L (3.6-5.2) 12/11/17 06:15 Chloride 94 mmol/L (98-107) L 12/11/17 06:15 Carbon Dioxide 30 mmol/L (22-30) 12/11/17 06:15 Anion Gap 20 (10-20) 12/11/17 06:15 BUN 19 mg/dL (9-20) 12/11/17 06:15 Creatinine 4.0 mg/dL (0.8-1.5) H 12/11/17 06:15 Est GFR ( Amer) 19 12/11/17 06:15 Est GFR (Non-Af Amer) 15 12/11/17 06:15 POC Glucose (mg/dL) 172 mg/dL (65-110) H 12/11/17 21:06 Random Glucose 75 mg/dL (75-110) 12/11/17 06:15 Hemoglobin A1c 9.5 % (4.2-6.5) H 12/10/17 10:04 Calcium 9.2 mg/dl (8.6-10.4) 12/11/17 06:15 Phosphorus 3.1 mg/dL (2.5-4.5) 12/11/17 06:15 Magnesium 2.0 mg/dL (1.6-2.3) 12/11/17 06:15 % Saturation 5.61 (20-55) L 12/11/17 09:10 Ferritin 590.0 ng/mL 12/11/17 06:15 Total Bilirubin 0.8 mg/dL (0.2-1.3) 12/11/17 06:15 AST 19 U/L (17-59) 12/11/17 06:15 ALT 9 U/L (21-72) L 12/11/17 06:15 Alkaline Phosphatase 130 U/L (38-126) H 12/11/17 06:15 Total Creatine Kinase 53 U/L (55-170) L 12/10/17 14:58 CK-MB (Mass) 1.16 ng/mL (0.0-3.38) 12/10/17 14:58 Troponin I 0.0880 ng/mL (0.00-0.120) 12/10/17 14:58 NT-Pro-B Natriuret Pep 80206 pg/mL (0-900) H 12/10/17 04:44 Total Protein 7.5 g/dL (6.3-8.3) 12/11/17 06:15 Albumin 3.8 g/dL (3.5-5.0) 12/11/17 06:15 Globulin 3.7 gm/dL (2.2-3.9) 12/11/17 06:15 Albumin/Globulin Ratio 1.0 (1.0-2.1) 12/11/17 06:15 Triglycerides 133 mg/dL (0-149) D 12/10/17 14:58 Cholesterol 126 mg/dL (0-199) 12/10/17 14:58 LDL Cholesterol Direct 64 mg/dL (0-129) 12/10/17 14:58 HDL Cholesterol 33 mg/dL (30-70) 12/10/17 14:58 - Hospital Course Hospital Course: Pt seen and examined is stable for diachrge told to continue meds follow up out pateint in 1 week Assesement Tachyarrthmia /: HR stable 71. BP 127/52. - with demand pacing - HR normal after Amiodarone - Will consider stress test prior to discharge - pt is s/p pacemaker placement in 2011. [place] called for pacemaker interrogation Non cardiac chest pain Trops negative Hypertension - Continue Norvasc 10mg PO qD, Hydralazin 10mg PO BID, Metoprolol 25mg PO BID Hyperlipidemia - Continue Crestor 10mg, Plavix 75mg Discharge Exam - Head Exam Head Exam: ATRAUMATIC, NORMAL INSPECTION Discharge Plan - Discharge Medications Prescriptions: Rosuvastatin Calcium [Crestor] 10 mg PO HS 30 Days tab Aspirin [Ecotrin] 81 mg PO DAILY 30 Days tabec - Follow Up Plan Condition: FAIR Disposition: HOME/ ROUTINE Instructions: Chest Pain (DC), Chronic Kidney Disease (DC), Diabetes and Diet, Renal Failure Diet (DC) Additional Instructions: FOLLOW UP WITH DR ANDREA IN 1-2 WEEKS AT HIS OFFICE ---CALL FOR APPOINTMENT FOLLOW UP WITH DAKOTAH OR YOUR HOT BREAD BAKER NEXT WEEK AT THEIR OFFICE ---CALL FOR APPOINTMENT CONTINUE ALL YOUR HOME MEDICATION ORDER NEW PRESCRIPTION GIVEN ASPIRIN 81 MG BY MOUTH DAILY CRESTOR 20 MG BY MOUTH AT NIGHT DIALYSIS SCHEDULE ACTIVITY TOLERATED CALL DR ANDREA OR GO TO THE EMERGENCY ROOM IF SYMPTOMS RETURN OR WORSENING Referrals: Jeffry Miguel MD [Staff Provider] - Sahil Andrea MD [Staff Provider] -
== END 2017-12-11 21:52 | disposition home or self-care (01) | DRG 313 ==
LOC: C.ER 02:56 → C.6T 05:19 → C.9I 10:30
PROVIDERS: ADMIT Internal Medicine; ATTEND Internal Medicine
PROC: 5A1D70Z Performance of Urinary Filtration, Intermittent, Less than 6 Hours Per Day (ICD-10-PCS; principal; 2017-12-10)
DX: R07.89 Other chest pain (principal); N18.6 End stage renal disease; I69.354 Hemiplegia and hemiparesis following cerebral infarction affecting left non-dominant side; I13.2 Hypertensive heart and chronic kidney disease with heart failure and with stage 5 chronic kidney disease, or end stage renal disease; Z99.2 Dependence on renal dialysis; E10.21 Type 1 diabetes mellitus with diabetic nephropathy; I48.91 Unspecified atrial fibrillation; I50.9 Heart failure, unspecified; E78.00 Pure hypercholesterolemia, unspecified; E10.22 Type 1 diabetes mellitus with diabetic chronic kidney disease; Z95.0 Presence of cardiac pacemaker; E87.5 Hyperkalemia; Z79.82 Long term (current) use of aspirin; Z79.02 Long term (current) use of antithrombotics/antiplatelets; Z79.4 Long term (current) use of insulin

== ENCOUNTER 2018-11-24 23:17 | Inpatient (IN) | payer OTHER ==
[2018-11-24 23:17] VITALS: BMI 23.4
--- NOTE | 2018-11-24 23:55 | C.PDOC ---
History Of Present Illness 63 year old male with PMHx of HTN, DM, ESRD on HD, CVA x2 in 2012, multiple MIs, PPM presents to ED c/o fever since yesterday. While in dialysis today they noticed he had a fever, he states they gave him "shots of antibiotics", unsure of name of medication. He then went home, where is temperature remained elevated - gave tylenol and brought him to ER. Patient denies chest pain, SOB, palpitations, nausea, vomiting, diarrhea, abdominal pain, rashes, or sick contacts. Time Seen by Provider: 11/24/18 23:26 Chief Complaint (Nursing): Fever History Per: Patient, Family () History/Exam Limitations: no limitations Onset/Duration Of Symptoms: Days Current Symptoms Are (Timing): Still Present Sick Contacts (Context): None Associated Symptoms: Fever, Chills. denies: Nausea, Vomiting, Diarrhea Severity: Moderate Past Medical History Reviewed: Historical Data, Nursing Documentation, Vital Signs Vital Signs: Last Vital Signs Temp 99.9 F H 11/24/18 23:20 Pulse 82 11/24/18 23:20 Resp 18 11/24/18 23:20 BP 153/63 H 11/24/18 23:20 Pulse Ox 94 L 11/24/18 23:20 - Medical History PMH: Atrial Fibrillation, Cardia Arrhythmia, CVA, Diabetes, Fractures, HTN, Hypercholesterolemia, End Stage Renal Disease (Dialysis TUES,THURS,SAT), Chronic Kidney Disease Surgical History: Hernia Repair, Pacemaker - [facility] Procedures (03/28/18) ENTERAL INFUSION OF CONCENTRATED NUT. SUBSTANCES (05/07/13) ESOPHAGOGASTRODUODENOSCOPY [EGD] W/CLOSED BIOPSY (05/02/13) HEMODIALYSIS (02/21/15) OPEN RED-INT FIX HUMERUS (02/21/15) PER NERVE ADHESIOLYS NEC (02/21/15) PERCUTANEOUS [ENDOSCOPIC] GASTROSTOMY [PEG] (05/02/13) PERFORMANCE OF URINARY FILTRATION, SINGLE (02/08/17) PERIPH NERVE INCIS NEC (02/21/15) Family History: States: No Known Family Hx - Social History Hx Tobacco Use: No Hx Alcohol Use: No Hx Substance Use: No - Immunization History Hx Tetanus Toxoid Vaccination: No Hx Influenza Vaccination: Yes Hx Pneumococcal Vaccination: Yes Review Of Systems Constitutional: Positive for: Fever Cardiovascular: Negative for: Chest Pain, Palpitations Respiratory: Negative for: Cough, Shortness of Breath Gastrointestinal: Negative for: Nausea, Vomiting, Abdominal Pain, Diarrhea Genitourinary: Negative for: Dysuria, Hematuria Skin: Negative for: Rash Neurological: Negative for: Headache, Dizziness Physical Exam - Physical Exam Appears: Well, Non-toxic, Chronically Ill Skin: Normal Color, Warm, Dry, No Rash Head: Normacephalic Eye(s): bilateral: Normal Inspection Oral Mucosa: Moist Neck: Supple Cardiovascular: Rhythm Regular Respiratory: Normal Breath Sounds, No Rales, No Rhonchi, No Wheezing Gastrointestinal/Abdominal: Normal Exam, Bowel Sounds, Soft, No Tenderness Back: Normal Inspection, No CVA Tenderness Extremity: No Pedal Edema, No Calf Tenderness, No Swelling, Other (Left great toe necrotic appearing and, foul smelling. Left arm fistula with palpable thrill.) Pulses: Left Dorsalis Pedis: Normal, Right Dorsalis Pedis: Normal Neurological/Psych: Oriented x3 ED Course And Treatment - Laboratory Results Result Diagrams: 12/01/18 07:19 12/01/18 07:19 ECG: Interpreted By Me, Viewed By Me (sinus rhythm 77bpm, first degree AV block, normal axis, T wave inversions I, II aVL, V2-V6, no acute ST changes) ECG Interpretation: Abnormal O2 Sat by Pulse Oximetry: 94 (Room air) Pulse Ox Interpretation: Normal - Radiology CXR: Interpreted by Me, Viewed By Me (right sided pleural effusion., no infiltrates ) Progress Note: Blood work, EKG, CXR, influenza swab, and left foot x-ray ordered and reviewed. Patient given IV Vancomycin and IV Cefepime. 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 Disposition - Disposition Disposition: HOSPITALIZED Disposition Time: 01:46 Condition: STABLE - Clinical Impression Clinical Impression: Toe necrosis, Infected wound, Cellulitis, Fever, ESRD (end stage renal disease) on dialysis - Scribe Statement The provider has reviewed the documentation as recorded by the Scribe Vernon Cifuentes All medical record entries made by the Scribe were at my direction and personally dictated by me. I have reviewed the chart and agree that the record accurately reflects my personal performance of the history, physical exam, medical decision making, and the department course for this patient. I have also personally directed, reviewed, and agree with the discharge instructions and disposition. Decision To Admit - Pt Status Changed To: Hospital Disposition Of: Inpatient - Admit Certification Admit to Inpatient:: After my assessment, the patient will require hospitalization for at least two midnights. This is because of the severity of symptoms shown, intensity of services needed, and/or the medical risk in this patient being treated as an outpatient. - InPatient: Physician Admission Certification:: see notes - . Bed Request Type: Regular Admitting Physician: Aydee Winston Patient Diagnosis: Toe necrosis, Infected wound, ESRD (end stage renal disease) on dialysis, Cellulitis
[2018-11-25] MEDS ORDERED: Cefepime 1 GM in Sodium Chloride 0.9% 50 ML IVPB ONE (00:06)
[2018-11-25] MEDS ORDERED: Vancomycin 1 GM 1 GM/250 ML BAG IV STA (00:06)
[2018-11-25 00:24] LABS: BASO % 0.3 % (0.0-2.0); EOS # 0.1 K/uL (0.0-0.7); EOS % 1.4 % (0.0-4.0); HEMOGLOBIN 10.5 g/dL (12.0-18.0); LYMPH # 0.9 K/uL (1.0-4.3); LYMPH % 14.3 % (20.0-40.0); MEAN CELL VOLUME 87.3 fL (80.0-94.0); MEAN CORPUSCULAR HEMOGLOBIN 28.5 pg (27.0-31.0); MEAN CORPUSCULAR HGB CONC 32.7 g/dL (33.0-37.0); MEAN PLATELET VOLUME 8.7 fL (7.2-11.7); MONO # 0.7 K/uL (0.0-0.8); MONO % 11.2 % (0.0-10.0); NEUT # 4.6 K/uL (1.8-7.0); NEUT % 72.8 % (50.0-75.0); RBC 3.67 Mil/uL (4.40-5.90); RED CELL DISTRIBUTION WIDTH 15.9 % (11.5-14.5); WHITE BLOOD COUNT 6.3 K/uL (4.8-10.8)
[2018-11-25] MEDS ORDERED: Vancomycin 1 GM 1 GM/250 ML BAG IVPB ONE (00:24)
[2018-11-25 00:35] LABS: VENOUS BLOOD GAS BASE EXCESS 14.9 mmol/L (0.0-2.0); VENOUS BLOOD GAS PCO2 62 mmHg (40-60); VENOUS BLOOD GAS PO2 27 mm/Hg (30-55); VENOUS BLOOD PH 7.44 (7.32-7.43)
[2018-11-25 01:00] LABS: ALB/GLOB RATIO 1.1 (1.0-2.1); ALBUMIN 4.1 g/dL (3.5-5.0); CALCIUM 9.2 mg/dl (8.6-10.4)
[2018-11-25] MEDS ORDERED: Sodium Chloride 0.9% 500 ML IV ONE (01:20)
[2018-11-25] MEDS ORDERED: (Novolin R) Insulin Human Regular 100 units/ml vial IVP ONE (01:22)
[2018-11-25] MEDS ORDERED: (Novolin R) Insulin Human Regular 100 units/ml vial ONE (01:34)
[2018-11-25] MEDS: (Novolin R) Insulin Human Regular 100 units/ml vial SC SCH ×4 (08:08→21:35)
[2018-11-25] MEDS ORDERED: LUBIPROSTONE PO SCH (10:00)
--- NOTE | 2018-11-25 10:07 | CP.PCM.PN ---
Subjective - Date & Time of Evaluation Date of Evaluation: 11/25/18 Time of Evaluation: 10:07 - Subjective Subjective: [facility] #[id number] Objective - Vital Signs/Intake and Output Vital Signs (last 24 hours): Temp Pulse Resp BP Pulse Ox 98.5 F 72 20 130/80 96 11/25/18 08:45 11/25/18 08:45 11/25/18 08:45 11/25/18 08:45 11/25/18 08:45 - Medications Medications: Current Medications Amlodipine Besylate (Norvasc) 10 mg PO DAILY [facility] Aspirin (Ecotrin) 81 mg PO DAILY [facility] Clopidogrel Bisulfate (Plavix) 75 mg PO DAILY [facility] Cyclobenzaprine HCl (Flexeril) 10 mg PO DAILY [facility] Enoxaparin Sodium (Lovenox) 30 mg SC DAILY [facility] Epoetin Shahram (Procrit) 4,000 unit IV MWF [facility] Home Med (Lubiprostone [Amitiza]) 1 cap PO BID [facility] Hydroxyzine HCl (Atarax) 25 mg PO DAILY [facility] Cefepime HCl (Maxipime Iv 1 Gm Premix) 1 gm in 50 mls @ 100 mls/hr IVPB Q24H [facility]; Protocol Insulin Human Regular (Novolin R) 0 unit SC ACHS [facility]; Protocol Last Admin: 11/25/18 08:08 Dose: Not Given Levetiracetam (Keppra) 500 mg PO BID [facility] Metoprolol Succinate (Toprol Xl) 25 mg PO Q12 [facility] Sevelamer Carbonate (Renvela) 800 mg PO TID [facility] Vitamin B Complex/Vit C/Folic Acid (Nephro-Yany) 1 tab PO DAILY [facility] - Labs Labs: 11/24/18 23:59 11/24/18 23:59
--- NOTE | 2018-11-25 10:23 | RAD ---
Date of service: 11/25/2018 PROCEDURE: CHEST RADIOGRAPH, 1 VIEW HISTORY: Fever COMPARISON: 12/10/2017 FINDINGS: LUNGS: The lungs are well inflated. There is mild pulmonary venous congestion and interstitial pulmonary edema. PLEURA: Small right pleural effusion. No pneumothorax or large left pleural effusion. CARDIOVASCULAR: Mild cardiomegaly. There is stable position of left-sided permanent pacing device. There are aortic atherosclerotic calcifications present. OSSEOUS STRUCTURES: Within normal limits for the patient's age. VISUALIZED UPPER ABDOMEN: Normal. OTHER FINDINGS: None. IMPRESSION: Small right pleural effusion. Mild pulmonary venous congestion and interstitial edema.
--- NOTE | 2018-11-25 10:29 | CP.PCM.CON ---
History of Present Illness - History of Present Illness History of Present Illness: 63 year old male with PMHx of HTN, diabetes, ESRD, two strokes in 2012, multiple heart attacks with pacemaker placement, presents with fever since yesterday. While in dialysis today they noticed he had a fever, he states they gave him "shots of antibiotics", unsure of what they were called. Today while at home his noticed the temperature was elevated, she gave him tylenol but fever persisted which prompted visit. Denies chest pain, SOB, nausea, vomiting, diarrhea, or sick contacts. Past Medical History Reviewed: Historical Data, Nursing Documentation, Vital Signs Vital Signs: Last Vital Signs Temp 99.9 F H 11/24/18 23:20 Pulse 82 11/24/18 23:20 Resp 18 11/24/18 23:20 BP 153/63 H 11/24/18 23:20 Pulse Ox 94 L 11/24/18 23:20 - Medical History PMH: Atrial Fibrillation, Cardia Arrhythmia, CVA, Diabetes, Fractures, HTN, Hypercholesterolemia, End Stage Renal Disease (Dialysis TUES,THURS,SAT), Chronic Kidney Disease Denies: HIV Surgical History: Hernia Repair, Pacemaker - [facility] (03/28/18) ENTERAL INFUSION OF CONCENTRATED NUT. SUBSTANCES (05/07/13) ESOPHAGOGASTRODUODENOSCOPY [EGD] W/CLOSED BIOPSY (05/02/13) HEMODIALYSIS (02/21/15) OPEN RED-INT FIX HUMERUS (02/21/15) PER NERVE ADHESIOLYS NEC (02/21/15) PERCUTANEOUS [ENDOSCOPIC] GASTROSTOMY [PEG] (05/02/13) PERFORMANCE OF URINARY FILTRATION, SINGLE (02/08/17) PERIPH NERVE INCIS NEC (02/21/15) Family History: States: Unknown Family Hx, no CKD - Social History Hx Tobacco Use: No Hx Alcohol Use: No Hx Substance Use: No - Immunization History Hx Tetanus Toxoid Vaccination: No Hx Influenza Vaccination: Yes Hx Pneumococcal Vaccination: Yes Review of Systems - Constitutional Constitutional: Fatigue, Fever - EENT Eyes: Blurred Vision Ears: absent: As Per HPI, Decreased Hearing, Ear Discharge, Ear Pain, Tinnitus, Abnormal Hearing, Disequilibrium, Dizziness, Other Nose/Mouth/Throat: absent: As Per HPI, Epistaxis, Nasal Congestion, Nasal Discharge, Nasal Obstruction, Nasal Trauma, Nose Pain, Post Nasal Drip, Sinus Pain, Sinus Pressure, Bleeding Gums, Change in Voice, Dental Pain, Dry Mouth, Dysphagia, Halitosis, Hoarsness, Lip Swelling, Mouth Lesions, Mouth Pain, Odynophagia, Sore Throat, Throat Swelling, Tongue Swelling, Facial Pain, Neck Pain, Neck Mass, Other - Cardiovascular Cardiovascular: Dyspnea on Exertion - Respiratory Respiratory: absent: As Per HPI, Cough, Dyspnea, Hemoptysis, Dyspnea on Exertion, Wheezing, Snoring, Stridor, Pain on Inspiration, Chest Congestion, Excessive Mucous Production, Change in Mucous Color, Pain with Coughing, Other - Gastrointestinal Gastrointestinal: absent: As Per HPI, Abdominal Pain, Belching, Bloating, Change in Bowel Habits, Change in Stool Character, Coffee Ground Emesis, Constipation, Cramping, Diarrhea, Dyspepsia, Dysphagia, Early Satiety, Excessive Flatus, Fecal Incontinence, Heartburn, Hematemesis, Hematochezia, Loose Stools, Melena, Nausea, Odynophagia, Temesmus, Vomiting, Other - Genitourinary Genitourinary: As Per HPI - Musculoskeletal Musculoskeletal: Muscle Cramps, Muscle Weakness, Myalgias Past Patient History - Infectious Disease Hx of Infectious Diseases: None - Tetanus Immunizations Tetanus Immunization: Unknown - Past Medical History & Family History Past Medical History?: Yes Past Family History: Reviewed and not pertinent - Past Social History Smoking Status: Never Smoked Chewing Tobacco Use: No Cigar Use: No Alcohol: None Drugs: Denies Home Situation {Lives}: With Family - CARDIAC Hx Cardiac Disorders: Yes Hx Atrial Fibrillation: Yes Hx Cardia Arrhythmia: Yes Hx Hypercholesterolemia: Yes Hx Hypertension: Yes Hx Pacemaker: Yes - PULMONARY Hx Respiratory Disorders: No - NEUROLOGICAL Hx Neurological Disorder: Yes HX Cerebrovascular Accident: Yes - HEENT Hx HEENT Problems: No - RENAL Hx Chronic Kidney Disease: Yes Hx Dialysis: Yes Type of Dialysis Access: left AV fistula Date of Last Dialysis Treatment: 11/24/18 - ENDOCRINE/METABOLIC Hx Endocrine Disorders: Yes Hx Diabetes Mellitus Type 2: Yes - HEMATOLOGICAL/ONCOLOGICAL Hx Blood Disorders: No Hx Human Immunodeficiency Virus (HIV): No - INTEGUMENTARY Hx Dermatological Problems: No - MUSCULOSKELETAL/RHEUMATOLOGICAL Hx Musculoskeletal Disorders: Yes Hx Falls: Yes Hx Fractures: Yes - GASTROINTESTINAL Hx Gastrointestinal Disorders: Yes Hx Constipation: Yes Other/Comment: history of PEG tube; no longer in - GENITOURINARY/GYNECOLOGICAL Hx Genitourinary Disorders: No - PSYCHIATRIC Hx Psychophysiologic Disorder: No Hx Substance Use: No - SURGICAL HISTORY Hx Surgeries: Yes Hx Herniorrhaphy: Yes (bilateral inguina hernia) Hx Orthopedic Surgery: Yes (right humerus fx post fall) Other/Comment: hx of pacemaker and PEG - ANESTHESIA Hx Anesthesia: Yes Hx Anesthesia Reactions: No Hx Malignant Hyperthermia: No Meds Allergies/Adverse Reactions: Allergies Allergy/AdvReac Type Severity Reaction Status Date / Time No Known Allergies Allergy Verified 11/24/18 23:24 - Medications Medications: Current Medications Amlodipine Besylate (Norvasc) 10 mg PO DAILY [facility] Aspirin (Ecotrin) 81 mg PO DAILY [facility] Clopidogrel Bisulfate (Plavix) 75 mg PO DAILY [facility] Cyclobenzaprine HCl (Flexeril) 10 mg PO DAILY [facility] Enoxaparin Sodium (Lovenox) 30 mg SC DAILY [facility] Epoetin Shahram (Procrit) 4,000 unit IV MWF [facility] Home Med (Lubiprostone [Amitiza]) 1 cap PO BID [facility] Hydroxyzine HCl (Atarax) 25 mg PO DAILY [facility] Cefepime HCl (Maxipime Iv 1 Gm Premix) 1 gm in 50 mls @ 100 mls/hr IVPB Q24H [facility]; Protocol Insulin Human Regular (Novolin R) 0 unit SC ACHS [facility]; Protocol Last Admin: 11/25/18 08:08 Dose: Not Given Levetiracetam (Keppra) 500 mg PO BID [facility] Metoprolol Succinate (Toprol Xl) 25 mg PO Q12 [facility] Sevelamer Carbonate (Renvela) 800 mg PO TID [facility] Vitamin B Complex/Vit C/Folic Acid (Nephro-Yany) 1 tab PO DAILY [facility] Physical Exam - Constitutional Appears: No Acute Distress, Chronically Ill - Head Exam Head Exam: ATRAUMATIC, NORMAL INSPECTION - Eye Exam Eye Exam: EOMI, Normal appearance - Neck Exam Neck exam: Positive for: Normal Inspection. Negative for: Tenderness - Respiratory Exam Respiratory Exam: Clear to Auscultation Bilateral, NORMAL BREATHING PATTERN - Cardiovascular Exam Cardiovascular Exam: REGULAR RHYTHM, +S1 - GI/Abdominal Exam GI & Abdominal Exam: Soft. absent: Tenderness - Extremities Exam Extremities exam: Positive for: normal inspection. Negative for: tenderness - Neurological Exam Neurological exam: Alert, Motor Sensory Deficit - Skin Skin Exam: Dry, Warm Results - Vital Signs Recent Vital Signs: Last Vital Signs Temp 98.5 F 11/25/18 08:45 Pulse 72 11/25/18 08:45 Resp 20 11/25/18 08:45 BP 130/80 11/25/18 08:45 Pulse Ox 96 11/25/18 08:45 - Labs Result Diagrams: 11/24/18 23:59 11/24/18 23:59 Labs: Laboratory Results - last 24 hr 11/24/18 11/24/18 11/24/18 23:52 23:59 23:59 WBC 6.3 RBC 3.67 L Hgb 10.5 L D Hct 32.0 L MCV 87.3 MCH 28.5 MCHC 32.7 L RDW 15.9 H Plt Count 312 MPV 8.7 Neut % (Auto) 72.8 Lymph % (Auto) 14.3 L [place] % (Auto) 11.2 H Eos % (Auto) 1.4 Baso % (Auto) 0.3 Neut # (Auto) 4.6 Lymph # (Auto) 0.9 L [place] # (Auto) 0.7 Eos # (Auto) 0.1 Baso # (Auto) 0.0 ESR 111 H pO2 VBG pH VBG pCO2 VBG HCO3 VBG Total CO2 VBG O2 Sat (Calc) VBG Base Excess VBG Potassium Glucose Lactate Sodium 137 Potassium 4.6 Chloride 88 L Carbon Dioxide 40 H* D Anion Gap 13 BUN 19 Creatinine 3.2 H Est GFR ( Amer) 24 Est GFR (Non-Af Amer) 20 POC Glucose (mg/dL) Random Glucose 379 H D Lactic Acid Calcium 9.2 Total Bilirubin 0.9 AST 64 H D ALT 15 L D Alkaline Phosphatase 224 H D Total Protein 7.6 Albumin 4.1 Globulin 3.6 Albumin/Globulin Ratio 1.1 Venous Blood Potassium Influenza Typ A,B (EIA) Negative for flu a/b 11/25/18 11/25/18 11/25/18 00:25 06:47 07:36 WBC RBC Hgb Hct MCV MCH MCHC RDW Plt Count MPV Neut % (Auto) Lymph % (Auto) [place] % (Auto) Eos % (Auto) Baso % (Auto) Neut # (Auto) Lymph # (Auto) [place] # (Auto) Eos # (Auto) Baso # (Auto) ESR pO2 27 L VBG pH 7.44 H VBG pCO2 62 H VBG HCO3 35.4 VBG Total CO2 44.0 H VBG O2 Sat (Calc) 53.9 VBG Base Excess 14.9 H VBG Potassium 4.2 Glucose 364 H Lactate 3.6 H Sodium 139.0 Potassium Chloride 97.0 L Carbon Dioxide Anion Gap BUN Creatinine Est GFR ( Amer) Est GFR (Non-Af Amer) POC Glucose (mg/dL) 135 H Random Glucose Lactic Acid 1.0 Calcium Total Bilirubin AST ALT Alkaline Phosphatase Total Protein Albumin Globulin Albumin/Globulin Ratio Venous Blood Potassium 4.2 Influenza Typ A,B (EIA) Assessment & Plan (1) Dry gangrene Status: Acute (2) ESRD (end stage renal disease) on dialysis Status: Acute (3) HTN (hypertension) Status: Acute (4) Type 2 diabetes mellitus with diabetic nephropathy Status: Acute (5) History of CVA (cerebrovascular accident) Status: Chronic - Assessment and Plan (Free Text) Plan: dialysis MWF monitor LE dry gangrene recommend cultures monitor for fevers for now
[2018-11-25] MEDS: Multivitamin Vitamin B Complex (Nephro-Vite) Tab PO SCH (11:09)
[2018-11-25] MEDS: Metoprolol Succinate 25 mg XL Tab PO SCH ×2 (11:09→21:54)
[2018-11-25] MEDS: Enoxaparin 30 mg Syringe SC SCH (11:10)
[2018-11-25] MEDS: Cefepime IV 1 gm in Dextrose 1 GM/50 ML BAG IVPB SCH (11:26)
--- NOTE | 2018-11-25 12:30 | RAD ---
PROCEDURE: Radiographs of the left great toe. HISTORY:: Left great toe wound TECHNIQUE:: AP radiograph of the left foot, with oblique and lateral view of the left great toe. COMPARISON: 09/18/2016. FINDINGS: BONES: There is severe diffuse bone demineralization. There is no evidence for bone erosion or bone destruction. Bone alignment is normal. No acute displaced fracture. JOINTS: Normal. SOFT TISSUES: There is soft tissue swelling in the great toe. OTHER FINDINGS: There are atherosclerotic vascular calcifications. IMPRESSION: No radiographic evidence for osteomyelitis. Soft tissue swelling in the great toe likely related to cellulitis. If there is a persistent clinical concern, correlation with MRI may be performed to evaluate for early osteomyelitis.
--- NOTE | 2018-11-25 17:53 | CP.PCM.CON ---
History of Present Illness - History of Present Illness History of Present Illness: Podiatry Consult Note- Dr. Scanlon 63M with PMH of HTN, DM, ESRD, two strokes in 2012, multiple heart attacks with pacemaker placement seen and evaluated at bedside with left hallux ulcer with pain. Patient is seen resting comfortably in bedside, in NAD, and AA0x3. Patient reports has had the discoloration in the left toe for over 12 years. Reports from a traumatic incident at work. Never healed. Reports has been the same size since. Patient reports that his takes care of his feet. She clean it every other day and put a yellow powder in which he states it was 'ampicillin'. Reports does not know if the toe got worse recently but reports having a fever yesterday which prompt his ED visit. Patient currently denies of pain while in bed. Only pain with pressure or if someone is touching it. 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 Denies nausea, shortness of breath, chest pains or chills. Past Patient History - Infectious Disease Hx of Infectious Diseases: None - Tetanus Immunizations Tetanus Immunization: Unknown - Past Medical History & Family History Past Medical History?: Yes Past Family History: Reviewed and not pertinent - Past Social History Smoking Status: Never Smoked Chewing Tobacco Use: No Cigar Use: No Alcohol: None Drugs: Denies Home Situation {Lives}: With Family - CARDIAC Hx Cardiac Disorders: Yes Hx Hypercholesterolemia: Yes Hx Hypertension: Yes - PULMONARY Hx Respiratory Disorders: No - NEUROLOGICAL HX Cerebrovascular Accident: Yes - HEENT Hx HEENT Problems: No - RENAL Hx Chronic Kidney Disease: Yes Hx Dialysis: Yes Type of Dialysis Access: left AV fistula Date of Last Dialysis Treatment: 11/24/18 - ENDOCRINE/METABOLIC Hx Diabetes Mellitus Type 2: Yes - HEMATOLOGICAL/ONCOLOGICAL Hx Blood Disorders: No Hx Human Immunodeficiency Virus (HIV): No - INTEGUMENTARY Hx Dermatological Problems: No - MUSCULOSKELETAL/RHEUMATOLOGICAL Hx Musculoskeletal Disorders: Yes Hx Falls: Yes Hx Fractures: Yes - GASTROINTESTINAL Hx Gastrointestinal Disorders: Yes Hx Constipation: Yes Other/Comment: history of PEG tube; no longer in - GENITOURINARY/GYNECOLOGICAL Hx Genitourinary Disorders: No - PSYCHIATRIC Hx Psychophysiologic Disorder: No Hx Substance Use: No - SURGICAL HISTORY Hx Surgeries: Yes Hx Herniorrhaphy: Yes (bilateral inguina hernia) Hx Orthopedic Surgery: Yes (right humerus fx post fall) Other/Comment: hx of pacemaker and PEG - ANESTHESIA Hx Anesthesia: Yes Hx Anesthesia Reactions: No Hx Malignant Hyperthermia: No Meds Allergies/Adverse Reactions: Allergies Allergy/AdvReac Type Severity Reaction Status Date / Time No Known Allergies Allergy Verified 11/24/18 23:24 - Medications Medications: Current Medications Amlodipine Besylate (Norvasc) 10 mg PO DAILY [facility] Last Admin: 11/25/18 11:09 Dose: 10 mg Aspirin (Ecotrin) 81 mg PO DAILY [facility] Last Admin: 11/25/18 11:09 Dose: 81 mg Clopidogrel Bisulfate (Plavix) 75 mg PO DAILY [facility] Last Admin: 11/25/18 11:09 Dose: 75 mg Cyclobenzaprine HCl (Flexeril) 10 mg PO DAILY [facility] Last Admin: 11/25/18 11:09 Dose: 10 mg Enoxaparin Sodium (Lovenox) 30 mg SC DAILY [facility] Last Admin: 11/25/18 11:10 Dose: 30 mg Epoetin Shahram (Procrit) 10,000 unit IV MWF [facility] Home Med (Lubiprostone [Amitiza]) 1 cap PO BID [facility] Hydroxyzine HCl (Atarax) 25 mg PO DAILY [facility] Last Admin: 11/25/18 11:25 Dose: 25 mg Cefepime HCl (Maxipime Iv 1 Gm Premix) 1 gm in 50 mls @ 100 mls/hr IVPB Q24H [facility]; Protocol Last Admin: 11/25/18 11:26 Dose: 100 mls/hr Insulin Human Regular (Novolin R) 0 unit SC ACHS [facility]; Protocol Last Admin: 11/25/18 17:02 Dose: 2 units Levetiracetam (Keppra) 500 mg PO BID [facility] Last Admin: 11/25/18 11:09 Dose: 500 mg Metoprolol Succinate (Toprol Xl) 25 mg PO Q12 [facility] Last Admin: 11/25/18 11:09 Dose: 25 mg Sevelamer Carbonate (Renvela) 800 mg PO TID [facility] Last Admin: 11/25/18 13:47 Dose: 800 mg Vitamin B Complex/Vit C/Folic Acid (Nephro-Yany) 1 tab PO DAILY [facility] Last Admin: 11/25/18 11:09 Dose: 1 tab Physical Exam - Constitutional Appears: Well, Non-toxic, No Acute Distress - Extremities Exam Extremities exam: Negative for: calf tenderness Additional comments: VASC: pulses palpable bilaterally, CFT is slightly delayed to the digits 1-10. temperature gradient to the left lower extremity is warm to warm, temperature to the right lower extremity is warm to cool NEURO: gross and protective sensation intact ORTHO: pain with palpation to the left hallux DERM: eschar noted to the dorsum aspect of the hallux Odorous Erythema to the entire left leg, no streaking No abscess or fluctanance noted yellow powder noted to the entire hallux and interspace Boggy skin noted to the 1st interspace - Neurological Exam Neurological exam: Alert, Oriented x3 - Psychiatric Exam Psychiatric exam: Normal Affect, Normal Mood Results - Vital Signs Recent Vital Signs: Last Vital Signs Temp 98.2 F 11/25/18 16:38 Pulse 65 11/25/18 16:38 Resp 20 11/25/18 16:38 BP 141/61 11/25/18 16:38 Pulse Ox 97 11/25/18 16:38 - Labs Result Diagrams: 11/24/18 23:59 11/24/18 23:59 Labs: Laboratory Results - last 24 hr 11/24/18 11/24/18 11/24/18 23:52 23:59 23:59 WBC 6.3 RBC 3.67 L Hgb 10.5 L D Hct 32.0 L MCV 87.3 MCH 28.5 MCHC 32.7 L RDW 15.9 H Plt Count 312 MPV 8.7 Neut % (Auto) 72.8 Lymph % (Auto) 14.3 L [place] % (Auto) 11.2 H Eos % (Auto) 1.4 Baso % (Auto) 0.3 Neut # (Auto) 4.6 Lymph # (Auto) 0.9 L [place] # (Auto) 0.7 Eos # (Auto) 0.1 Baso # (Auto) 0.0 ESR 111 H pO2 VBG pH VBG pCO2 VBG HCO3 VBG Total CO2 VBG O2 Sat (Calc) VBG Base Excess VBG Potassium Glucose Lactate Sodium 137 Potassium 4.6 Chloride 88 L Carbon Dioxide 40 H* D Anion Gap 13 BUN 19 Creatinine 3.2 H Est GFR ( Amer) 24 Est GFR (Non-Af Amer) 20 POC Glucose (mg/dL) Random Glucose 379 H D Lactic Acid Calcium 9.2 Total Bilirubin 0.9 AST 64 H D ALT 15 L D Alkaline Phosphatase 224 H D Total Protein 7.6 Albumin 4.1 Globulin 3.6 Albumin/Globulin Ratio 1.1 Venous Blood Potassium Influenza Typ A,B (EIA) Negative for flu a/b 11/25/18 11/25/18 11/25/18 00:25 06:47 07:36 WBC RBC Hgb Hct MCV MCH MCHC RDW Plt Count MPV Neut % (Auto) Lymph % (Auto) [place] % (Auto) Eos % (Auto) Baso % (Auto) Neut # (Auto) Lymph # (Auto) [place] # (Auto) Eos # (Auto) Baso # (Auto) ESR pO2 27 L VBG pH 7.44 H VBG pCO2 62 H VBG HCO3 35.4 VBG Total CO2 44.0 H VBG O2 Sat (Calc) 53.9 VBG Base Excess 14.9 H VBG Potassium 4.2 Glucose 364 H Lactate 3.6 H Sodium 139.0 Potassium Chloride 97.0 L Carbon Dioxide Anion Gap BUN Creatinine Est GFR ( Amer) Est GFR (Non-Af Amer) POC Glucose (mg/dL) 135 H Random Glucose Lactic Acid 1.0 Calcium Total Bilirubin AST ALT Alkaline Phosphatase Total Protein Albumin Globulin Albumin/Globulin Ratio Venous Blood Potassium 4.2 Influenza Typ A,B (EIA) 11/25/18 11/25/18 10:58 16:22 WBC RBC Hgb Hct MCV MCH MCHC RDW Plt Count MPV Neut % (Auto) Lymph % (Auto) [place] % (Auto) Eos % (Auto) Baso % (Auto) Neut # (Auto) Lymph # (Auto) [place] # (Auto) Eos # (Auto) Baso # (Auto) ESR pO2 VBG pH VBG pCO2 VBG HCO3 VBG Total CO2 VBG O2 Sat (Calc) VBG Base Excess VBG Potassium Glucose Lactate Sodium Potassium Chloride Carbon Dioxide Anion Gap BUN Creatinine Est GFR ( Amer) Est GFR (Non-Af Amer) POC Glucose (mg/dL) 218 H 218 H Random Glucose Lactic Acid Calcium Total Bilirubin AST ALT Alkaline Phosphatase Total Protein Albumin Globulin Albumin/Globulin Ratio Venous Blood Potassium Influenza Typ A,B (EIA) Assessment & Plan - Assessment and Plan (Free Text) Assessment: 63M with PMH of HTN, DM, ESRD, two strokes in 2011, multiple heart attacks with pacemaker placement with infected left hallux eschar with lying underlying osteomyelitis Plan: Patient seen and examined Discussed plan with attending in detail Labs, chart, vitals reviewed (WBC=6.3) Left foot X-ray Impression: No radiographic evidence for osteomyelitis. Soft tissue swelling in the great toe likely related to cellulitis. If there is a persistent clinical concern, correlation with MRI may be performed to evaluate for early osteomyelitis. Wound culture taken left hallux -pending results DID recommendations appreciated Cleansed hallux with betadine and dressed with betadine w2d Vascular studies reviewed- Dr. Ozuna consulted- recommendations appreciated Patient likely has OM of the hallux and may need amputation Ordered ESR and CRP Will continue to follow patient while in house Thank you for allowing us to participate in patient's care
--- NOTE | 2018-11-25 19:14 | CP.PCM.CON ---
History of Present Illness - History of Present Illness History of Present Illness: 63 year old male presents with fever since yesterday. While in dialysis today they noticed he had a fever and given IV antibiotics referred for ID eval for antibiotic management Has infection left leg / cellulitis cultures panding Podiatry on board PMHx of HTN, diabetes, ESRD, two strokes in 2012, multiple heart attacks with pacemaker placement, Review of Systems - Review of Systems All systems: reviewed and no additional remarkable complaints except - Constitutional Constitutional: As Per HPI - EENT Eyes: absent: As Per HPI, Blind Spots, Blurred Vision, Change in Vision, Dec reased Night Vision, Diplopia, Discharge, Dry Eye, Exophthalmos, Floaters, Irritation, Itchy Eyes, Loss of Peripheral Vision, Pain, Photophobia, Requires Corrective Lenses, Sees Flashes, Spots in Vision, Tunnel Vision, Other Visual Disturbances, Loss of Vision, Other Ears: absent: As Per HPI, Decreased Hearing, Ear Discharge, Ear Pain, Tinnitus, Abnormal Hearing, Disequilibrium, Dizziness, Other Nose/Mouth/Throat: absent: As Per HPI, Epistaxis, Nasal Congestion, Nasal Discharge, Nasal Obstruction, Nasal Trauma, Nose Pain, Post Nasal Drip, Sinus Pain, Sinus Pressure, Bleeding Gums, Change in Voice, Dental Pain, Dry Mouth, Dysphagia, Halitosis, Hoarsness, Lip Swelling, Mouth Lesions, Mouth Pain, Odynophagia, Sore Throat, Throat Swelling, Tongue Swelling, Facial Pain, Neck Pain, Neck Mass, Other - Cardiovascular Cardiovascular: As Per HPI - Respiratory Respiratory: absent: As Per HPI, Cough, Dyspnea, Hemoptysis, Dyspnea on Exertion, Wheezing, Snoring, Stridor, Pain on Inspiration, Chest Congestion, Excessive Mucous Production, Change in Mucous Color, Pain with Coughing, Other - Gastrointestinal Gastrointestinal: absent: As Per HPI, Abdominal Pain, Belching, Bloating, Change in Bowel Habits, Change in Stool Character, Coffee Ground Emesis, Constipation, Cramping, Diarrhea, Dyspepsia, Dysphagia, Early Satiety, Excessive Flatus, Fecal Incontinence, Heartburn, Hematemesis, Hematochezia, Loose Stools, Melena, Nausea, Odynophagia, Temesmus, Vomiting, Other - Genitourinary Genitourinary: absent: As Per HPI, Change in Urinary Stream, Difficulty Urinating, Dysuria, Flank Pain, Hematuria, Pyuria, Nocturia, Urinary Incontinence, Urinary Frequency, Urinary Hesitance, Urinary Urgency, Voiding Freq/Small Amts, Freq UTI, Hx Renal/Bladder Calculi, Hx /Renal Surgery, Bladder Distension, Other - Musculoskeletal Musculoskeletal: As Per HPI - Integumentary Integumentary: As Per HPI, Skin Pain, Wounds - Neurological Neurological: As Per HPI, Numbness, Focal Weakness, Sensory Deficit - Psychiatric Psychiatric: absent: As Per HPI, Abnormal Sleep Pattern, Anhedonia, Anxiety, Auditory Hallucinations, Behavioral Changes, Change in Appetite, Change in Libido, Confusion, Depression, Difficulty Concentrating, Hallucinations, Lyly icidal Ideation, Hopelessness, Irritability, Memory Loss, Mood Swings, Panic Attacks, Paranoia, Suicidal Ideation, Visual Hallucinations, Tactile Hallucinations, Other - Endocrine Endocrine: absent: As Per HPI, Change in Body Appearance, Change in Libido, Cold Intolorance, Deepening of Voice, Excessive Sweating, Fatigue, Flushing, Heat Intolorance, Increase in Ring/Shoe/Hat Size, Palpitations, Polydipsia, Polyphagia, Polyuria, Other - Hematologic/Lymphatic Hematologic: absent: As Per HPI, Easy Bleeding, Easy Bruising, Lymphadenopathy, Other Past Patient History - Infectious Disease Hx of Infectious Diseases: None - Tetanus Immunizations Tetanus Immunization: Unknown - Past Medical History & Family History Past Medical History?: Yes Past Family History: Reviewed and not pertinent - Past Social History Smoking Status: Never Smoked Chewing Tobacco Use: No Cigar Use: No Alcohol: None Drugs: Denies Home Situation {Lives}: With Family - CARDIAC Hx Cardiac Disorders: Yes Hx Hypercholesterolemia: Yes Hx Hypertension: Yes - PULMONARY Hx Respiratory Disorders: No - NEUROLOGICAL HX Cerebrovascular Accident: Yes - HEENT Hx HEENT Problems: No - RENAL Hx Chronic Kidney Disease: Yes Hx Dialysis: Yes Type of Dialysis Access: left AV fistula Date of Last Dialysis Treatment: 11/24/18 - ENDOCRINE/METABOLIC Hx Diabetes Mellitus Type 2: Yes - HEMATOLOGICAL/ONCOLOGICAL Hx Blood Disorders: No Hx Human Immunodeficiency Virus (HIV): No - INTEGUMENTARY Hx Dermatological Problems: No - MUSCULOSKELETAL/RHEUMATOLOGICAL Hx Musculoskeletal Disorders: Yes Hx Falls: Yes Hx Fractures: Yes - GASTROINTESTINAL Hx Gastrointestinal Disorders: Yes Hx Constipation: Yes Other/Comment: history of PEG tube; no longer in - GENITOURINARY/GYNECOLOGICAL Hx Genitourinary Disorders: No - PSYCHIATRIC Hx Psychophysiologic Disorder: No Hx Substance Use: No - SURGICAL HISTORY Hx Surgeries: Yes Hx Herniorrhaphy: Yes (bilateral inguina hernia) Hx Orthopedic Surgery: Yes (right humerus fx post fall) Other/Comment: hx of pacemaker and PEG - ANESTHESIA Hx Anesthesia: Yes Hx Anesthesia Reactions: No Hx Malignant Hyperthermia: No Meds Allergies/Adverse Reactions: Allergies Allergy/AdvReac Type Severity Reaction Status Date / Time No Known Allergies Allergy Verified 11/24/18 23:24 - Medications Medications: Current Medications Amlodipine Besylate (Norvasc) 10 mg PO DAILY [facility] Last Admin: 11/25/18 11:09 Dose: 10 mg Aspirin (Ecotrin) 81 mg PO DAILY [facility] Last Admin: 11/25/18 11:09 Dose: 81 mg Clopidogrel Bisulfate (Plavix) 75 mg PO DAILY [facility] Last Admin: 11/25/18 11:09 Dose: 75 mg Cyclobenzaprine HCl (Flexeril) 10 mg PO DAILY [facility] Last Admin: 11/25/18 11:09 Dose: 10 mg Enoxaparin Sodium (Lovenox) 30 mg SC DAILY [facility] Last Admin: 11/25/18 11:10 Dose: 30 mg Epoetin Shahram (Procrit) 10,000 unit IV MWF [facility] Home Med (Lubiprostone [Amitiza]) 1 cap PO BID [facility] Hydroxyzine HCl (Atarax) 25 mg PO DAILY [facility] Last Admin: 11/25/18 11:25 Dose: 25 mg Cefepime HCl (Maxipime Iv 1 Gm Premix) 1 gm in 50 mls @ 100 mls/hr IVPB Q24H [facility]; Protocol Last Admin: 11/25/18 11:26 Dose: 100 mls/hr Insulin Human Regular (Novolin R) 0 [facility]; Protocol Last Admin: 11/25/18 17:02 Dose: 2 units Levetiracetam (Keppra) 500 mg PO BID [facility] Last Admin: 11/25/18 18:46 Dose: 500 mg Metoprolol Succinate (Toprol Xl) 25 mg PO Q12 [facility] Last Admin: 11/25/18 11:09 Dose: 25 mg Sevelamer Carbonate (Renvela) 800 mg PO TID [facility] Last Admin: 11/25/18 18:46 Dose: 800 mg Vitamin B Complex/Vit C/Folic Acid (Nephro-Yany) 1 tab PO DAILY [facility] Last Admin: 11/25/18 11:09 Dose: 1 tab Physical Exam - Constitutional Appears: Non-toxic, No Acute Distress, Chronically Ill - Head Exam Head Exam: ATRAUMATIC, NORMAL INSPECTION, NORMOCEPHALIC - Eye Exam Eye Exam: absent: Scleral icterus - ENT Exam ENT Exam: Mucous Membranes Dry, Normal External Ear Exam - Neck Exam Neck exam: Negative for: Lymphadenopathy - Respiratory Exam Respiratory Exam: Decreased Breath Sounds, Rhonchi - Cardiovascular Exam Cardiovascular Exam: REGULAR RHYTHM, +S1, +S2 - GI/Abdominal Exam GI & Abdominal Exam: Diminished Bowel Sounds, Soft. absent: Tenderness - Rectal Exam Rectal Exam: Deferred - Exam Exam: NORMAL INSPECTION - Extremities Exam Extremities exam: Positive for: pedal edema. Negative for: calf tenderness, pedal pulses present Additional comments: eschar noted to the dorsum aspect of the hallux Odorous Erythema to the entire left leg, no streaking No abscess or fluctanance noted yellow powder noted to the entire hallux and interspace - Back Exam Back exam: absent: CVA tenderness (L), CVA tenderness (R) - Neurological Exam Neurological exam: Alert, CN II-XII Intact, Oriented x3, Reflexes Normal - Psychiatric Exam Psychiatric exam: Depressed - Skin Skin Exam: Dry, Intact Results - Vital Signs Recent Vital Signs: Last Vital Signs Temp 98.2 F 11/25/18 16:38 Pulse 65 11/25/18 16:38 Resp 20 11/25/18 16:38 BP 141/61 11/25/18 16:38 Pulse Ox 97 11/25/18 16:38 - Labs Result Diagrams: 11/24/18 23:59 11/24/18 23:59 Labs: Laboratory Results - last 24 hr 11/24/18 11/24/18 11/24/18 23:52 23:59 23:59 WBC 6.3 RBC 3.67 L Hgb 10.5 L D Hct 32.0 L MCV 87.3 MCH 28.5 MCHC 32.7 L RDW 15.9 H Plt Count 312 MPV 8.7 Neut % (Auto) 72.8 Lymph % (Auto) 14.3 L Drew % (Auto) 11.2 H Eos % (Auto) 1.4 Baso % (Auto) 0.3 Neut # (Auto) 4.6 Lymph # (Auto) 0.9 L Drew # (Auto) 0.7 Eos # (Auto) 0.1 Baso # (Auto) 0.0 ESR 111 H pO2 VBG pH VBG pCO2 VBG HCO3 VBG Total CO2 VBG O2 Sat (Calc) VBG Base Excess VBG Potassium Glucose Lactate Sodium 137 Potassium 4.6 Chloride 88 L Carbon Dioxide 40 H* D Anion Gap 13 BUN 19 Creatinine 3.2 H Est GFR ( Amer) 24 Est GFR (Non-Af Amer) 20 POC Glucose (mg/dL) Random Glucose 379 H D Lactic Acid Calcium 9.2 Total Bilirubin 0.9 AST 64 H D ALT 15 L D Alkaline Phosphatase 224 H D Total Protein 7.6 Albumin 4.1 Globulin 3.6 Albumin/Globulin Ratio 1.1 Venous Blood Potassium Influenza Typ A,B (EIA) Negative for flu a/b 11/25/18 11/25/18 11/25/18 00:25 06:47 07:36 WBC RBC Hgb Hct MCV MCH MCHC RDW Plt Count MPV Neut % (Auto) Lymph % (Auto) Drew % (Auto) Eos % (Auto) Baso % (Auto) Neut # (Auto) Lymph # (Auto) Drew # (Auto) Eos # (Auto) Baso # (Auto) ESR pO2 27 L VBG pH 7.44 H VBG pCO2 62 H VBG HCO3 35.4 VBG Total CO2 44.0 H VBG O2 Sat (Calc) 53.9 VBG Base Excess 14.9 H VBG Potassium 4.2 Glucose 364 H Lactate 3.6 H Sodium 139.0 Potassium Chloride 97.0 L Carbon Dioxide Anion Gap BUN Creatinine Est GFR ( Amer) Est GFR (Non-Af Amer) POC Glucose (mg/dL) 135 H Random Glucose Lactic Acid 1.0 Calcium Total Bilirubin AST ALT Alkaline Phosphatase Total Protein Albumin Globulin Albumin/Globulin Ratio Venous Blood Potassium 4.2 Influenza Typ A,B (EIA) 11/25/18 11/25/18 10:58 16:22 WBC RBC Hgb Hct MCV MCH MCHC RDW Plt Count MPV Neut % (Auto) Lymph % (Auto) Drew % (Auto) Eos % (Auto) Baso % (Auto) Neut # (Auto) Lymph # (Auto) Drew # (Auto) Eos # (Auto) Baso # (Auto) ESR pO2 VBG pH VBG pCO2 VBG HCO3 VBG Total CO2 VBG O2 Sat (Calc) VBG Base Excess VBG Potassium Glucose Lactate Sodium Potassium Chloride Carbon Dioxide Anion Gap BUN Creatinine Est GFR ( Amer) Est GFR (Non-Af Amer) POC Glucose (mg/dL) 218 H 218 H Random Glucose Lactic Acid Calcium Total Bilirubin AST ALT Alkaline Phosphatase Total Protein Albumin Globulin Albumin/Globulin Ratio Venous Blood Potassium Influenza Typ A,B (EIA) Assessment & Plan (1) Dry gangrene Status: Acute (2) CVA (cerebral vascular accident) Status: Acute (3) CVA, old, aphasia Status: Acute (4) DM2 (diabetes mellitus, type 2) Status: Acute (5) ESRD (end stage renal disease) on dialysis Status: Acute (6) HTN (hypertension) Status: Acute (7) Diabetes mellitus Status: Chronic (8) ESRD (end stage renal disease) Status: Chronic (9) HTN (hypertension) Status: Chronic (10) History of CVA (cerebrovascular accident) Status: Chronic (11) Pacemaker Status: Chronic - Assessment and Plan (Free Text) Assessment: 63 year old male presents with fever since yesterday. While in dialysis today they noticed he had a fever and given IV antibiotics referred for ID eval for antibiotic management Has infection left leg and foot / cellulitis cultures panding Podiatry on board cont wound care, IV antibiotics await cultures podiatry Dr Benjamin on board consider imaging and vascular studies
--- NOTE | 2018-11-25 23:48 | HP ---
CHIEF COMPLAINT: Left big toe swelling and pain, noticed to have fever at dialysis center. HISTORY OF PRESENT ILLNESS: Mr. Castañeda is a 63-year-old male with past medical history of hypertension, diabetes mellitus, coronary artery disease, status post pacemaker placement, history of CVA, end-stage renal disease on hemodialysis Thursday, Thursday, Thursday. Last dialysis was yesterday. 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 As per the patient, he started having fever for the past two days. While in dialysis, he had fever, and the patient was given shots of antibiotics as documented in the ED note. After going home, the patient claims that his noticed the temperatures were elevated, and the patient was given Tylenol and fever persisted, and the patient was brought into the emergency room. When I examined, he denied any headache, dizziness. Denied any chest pain, shortness of breath, or wheezing. Denied any nausea, vomiting, abdominal pain, diarrhea, or constipation. Denied any urinary complaints. Complaining of left foot pain and denies any other neurologic symptoms. PAST MEDICAL HISTORY: CAD, cardiac arrhythmias, atrial fibrillation, history of CVA x2, diabetes mellitus, hypertension, hyperlipidemia, ESRD, on hemodialysis. PAST SURGICAL HISTORY: Permanent pacemaker placement and left AV access and hernia repair. FAMILY HISTORY: Nothing contributory to the present illness. PERSONAL HISTORY: He is . Living with . Having one child. He is wheelchair bound. Does not walk. SOCIAL HISTORY: Denies smoking, alcohol, or drug abuse. ALLERGIES: NO KNOWN DRUG ALLERGIES. MEDICATIONS: Include Amitiza one capsule b.i.d., Keppra 500 mg p.o. b.i.d., insulin 6 units subcutaneously every evening, hydroxyzine one tab daily, Flexeril 10 mg daily, Plavix 75 mg daily, aspirin 81 mg daily, Norvasc 10 mg daily, multivitamin, Renvela 800 mg p.o. t.i.d., metoprolol 25 mg p.o. every 12 hours. REVIEW OF SYSTEMS: As described in history of present illness. All other systems reviewed and were found to be negative. PHYSICAL EXAMINATION: GENERAL: Middle-aged male, lying in bed, in no acute distress. VITAL SIGNS: Blood pressure 130/80, pulse 70, respirations 20, temperature 98.5 degrees Fahrenheit, O2 sats 96% on room air. HEENT: Pupils are equal, round, and reacting to light and accommodation. Extraocular muscles are intact. No icterus. Positive pallor. No oral thrush. No pharyngeal congestion. NECK: Supple. No JVD. LUNGS: Bilateral vesicular breath sounds. No wheezing. No rhonchi. CARDIOVASCULAR SYSTEM: S1 and S2 present, irregular. ABDOMEN: Soft, nontender. Bowel sounds present. No guarding. No rigidity. No rebound tenderness noted. CENTRAL NERVOUS SYSTEM: Alert, awake, oriented x3. Right-sided weakness noted. EXTREMITIES: Left big toe swelling present. Dry gangrene noted without any oozing. Localized minimal erythema noted. Poor palpable peripheral pulses. LABORATORY DATA: Labs done from the emergency room. WBC 6.3, hemoglobin 10.5, hematocrit 32, platelets 312. Sodium 137, potassium 4.6, chloride 88, bicarb 40, BUN 19, creatinine 3.2, glucose 379, calcium 9.2, AST 64, ALT 15, alkaline phosphatase 224, total protein 7.6, albumin 4.1. Influenza negative. Lactate 1. EKG consistent with sinus rhythm with first degree AV block at 77 beats per minute. Chest x-ray, small right pleural effusion, mild pulmonary venous congestion and interstitial edema. Foot x-ray, soft tissue swelling in great toe likely related to cellulitis. ASSESSMENT: Middle-aged male with history of hypertension, hyperlipidemia, diabetes mellitus, coronary artery disease, status post pacemaker placement, history of cerebrovascular accident with right-sided weakness, wheelchair bound, end-stage renal disease, on hemodialysis Thursday, Thursday, Thursday, and received hemodialysis yesterday. Came into the emergency department with complaints of left big toe cellulitic changes with dry gangrene and fever for the past two days, not responding to the Tylenol at home. In the emergency department, the patient was found to be having left toe cellulitis with dry gangrene changes, and the patient is being admitted for further management. 1. Left big toe cellulitis with dry gangrene. Rule out osteomyelitis. Rule out peripheral arterial disease. 2. Hypertension. 3. Hyperlipidemia. 4. Diabetes mellitus. 5. Coronary artery disease, status post pacemaker placement. 6. History of cerebrovascular accident with residual weakness and wheelchair bound. 7. End-stage renal disease, on hemodialysis Thursday, Thursday, Thursday. PLAN: The patient is being admitted to the regular floor, received Maxipime and vancomycin in the emergency room. We will check vancomycin level. Continue with Maxipime. We will obtain wound culture, wound care, and Podiatry and ID consults. Discussed with Renal. The patient is for possible HD in a.m. as per schedule. The patient is afebrile. We will monitor vitals closely. No elevation in WBC count. We will check lower extremity arterial Doppler to rule out any PAD. We will consider vascular surgery consult. Continue with his home medications. We will check hemoglobin A1c. We will add further recommendation as his clinical course progresses. Aydee Winston MD
[2018-11-26] MEDS: (Novolin R) Insulin Human Regular 100 units/ml vial SC SCH ×4 (07:52→21:58)
[2018-11-26] MEDS ORDERED: EPOETIN ALFA 4,000 UNIT/ML ML Dialysis IV SCH (09:00)
--- NOTE | 2018-11-26 09:20 | CP.PCM.PN ---
Subjective - Date & Time of Evaluation Date of Evaluation: 11/26/18 Time of Evaluation: 09:20 - Subjective Subjective: Progress note dictated #[id number] Objective - Vital Signs/Intake and Output Vital Signs (last 24 hours): Temp Pulse Resp BP Pulse Ox 98.5 F 66 20 156/66 H 96 11/26/18 08:00 11/26/18 08:00 11/26/18 08:00 11/26/18 08:00 11/26/18 08:00 Intake and Output: 11/26/18 11/26/18 06:59 18:59 Intake Total 900 Balance 900 - Medications Medications: Current Medications Acetaminophen (Tylenol 325mg Tab) 650 mg PO Q6 PRN PRN Reason: Pain, moderate (4-7) Last Admin: 11/25/18 21:51 Dose: 650 mg Amlodipine Besylate (Norvasc) 10 mg PO DAILY [facility] Last Admin: 11/25/18 11:09 Dose: 10 mg Aspirin (Ecotrin) 81 mg PO DAILY [facility] Last Admin: 11/25/18 11:09 Dose: 81 mg Clopidogrel Bisulfate (Plavix) 75 mg PO DAILY [facility] Last Admin: 11/25/18 11:09 Dose: 75 mg Cyclobenzaprine HCl (Flexeril) 10 mg PO DAILY [facility] Last Admin: 11/25/18 11:09 Dose: 10 mg Enoxaparin Sodium (Lovenox) 30 mg SC DAILY [facility] Last Admin: 11/25/18 11:10 Dose: 30 mg Epoetin Shahram (Procrit) 10,000 unit IV [facility] Home Med (Lubiprostone [Amitiza]) 1 cap PO BID [facility] Hydroxyzine HCl (Atarax) 25 mg PO DAILY [facility] Last Admin: 11/25/18 11:25 Dose: 25 mg Cefepime HCl (Maxipime Iv 1 Gm Premix) 1 gm in 50 mls @ 100 mls/hr IVPB Q24H [facility]; Protocol Last Admin: 11/25/18 11:26 Dose: 100 mls/hr Vancomycin HCl 1 gm/ Sodium (Chloride) 250 mls @ 166.7 mls/hr [facility]PB [facility]; Protocol Insulin Human Regular (Novolin R) 0 unit SC [facility]; Protocol Last Admin: 11/26/18 07:52 Dose: Not Given Levetiracetam (Keppra) 500 mg PO BID [facility] Last Admin: 11/25/18 18:46 Dose: 500 mg Metoprolol Succinate (Toprol Xl) 25 mg PO Q12 [facility] Last Admin: 11/25/18 21:54 Dose: 25 mg Sevelamer Carbonate (Renvela) 800 mg PO TID [facility] Last Admin: 11/25/18 18:46 Dose: 800 mg Vitamin B Complex/Vit C/Folic Acid (Nephro-Yany) 1 tab PO DAILY [facility] Last Admin: 11/25/18 11:09 Dose: 1 tab - Labs Labs: 11/24/18 23:59 11/24/18 23:59
[2018-11-26] MEDS: Multivitamin Vitamin B Complex (Nephro-Vite) Tab PO SCH (11:05)
[2018-11-26] MEDS: Enoxaparin 30 mg Syringe SC SCH (11:06)
[2018-11-26] MEDS: Cefepime IV 1 gm in Dextrose 1 GM/50 ML BAG IVPB SCH (11:07)
[2018-11-26] MEDS: Metoprolol Succinate 25 mg XL Tab PO SCH ×2 (11:08→21:18)
--- NOTE | 2018-11-26 12:52 | VASCLAB ---
Date of service: 11/25/2018 STUDY DESCRIPTION: Lower Extremity Arterial Exam (PVR). HISTORY: pain PRIORS: None. TECHNIQUE: Pulse volume recording waveforms and segmental pressures of bilateral lower extremities at multiple levels were obtained. Ankle Brachial Indices (ABIs) were calculated. Report prepared by Vernon Mcdowell, DEAN, RVT RIGHT LOWER EXTREMITY: * Brachial artery: Pressure - 125 mmHg. * High thigh: Pressure - mmHg: Ratio - : PVR waveform - Pulsatile * Low thigh: Pressure - mmHg: Ratio - PVR waveform: Pulsatile * Calf: Pressure - 220 mmHg: Ratio - NC PVR waveform: Pulsatile * Posterior tibial Artery: Pressure - 220 mmHg: Ratio - NC PVR waveform: Pulsatile * Dorsalis pedis Artery: Pressure - 220 mmHg: Ratio - NC PVR waveform: Pulsatile * Great toe: Pressure - mmHg: Ratio - PVR waveform: Ankle brachial index (DELANEY): NC LEFT LOWER EXTREMITY: * Brachial artery: Pressure - mmHg. * High thigh: Pressure - mmHg: Ratio - : PVR waveform - Pulsatile * Low thigh: Pressure - mmHg: Ratio - PVR waveform: Pulsatile * Calf: Pressure - 220 mmHg: Ratio - NC PVR waveform: Pulsatile * Posterior tibial Artery: Pressure - 220 mmHg: Ratio - NC PVR waveform: Pulsatile * Dorsalis pedis Artery: Pressure - 220 mmHg: Ratio - NC PVR waveform: Pulsatile * Great toe: Pressure - mmHg: Ratio - PVR waveform: Ankle brachial index (DELANEY): NC OTHER FINDINGS: Right: Left: IMPRESSION: Right: The ankle pressure index of the right lower extremity is non-diagnostic due to possible arterial wall calcifications. Left: The ankle pressure index of the left lower extremity is non-diagnostic due to possible arterial wall calcifications.
--- NOTE | 2018-11-26 13:35 | CP.PCM.PN ---
Subjective - Date & Time of Evaluation Date of Evaluation: 11/26/18 Time of Evaluation: 13:33 - Subjective Subjective: afebrile still XRs- no osteo for dialysis today appears same Objective - Vital Signs/Intake and Output Vital Signs (last 24 hours): Temp Pulse Resp BP Pulse Ox 98.5 F 66 20 156/66 H 96 11/26/18 08:00 11/26/18 08:00 11/26/18 08:00 11/26/18 08:00 11/26/18 08:00 Intake and Output: 11/26/18 11/26/18 06:59 18:59 Intake Total 900 Balance 900 - Medications Medications: Current Medications Acetaminophen (Tylenol 325mg Tab) 650 mg PO Q6 PRN PRN Reason: Pain, moderate (4-7) Last Admin: 11/25/18 21:51 Dose: 650 mg Amlodipine Besylate (Norvasc) 10 mg PO DAILY [facility] Last Admin: 11/26/18 11:08 Dose: Not Given Aspirin (Ecotrin) 81 mg PO DAILY [facility] Last Admin: 11/26/18 11:06 Dose: 81 mg Clopidogrel Bisulfate (Plavix) 75 mg PO DAILY [facility] Last Admin: 11/26/18 11:06 Dose: 75 mg Cyclobenzaprine HCl (Flexeril) 10 mg PO DAILY [facility] Last Admin: 11/26/18 11:06 Dose: 10 mg Enoxaparin Sodium (Lovenox) 30 mg SC DAILY [facility] Last Admin: 11/26/18 11:06 Dose: 30 mg Epoetin Shahram (Procrit) 10,000 unit IV [facility] [place] Home Med (Lubiprostone [Amitiza]) 1 cap PO BID [facility] Hydroxyzine HCl (Atarax) 25 mg PO DAILY [facility] Last Admin: 11/26/18 11:06 Dose: 25 mg Cefepime HCl (Maxipime Iv 1 Gm Premix) 1 gm in 50 mls @ 100 mls/hr IVPB Q24H [facility]; Protocol Last Admin: 11/26/18 11:07 Dose: 100 mls/hr Vancomycin HCl 1 gm/ Sodium (Chloride) 250 mls @ 166.7 mls/hr IVPB MWF [facility]; Protocol Last Admin: 11/26/18 11:09 Dose: 166.7 mls/hr Insulin Human Regular (Novolin R) 0 unit SC [facility]; Protocol Last Admin: 11/26/18 12:22 Dose: Not Given Levetiracetam (Keppra) 500 mg PO BID [facility] Last Admin: 11/26/18 11:06 Dose: 500 mg Metoprolol Succinate (Toprol Xl) 25 mg PO Q12 [facility] Last Admin: 11/26/18 11:08 Dose: Not Given Sevelamer Carbonate (Renvela) 800 mg PO TID [facility] Last Admin: 11/26/18 11:05 Dose: 800 mg Vitamin B Complex/Vit C/Folic Acid (Nephro-Yany) 1 tab PO DAILY [facility] Last Admin: 11/26/18 11:05 Dose: 1 tab - Labs Labs: 11/24/18 23:59 11/24/18 23:59 - Constitutional Appears: No Acute Distress, Chronically Ill - Head Exam Head Exam: ATRAUMATIC, NORMAL INSPECTION - Eye Exam Eye Exam: EOMI, Normal appearance - Neck Exam Neck Exam: Normal Inspection. absent: Tenderness - Respiratory Exam Respiratory Exam: Clear to Ausculation Bilateral, NORMAL BREATHING PATTERN - Cardiovascular Exam Cardiovascular Exam: REGULAR RHYTHM, +S1 - GI/Abdominal Exam GI & Abdominal Exam: Soft. absent: Tenderness - Extremities Exam Extremities Exam: Normal Inspection. absent: Tenderness - Neurological Exam Neurological Exam: Awake, CN II-XII Intact - Skin Skin Exam: Dry, Warm Assessment and Plan (1) Dry gangrene Status: Acute (2) ESRD (end stage renal disease) on dialysis Status: Acute (3) HTN (hypertension) Status: Acute (4) Type 2 diabetes mellitus with diabetic nephropathy Status: Acute (5) History of CVA (cerebrovascular accident) Status: Chronic - Assessment and Plan (Free Text) Plan: dialysis now, MWF IV ABs as per ID
[2018-11-26] MEDS: Epoetin Alfa 10,000 unit/ml Dialysis IV SCH (17:25)
--- NOTE | 2018-11-26 22:57 | PN ---
DATE: 11/26/2018 SUBJECTIVE: The patient is seen and examined at bedside. The patient offers no new complaints. PHYSICAL EXAMINATION: GENERAL: Middle-aged male, lying in bed, in no acute distress. VITAL SIGNS: Blood pressure 164/54, pulse 67, respirations 20, temperature 97.6 degrees Fahrenheit, O2 sat is 100% on room air. HEENT: Pupils equal, round, reacting to light and accommodation. Extraocular muscles intact. No icterus. No pallor. No oral thrush. No pharyngeal congestion. NECK: Supple. No JVD. LUNGS: Bilateral vesicular breath sounds. No wheezing. No rhonchi. CARDIOVASCULAR SYSTEM: S1 and S2 present, regular. ABDOMEN: Soft and nontender. Bowel sounds present. No guarding. No rigidity. No rebound tenderness noted. CENTRAL NERVOUS SYSTEM: Alert, awake, oriented x3. EXTREMITIES: Left foot with dry gangrene and dressing in place. MEDICATIONS: Include Tylenol as needed, Norvasc 10 mg daily, aspirin 81 mg daily, Maxipime 1 g IV daily, Plavix 75 mg daily, Flexeril 10 mg daily, Lovenox 30 mg daily, Procrit 10,000 units on Thursday, Thursday and Thursday, hydroxyzine 25 mg daily, Keppra 500 mg p.o. b.i.d., Toprol-XL 25 mg p.o. every 12 hours, Renvela 800 mg p.o. t.i.d., vancomycin 1 g IV during the dialysis. LABORATORY DATA: Labs from today: Glucose 218, 203, 129, 131, 159. C-reactive protein is 231.6. ESR is 122. Lower extremity Doppler, pressure index of the right lower extremity is nondiagnostic due to possible arterial wall calcifications and pressure index of the left lower extremity is nondiagnostic due to possible arterial wall calcifications. ASSESSMENT AND PLAN: Middle-aged male with history of coronary artery disease, cardiac arrhythmias, history of cerebrovascular accident x2, diabetes mellitus, hypertension, hyperlipidemia, end-stage renal disease, on hemodialysis, wheelchair bound. Admitted for left big toe cellulitis with dry gangrene, rule out osteomyelitis, rule out peripheral arterial disease. Podiatry, Renal, and Infectious Disease consults appreciated. Cardiology consult requested for possible atherectomy for hemodialysis today. We will continue with current antibiotics with Maxipime and vancomycin. Continue with other current medications. Follow up with Podiatry and Interventional Cardiology regarding further treatment plan. Aydee Winston MD
[2018-11-27] MEDS: (Novolin R) Insulin Human Regular 100 units/ml vial SC SCH ×4 (08:29→22:06)
--- NOTE | 2018-11-27 10:00 | CP.PCM.PN ---
Subjective - Date & Time of Evaluation Date of Evaluation: 11/27/18 Time of Evaluation: 10:00 - Subjective Subjective: Progress note dictated #[id number] Objective - Vital Signs/Intake and Output Vital Signs (last 24 hours): Temp Pulse Resp BP Pulse Ox 98.1 F 61 20 144/51 L 98 11/27/18 08:26 11/27/18 08:26 11/27/18 08:26 11/27/18 08:26 11/27/18 08:26 Intake and Output: 11/27/18 11/27/18 06:59 18:59 Intake Total 200 Balance 200 - Medications Medications: Current Medications Acetaminophen (Tylenol 325mg Tab) 650 mg PO Q6 PRN PRN Reason: Pain, moderate (4-7) Last Admin: 11/26/18 21:18 Dose: 650 mg Amlodipine Besylate (Norvasc) 10 mg PO DAILY [facility] Last Admin: 11/26/18 11:08 Dose: Not Given Aspirin (Ecotrin) 81 mg PO DAILY [facility] Last Admin: 11/26/18 11:06 Dose: 81 mg Clopidogrel Bisulfate (Plavix) 75 mg PO DAILY [facility] Last Admin: 11/26/18 11:06 Dose: 75 mg Cyclobenzaprine HCl (Flexeril) 10 mg PO DAILY [facility] Last Admin: 11/26/18 11:06 Dose: 10 mg Enoxaparin Sodium (Lovenox) 30 mg SC DAILY [facility] Last Admin: 11/26/18 11:06 Dose: 30 mg Epoetin Shahram (Procrit) 10,000 unit IV [facility] [place] Last Admin: 11/26/18 17:25 Dose: 10,000 unit Hydroxyzine HCl (Atarax) 25 mg PO DAILY [facility] Last Admin: 11/26/18 11:06 Dose: 25 mg Cefepime HCl (Maxipime Iv 1 Gm Premix) 1 gm in 50 mls @ 100 mls/hr IVPB Q24H [facility]; Protocol Last Admin: 11/26/18 11:07 Dose: 100 mls/hr Vancomycin HCl 1 gm/ Sodium (Chloride) 250 mls @ 166.7 mls/hr IVPB F [facility]; Protocol Last Admin: 11/26/18 11:09 Dose: 166.7 mls/hr Insulin Human Regular (Novolin R) 0 unit SC [facility]; Protocol Last Admin: 11/27/18 08:29 Dose: 2 units Levetiracetam (Keppra) 500 mg PO BID [facility] Last Admin: 11/26/18 18:50 Dose: 500 mg Metoprolol Succinate (Toprol Xl) 25 mg PO Q12 [facility] Last Admin: 11/26/18 21:18 Dose: 25 mg Sevelamer Carbonate (Renvela) 800 mg PO TID [facility] Last Admin: 11/26/18 18:50 Dose: 800 mg Vitamin B Complex/Vit C/Folic Acid (Nephro-Yany) 1 tab PO DAILY [facility] Last Admin: 11/26/18 11:05 Dose: 1 tab - Labs Labs: 11/24/18 23:59 11/24/18 23:59
[2018-11-27] MEDS: Multivitamin Vitamin B Complex (Nephro-Vite) Tab PO SCH (10:08)
[2018-11-27] MEDS: Cefepime IV 1 gm in Dextrose 1 GM/50 ML BAG IVPB SCH (10:09)
[2018-11-27] MEDS: Metoprolol Succinate 25 mg XL Tab PO SCH ×2 (10:09→22:07)
[2018-11-27] MEDS: Enoxaparin 30 mg Syringe SC SCH (10:09)
--- NOTE | 2018-11-27 10:20 | CP.PCM.PN ---
Subjective - Date & Time of Evaluation Date of Evaluation: 11/27/18 Time of Evaluation: 10:17 - Subjective Subjective: NOTIFIED BY DIALYSIS UNIT - OUTPATIENT BLOOD CULTURE + GM NEGATIVE RODS NOTOFIED FLOOR NURSING STAFF THIS AM AT BEDSIDE Feels ok No new events Offers no complaints Tolerating dialysis No fever or chills States appetite good 10 point ros - denies all Objective - Vital Signs/Intake and Output Vital Signs (last 24 hours): Temp Pulse Resp BP Pulse Ox 98.1 F 61 20 144/51 L 98 11/27/18 08:26 11/27/18 08:26 11/27/18 08:26 11/27/18 08:26 11/27/18 08:26 Intake and Output: 11/27/18 11/27/18 06:59 18:59 Intake Total 200 Balance 200 - Medications Medications: Current Medications Acetaminophen (Tylenol 325mg Tab) 650 mg PO Q6 PRN PRN Reason: Pain, moderate (4-7) Last Admin: 11/26/18 21:18 Dose: 650 mg Amlodipine Besylate (Norvasc) 10 mg PO DAILY [facility] Last Admin: 11/27/18 10:08 Dose: 10 mg Aspirin (Ecotrin) 81 mg PO DAILY [facility] Last Admin: 11/27/18 10:09 Dose: 81 mg Clopidogrel Bisulfate (Plavix) 75 mg PO DAILY [facility] Last Admin: 11/27/18 10:08 Dose: 75 mg Cyclobenzaprine HCl (Flexeril) 10 mg PO DAILY [facility] Last Admin: 11/27/18 10:08 Dose: 10 mg Enoxaparin Sodium (Lovenox) 30 mg SC DAILY [facility] Last Admin: 11/27/18 10:09 Dose: 30 mg Epoetin Shahram (Procrit) 10,000 [place] [facility] [place] Last Admin: 11/26/18 17:25 Dose: 10,000 unit Hydroxyzine HCl (Atarax) 25 mg PO DAILY [facility] Last Admin: 11/27/18 10:09 Dose: 25 mg Cefepime HCl (Maxipime Iv 1 Gm Premix) 1 gm in 50 mls @ 100 mls/hr IVPB Q24H [facility]; Protocol Last Admin: 11/27/18 10:09 Dose: 100 mls/hr Vancomycin HCl 1 gm/ Sodium (Chloride) 250 mls @ 166.7 mls/hr IVPB MWF [facility]; Protocol Last Admin: 11/26/18 11:09 Dose: 166.7 mls/hr Insulin Human Regular (Novolin R) 0 unit SC ACHS [facility]; Protocol Last Admin: 11/27/18 08:29 Dose: 2 units Levetiracetam (Keppra) 500 mg PO BID [facility] Last Admin: 11/27/18 10:08 Dose: 500 mg Metoprolol Succinate (Toprol Xl) 25 mg PO Q12 [facility] Last Admin: 11/27/18 10:09 Dose: 25 mg Sevelamer Carbonate (Renvela) 800 mg PO TID [facility] Last Admin: 11/27/18 10:08 Dose: 800 mg Vitamin B Complex/Vit C/Folic Acid (Nephro-Yany) 1 tab PO DAILY [facility] Last Admin: 11/27/18 10:08 Dose: 1 tab - Labs Labs: 11/24/18 23:59 11/24/18 23:59 - Constitutional Appears: Well, Non-toxic - Head Exam Head Exam: ATRAUMATIC, NORMAL INSPECTION - Eye Exam Eye Exam: EOMI, Normal appearance - ENT Exam ENT Exam: Mucous Membranes Moist, Normal Oropharynx - Cardiovascular Exam Cardiovascular Exam: +S1, +S2. absent: Rubs - GI/Abdominal Exam GI & Abdominal Exam: Soft, Normal Bowel Sounds - Extremities Exam Extremities Exam: Pedal Edema. absent: Joint Swelling Additional comments: clean dressing on lower ext - Neurological Exam Neurological Exam: Alert, Awake - Psychiatric Exam Psychiatric exam: Depressed, Flat Affect Assessment and Plan (1) Dry gangrene Status: Acute (2) Bacteremia Status: Acute (3) DM2 (diabetes mellitus, type 2) Status: Acute (4) ESRD (end stage renal disease) on dialysis Status: Acute (5) HTN (hypertension) Status: Acute - Assessment and Plan (Free Text) Assessment: Maintain dialysis schedule Abx as ordered Repeat blood culture in hospital negative so far Wound care Monitor bp Labs with dialysis
--- NOTE | 2018-11-27 14:19 | PN ---
DATE: 11/27/2018 SUBJECTIVE: The patient is seen and examined at bedside. The patient offers no new complaints. PHYSICAL EXAMINATION: GENERAL: A middle-aged male, lying in bed, in no acute distress. VITAL SIGNS: Blood pressure 144/51, pulse 61, respirations 20, temperature 98.1 degrees Fahrenheit, and O2 sat 98% on room air. HEENT: Pupils equal, round, and reacting to light and accommodation. Extraocular muscles are intact. No icterus, no pallor, no oral thrush, no pharyngeal congestion. NECK: Supple, no JVD. LUNGS: Bilateral vesicular breath sounds. No wheezing, no rhonchi. CARDIOVASCULAR SYSTEM: S1 and S2 present, regular. ABDOMEN: Soft and nontender. Bowel sounds present. No guarding, no rigidity, and no rebound tenderness noted. CENTRAL NERVOUS SYSTEM: Alert, awake, and oriented x 3. EXTREMITIES: Left foot big toe with dressing in place with positive peripheral pulses. MEDICATIONS: Include Tylenol as needed, Norvasc 10 mg daily, aspirin 81 mg daily, Maxipime 1 g IV daily, Plavix 75 mg daily, Flexeril 10 mg daily, Lovenox 30 mg daily, Procrit 10,000 units Thursday, Thursday, Thursday, hydroxyzine 25 mg daily, Keppra 500 mg p.o. b.i.d., metoprolol 25 mg p.o. every 12 hours, Renvela 800 mg p.o. t.i.d., and vancomycin 1 g IV during the dialysis. LABORATORY DATA: Accu-Chek 131, 159, 279, 289, and 224. Wound cultures show gram-negative paul, light growth, identification pending. Bone scan results pending. As documented in Renal note, the patient's culture positive for gram-negative rods, identification pending. ASSESSMENT AND PLAN: A middle-aged male with history of end-stage renal disease, on hemodialysis, hypertension, hyperlipidemia, diabetes mellitus, coronary artery disease, history of cerebrovascular accident with outpatient blood cultures positive for gram-negative rods, identification pending, here wound culture growing gram-negative rods. The blood culture is negative so far, on Maxipime and vancomycin. We will continue with other current medications, waiting for bone scan report and Interventional Cardiology evaluation. Discussed with Podiatry resident. Follow up the identification of the gram-negative rods. Continue with other current therapy. Aydee Winston MD
--- NOTE | 2018-11-27 14:50 | CP.PCM.PN ---
Subjective - Date & Time of Evaluation Date of Evaluation: 11/27/18 Time of Evaluation: 14:50 Objective - Vital Signs/Intake and Output Vital Signs (last 24 hours): Temp Pulse Resp BP Pulse Ox 98.1 F 61 20 144/51 L 98 11/27/18 08:26 11/27/18 08:26 11/27/18 08:26 11/27/18 08:26 11/27/18 08:26 Intake and Output: 11/27/18 11/27/18 06:59 18:59 Intake Total 200 290 Balance 200 290 - Medications Medications: Current Medications Acetaminophen (Tylenol 325mg Tab) 650 mg PO Q6 PRN PRN Reason: Pain, moderate (4-7) Last Admin: 11/26/18 21:18 Dose: 650 mg Amlodipine Besylate (Norvasc) 10 mg PO DAILY [facility] Last Admin: 11/27/18 10:08 Dose: 10 mg Aspirin (Ecotrin) 81 mg PO DAILY [facility] Last Admin: 11/27/18 10:09 Dose: 81 mg Clopidogrel Bisulfate (Plavix) 75 mg PO DAILY [facility] Last Admin: 11/27/18 10:08 Dose: 75 mg Cyclobenzaprine HCl (Flexeril) 10 mg PO DAILY [facility] Last Admin: 11/27/18 10:08 Dose: 10 mg Enoxaparin Sodium (Lovenox) 30 mg SC DAILY [facility] Last Admin: 11/27/18 10:09 Dose: 30 mg Epoetin Shahram (Procrit) 10,000 unit IV [facility] [place] Last Admin: 11/26/18 17:25 Dose: 10,000 unit Hydroxyzine HCl (Atarax) 25 mg PO DAILY [facility] Last Admin: 11/27/18 10:09 Dose: 25 mg Cefepime HCl (Maxipime Iv 1 Gm Premix) 1 gm in 50 mls @ 100 mls/hr IVPB Q24H [facility]; Protocol Last Admin: 11/27/18 10:09 Dose: 100 mls/hr Vancomycin HCl 1 gm/ Sodium (Chloride) 250 mls @ 166.7 mls/hr IVPB MWF [facility]; Protocol Last Admin: 11/26/18 11:09 Dose: 166.7 mls/hr Insulin Human Regular (Novolin R) 0 unit SC [facility]; Protocol Last Admin: 11/27/18 11:55 Dose: 2 units Levetiracetam (Keppra) 500 mg PO BID [facility] Last Admin: 11/27/18 10:08 Dose: 500 mg Metoprolol Succinate (Toprol Xl) 25 mg PO Q12 [facility] Last Admin: 11/27/18 10:09 Dose: 25 mg Sevelamer Carbonate (Renvela) 800 mg PO TID [facility] Last Admin: 11/27/18 14:06 Dose: 800 mg Vitamin B Complex/Vit C/Folic Acid (Nephro-Yany) 1 tab PO DAILY [facility] Last Admin: 11/27/18 10:08 Dose: 1 tab - Labs Labs: 11/24/18 23:59 11/24/18 23:59
--- NOTE | 2018-11-27 15:16 | CP.PCM.PN ---
Subjective - Date & Time of Evaluation Date of Evaluation: 11/27/18 Time of Evaluation: 15:14 - Subjective Subjective: Podiatry progress note: Dr. Scanlon 63 year old male patient seen and evaluated this AM at bedside for L hallux ulceration. Patient resting comfortably and in NAD. Patient reports pain to L forefoot at this time. Denies nausea/vomiting/fever/shortness of breath. Objective - Vital Signs/Intake and Output Vital Signs (last 24 hours): Temp Pulse Resp BP Pulse Ox 98.1 F 61 20 144/51 L 98 11/27/18 08:26 11/27/18 08:26 11/27/18 08:26 11/27/18 08:26 11/27/18 08:26 Intake and Output: 11/27/18 11/27/18 06:59 18:59 Intake Total 200 290 Balance 200 290 - Medications Medications: Current Medications Acetaminophen (Tylenol 325mg Tab) 650 mg PO Q6 PRN PRN Reason: Pain, moderate (4-7) Last Admin: 11/26/18 21:18 Dose: 650 mg Amlodipine Besylate (Norvasc) [address] [facility] Last Admin: 11/27/18 10:08 Dose: 10 mg Aspirin (Ecotrin) [address] [facility] Last Admin: 11/27/18 10:09 Dose: 81 mg Clopidogrel Bisulfate (Plavix) [address] [facility] Last Admin: 11/27/18 10:08 Dose: 75 mg Cyclobenzaprine HCl (Flexeril) [address] [facility] Last Admin: 11/27/18 10:08 Dose: 10 mg Enoxaparin Sodium (Lovenox) [address] [facility] Last Admin: 11/27/18 10:09 Dose: 30 mg Epoetin Shahram (Procrit) 10,[address] [facility] Last Admin: 11/26/18 17:25 Dose: 10,000 unit Hydroxyzine HCl (Atarax) [address] [facility] Last Admin: 11/27/18 10:09 Dose: 25 mg Cefepime HCl (Maxipime Iv 1 Gm Premix) 1 gm in 50 mls @ 100 mls/hr IVPB Q24H [facility]; Protocol Last Admin: 11/27/18 10:09 Dose: 100 mls/hr Vancomycin HCl 1 gm/ Sodium (Chloride) 250 mls @ 166.7 mls/hr IVPB MWF [facility]; Protocol Last Admin: 11/26/18 11:09 Dose: 166.7 mls/hr Insulin Human Regular (Novolin R) [address] [facility]; Protocol Last Admin: 11/27/18 11:55 Dose: 2 units Levetiracetam (Keppra) [address] [facility] Last Admin: 11/27/18 10:08 Dose: 500 mg Metoprolol Succinate (Toprol Xl) [address] [facility] Last Admin: 11/27/18 10:09 Dose: 25 mg Sevelamer Carbonate (Renvela) [address] [facility] Last Admin: 11/27/18 14:06 Dose: 800 mg Vitamin B Complex/Vit C/Folic Acid (Nephro-Yany) [address] [facility] Last Admin: 11/27/18 10:08 Dose: 1 tab - Labs Labs: 11/24/18 23:59 11/24/18 23:59 - Constitutional Appears: Non-toxic, No Acute Distress - Head Exam Head Exam: ATRAUMATIC, NORMOCEPHALIC - Extremities Exam Additional comments: VASC: pulses non palpable bilaterally, CFT is slightly delayed to the digits 1- 10. temperature gradient to the left lower extremity is warm to warm, temperature to the left lower extremity is warm to cool NEURO: gross sensation intact, protective sensation diminished ORTHO: pain with palpation to the left hallux DERM: eschar noted to the dorsum aspect of the hallux, + malodor, no abscess or fluctuance appreciated, no cellulitic changes. Hyperpigmentation appreciated to entire L forefoot. - Neurological Exam Neurological Exam: Alert, Awake, Oriented x3 - Psychiatric Exam Psychiatric exam: Normal Affect, Normal Mood Assessment and Plan - Assessment and Plan (Free Text) Assessment: 63M with PMH of HTN, DM, ESRD, two CVA in 2012, multiple MN with pacemaker placement with infected left hallux eschar with underlying osteomyelitis Plan: Patient seen and examined Discussed plan with attending in detail ESR 111, CRP 231.6 Left foot X-ray Impression: No radiographic evidence for osteomyelitis. Soft tissue swelling in the great toe likely related to cellulitis. If there is a persistent clinical concern, correlation with MRI may be performed to evaluate for early osteomyelitis. Wound culture taken left hallux- gram - pual ID recommendations appreciated Cleansed hallux with betadine and dressed with betadine w2d Vascular studies reviewed- Dr. Ozuna consulted- recommendations appreciated Pending [facility] reccs, plan for L hallux amp
--- NOTE | 2018-11-27 15:56 | CP.PCM.PN ---
Subjective - Date & Time of Evaluation Date of Evaluation: 11/26/18 Time of Evaluation: 08:00 - Subjective Subjective: seen on rounds 'awake alert redness left leg less has necrotic debris on dorsum of left great toe remains aferebrile IV rx renewed await vascular eval Objective - Vital Signs/Intake and Output Vital Signs (last 24 hours): Temp Pulse Resp BP Pulse Ox 97.6 F 67 20 164/54 H 100 11/26/18 18:25 11/26/18 18:25 11/26/18 18:25 11/26/18 18:25 11/26/18 18:25 - Medications Medications: Current Medications Acetaminophen (Tylenol 325mg Tab) 650 mg PO Q6 PRN PRN Reason: Pain, moderate (4-7) Last Admin: 11/25/18 21:51 Dose: 650 mg Amlodipine Besylate (Norvasc) 10 mg PO DAILY [facility] Last Admin: 11/26/18 11:08 Dose: Not Given Aspirin (Ecotrin) 81 mg PO DAILY [facility] Last Admin: 11/26/18 11:06 Dose: 81 mg Clopidogrel Bisulfate (Plavix) 75 mg PO DAILY [facility] Last Admin: 11/26/18 11:06 Dose: 75 mg Cyclobenzaprine HCl (Flexeril) 10 mg PO DAILY [facility] Last Admin: 11/26/18 11:06 Dose: 10 mg Enoxaparin Sodium (Lovenox) 30 mg SC DAILY [facility] Last Admin: 11/26/18 11:06 Dose: 30 mg Epoetin Shahram (Procrit) 10,000 unit IV [facility] [place] Last Admin: 11/26/18 17:25 Dose: 10,000 unit Hydroxyzine HCl (Atarax) 25 mg PO DAILY [facility] Last Admin: 11/26/18 11:06 Dose: 25 mg Cefepime HCl (Maxipime Iv 1 Gm Premix) 1 gm in 50 mls @ 100 mls/hr IVPB Q24H [facility]; Protocol Last Admin: 11/26/18 11:07 Dose: 100 mls/hr Vancomycin HCl 1 gm/ Sodium (Chloride) 250 mls @ 166.7 mls/hr IVPB MWF [facility]; Protocol Last Admin: 11/26/18 11:09 Dose: 166.7 mls/hr Insulin Human Regular (Novolin R) 0 unit SC [facility]; Protocol Last Admin: 11/26/18 12:22 Dose: Not Given Levetiracetam (Keppra) 500 mg PO BID [facility] Last Admin: 11/26/18 11:06 Dose: 500 mg Metoprolol Succinate (Toprol Xl) 25 mg PO Q12 [facility] Last Admin: 11/26/18 11:08 Dose: Not Given Sevelamer Carbonate (Renvela) 800 mg PO TID [facility] Last Admin: 11/26/18 14:47 Dose: Not Given Vitamin B Complex/Vit C/Folic Acid (Nephro-Yany) 1 tab PO DAILY [facility] Last Admin: 11/26/18 11:05 Dose: 1 tab - Labs Labs: 11/24/18 23:59 11/24/18 23:59 - Constitutional Appears: Non-toxic - Head Exam Head Exam: ATRAUMATIC, NORMAL INSPECTION, NORMOCEPHALIC - Eye Exam Eye Exam: EOMI, Normal appearance, PERRL Pupil Exam: NORMAL ACCOMODATION, PERRL - ENT Exam ENT Exam: Mucous Membranes Moist, Normal Exam - Neck Exam Neck Exam: Full ROM, Normal Inspection. absent: Lymphadenopathy - Respiratory Exam Respiratory Exam: Clear to Ausculation Bilateral, NORMAL BREATHING PATTERN - Cardiovascular Exam Cardiovascular Exam: REGULAR RHYTHM, +S1, +S2. absent: Murmur - GI/Abdominal Exam GI & Abdominal Exam: Soft, Normal Bowel Sounds. absent: Tenderness - Rectal Exam Rectal Exam: Deferred - Exam Exam: NORMAL INSPECTION - Extremities Exam Extremities Exam: Full ROM, Normal Capillary Refill, Normal Inspection. absent: Joint Swelling, Pedal Edema - Back Exam Back Exam: NORMAL INSPECTION - Neurological Exam Neurological Exam: Alert, Awake, CN II-XII Intact, Normal Gait, Oriented x3 - Psychiatric Exam Psychiatric exam: Normal Affect, Normal Mood - Skin Skin Exam: Dry, Intact, Normal Color, Warm Assessment and Plan - Assessment and Plan (Free Text) Assessment: cellulitis left leg ulcer left great toe r/o impending gangrene r/ol OM consider vascular eval, MRI ' 'cont IV antibiotics
[2018-11-28] MEDS: (Novolin R) Insulin Human Regular 100 units/ml vial SC SCH ×4 (08:00→21:29)
[2018-11-28] MEDS: Metoprolol Succinate 25 mg XL Tab PO SCH ×2 (09:20→21:29)
[2018-11-28] MEDS: Multivitamin Vitamin B Complex (Nephro-Vite) Tab PO SCH (09:20)
[2018-11-28] MEDS: Cefepime IV 1 gm in Dextrose 1 GM/50 ML BAG IVPB SCH (09:21)
[2018-11-28] MEDS: Enoxaparin 30 mg Syringe SC SCH (09:21)
--- NOTE | 2018-11-28 13:39 | CP.PCM.PN ---
Subjective - Date & Time of Evaluation Date of Evaluation: 11/28/18 Time of Evaluation: 13:39 - Subjective Subjective: Progress note dictated #[id number] Objective - Vital Signs/Intake and Output Vital Signs (last 24 hours): Temp Pulse Resp BP Pulse Ox 98.7 F 60 20 148/63 96 11/28/18 08:00 11/28/18 08:00 11/28/18 08:00 11/28/18 08:00 11/28/18 08:00 Intake and Output: 11/28/18 11/28/18 06:59 18:59 Intake Total 600 120 Balance 600 120 - Medications Medications: Current Medications Acetaminophen (Tylenol 325mg Tab) 650 mg PO Q6 PRN PRN Reason: Pain, moderate (4-7) Last Admin: 11/27/18 20:08 Dose: 650 mg Amlodipine Besylate (Norvasc) 10 mg PO DAILY [facility] Last Admin: 11/28/18 09:20 Dose: 10 mg Aspirin (Ecotrin) 81 mg PO DAILY [facility] Last Admin: 11/28/18 09:20 Dose: 81 mg Clopidogrel Bisulfate (Plavix) 75 mg PO DAILY [facility] Last Admin: 11/28/18 09:20 Dose: 75 mg Cyclobenzaprine HCl (Flexeril) 10 mg PO DAILY [facility] Last Admin: 11/28/18 09:20 Dose: 10 mg Enoxaparin Sodium (Lovenox) 30 mg SC DAILY [facility] Last Admin: 11/28/18 09:21 Dose: 30 mg Epoetin Shahram (Procrit) 10,000 unit IV [facility] [place] Last Admin: 11/26/18 17:25 Dose: 10,000 unit Hydroxyzine HCl (Atarax) 25 mg PO DAILY [facility] Last Admin: 11/28/18 09:27 Dose: 25 mg Cefepime HCl (Maxipime Iv 1 Gm Premix) 1 gm in 50 mls @ 100 mls/hr IVPB Q24H [facility]; Protocol Last Admin: 11/28/18 09:21 Dose: 100 mls/hr Vancomycin HCl 1 gm/ Sodium (Chloride) 250 mls @ 166.7 mls/hr IVPB MWF [facility]; Protocol Last Admin: 11/26/18 11:09 Dose: 166.7 mls/hr Insulin Human Regular (Novolin R) 0 unit SC [facility]; Protocol Last Admin: 11/28/18 11:56 Dose: 2 units Levetiracetam (Keppra) 500 mg PO BID [facility] Last Admin: 11/28/18 09:20 Dose: 500 mg Metoprolol Succinate (Toprol Xl) 25 mg PO Q12 [facility] Last Admin: 11/28/18 09:20 Dose: 25 mg Sevelamer Carbonate (Renvela) 800 mg PO TID [facility] Last Admin: 11/28/18 09:20 Dose: 800 mg Vitamin B Complex/Vit C/Folic Acid (Nephro-Yany) 1 tab PO DAILY [facility] Last Admin: 11/28/18 09:20 Dose: 1 tab - Labs Labs: 11/24/18 23:59 11/24/18 23:59
--- NOTE | 2018-11-28 15:34 | CP.PCM.PN ---
Subjective - Date & Time of Evaluation Date of Evaluation: 11/28/18 Time of Evaluation: 08:00 - Subjective Subjective: seen on rounds ROS completed chart reviewed patient examined orders written antibiotics renewed Objective - Vital Signs/Intake and Output Vital Signs (last 24 hours): Temp Pulse Resp BP Pulse Ox 98.7 F 60 20 148/63 96 11/28/18 08:00 11/28/18 08:00 11/28/18 08:00 11/28/18 08:00 11/28/18 08:00 Intake and Output: 11/28/18 11/28/18 06:59 18:59 Intake Total 600 120 Balance 600 120 - Medications Medications: Current Medications Acetaminophen (Tylenol 325mg Tab) 650 mg PO Q6 PRN PRN Reason: Pain, moderate (4-7) Last Admin: 11/27/18 20:08 Dose: 650 mg Amlodipine Besylate (Norvasc) 10 mg PO DAILY [facility] Last Admin: 11/28/18 09:20 Dose: 10 mg Aspirin (Ecotrin) 81 mg PO DAILY [facility] Last Admin: 11/28/18 09:20 Dose: 81 mg Clopidogrel Bisulfate (Plavix) 75 mg PO DAILY [facility] Last Admin: 11/28/18 09:20 Dose: 75 mg Cyclobenzaprine HCl (Flexeril) 10 mg PO DAILY [facility] Last Admin: 11/28/18 09:20 Dose: 10 mg Enoxaparin Sodium (Lovenox) 30 mg SC DAILY [facility] Last Admin: 11/28/18 09:21 Dose: 30 mg Epoetin Shahram (Procrit) 10,000 unit IV [facility] [place] Last Admin: 11/26/18 17:25 Dose: 10,000 unit Hydroxyzine HCl (Atarax) 25 mg PO DAILY [facility] Last Admin: 11/28/18 09:27 Dose: 25 mg Cefepime HCl (Maxipime Iv 1 Gm Premix) 1 gm in 50 mls @ 100 mls/hr IVPB Q24H [facility]; Protocol Last Admin: 11/28/18 09:21 Dose: 100 mls/hr Vancomycin HCl 1 gm/ Sodium (Chloride) 250 mls @ 166.7 mls/hr IVPB [facility] [place]; Protocol Last Admin: 11/26/18 11:09 Dose: 166.7 mls/hr Insulin Human Regular (Novolin R) 0 unit SC [facility]; Protocol Last Admin: 11/28/18 11:56 Dose: 2 units Levetiracetam (Keppra) 500 mg PO BID [facility] Last Admin: 11/28/18 09:20 Dose: 500 mg Metoprolol Succinate (Toprol Xl) 25 mg PO Q12 [facility] Last Admin: 11/28/18 09:20 Dose: 25 mg Sevelamer Carbonate (Renvela) 800 mg PO TID [facility] Last Admin: 11/28/18 14:00 Dose: 800 mg Vitamin B Complex/Vit C/Folic Acid (Nephro-Yany) 1 tab PO DAILY [facility] Last Admin: 11/28/18 09:20 Dose: 1 tab - Labs Labs: 11/24/18 23:59 11/24/18 23:59 - Constitutional Appears: Non-toxic, No Acute Distress, Chronically Ill - Head Exam Head Exam: ATRAUMATIC, NORMAL INSPECTION, NORMOCEPHALIC - Eye Exam Eye Exam: EOMI, Normal appearance, PERRL Pupil Exam: NORMAL ACCOMODATION, PERRL - ENT Exam ENT Exam: Mucous Membranes Moist, Normal Exam - Neck Exam Neck Exam: Full ROM, Normal Inspection. absent: Lymphadenopathy - Respiratory Exam Respiratory Exam: Clear to Ausculation Bilateral, NORMAL BREATHING PATTERN - Cardiovascular Exam Cardiovascular Exam: REGULAR RHYTHM, +S1, +S2. absent: Murmur - GI/Abdominal Exam GI & Abdominal Exam: Soft, Normal Bowel Sounds. absent: Tenderness - Rectal Exam Rectal Exam: Deferred - Exam Exam: NORMAL INSPECTION - Extremities Exam Extremities Exam: Full ROM, Pedal Edema. absent: Joint Swelling, Normal Capillary Refill, Normal Inspection Additional comments: necrotic eschar left great toe - Back Exam Back Exam: NORMAL INSPECTION - Neurological Exam Neurological Exam: Alert, Awake, CN II-XII Intact, Normal Gait, Oriented x3 - Psychiatric Exam Psychiatric exam: Normal Affect, Normal Mood - Skin Skin Exam: Dry, Intact, Normal Color, Warm Assessment and Plan (1) Dry gangrene Status: Acute (2) CVA, old, aphasia Status: Acute (3) Chronic toe ulcer Status: Acute (4) DM2 (diabetes mellitus, type 2) Status: Acute (5) ESRD (end stage renal disease) on dialysis Status: Acute (6) HTN (hypertension) Status: Acute - Assessment and Plan (Free Text) Assessment: IV rx renewed await MRI and vascular eval
--- NOTE | 2018-11-28 20:31 | CARD ---
APPROVED REPORT Date of service: 11/25/2018 EKG Measurement Heart [id number] <Conclusion> Sinus rhythm with 1st degree AV block Left ventricular hypertrophy with QRS widening and repolarization abnormality Cannot rule out Septal infarct, age undetermined Abnormal ECG
--- NOTE | 2018-11-29 01:26 | PN ---
DATE: 11/28/2018 SUBJECTIVE: The patient was seen and examined at bedside. The patient offers no new complaints. PHYSICAL EXAMINATION: GENERAL: Middle-aged male, lying in bed, in no acute distress. VITAL SIGNS: Blood pressure 136/57, pulse 61, respirations 20, temperature 98.4 degrees Fahrenheit, O2 sat is 95% on 2 L. HEENT: Pupils equal, round, and reactive to light and accommodation. Extraocular muscles intact. No icterus. No pallor. No oral thrush. No pharyngeal congestion. NECK: Supple. No JVD. LUNGS: Bilateral vesicular breath sounds. No wheezing. No rhonchi. CARDIOVASCULAR SYSTEM: S1 and S2 present, regular. ABDOMEN: Soft, nontender. Bowel sounds present. No guarding. No rigidity. No rebound tenderness noted. CENTRAL NERVOUS SYSTEM: Alert, awake, and oriented x3. EXTREMITIES: Left foot with big toe dressing in place. MEDICATIONS: Include Tylenol as needed, Norvasc 10 mg daily, Ecotrin 81 mg daily, Maxipime 1 g daily, Plavix 75 mg daily, Flexeril 10 mg daily, Lovenox 30 mg daily, Procrit 10,000 units on Thursday, Thursday and Thursday, Atarax 25 mg daily, Keppra 500 mg p.o. b.i.d., Toprol-XL 25 mg p.o. every 12 hours, Renvela 800 mg p.o. t.i.d., vancomycin 1 g on Thursday, Thursday and Thursday. LABORATORY DATA: Accu-Cheks include 187, 131, 202, 199 and 186. Foot cultures showed Pseudomonas aeruginosa, sensitive to cefepime. ASSESSMENT AND PLAN: Middle-aged male with history of coronary artery disease, cerebrovascular accident, diabetes mellitus, hypothyroidism, hyperlipidemia, end-stage renal disease. Admitted for left toe cellulitis and dry gangrene. Wound culture positive for Pseudomonas aeruginosa, sensitive to cefepime. Continue cefepime and vancomycin as per Dr. Danielle. Follow up with Podiatry. Await for Vascular Surgery. Possible amputation of left hallux by Podiatry after vascular surgery evaluation is done. Aydee Winston MD
[2018-11-29] MEDS: (Novolin R) Insulin Human Regular 100 units/ml vial SC SCH ×4 (08:31→21:27)
[2018-11-29] MEDS: Multivitamin Vitamin B Complex (Nephro-Vite) Tab PO SCH (09:21)
[2018-11-29] MEDS: Enoxaparin 30 mg Syringe SC SCH (09:21)
[2018-11-29] MEDS: Metoprolol Succinate 25 mg XL Tab PO SCH ×2 (09:22→21:26)
--- NOTE | 2018-11-29 10:17 | CP.PCM.PN ---
Subjective - Date & Time of Evaluation Date of Evaluation: 11/29/18 Time of Evaluation: 10:17 - Subjective Subjective: Progress note dictated #[id number] Objective - Vital Signs/Intake and Output Vital Signs (last 24 hours): Temp Pulse Resp BP Pulse Ox 97.8 F 60 20 139/65 100 11/29/18 08:47 11/29/18 08:47 11/29/18 08:47 11/29/18 08:47 11/29/18 08:47 Intake and Output: 11/29/18 11/29/18 06:59 18:59 Intake Total 340 Balance 340 - Medications Medications: Current Medications Acetaminophen (Tylenol 325mg Tab) 650 mg PO Q6 PRN PRN Reason: Pain, moderate (4-7) Last Admin: 11/27/18 20:08 Dose: 650 mg Amlodipine Besylate (Norvasc) 10 mg PO DAILY [facility] Last Admin: 11/29/18 09:22 Dose: Not Given Aspirin (Ecotrin) 81 mg PO DAILY [facility] Last Admin: 11/29/18 09:22 Dose: 81 mg Clopidogrel Bisulfate (Plavix) 75 mg PO DAILY [facility] Last Admin: 11/29/18 09:21 Dose: 75 mg Cyclobenzaprine HCl (Flexeril) 10 mg PO DAILY [facility] Last Admin: 11/29/18 09:21 Dose: 10 mg Enoxaparin Sodium (Lovenox) 30 mg SC DAILY [facility] Last Admin: 11/29/18 09:21 Dose: 30 mg Epoetin Shahram (Procrit) 10,000 unit IV [facility] [place] Last Admin: 11/26/18 17:25 Dose: 10,000 unit Hydroxyzine HCl (Atarax) 25 mg PO DAILY [facility] Last Admin: 11/28/18 09:27 Dose: 25 mg Cefepime HCl (Maxipime Iv 1 Gm Premix) 1 gm in 50 mls @ 100 mls/hr IVPB Q24H [facility]; Protocol Last Admin: 11/28/18 09:21 Dose: 100 mls/hr Vancomycin HCl 1 gm/ Sodium (Chloride) 250 mls @ 166.7 mls/hr IVPB MWF [facility]; Protocol Last Admin: 11/26/18 11:09 Dose: 166.7 mls/hr Insulin Human Regular (Novolin R) 0 unit SC [facility]; Protocol Last Admin: 11/29/18 08:31 Dose: 1 units Levetiracetam (Keppra) 500 mg PO BID [facility] Last Admin: 11/29/18 09:21 Dose: 500 mg Metoprolol Succinate (Toprol Xl) 25 mg PO Q12 [facility] Last Admin: 11/29/18 09:22 Dose: Not Given Sevelamer Carbonate (Renvela) 800 mg PO TID [facility] Last Admin: 11/29/18 09:21 Dose: 800 mg Vitamin B Complex/Vit C/Folic Acid (Nephro-Yany) 1 tab PO DAILY [facility] Last Admin: 11/29/18 09:21 Dose: 1 tab - Labs Labs: 11/24/18 23:59 11/24/18 23:59
--- NOTE | 2018-11-29 11:23 | CP.PCM.PN ---
Subjective - Date & Time of Evaluation Date of Evaluation: 11/29/18 Time of Evaluation: 13:00 - Subjective Subjective: Podiatry Progress Note- Dr. Scanlon 63 year old male patient seen and evaluated for left hallux necrotic ulceration with likely underlying osteomyelitis. Patient is resting comfortably and in NAD. Patient reports pain to left hallux with pressure. Denies nausea/vomiting/fever/shortness of breath. Objective - Vital Signs/Intake and Output Vital Signs (last 24 hours): Temp Pulse Resp BP Pulse Ox 97.8 F 62 16 130/90 100 11/29/18 10:18 11/29/18 10:18 11/29/18 10:18 11/29/18 10:20 11/29/18 09:35 Intake and Output: 11/29/18 11/29/18 06:59 18:59 Intake Total 340 Balance 340 - Medications Medications: Current Medications Acetaminophen (Tylenol 325mg Tab) 650 mg PO Q6 PRN PRN Reason: Pain, moderate (4-7) Last Admin: 11/27/18 20:08 Dose: 650 mg Amlodipine Besylate (Norvasc) 10 mg PO DAILY [facility] Last Admin: 11/29/18 09:22 Dose: Not Given Aspirin (Ecotrin) 81 mg PO DAILY [facility] Last Admin: 11/29/18 09:22 Dose: 81 mg Clopidogrel Bisulfate (Plavix) 75 mg PO DAILY [facility] Last Admin: 11/29/18 09:21 Dose: 75 mg Cyclobenzaprine HCl (Flexeril) 10 mg PO DAILY [facility] Last Admin: 11/29/18 09:21 Dose: 10 mg Enoxaparin Sodium (Lovenox) 30 mg SC DAILY [facility] Last Admin: 11/29/18 09:21 Dose: 30 mg Epoetin Shahram (Procrit) 10,000 unit IV MWF [facility] Last Admin: 11/26/18 17:25 Dose: 10,000 unit Hydroxyzine HCl (Atarax) 25 mg PO DAILY [facility] Last Admin: 11/28/18 09:27 Dose: 25 mg Cefepime HCl (Maxipime Iv 1 Gm Premix) 1 gm in 50 mls @ 100 mls/hr IVPB Q24H [facility]; Protocol Last Admin: 11/28/18 09:21 Dose: 100 mls/hr Vancomycin HCl 1 gm/ Sodium (Chloride) 250 mls @ 166.7 mls/hr IVPB MWF [facility]; Protocol Last Admin: 11/26/18 11:09 Dose: 166.7 mls/hr Insulin Human Regular (Novolin R) 0 unit SC [facility]; Protocol Last Admin: 11/29/18 08:31 Dose: 1 units Levetiracetam (Keppra) 500 mg PO BID [facility] Last Admin: 11/29/18 09:21 Dose: 500 mg Metoprolol Succinate (Toprol Xl) 25 mg PO Q12 [facility] Last Admin: 11/29/18 09:22 Dose: Not Given Sevelamer Carbonate (Renvela) 800 mg PO TID [facility] Last Admin: 11/29/18 09:21 Dose: 800 mg Vitamin B Complex/Vit C/Folic Acid (Nephro-Yany) 1 tab PO DAILY [facility] Last Admin: 11/29/18 09:21 Dose: 1 tab - Labs Labs: 11/24/18 23:59 11/24/18 23:59 - Constitutional Appears: Well, Non-toxic, No Acute Distress - Extremities Exam Extremities Exam: absent: Calf Tenderness Additional comments: VASC: pulses non palpable bilaterally, CFT is slightly delayed to the digits 1- 10. temperature gradient to the left lower extremity is warm to warm, temperature to the left lower extremity is warm to cool NEURO: gross sensation intact, protective sensation diminished ORTHO: pain with palpation to the left hallux DERM: eschar noted to the dorsum aspect of the hallux, + malodor, no abscess or fluctuance appreciated, no cellulitic changes. Hyperpigmentation appreciated to entire L forefoot. - Neurological Exam Neurological Exam: Alert, Awake - Psychiatric Exam Psychiatric exam: Normal Affect, Normal Mood Assessment and Plan - Assessment and Plan (Free Text) Assessment: 63M with PMH of HTN, DM, ESRD, two CVA in 2012, multiple ME with pacemaker placement with infected left hallux eschar with likely underlying osteomyelitis Plan: Patient seen and examined Discussed plan with attending in detail ESR 111, CRP 231.6 Left foot X-ray Impression: No radiographic evidence for osteomyelitis. Soft tissue swelling in the great toe likely related to cellulitis. If there is a persistent clinical concern, correlation with MRI may be performed to evaluate for early osteomyelitis. Patient is not a good candidate for MRI as he has pacemaker Bone scan was ordered to r/o OM of left foot, will follow up ESR elevated with CRP likely secondary to OM of left hallux Wound culture taken left hallux Pseudomonas aeruginosa Continue abx per ID recommendations , recommendations appreciated Cleansed hallux with betadine and dressed with betadine w2d Vascular studies reviewed- Dr. Ozuna consulted- recommendations appreciated Pending vasc reccs and pending bone scan, plan for possible left hallux amputation Will continue to follow patient while in house
[2018-11-29] MEDS: Epoetin Alfa 10,000 unit/ml Dialysis IV SCH (11:44)
--- NOTE | 2018-11-29 11:49 | CP.PCM.PN ---
Subjective - Date & Time of Evaluation Date of Evaluation: 11/29/18 Time of Evaluation: 11:46 - Subjective Subjective: Seen at dialysis To UF 3000ml +GNR bacteremia dx in outpt HD unit + pseudomanous wound culture left foot echo ordered to evaluate for SBE awake; poorly verbal as before seen by surgery for LE wound Objective - Vital Signs/Intake and Output Vital Signs (last 24 hours): Temp Pulse Resp BP Pulse Ox 97.8 F 62 16 130/90 100 11/29/18 10:18 11/29/18 10:18 11/29/18 10:18 11/29/18 10:20 11/29/18 09:35 Intake and Output: 11/29/18 11/29/18 06:59 18:59 Intake Total 340 Balance 340 - Medications Medications: Current Medications Acetaminophen (Tylenol 325mg Tab) 650 mg PO Q6 PRN PRN Reason: Pain, moderate (4-7) Last Admin: 11/27/18 20:08 Dose: 650 mg Amlodipine Besylate (Norvasc) 10 mg PO DAILY [facility] Last Admin: 11/29/18 09:22 Dose: Not Given Aspirin (Ecotrin) 81 mg PO DAILY [facility] Last Admin: 11/29/18 09:22 Dose: 81 mg Clopidogrel Bisulfate (Plavix) 75 mg PO DAILY [facility] Last Admin: 11/29/18 09:21 Dose: 75 mg Cyclobenzaprine HCl (Flexeril) 10 mg PO DAILY [facility] Last Admin: 11/29/18 09:21 Dose: 10 mg Enoxaparin Sodium (Lovenox) 30 mg SC DAILY [facility] Last Admin: 11/29/18 09:21 Dose: 30 mg Epoetin Shahram (Procrit) 10,000 unit IV MWF [facility] Last Admin: 11/29/18 11:44 Dose: 10,000 unit Hydroxyzine HCl (Atarax) 25 mg PO DAILY [facility] Last Admin: 11/28/18 09:27 Dose: 25 mg Cefepime HCl (Maxipime Iv 1 Gm Premix) 1 gm in 50 mls @ 100 mls/hr IVPB Q24H [facility]; Protocol Last Admin: 11/28/18 09:21 Dose: 100 mls/hr Vancomycin HCl 1 gm/ Sodium (Chloride) 250 mls @ 166.7 mls/hr IVPB MWF [facility]; Protocol Last Admin: 11/26/18 11:09 Dose: 166.7 mls/hr Insulin Human Regular (Novolin R) 0 unit SC ACHS [facility]; Protocol Last Admin: 11/29/18 11:42 Dose: Not Given Levetiracetam (Keppra) 500 mg PO BID [facility] Last Admin: 11/29/18 09:21 Dose: 500 mg Metoprolol Succinate (Toprol Xl) 25 mg PO Q12 [facility] Last Admin: 11/29/18 09:22 Dose: Not Given Sevelamer Carbonate (Renvela) 800 mg PO TID [facility] Last Admin: 11/29/18 09:21 Dose: 800 mg Vitamin B Complex/Vit C/Folic Acid (Nephro-Yany) 1 tab PO DAILY [facility] Last Admin: 11/29/18 09:21 Dose: 1 tab - Labs Labs: 11/24/18 23:59 11/24/18 23:59 - Constitutional Appears: No Acute Distress, Chronically Ill - Head Exam Head Exam: ATRAUMATIC, NORMAL INSPECTION - Eye Exam Eye Exam: EOMI, Normal appearance - Neck Exam Neck Exam: Normal Inspection. absent: Tenderness - Respiratory Exam Respiratory Exam: Clear to Ausculation Bilateral, NORMAL BREATHING PATTERN - Cardiovascular Exam Cardiovascular Exam: REGULAR RHYTHM, +S1 - GI/Abdominal Exam GI & Abdominal Exam: Soft. absent: Tenderness - Extremities Exam Extremities Exam: Normal Inspection. absent: Tenderness - Neurological Exam Neurological Exam: Awake, CN II-XII Intact - Skin Skin Exam: Dry, Warm Assessment and Plan (1) Dry gangrene Status: Acute (2) ESRD (end stage renal disease) on dialysis Status: Acute (3) HTN (hypertension) Status: Acute (4) Type 2 diabetes mellitus with diabetic nephropathy Status: Acute (5) History of CVA (cerebrovascular accident) Status: Chronic (6) Bacteremia due to Gram-negative bacteria Status: Acute - Assessment and Plan (Free Text) Plan: IV ABs wound care, surgical follow up echo dialysis MWF
[2018-11-29] MEDS: Cefepime IV 1 gm in Dextrose 1 GM/50 ML BAG IVPB SCH (13:42)
--- NOTE | 2018-11-30 03:26 | PN ---
DATE: 11/29/2018 SUBJECTIVE: The patient was seen and examined at bedside. The patient offers no new complaints. PHYSICAL EXAMINATION: GENERAL: Middle-aged male, lying in bed, in no acute distress. VITAL SIGNS: Blood pressure 126/56, pulse 59, respirations 20, temperature 97.6 degrees Fahrenheit, O2 saturations 96% on room air. HEENT: Pupils are equal, round, and reacting to light and accommodation. Extraocular muscles are intact. No icterus. No pallor. No oral thrush. No pharyngeal congestion. NECK: Supple. No JVD. LUNGS: Bilateral vesicular breath sounds. No wheezing. No rhonchi. CARDIOVASCULAR SYSTEM: S1 and S2 present. Regular. ABDOMEN: Soft and nontender. Bowel sounds are present. No guarding. No rigidity. No rebound tenderness noted. CENTRAL NERVOUS SYSTEM: Alert, awake, and oriented x3. EXTREMITIES: Left foot with dressing in place, big toe with palpable peripheral pulses. MEDICATIONS: Include Tylenol 650 mg as needed, amlodipine 10 mg daily, aspirin 81 mg daily, cefepime 1 g IV daily, Plavix 75 mg daily, Flexeril, enoxaparin 30 mg subcu daily; Procrit 10,000 units IV Thursday, Thursday, and Thursday; Keppra 500 mg p.o. b.i.d., metoprolol 25 mg p.o. every 12 hours, Renvela; vancomycin 1 g IV Thursday, Thursday, Thursday; vitamin B complex. LABORATORY DATA: Accu-Cheks 199, 183, 156, 171, 233. ASSESSMENT AND PLAN: Middle-aged male with history of coronary artery disease, cardiovascular accident, hypertension, hyperlipidemia, end-stage renal disease, hypertension, on hemodialysis, admitted for left big toe cellulitis and right gangrene, undergoing hemodialysis this morning, awaiting for podiatry and vascular evaluations. Will follow up with Podiatry. Continue with current intravenous antibiotics. Continue with current antihypertensives. Aydee Winston MD
[2018-11-30] MEDS: (Novolin R) Insulin Human Regular 100 units/ml vial SC SCH ×4 (08:08→21:02)
--- NOTE | 2018-11-30 08:35 | CP.PCM.CON ---
History of Present Illness - History of Present Illness History of Present Illness: Consutation for PVD and non-healinng wound of the great toe HPI 63-year-old male with past medical history significant for hypertension diabetes end-stage renal disease CVA in 2012 x 2 CAD multiple MIs status post pacemaker , CHF ( EF 40-45) who was admitted on last week with an episode of fever patient in dialysis was noted to be febrile for which she was given a dose of antibiotic. Patient apparently also has the nonhealing ulcer on the dorsum of the first toe ongoing for about 2months he apparently sustained it in his bed h ad a traumatic accident which has not healed. Clinically he is pretty much bedbound not much active secondary to the residual of stroke. Review of Systems - Review of Systems Systems not reviewed;Unavailable: Acuity of Condition - Constitutional Constitutional: As Per HPI - EENT Eyes: As Per HPI Ears: As Per HPI Nose/Mouth/Throat: As Per HPI - Cardiovascular Cardiovascular: As Per HPI - Respiratory Respiratory: As Per HPI - Gastrointestinal Gastrointestinal: As Per HPI - Genitourinary Genitourinary: As Per HPI - Reproductive: Male Reproductive:Male: As Per HPI - Musculoskeletal Musculoskeletal: As Per HPI - Integumentary Integumentary: As Per HPI - Neurological Neurological: As Per HPI - Psychiatric Psychiatric: As Per HPI - Endocrine Endocrine: As Per HPI - Hematologic/Lymphatic Hematologic: As Per HPI Past Patient History - Infectious Disease Hx of Infectious Diseases: None - Tetanus Immunizations Tetanus Immunization: Unknown - Past Medical History & Family History Past Medical History?: Yes Past Family History: Reviewed and not pertinent - Past Social History Smoking Status: Never Smoked Chewing Tobacco Use: No Cigar Use: No Alcohol: None Drugs: Denies Home Situation {Lives}: With Family - CARDIAC Hx Cardiac Disorders: Yes Hx Hypercholesterolemia: Yes Hx Hypertension: Yes - PULMONARY Hx Respiratory Disorders: No - NEUROLOGICAL HX Cerebrovascular Accident: Yes - HEENT Hx HEENT Problems: No - RENAL Hx Chronic Kidney Disease: Yes Hx Dialysis: Yes Type of Dialysis Access: left AV fistula Date of Last Dialysis Treatment: 11/24/18 - ENDOCRINE/METABOLIC Hx Diabetes Mellitus Type 2: Yes - HEMATOLOGICAL/ONCOLOGICAL Hx Blood Disorders: No Hx Human Immunodeficiency Virus (HIV): No - INTEGUMENTARY Hx Dermatological Problems: No - MUSCULOSKELETAL/RHEUMATOLOGICAL Hx Musculoskeletal Disorders: Yes Hx Falls: Yes Hx Fractures: Yes - GASTROINTESTINAL Hx Gastrointestinal Disorders: Yes Hx Constipation: Yes Other/Comment: history of PEG tube; no longer in - GENITOURINARY/GYNECOLOGICAL Hx Genitourinary Disorders: No - PSYCHIATRIC Hx Psychophysiologic Disorder: No Hx Substance Use: No - SURGICAL HISTORY Hx Surgeries: Yes Hx Herniorrhaphy: Yes (bilateral inguina hernia) Hx Orthopedic Surgery: Yes (right humerus fx post fall) Other/Comment: hx of pacemaker and PEG - ANESTHESIA Hx Anesthesia: Yes Hx Anesthesia Reactions: No Hx Malignant Hyperthermia: No Meds Allergies/Adverse Reactions: Allergies Allergy/AdvReac Type Severity Reaction Status Date / Time No Known Allergies Allergy Verified 11/24/18 23:24 - Medications Medications: Current Medications Acetaminophen (Tylenol 325mg Tab) 650 mg PO Q6 PRN PRN Reason: Pain, moderate (4-7) Last Admin: 11/27/18 20:08 Dose: 650 mg Amlodipine Besylate (Norvasc) 10 mg PO DAILY [facility] Last Admin: 11/29/18 09:22 Dose: Not Given Aspirin (Ecotrin) 81 mg PO DAILY [facility] Last Admin: 11/29/18 09:22 Dose: 81 mg Clopidogrel Bisulfate (Plavix) 75 mg PO DAILY [facility] Last Admin: 11/29/18 09:21 Dose: 75 mg Cyclobenzaprine HCl (Flexeril) 10 mg PO DAILY [facility] Last Admin: 11/29/18 09:21 Dose: 10 mg Enoxaparin Sodium (Lovenox) 30 mg SC DAILY [facility] Last Admin: 11/29/18 09:21 Dose: 30 mg Epoetin Shahram (Procrit) 10,000 unit [place] [facility] [place] Admin: 11/29/18 11:44 Dose: 10,000 unit Hydroxyzine HCl (Atarax) 25 mg PO DAILY [facility] Last Admin: 11/29/18 13:44 Dose: 25 mg Cefepime HCl (Maxipime Iv 1 Gm Premix) 1 gm in 50 mls @ 100 mls/hr IVPB Q24H [facility]; Protocol Last Admin: 11/29/18 13:42 Dose: 100 mls/hr Vancomycin HCl 1 gm/ Sodium (Chloride) 250 mls @ 166.7 mls/hr [place]PB [facility] Protocol Last Admin: 11/29/18 13:41 Dose: 166.7 mls/hr Insulin Human Regular (Novolin R) 0 unit SC [facility]; Protocol Last Admin: 11/30/18 08:08 Dose: Not Given Levetiracetam (Keppra) 500 mg PO BID [facility] Last Admin: 11/29/18 17:15 Dose: 500 mg Metoprolol Succinate (Toprol Xl) 25 mg PO Q12 [facility] Last Admin: 11/29/18 21:26 Dose: 25 mg Sevelamer Carbonate (Renvela) 800 mg PO TID [facility] Last Admin: 11/29/18 17:15 Dose: 800 mg Vitamin B Complex/Vit C/Folic Acid (Nephro-Yany) 1 tab PO DAILY [facility] Last Admin: 11/29/18 09:21 Dose: 1 tab Physical Exam - Constitutional Appears: Well - Head Exam Head Exam: ATRAUMATIC, NORMAL INSPECTION, NORMOCEPHALIC - Eye Exam Eye Exam: EOMI, Normal appearance, PERRL Pupil Exam: NORMAL ACCOMODATION, PERRL - ENT Exam ENT Exam: Mucous Membranes Moist, Normal Exam - Neck Exam Neck exam: Positive for: Normal Inspection - Respiratory Exam Respiratory Exam: Clear to Auscultation Bilateral, NORMAL BREATHING PATTERN - Cardiovascular Exam Cardiovascular Exam: REGULAR RHYTHM, RRR, +S1, +S2, Systolic Murmur - GI/Abdominal Exam GI & Abdominal Exam: Normal Bowel Sounds, Soft. absent: Tenderness - Extremities Exam Extremities exam: Positive for: normal inspection - Back Exam Back exam: NORMAL INSPECTION - Neurological Exam Neurological exam: Alert, CN II-XII Intact Additional comments: left sided weakness - Psychiatric Exam Psychiatric exam: Normal Affect, Normal Mood - Skin Skin Exam: Dry, Intact, Normal Color, Warm Additional comments: great toe gangrenous Results - Vital Signs Recent Vital Signs: Last Vital Signs Temp 98.2 F 11/30/18 08:00 Pulse 61 11/30/18 08:00 Resp 20 11/30/18 08:00 BP 138/58 L 11/30/18 08:00 Pulse Ox 98 11/30/18 08:00 - Labs Result Diagrams: 11/24/18 23:59 11/24/18 23:59 Labs: Laboratory Results - last 24 hr 11/29/18 11/29/18 11/29/18 11:27 15:50 21:01 POC Glucose (mg/dL) 171 H 233 H 216 H 11/30/18 07:38 POC Glucose (mg/dL) 172 H Assessment & Plan (1) Dry gangrene Assessment and Plan: cont DAPT cont bb plan for peripheral angiogram on thursday Status: Acute (2) Bacteremia due to Gram-negative bacteria Assessment and Plan: cont IV Abx Status: Acute (3) ESRD (end stage renal disease) on dialysis Status: Acute (4) HTN (hypertension) Status: Acute (5) Pacemaker Status: Chronic (6) CHF (congestive heart failure) Assessment and Plan: cont bb add arb dc norvasjules Status: Acute
--- NOTE | 2018-11-30 08:51 | CP.PCM.PN ---
Subjective - Date & Time of Evaluation Date of Evaluation: 11/29/18 Time of Evaluation: 11:00 - Subjective Subjective: seen during HD Objective - Vital Signs/Intake and Output Vital Signs (last 24 hours): Temp Pulse Resp BP Pulse Ox 98.2 F 61 20 138/58 L 98 11/30/18 08:00 11/30/18 08:00 11/30/18 08:00 11/30/18 08:00 11/30/18 08:00 Intake and Output: 11/30/18 11/30/18 06:59 18:59 Intake Total 370 Balance 370 - Medications Medications: Current Medications Acetaminophen (Tylenol 325mg Tab) 650 mg PO Q6 PRN PRN Reason: Pain, moderate (4-7) Last Admin: 11/27/18 20:08 Dose: 650 mg Amlodipine Besylate (Norvasc) 10 mg PO DAILY [facility] Last Admin: 11/29/18 09:22 Dose: Not Given Aspirin (Ecotrin) 81 mg PO DAILY [facility] Last Admin: 11/29/18 09:22 Dose: 81 mg Clopidogrel Bisulfate (Plavix) 75 mg PO DAILY [facility] Last Admin: 11/29/18 09:21 Dose: 75 mg Cyclobenzaprine HCl (Flexeril) 10 mg PO DAILY [facility] Last Admin: 11/29/18 09:21 Dose: 10 mg Enoxaparin Sodium (Lovenox) 30 mg SC DAILY [facility] Last Admin: 11/29/18 09:21 Dose: 30 mg Epoetin Shahram (Procrit) 10,000 unit IV [facility] [place] Last Admin: 11/29/18 11:44 Dose: 10,000 unit Hydroxyzine HCl (Atarax) 25 mg PO DAILY [facility] Last Admin: 11/29/18 13:44 Dose: 25 mg Cefepime HCl (Maxipime Iv 1 Gm Premix) 1 gm in 50 mls @ 100 mls/hr IVPB Q24H [facility]; Protocol Last Admin: 11/29/18 13:42 Dose: 100 mls/hr Vancomycin HCl 1 gm/ Sodium (Chloride) 250 mls @ 166.7 mls/hr IVPB MWF [facility]; Protocol Last Admin: 11/29/18 13:41 Dose: 166.7 mls/hr Insulin Human Regular (Novolin R) 0 unit SC [facility]; Protocol Last Admin: 11/30/18 08:08 Dose: Not Given Levetiracetam (Keppra) 500 mg PO BID [facility] Last Admin: 11/29/18 17:15 Dose: 500 mg Metoprolol Succinate (Toprol Xl) 25 mg PO Q12 [facility] Last Admin: 11/29/18 21:26 Dose: 25 mg Sevelamer Carbonate (Renvela) 800 mg PO TID [facility] Last Admin: 11/29/18 17:15 Dose: 800 mg Vitamin B Complex/Vit C/Folic Acid (Nephro-Yany) 1 tab PO DAILY [facility] Last Admin: 11/29/18 09:21 Dose: 1 tab - Labs Labs: 11/24/18 23:59 11/24/18 23:59 - Constitutional Appears: Well - Head Exam Head Exam: ATRAUMATIC, NORMAL INSPECTION, NORMOCEPHALIC - Eye Exam Eye Exam: EOMI, Normal appearance, PERRL Pupil Exam: NORMAL ACCOMODATION, PERRL - ENT Exam ENT Exam: Mucous Membranes Moist, Normal Exam - Neck Exam Neck Exam: Full ROM, Normal Inspection. absent: Lymphadenopathy - Respiratory Exam Respiratory Exam: Clear to Ausculation Bilateral, NORMAL BREATHING PATTERN - Cardiovascular Exam Cardiovascular Exam: REGULAR RHYTHM, +S1, +S2. absent: Murmur - GI/Abdominal Exam GI & Abdominal Exam: Soft, Normal Bowel Sounds. absent: Tenderness - Extremities Exam Extremities Exam: Full ROM, Normal Capillary Refill, Normal Inspection. absent: Joint Swelling, Pedal Edema - Back Exam Back Exam: NORMAL INSPECTION - Neurological Exam Neurological Exam: Alert, Awake Neuro motor strength exam: Right Upper Extremity: 3, Right Lower Extremity: 2/1 - Psychiatric Exam Psychiatric exam: Normal Affect, Normal Mood - Skin Skin Exam: Dry, Intact, Normal Color, Warm Assessment and Plan (1) Dry gangrene Assessment & Plan: plan for peripheral angiogram on thursday cont dapt Status: Acute (2) Bacteremia due to Gram-negative bacteria Assessment & Plan: IV Abx Status: Acute (3) ESRD (end stage renal disease) on dialysis Assessment & Plan: cont HD Status: Acute (4) HTN (hypertension) Status: Acute (5) Pacemaker Status: Chronic (6) CHF (congestive heart failure) Status: Acute
[2018-11-30] MEDS: Cefepime IV 1 gm in Dextrose 1 GM/50 ML BAG IVPB SCH (09:51)
[2018-11-30] MEDS: Multivitamin Vitamin B Complex (Nephro-Vite) Tab PO SCH (09:52)
[2018-11-30] MEDS: Metoprolol Succinate 25 mg XL Tab PO SCH ×2 (09:53→21:01)
[2018-11-30] MEDS: Enoxaparin 30 mg Syringe SC SCH (09:53)
--- NOTE | 2018-11-30 09:58 | CP.PCM.PN ---
Subjective - Date & Time of Evaluation Date of Evaluation: 11/30/18 Time of Evaluation: 10:00 - Subjective Subjective: bp stable afebrile no new chems comfortable in bed ate entire breakfast according to radha FOSTER says n isa all questions ROS Objective - Vital Signs/Intake and Output Vital Signs (last 24 hours): Temp Pulse Resp BP Pulse Ox 98.2 F 61 20 138/58 L 98 11/30/18 08:00 11/30/18 08:00 11/30/18 08:00 11/30/18 08:00 11/30/18 08:00 Intake and Output: 11/30/18 11/30/18 06:59 18:59 Intake Total 370 Balance 370 - Medications Medications: Current Medications Acetaminophen (Tylenol 325mg Tab) 650 mg PO Q6 PRN PRN Reason: Pain, moderate (4-7) Last Admin: 11/27/18 20:08 Dose: 650 mg Amlodipine Besylate (Norvasc) 10 mg PO DAILY [facility] Last Admin: 11/30/18 09:52 Dose: 10 mg Aspirin (Ecotrin) 81 mg PO DAILY [facility] Last Admin: 11/30/18 09:53 Dose: 81 mg Clopidogrel Bisulfate (Plavix) 75 mg PO DAILY [facility] Last Admin: 11/30/18 09:52 Dose: 75 mg Cyclobenzaprine HCl (Flexeril) 10 mg PO DAILY [facility] Last Admin: 11/30/18 09:52 Dose: 10 mg Enoxaparin Sodium (Lovenox) 30 mg SC DAILY [facility] Last Admin: 11/30/18 09:53 Dose: 30 mg Epoetin Shahram (Procrit) 10,000 unit IV [facility] [place] Last Admin: 11/29/18 11:44 Dose: 10,000 unit Hydroxyzine HCl (Atarax) 25 mg PO DAILY [facility] Last Admin: 11/30/18 09:52 Dose: 25 mg Cefepime HCl (Maxipime Iv 1 Gm Premix) 1 gm in 50 mls @ 100 mls/hr IVPB Q24H [facility]; Protocol Last Admin: 11/30/18 09:51 Dose: 100 mls/hr Vancomycin HCl 1 gm/ Sodium (Chloride) 250 mls @ 166.7 mls/hr IVPB MWF [facility]; Protocol Last Admin: 11/29/18 13:41 Dose: 166.7 mls/hr Insulin Human Regular (Novolin R) 0 unit SC [facility]; Protocol Last Admin: 11/30/18 08:08 Dose: Not Given Levetiracetam (Keppra) 500 mg PO BID [facility] Last Admin: 11/30/18 09:52 Dose: 500 mg Metoprolol Succinate (Toprol Xl) 25 mg PO Q12 [facility] Last Admin: 11/30/18 09:53 Dose: 25 mg Sevelamer Carbonate (Renvela) 800 mg PO TID [facility] Last Admin: 11/30/18 09:52 Dose: 800 mg Vitamin B Complex/Vit C/Folic Acid (Nephro-Yany) 1 tab PO DAILY [facility] Last Admin: 11/30/18 09:52 Dose: 1 tab - Labs Labs: 11/24/18 23:59 11/24/18 23:59 - Constitutional Appears: Well, No Acute Distress - ENT Exam ENT Exam: Mucous Membranes Moist - Respiratory Exam Respiratory Exam: Clear to Ausculation Bilateral, NORMAL BREATHING PATTERN - Cardiovascular Exam Cardiovascular Exam: REGULAR RHYTHM. absent: JVD - GI/Abdominal Exam GI & Abdominal Exam: Soft. absent: Distended, Tenderness - Extremities Exam Extremities Exam: absent: Calf Tenderness, Pedal Edema - Neurological Exam Neurological Exam: Awake - Psychiatric Exam Psychiatric exam: Flat Affect - Skin Skin Exam: Dry, Warm Assessment and Plan (1) Altered mental status Status: Acute (2) CVA (cerebral vascular accident) Status: Acute (3) Chronic toe ulcer Status: Acute (4) DM2 (diabetes mellitus, type 2) Status: Acute (5) ESRD (end stage renal disease) on dialysis Status: Acute (6) HTN (hypertension) Status: Acute - Assessment and Plan (Free Text) Plan: schedule dialysis for 12/01 orders written antibitics prer attending
--- NOTE | 2018-11-30 11:30 | CP.PCM.PN ---
Subjective - Date & Time of Evaluation Date of Evaluation: 11/30/18 Time of Evaluation: 08:00 - Subjective Subjective: seen on rounds cultures reviewed Objective - Vital Signs/Intake and Output Vital Signs (last 24 hours): Temp Pulse Resp BP Pulse Ox 98.2 F 61 20 138/58 L 98 11/30/18 08:00 11/30/18 08:00 11/30/18 08:00 11/30/18 08:00 11/30/18 08:00 Intake and Output: 11/30/18 11/30/18 06:59 18:59 Intake Total 370 Balance 370 - Medications Medications: Current Medications Acetaminophen (Tylenol 325mg Tab) 650 mg PO Q6 PRN PRN Reason: Pain, moderate (4-7) Last Admin: 11/27/18 20:08 Dose: 650 mg Amlodipine Besylate (Norvasc) 10 mg PO DAILY [facility] Last Admin: 11/30/18 09:52 Dose: 10 mg Aspirin (Ecotrin) 81 mg PO DAILY [facility] Last Admin: 11/30/18 09:53 Dose: 81 mg Clopidogrel Bisulfate (Plavix) 75 mg PO DAILY [facility] Last Admin: 11/30/18 09:52 Dose: 75 mg Cyclobenzaprine HCl (Flexeril) 10 mg PO DAILY [facility] Last Admin: 11/30/18 09:52 Dose: 10 mg Enoxaparin Sodium (Lovenox) 30 mg SC DAILY [facility] Last Admin: 11/30/18 09:53 Dose: 30 mg Epoetin Shahram (Procrit) 10,000 unit IV [facility] [place] Last Admin: 11/29/18 11:44 Dose: 10,000 unit Hydroxyzine HCl (Atarax) 25 mg PO DAILY [facility] Last Admin: 11/30/18 09:52 Dose: 25 mg Vancomycin HCl 1 gm/ Sodium (Chloride) 250 mls @ 166.7 mls/hr IVPB MWF [facility]; Protocol Last Admin: 11/29/18 13:41 Dose: 166.7 mls/hr Insulin Human Regular (Novolin R) 0 unit SC [facility]; Protocol Last Admin: 11/30/18 08:08 Dose: Not Given Levetiracetam (Keppra) 500 mg PO BID [facility] Last Admin: 11/30/18 09:52 Dose: 500 mg Metoprolol Succinate (Toprol Xl) 25 mg PO Q12 [facility] Last Admin: 11/30/18 09:53 Dose: 25 mg Sevelamer Carbonate (Renvela) 800 mg PO TID [facility] Last Admin: 11/30/18 09:52 Dose: 800 mg Vitamin B Complex/Vit C/Folic Acid (Nephro-Yany) 1 tab PO DAILY [facility] Last Admin: 11/30/18 09:52 Dose: 1 tab - Labs Labs: 11/24/18 23:59 11/24/18 23:59 - Constitutional Appears: Cachectic, Chronically Ill - Head Exam Head Exam: NORMOCEPHALIC - Eye Exam Eye Exam: absent: Scleral icterus - Neck Exam Neck Exam: absent: Lymphadenopathy - Respiratory Exam Respiratory Exam: Decreased Breath Sounds - Cardiovascular Exam Cardiovascular Exam: REGULAR RHYTHM - GI/Abdominal Exam GI & Abdominal Exam: Distended - Rectal Exam Rectal Exam: Deferred - Exam Exam: NORMAL INSPECTION - Extremities Exam Extremities Exam: Pedal Edema Additional comments: dry necrotic changes of digit ? OM - Back Exam Back Exam: absent: CVA tenderness (L), CVA tenderness (R) - Neurological Exam Neurological Exam: Alert, Awake, CN II-XII Intact Neuro motor strength exam: Left Upper Extremity: 4, Right Upper Extremity: 2/1, Left Lower Extremity: 4, Right Lower Extremity: 2/1 - Psychiatric Exam Psychiatric exam: Depressed - Skin Skin Exam: Dry Assessment and Plan (1) Dry gangrene Status: Acute (2) CVA, old, aphasia Status: Acute (3) Chronic toe ulcer Status: Acute (4) DM2 (diabetes mellitus, type 2) Status: Acute (5) ESRD (end stage renal disease) on dialysis Status: Acute (6) HTN (hypertension) Status: Acute - Assessment and Plan (Free Text) Assessment: cont rx pseudomonas for 6-8 weeks discussed with podiatry prognosis guarded vascular eval pending
--- NOTE | 2018-11-30 13:26 | CP.PCM.PN ---
Subjective - Date & Time of Evaluation Date of Evaluation: 11/30/18 Time of Evaluation: 13:26 - Subjective Subjective: Progress mote dictated #[id number] Objective - Vital Signs/Intake and Output Vital Signs (last 24 hours): Temp Pulse Resp BP Pulse Ox 98.2 F 61 20 138/58 L 98 11/30/18 08:00 11/30/18 08:00 11/30/18 08:00 11/30/18 08:00 11/30/18 08:00 Intake and Output: 11/30/18 11/30/18 06:59 18:59 Intake Total 370 Balance 370 - Medications Medications: Current Medications Acetaminophen (Tylenol 325mg Tab) 650 mg PO Q6 PRN PRN Reason: Pain, moderate (4-7) Last Admin: 11/27/18 20:08 Dose: 650 mg Amlodipine Besylate (Norvasc) 10 mg PO DAILY [facility] Last Admin: 11/30/18 09:52 Dose: 10 mg Aspirin (Ecotrin) 81 mg PO DAILY [facility] Last Admin: 11/30/18 09:53 Dose: 81 mg Clopidogrel Bisulfate (Plavix) 75 mg PO DAILY [facility] Last Admin: 11/30/18 09:52 Dose: 75 mg Cyclobenzaprine HCl (Flexeril) 10 mg PO DAILY [facility] Last Admin: 11/30/18 09:52 Dose: 10 mg Enoxaparin Sodium (Lovenox) 30 mg SC DAILY [facility] Last Admin: 11/30/18 09:53 Dose: 30 mg Epoetin Shahram (Procrit) 10,000 unit IV [facility] Last Admin: 11/29/18 11:44 Dose: 10,000 unit Hydroxyzine HCl (Atarax) 25 mg PO DAILY [facility] Last Admin: 11/30/18 09:52 Dose: 25 mg Vancomycin HCl 1 gm/ Sodium (Chloride) 250 mls @ 166.7 mls/hr IVPB MWF [facility]; Protocol Last Admin: 11/29/18 13:41 Dose: 166.7 mls/hr Cefepime HCl (Maxipime Iv 1 Gm Premix) 1 gm in 50 mls @ 100 mls/hr IVPB Q24H [facility]; Protocol Stop: 12/23/18 10:01 Insulin Human Regular (Novolin R) 0 unit SC [facility]; Protocol Last Admin: 11/30/18 12:21 Dose: 3 units Levetiracetam (Keppra) 500 mg PO BID [facility] Last Admin: 11/30/18 09:52 Dose: 500 mg Metoprolol Succinate (Toprol Xl) 25 mg PO Q12 [facility] Last Admin: 11/30/18 09:53 Dose: 25 mg Sevelamer Carbonate (Renvela) 800 mg PO TID [facility] Last Admin: 11/30/18 09:52 Dose: 800 mg Vitamin B Complex/Vit C/Folic Acid (Nephro-Yany) 1 tab PO DAILY [facility] Last Admin: 11/30/18 09:52 Dose: 1 tab - Labs Labs: 11/24/18 23:59 11/24/18 23:59
--- NOTE | 2018-11-30 13:42 | CP.PCM.PN ---
Subjective - Date & Time of Evaluation Date of Evaluation: 11/30/18 Time of Evaluation: 14:00 - Subjective Subjective: Podiatry Progress Note- Dr. Scanlon 63 year old male patient seen and evaluated for left hallux necrotic ulceration with likely underlying osteomyelitis. Patient is resting comfortably in bed and in NAD. Denies of pain at this moment. Multipodus on at bedside. Dressing clean, dry, and intact. Denies nausea/vomiting/fever/shortness of breath. Objective - Vital Signs/Intake and Output Vital Signs (last 24 hours): Temp Pulse Resp BP Pulse Ox 98.2 F 61 20 138/58 L 98 11/30/18 08:00 11/30/18 08:00 11/30/18 08:00 11/30/18 08:00 11/30/18 08:00 Intake and Output: 11/30/18 11/30/18 06:59 18:59 Intake Total 370 Balance 370 - Medications Medications: Current Medications Acetaminophen (Tylenol 325mg Tab) 650 mg PO Q6 PRN PRN Reason: Pain, moderate (4-7) Last Admin: 11/27/18 20:08 Dose: 650 mg Amlodipine Besylate (Norvasc) 10 mg PO DAILY [facility] Last Admin: 11/30/18 09:52 Dose: 10 mg Aspirin (Ecotrin) 81 mg PO DAILY [facility] Last Admin: 11/30/18 09:53 Dose: 81 mg Clopidogrel Bisulfate (Plavix) 75 mg PO DAILY [facility] Last Admin: 11/30/18 09:52 Dose: 75 mg Cyclobenzaprine HCl (Flexeril) 10 mg PO DAILY [facility] Last Admin: 11/30/18 09:52 Dose: 10 mg Enoxaparin Sodium (Lovenox) 30 mg SC DAILY [facility] Last Admin: 11/30/18 09:53 Dose: 30 mg Epoetin Shahram (Procrit) 10,000 unit [place] [facility] Last Admin: 11/29/18 11:44 Dose: 10,000 unit Hydroxyzine HCl (Atarax) 25 mg PO DAILY [facility] Last Admin: 11/30/18 09:52 Dose: 25 mg Vancomycin HCl 1 gm/ Sodium (Chloride) 250 mls @ 166.7 mls/hr IVPB MWF [facility]; Protocol Last Admin: 11/29/18 13:41 Dose: 166.7 mls/hr Cefepime HCl (Maxipime Iv 1 Gm Premix) 1 gm in 50 mls @ 100 mls/hr IVPB Q24H [facility]; Protocol Stop: 12/23/18 10:01 Insulin Human Regular (Novolin R) 0 unit SC ACHS [facility]; Protocol Last Admin: 11/30/18 12:21 Dose: 3 units Levetiracetam (Keppra) 500 mg PO BID [facility] Last Admin: 11/30/18 09:52 Dose: 500 mg Metoprolol Succinate (Toprol Xl) 25 mg PO Q12 [facility] Last Admin: 11/30/18 09:53 Dose: 25 mg Sevelamer Carbonate (Renvela) 800 mg PO TID [facility] Last Admin: 11/30/18 09:52 Dose: 800 mg Vitamin B Complex/Vit C/Folic Acid (Nephro-Yany) 1 tab PO DAILY [facility] Last Admin: 11/30/18 09:52 Dose: 1 tab - Labs Labs: 11/24/18 23:59 11/24/18 23:59 - Constitutional Appears: Well, Non-toxic, No Acute Distress - Extremities Exam Extremities Exam: absent: Calf Tenderness Additional comments: VASC: pulses non palpable bilaterally, CFT is slightly delayed to the digits 1- 10. temperature gradient to the left lower extremity is warm to warm, temperature to the left lower extremity is warm to cool NEURO: gross sensation intact, protective sensation diminished ORTHO: pain with palpation to the left hallux DERM: eschar noted to the dorsum aspect of the hallux, + malodor, no abscess or fluctuance appreciated, no cellulitic changes. Hyperpigmentation appreciated to entire L forefoot. - Neurological Exam Neurological Exam: Alert, Awake, Oriented x3 - Psychiatric Exam Psychiatric exam: Normal Affect, Normal Mood Assessment and Plan - Assessment and Plan (Free Text) Assessment: 63M with PMH of HTN, DM, ESRD, two CVA in 2012, multiple AR with pacemaker placement with infected left hallux eschar with likely underlying osteomyelitis Plan: Patient seen and examined Discussed plan with attending in detail ESR 111, CRP 231.6 Left foot X-ray Impression: No radiographic evidence for osteomyelitis. Soft tissue swelling in the great toe likely related to cellulitis. If there is a persistent clinical concern, correlation with MRI may be performed to evaluate for early osteomyelitis. Patient is not a good candidate for MRI as he has pacemaker Bone scan was ordered to r/o OM of left foot, will follow up ESR elevated with CRP likely secondary to OM of left hallux Wound culture taken left hallux Pseudomonas aeruginosa Continue abx per ID recommendations , recommendations appreciated Cleansed hallux with betadine and dressed with betadine w2d Vascular studies reviewed- Dr. Ozuna consulted- recommendations appreciated Pending vasc reccs and pending bone scan, plan for possible left hallux amputation Dr. Ozuna plans for peripheral angiography Wendesday Will continue to follow patient while in house
--- NOTE | 2018-12-01 06:39 | PN ---
DATE: 11/30/2018 SUBJECTIVE: The patient is seen and examined at bedside. The patient offers no new complaints. PHYSICAL EXAMINATION: GENERAL: Middle-aged male, lying in bed, in no acute distress. VITAL SIGNS: Blood pressure 156/64, pulse 60, respirations 20, temperature 98.3 degrees Fahrenheit, O2 sat is 100% on room air. HEENT: Pupils are equal, round, and reacting to light and accommodation. Extraocular muscles are intact. No icterus. No pallor. No oral thrush. No pharyngeal congestion. NECK: Supple. No JVD. LUNGS: Bilateral vesicular breath sounds. No wheezing. No rhonchi. CARDIOVASCULAR SYSTEM: S1 and S2 present, regular. ABDOMEN: Soft and nontender. Bowel sounds are present. No guarding. No rigidity. No rebound tenderness noted. CENTRAL NERVOUS SYSTEM: Alert, awake, and oriented x3. EXTREMITIES: Left big toe with a dressing in place, dry gangrene. MEDICATIONS: Include Tylenol as needed, Norvasc 10 mg daily, aspirin 81 mg daily, Maxipime 1 g daily, Plavix 75 mg daily, Lovenox 30 mg subcu daily, Procrit 10,000 units on Thursday, Thursday and Thursday, Atarax 25 mg daily, Keppra 500 mg p.o. b.i.d., Toprol-XL 25 mg p.o. every 12 hours, Renvela 800 mg p.o. t.i.d., vancomycin 1 g on Thursday, Thursday and Thursday, Nephro-Yany. LABORATORY DATA: Accu-Cheks 233, 216, 172, 253, 234. ASSESSMENT AND PLAN: Middle-aged male with history of hypertension, hyperlipidemia, diabetes mellitus, end-stage renal disease, on hemodialysis, coronary artery disease, history of cerebrovascular accident. Admitted for left foot dry gangrene, wound culture positive for Pseudomonas and outside blood cultures positive for gram-negative rods as documented by Renal. For possible angiogram in the morning by Dr. Ozuna. Follow up with Dr. Ozuna and follow up with Podiatry regarding further treatment plan. Continue with current antibiotics for hemodialysis in the morning. Discussed with the patient's family who is at bedside and explained the patient's condition and clarified all their questions and concerns. Aydee Winston MD [facility] # [id number]
[2018-12-01 07:28] LABS: BASO % 0.6 % (0.0-2.0); EOS # 0.4 K/uL (0.0-0.7); EOS % 5.6 % (0.0-4.0); HEMOGLOBIN 9.9 g/dL (12.0-18.0); LYMPH # 1.5 K/uL (1.0-4.3); LYMPH % 20.1 % (20.0-40.0); MEAN CELL VOLUME 85.6 fL (80.0-94.0); MEAN CORPUSCULAR HEMOGLOBIN 28.3 pg (27.0-31.0); MEAN PLATELET VOLUME 8.1 fL (7.2-11.7); MONO # 0.6 K/uL (0.0-0.8); MONO % 7.7 % (0.0-10.0); NEUT # 4.9 K/uL (1.8-7.0); RBC 3.49 Mil/uL (4.40-5.90); WHITE BLOOD COUNT 7.4 K/uL (4.8-10.8)
--- NOTE | 2018-12-01 07:55 | CP.PCM.PN ---
Subjective - Date & Time of Evaluation Date of Evaluation: 12/01/18 Time of Evaluation: 07:52 - Subjective Subjective: no acute events no distress unable to obtain ROS chart reviewed Objective - Vital Signs/Intake and Output Vital Signs (last 24 hours): Temp Pulse Resp BP Pulse Ox 98 F 62 20 141/60 99 12/01/18 00:00 12/01/18 00:00 12/01/18 00:00 12/01/18 00:00 12/01/18 00:00 Intake and Output: 12/01/18 12/01/18 06:59 18:59 Intake Total 370 Balance 370 - Medications Medications: Current Medications Acetaminophen (Tylenol 325mg Tab) 650 mg PO Q6 PRN PRN Reason: Pain, moderate (4-7) Last Admin: 11/27/18 20:08 Dose: 650 mg Amlodipine Besylate (Norvasc) 10 mg PO DAILY [facility] Last Admin: 11/30/18 09:52 Dose: 10 mg Aspirin (Ecotrin) 81 mg PO DAILY [facility] Last Admin: 11/30/18 09:53 Dose: 81 mg Clopidogrel Bisulfate (Plavix) 75 mg PO DAILY [facility] Last Admin: 11/30/18 09:52 Dose: 75 mg Cyclobenzaprine HCl (Flexeril) 10 mg PO DAILY [facility] Last Admin: 11/30/18 09:52 Dose: 10 mg Enoxaparin Sodium (Lovenox) 30 mg SC DAILY [facility] Last Admin: 11/30/18 09:53 Dose: 30 mg Epoetin Shahram (Procrit) 10,000 unit IV [facility] [place] Last Admin: 11/29/18 11:44 Dose: 10,000 unit Hydroxyzine HCl (Atarax) 25 mg PO DAILY [facility] Last Admin: 11/30/18 09:52 Dose: 25 mg Vancomycin HCl 1 gm/ Sodium (Chloride) 250 mls @ 166.7 mls/hr IVPB MWF [facility]; Protocol Last Admin: 11/29/18 13:41 Dose: 166.7 mls/hr Cefepime HCl (Maxipime Iv 1 Gm Premix) 1 gm in 50 mls @ 100 mls/hr IVPB Q24H [facility]; Protocol Stop: 12/23/18 10:01 Insulin Human Regular (Novolin R) 0 unit SC [facility]; Protocol Last Admin: 03/26/19 21:02 Dose: Not Given Levetiracetam (Keppra) 500 mg PO BID [facility] Last Admin: 11/30/18 17:33 Dose: 500 mg Metoprolol Succinate (Toprol Xl) 25 mg PO Q12 [facility] Last Admin: 11/30/18 21:01 Dose: 25 mg Sevelamer Carbonate (Renvela) 800 mg PO TID [facility] Last Admin: 11/30/18 17:33 Dose: 800 mg Vitamin B Complex/Vit C/Folic Acid (Nephro-Yany) 1 tab PO DAILY [facility] Last Admin: 11/30/18 09:52 Dose: 1 tab - Labs Labs: 11/24/18 23:59 11/24/18 23:59 - Constitutional Appears: Non-toxic, Confused, Chronically Ill - Head Exam Head Exam: ATRAUMATIC, NORMAL INSPECTION - Eye Exam Eye Exam: EOMI - ENT Exam ENT Exam: Mucous Membranes Moist - Neck Exam Neck Exam: Full ROM. absent: Lymphadenopathy - Respiratory Exam Respiratory Exam: absent: Accessory Muscle Use - Cardiovascular Exam Cardiovascular Exam: REGULAR RHYTHM. absent: Rubs - GI/Abdominal Exam GI & Abdominal Exam: Soft. absent: Tenderness - Extremities Exam Extremities Exam: absent: Pedal Edema Additional comments: left foot bandaged, bandage is clear/dry/intact Assessment and Plan - Assessment and Plan (Free Text) Assessment: esrd GNR in blood on treatment for Pseudomonas for toe amputation on Thursday maint HD today
[2018-12-01] MEDS: (Novolin R) Insulin Human Regular 100 units/ml vial SC SCH ×4 (08:09→21:12)
[2018-12-01 08:14] LABS: ALB/GLOB RATIO 1.1 (1.0-2.1); ALBUMIN 3.7 g/dL (3.5-5.0); CALCIUM 9.6 mg/dl (8.6-10.4)
[2018-12-01 08:17] LABS: INR 1.2; PROTHROMBIN TIME 12.7 SECONDS (9.7-12.2)
[2018-12-01] MEDS: Enoxaparin 30 mg Syringe SC SCH (09:15)
[2018-12-01] MEDS: Cefepime IV 1 gm in Dextrose 1 GM/50 ML BAG IVPB SCH (09:15)
[2018-12-01] MEDS: Metoprolol Succinate 25 mg XL Tab PO SCH ×2 (09:16→21:12)
--- NOTE | 2018-12-01 10:19 | CP.PCM.PN ---
Subjective - Date & Time of Evaluation Date of Evaluation: 12/01/18 Time of Evaluation: 10:19 - Subjective Subjective: Progress note dictated #[id number] Objective - Vital Signs/Intake and Output Vital Signs (last 24 hours): Temp Pulse Resp BP Pulse Ox 98.3 F 60 20 150/65 98 12/01/18 08:14 12/01/18 08:14 12/01/18 08:14 12/01/18 08:14 12/01/18 08:14 Intake and Output: 12/01/18 12/01/18 06:59 18:59 Intake Total 370 Balance 370 - Medications Medications: Current Medications Acetaminophen (Tylenol 325mg Tab) 650 mg PO Q6 PRN PRN Reason: Pain, moderate (4-7) Last Admin: 11/27/18 20:08 Dose: 650 mg Amlodipine Besylate (Norvasc) 10 mg PO DAILY [facility] Last Admin: 11/30/18 09:52 Dose: 10 mg Aspirin (Ecotrin) 81 mg PO DAILY [facility] Last Admin: 12/01/18 09:15 Dose: Not Given Clopidogrel Bisulfate (Plavix) 75 mg PO DAILY [facility] Last Admin: 12/01/18 09:16 Dose: Not Given Cyclobenzaprine HCl (Flexeril) 10 mg PO DAILY [facility] Last Admin: 12/01/18 09:15 Dose: Not Given Enoxaparin Sodium (Lovenox) 30 mg SC DAILY [facility] Last Admin: 12/01/18 09:15 Dose: Not Given Epoetin Shahram (Procrit) 10,000 unit IV [facility] Last Admin: 11/29/18 11:44 Dose: 10,000 unit Hydroxyzine HCl (Atarax) 25 mg PO DAILY [facility] Last Admin: 12/01/18 09:14 Dose: Not Given Vancomycin HCl 1 gm/ Sodium (Chloride) 250 mls @ 166.7 mls/hr IVPB MWF [facility]; Protocol Last Admin: 12/01/18 08:56 Dose: 166.7 mls/hr Cefepime HCl (Maxipime Iv 1 Gm Premix) 1 gm in 50 mls @ 100 mls/hr IVPB Q24H [facility]; Protocol Stop: 12/23/18 10:01 Last Admin: 12/01/18 09:15 Dose: Not Given Insulin Human Regular (Novolin R) 0 unit SC [facility]; Protocol Last Admin: 12/01/18 08:09 Dose: 1 units Levetiracetam (Keppra) 500 mg PO BID [facility] Last Admin: 12/01/18 09:15 Dose: Not Given Metoprolol Succinate (Toprol Xl) 25 mg PO Q12 [facility] Last Admin: 12/01/18 09:16 Dose: Not Given Sevelamer Carbonate (Renvela) 800 mg PO TID [facility] Last Admin: 12/01/18 09:16 Dose: Not Given Vitamin B Complex/Vit C/Folic Acid (Nephro-Yany) 1 tab PO DAILY [facility] Last Admin: 11/30/18 09:52 Dose: 1 tab - Labs Labs: 12/01/18 07:19 12/01/18 07:19 PT 12.7 SECONDS (9.7-12.2) H 12/01/18 07:19 INR 1.2 12/01/18 07:19 APTT 34 SECONDS (21-34) 12/01/18 07:19
--- NOTE | 2018-12-01 10:23 | VASCLAB ---
Date of service: 11/30/2018 PROCEDURE: Left Lower Extremity Arterial Exam. HISTORY: COMPARISON: None available. TECHNIQUE: Grayscale and duplex Doppler evaluation of the left common femoral, femoral, profunda femoral, popliteal, posterior tibial, anterior tibial and dorsalis pedis arteries was performed. Report prepared by DEAN Rader, RVT FINDINGS: LEFT LOWER EXTREMITY: * Common Femoral Artery: Peak Systolic Velocity - 88: Doppler Waveform: Biphasic: Plaque description - Calcific * Profunda Femoral Artery: Peak Systolic Velocity - 64: Doppler Waveform: Biphasic.: Plaque description - Calcific * Femoral Artery o Proximal Segment: Peak Systolic Velocity - 113: Doppler Waveform: Biphasic: Plaque description - Calcific o Middle Segment: Peak Systolic Velocity - 96: Doppler Waveform: Biphasic: Plaque description - Calcific o Distal Segment: Peak Systolic Velocity - 81: Doppler Waveform: Biphasic: Plaque description - Calcific * Popliteal Artery o Proximal Segment: Peak Systolic Velocity - 88: Doppler Waveform: Biphasic: Plaque description - Calcific o Middle Segment: Peak Systolic Velocity - 97: Doppler Waveform: Biphasic: Plaque description - Calcific o Distal Segment: Peak Systolic Velocity - 94: Doppler Waveform: Biphasic: Plaque description - Calcific * Posterior Tibial Artery: Peak Systolic Velocity - 0: Doppler Waveform: Absent: Plaque description - Calcific * Anterior Tibial Artery: Peak Systolic Velocity - 513: Doppler Waveform: Biphasic: Plaque description - Calcific * Dorsalis Pedis Artery: Peak Systolic Velocity - 89: Doppler Waveform: Biphasic: Plaque description - Calcific OTHER FINDINGS: Technically difficult study due to severe arterial wall calcification. IMPRESSION: RIGHT: Possible occlusion of the right distal posterior tibial artery. Greater raya 75% stenosis of the right proximal anterior tibial artery.
[2018-12-01] MEDS: Multivitamin Vitamin B Complex (Nephro-Vite) Tab PO SCH (10:25)
--- NOTE | 2018-12-01 11:07 | CP.PCM.PN ---
<Nelda Zheng - Last Filed: 12/01/18 16:04> Subjective - Date & Time of Evaluation Date of Evaluation: 12/01/18 Time of Evaluation: 10:59 - Subjective Subjective: Nelda Zheng, PGY-1, Cardiology Progress Note for Dr. Ozuna Patient was seen and evaluated at bedside. Patient had no acute overnight events. Patient denies any acute symptoms at this time. Objective - Vital Signs/Intake and Output Vital Signs (last 24 hours): Temp Pulse Resp BP Pulse Ox 97.5 F L 61 17 154/71 H 98 12/01/18 09:15 12/01/18 09:15 12/01/18 09:15 12/01/18 09:15 12/01/18 08:14 Intake and Output: 12/01/18 12/01/18 06:59 18:59 Intake Total 370 Balance 370 - Medications Medications: Current Medications Acetaminophen (Tylenol 325mg Tab) 650 mg PO Q6 PRN PRN Reason: Pain, moderate (4-7) Last Admin: 11/27/18 20:08 Dose: 650 mg Amlodipine Besylate (Norvasc) 10 mg PO DAILY [facility] Last Admin: 12/01/18 10:25 Dose: Not Given Aspirin (Ecotrin) 81 mg PO DAILY [facility] Last Admin: 12/01/18 09:15 Dose: Not Given Clopidogrel Bisulfate (Plavix) 75 mg PO DAILY [facility] Last Admin: 12/01/18 09:16 Dose: Not Given Cyclobenzaprine HCl (Flexeril) 10 mg PO DAILY [facility] Last Admin: 12/01/18 09:15 Dose: Not Given Enoxaparin Sodium (Lovenox) 30 mg SC DAILY [facility] Last Admin: 12/01/18 09:15 Dose: Not Given Epoetin Shahram (Procrit) 10,000 unit IV [facility] Last Admin: 11/29/18 11:44 Dose: 10,000 unit Hydroxyzine HCl (Atarax) 25 mg PO DAILY [facility] Last Admin: 12/01/18 09:14 Dose: Not Given Vancomycin HCl 1 gm/ Sodium (Chloride) 250 mls @ 166.7 mls/hr IVPB F [facility]; Protocol Last Admin: 12/01/18 08:56 Dose: 166.7 mls/hr Cefepime HCl (Maxipime Iv 1 Gm Premix) 1 gm in 50 mls @ 100 mls/hr IVPB Q24H [facility]; Protocol Stop: 12/23/18 10:01 Last Admin: 12/01/18 09:15 Dose: Not Given Insulin Human Regular (Novolin R) 0 unit SC ACHS [facility]; Protocol Last Admin: 12/01/18 08:09 Dose: 1 units Levetiracetam (Keppra) 500 mg PO BID [facility] Last Admin: 12/01/18 09:15 Dose: Not Given Metoprolol Succinate (Toprol Xl) 25 mg PO Q12 [facility] Last Admin: 12/01/18 09:16 Dose: Not Given Sevelamer Carbonate (Renvela) 800 mg PO TID [facility] Last Admin: 12/01/18 09:16 Dose: Not Given Vitamin B Complex/Vit C/Folic Acid (Nephro-Yany) 1 tab PO DAILY [facility] Last Admin: 12/01/18 10:25 Dose: Not Given - Labs Labs: 12/01/18 07:19 12/01/18 07:19 PT 12.7 SECONDS (9.7-12.2) H 12/01/18 07:19 INR 1.2 12/01/18 07:19 APTT 34 SECONDS (21-34) 12/01/18 07:19 - Constitutional Appears: Well - Head Exam Head Exam: ATRAUMATIC, NORMAL INSPECTION, NORMOCEPHALIC - Eye Exam Eye Exam: EOMI, Normal appearance, PERRL Pupil Exam: NORMAL ACCOMODATION, PERRL - ENT Exam ENT Exam: Mucous Membranes Moist, Normal Exam - Neck Exam Neck Exam: Full ROM, Normal Inspection. absent: Lymphadenopathy - Respiratory Exam Respiratory Exam: Clear to Ausculation Bilateral, NORMAL BREATHING PATTERN - Cardiovascular Exam Cardiovascular Exam: REGULAR RHYTHM, +S1, +S2. absent: Murmur - GI/Abdominal Exam GI & Abdominal Exam: Soft, Normal Bowel Sounds. absent: Tenderness - Extremities Exam Extremities Exam: Full ROM, Normal Capillary Refill, Normal Inspection. absent: Joint Swelling, Pedal Edema - Back Exam Back Exam: NORMAL INSPECTION - Neurological Exam Neurological Exam: Alert, Awake Neuro motor strength exam: Right Upper Extremity: 3, Right Lower Extremity: 2/1 - Psychiatric Exam Psychiatric exam: Normal Affect, Normal Mood - Skin Skin Exam: Dry, Intact, Normal Color, Warm Assessment and Plan - Assessment and Plan (Free Text) Assessment: Dry Gangrene Gram Negative Bacteremia ESRD Hypertension Pacemaker Congestive Heart Failure (1) Dry gangrene Assessment & Plan: plan for peripheral angiogram on thursday cont dapt Status: Acute (2) Bacteremia due to Gram-negative bacteria Assessment & Plan: IV Abx Status: Acute (3) ESRD (end stage renal disease) on dialysis Assessment & Plan: cont HD Status: Acute (4) HTN (hypertension) Status: Acute (5) Pacemaker Status: Chronic (6) CHF (congestive heart failure) Status: Acute Plan: Dry Gangrene Gram Negative Bacteremia ESRD Hypertension Pacemaker Congestive Heart Failure Arterial duplex of lower extremities: possible occlusion of right distal p osterior tibial artery, 75% stenosis of right proximal anterior tibial artery Duplex ultrasound of bilateral lower extremities: nondiagnostic bilaterally due to arterial wall calcifications Foot X ray: no evidence of osteomyelitis. Soft tissue swelling in great toe likely due to cellulitis EKG: sinus rhythm with 1st degree AV block with HR: 77 CXR: small right pleural effusion. mild pulmonary venous congestion and interstitial edema Plan for peripheral angiogram possible tomorrow Continue IV antibiotics for gram negative bacteremia Continue hemodialysis for ESRD Medications: norvasc 10 mg daily aspirin 81 mg daily plavix 75 mg daily Toprol 25 mg Q12 <Yonatan Ozuna - Last Filed: 12/01/18 22:30> Objective - Vital Signs/Intake and Output Vital Signs (last 24 hours): Temp Pulse Resp BP Pulse Ox 98.3 F 63 20 160/69 H 100 12/01/18 16:00 12/01/18 16:00 12/01/18 16:00 12/01/18 16:00 12/01/18 16:00 Intake and Output: 12/01/18 12/02/18 18:59 06:59 Intake Total 490 Balance 490 - Medications Medications: Current Medications Acetaminophen (Tylenol 325mg Tab) 650 mg PO Q6 PRN PRN Reason: Pain, moderate (4-7) Last Admin: 11/27/18 20:08 Dose: 650 mg Amlodipine Besylate (Norvasc) 10 mg PO DAILY [facility] Last Admin: 12/01/18 10:25 Dose: Not Given Aspirin (Ecotrin) 81 mg PO DAILY [facility] Last Admin: 12/01/18 09:15 Dose: Not Given Clopidogrel Bisulfate (Plavix) 75 mg PO DAILY [facility] Last Admin: 12/01/18 09:16 Dose: Not Given Cyclobenzaprine HCl (Flexeril) 10 mg PO DAILY [facility] Last Admin: 12/01/18 09:15 Dose: Not Given Enoxaparin Sodium (Lovenox) 30 mg SC DAILY [facility] Last Admin: 12/01/18 09:15 Dose: Not Given Epoetin Shahram (Procrit) 10,000 unit IV [facility] Last Admin: 12/01/18 12:34 Dose: 10,000 unit Hydroxyzine HCl (Atarax) 25 mg PO DAILY [facility] Last Admin: 12/01/18 09:14 Dose: Not Given Vancomycin HCl 1 gm/ Sodium (Chloride) 250 mls @ 166.7 mls/hr IVPB MWF [facility]; Protocol Last Admin: 12/01/18 08:56 Dose: 166.7 mls/hr Cefepime HCl (Maxipime Iv 1 Gm Premix) 1 gm in 50 mls @ 100 mls/hr IVPB Q24H [facility]; Protocol Stop: 12/23/18 10:01 Last Admin: 12/01/18 09:15 Dose: Not Given Insulin Human Regular (Novolin R) 0 unit SC [facility]; Protocol Last Admin: 12/01/18 21:12 Dose: Not Given Levetiracetam (Keppra) 500 mg PO BID [facility] Last Admin: 12/01/18 17:25 Dose: 500 mg Metoprolol Succinate (Toprol Xl) 25 mg PO Q12 [facility] Last Admin: 12/01/18 21:12 Dose: 25 mg Sevelamer Carbonate (Renvela) 800 mg PO TID [facility] Last Admin: 12/01/18 17:25 Dose: 800 mg Vitamin B Complex/Vit C/Folic Acid (Nephro-Yany) 1 tab PO DAILY [facility] Last Admin: 12/01/18 10:25 Dose: Not Given - Labs Labs: 12/01/18 07:19 12/01/18 07:19 PT 12.7 SECONDS (9.7-12.2) H 12/01/18 07:19 INR 1.2 12/01/18 07:19 APTT 34 SECONDS (21-34) 12/01/18 07:19 Assessment and Plan (1) Dry gangrene Status: Acute (2) Bacteremia due to Gram-negative bacteria Status: Acute (3) ESRD (end stage renal disease) on dialysis Status: Acute (4) HTN (hypertension) Status: Acute (5) Pacemaker Status: Chronic (6) CHF (congestive heart failure) Status: Acute Attending/Attestation - Attestation I have personally seen and examined this patient.: Yes I have fully participated in the care of the patient.: Yes I have reviewed all pertinent clinical information, including history, physical exam and plan: Yes
[2018-12-01] MEDS: Epoetin Alfa 10,000 unit/ml Dialysis IV SCH (12:34)
--- NOTE | 2018-12-01 14:06 | CP.PCM.PN ---
Subjective - Date & Time of Evaluation Date of Evaluation: 12/01/18 Time of Evaluation: 14:00 - Subjective Subjective: Podiatry Progress Note- Dr. Scanlon 63 year old male patient seen and evaluated for left hallux necrotic ulceration with likely underlying osteomyelitis. Patient is resting comfortably in bed and in NAD. Denies of pain at this moment. Multipodus on at bedside. Dressing clean, dry, and intact. Denies nausea/vomiting/fever/shortness of breath. Objective - Vital Signs/Intake and Output Vital Signs (last 24 hours): Temp Pulse Resp BP Pulse Ox 97.5 F L 60 17 151/66 H 100 12/01/18 12:50 12/01/18 12:50 12/01/18 12:50 12/01/18 12:50 12/01/18 12:50 Intake and Output: 12/01/18 12/01/18 06:59 18:59 Intake Total 370 Balance 370 - Medications Medications: Current Medications Acetaminophen (Tylenol 325mg Tab) 650 mg PO Q6 PRN PRN Reason: Pain, moderate (4-7) Last Admin: 11/27/18 20:08 Dose: 650 mg Amlodipine Besylate (Norvasc) 10 mg PO DAILY [facility] Last Admin: 12/01/18 10:25 Dose: Not Given Aspirin (Ecotrin) 81 mg PO DAILY [facility] Last Admin: 12/01/18 09:15 Dose: Not Given Clopidogrel Bisulfate (Plavix) 75 mg PO DAILY [facility] Last Admin: 12/01/18 09:16 Dose: Not Given Cyclobenzaprine HCl (Flexeril) 10 mg PO DAILY [facility] Last Admin: 12/01/18 09:15 Dose: Not Given Enoxaparin Sodium (Lovenox) 30 mg SC DAILY [facility] Last Admin: 12/01/18 09:15 Dose: Not Given Epoetin Shahram (Procrit) 10,000 unit IV [facility] Last Admin: 12/01/18 12:34 Dose: 10,000 unit Hydroxyzine HCl (Atarax) 25 mg PO DAILY [facility] Last Admin: 12/01/18 09:14 Dose: Not Given Vancomycin HCl 1 gm/ Sodium (Chloride) 250 mls @ 166.7 mls/hr IVPB MWF [facility]; Protocol Last Admin: 12/01/18 08:56 Dose: 166.7 mls/hr Cefepime HCl (Maxipime Iv 1 Gm Premix) 1 gm in 50 mls @ 100 mls/hr IVPB Q24H [facility]; Protocol Stop: 12/23/18 10:01 Last Admin: 12/01/18 09:15 Dose: Not Given Insulin Human Regular (Novolin R) 0 unit SC ACHS [facility]; Protocol Last Admin: 12/01/18 13:45 Dose: Not Given Levetiracetam (Keppra) 500 mg PO BID [facility] Last Admin: 12/01/18 09:15 Dose: Not Given Metoprolol Succinate (Toprol Xl) 25 mg PO Q12 [facility] Last Admin: 12/01/18 09:16 Dose: Not Given Sevelamer Carbonate (Renvela) 800 mg PO TID [facility] Last Admin: 12/01/18 09:16 Dose: Not Given Vitamin B Complex/Vit C/Folic Acid (Nephro-Yany) 1 tab PO DAILY [facility] Last Admin: 12/01/18 10:25 Dose: Not Given - Labs Labs: 12/01/18 07:19 12/01/18 07:19 PT 12.7 SECONDS (9.7-12.2) H 12/01/18 07:19 INR 1.2 12/01/18 07:19 APTT 34 SECONDS (21-34) 12/01/18 07:19 - Constitutional Appears: Well, Non-toxic, No Acute Distress - Extremities Exam Extremities Exam: absent: Calf Tenderness Additional comments: VASC: pulses non palpable bilaterally, CFT is slightly delayed to the digits 1- 10. temperature gradient to the left lower extremity is warm to warm, temperature to the left lower extremity is warm to cool NEURO: gross sensation intact, protective sensation diminished ORTHO: pain with palpation to the left hallux DERM: eschar noted to the dorsum aspect of the hallux, + malodor, no abscess or fluctuance appreciated, no cellulitic changes. Hyperpigmentation appreciated to entire L forefoot. - Neurological Exam Neurological Exam: Alert, Awake - Psychiatric Exam Psychiatric exam: Normal Affect, Normal Mood Assessment and Plan - Assessment and Plan (Free Text) Assessment: 63M with PMH of HTN, DM, ESRD, two CVA in 2011, multiple MT with pacemaker placement with infected left hallux eschar with likely underlying osteomyelitis Plan: Discussed plan with attending Dr. Scanlon Chart, lab, vitals reviewed ESR 111, CRP 231.6 Left foot X-ray Impression: No radiographic evidence for osteomyelitis. Soft tissue swelling in the great toe likely related to cellulitis. If there is a persistent clinical concern, correlation with MRI may be performed to evaluate for early osteomyelitis. Patient is not a good candidate for MRI as he has pacemaker Bone scan was ordered to r/o OM of left foot, will follow up ESR elevated with CRP likely secondary to OM of left hallux Wound culture taken left hallux Pseudomonas aeruginosa Continue abx per ID recommendations , recommendations appreciated Cleansed hallux with betadine and dressed with betadine w2d Vascular studies reviewed- Dr. Ozuna consulted- recommendations appreciated Spoke to family mother Tonie and daughter Thu in detail regarding surgical i ntervention including risks, benefits, complications and alternatives for left hallux nonhealing eschar with infection and is refusing amputation of the left big toe. Family wants vascular intervention and conservative treatment with prison antibiotics first prior to surgical intervention of hallux amputation/1st partial ray amputation. At this time, family does not want podiatry surgical intervention for hallux amputation/1st partial ray amputation. 's number (Tonie) [phone] Will continue to follow patient while in house
--- NOTE | 2018-12-01 20:48 | PN ---
DATE: 12/01/2018 SUBJECTIVE: The patient is seen and examined at dialysis. The patient offers no new complaints. PHYSICAL EXAMINATION: GENERAL: Middle-aged male, lying in bed, in no acute distress. VITAL SIGNS: Blood pressure 151/66, pulse 60, respirations 17, temperature 97.5 degrees Fahrenheit, O2 sats 100% on room air. HEENT: Pupils are equal, round, and reacting to light and accommodation. Extraocular muscles are intact. No icterus. No pallor. No oral thrush. No pharyngeal congestion. NECK: Supple. No JVD. No thyromegaly. CHEST: Moving equally bilaterally on respiration. LUNGS: Bilateral vesicular breath sounds. No wheezing. No rhonchi. CARDIOVASCULAR SYSTEM: S1, S2 present. Regular. ABDOMEN: Soft and nontender. Bowel sounds are present. No guarding. No rigidity. No rebound tenderness noted. CENTRAL NERVOUS SYSTEM: Alert, awake, oriented x3. EXTREMITIES: Left foot with dressing in place. MEDICATIONS: Include Tylenol as needed, amlodipine 10 mg daily, aspirin 81 mg daily, Maxipime 1 g IV daily, Plavix 75 mg daily, Flexeril daily, Lovenox 30 mg subcutaneous daily, Procrit, Atarax, vancomycin 1 g every dialysis, Renvela, B complex. LABORATORY DATA: Labs done from today, WBC 7.4, hemoglobin 9.9, hematocrit 29.9, platelets 537. PT 12.7, INR 1.2, PTT 34. Sodium 132, potassium 4.6, chloride 89, bicarb 33, BUN 44, creatinine 7.5, glucose 187. Calcium 9.6, phosphorus 4, magnesium 2.4, AST 54, ALT 17, alkaline phosphatase 231, total protein 6.9, albumin 3.7. Possible occlusion of the right distal posterior tibial artery, greater than 75% stenosis of the right proximal anterior tibial artery. ASSESSMENT AND PLAN: Middle-aged male with history of hypertension, end-stage renal disease, diabetes mellitus, coronary artery disease, history of cerebrovascular accident, wheelchair bound, admitted for left toe dry gangrene with cellulitis. Wound culture positive for Pseudomonas and outside blood cultures positive for gram-negative rods, repeat blood cultures in the hospital negative. For possible angiogram by Dr. Ozuna in a.m. Podiatry planning to do amputation. Continue with hemodialysis as per Renal. Continue with current IV antibiotics. Follow up with Vascular Surgery and Podiatry regarding further treatment plan. Aydee Winston MD
--- NOTE | 2018-12-01 20:59 | CP.PCM.PN ---
Subjective - Date & Time of Evaluation Date of Evaluation: 12/01/18 Time of Evaluation: 09:00 - Subjective Subjective: 63 year old male patient seen and evaluated for left hallux necrotic ulceration with likely underlying osteomyelitis. at bedside awake alert denies fever Objective - Vital Signs/Intake and Output Vital Signs (last 24 hours): Temp Pulse Resp BP Pulse Ox 98.3 F 63 20 160/69 H 100 12/01/18 16:00 12/01/18 16:00 12/01/18 16:00 12/01/18 16:00 12/01/18 16:00 Intake and Output: 12/01/18 12/02/18 18:59 06:59 Intake Total 490 Balance 490 - Medications Medications: Current Medications Acetaminophen (Tylenol 325mg Tab) 650 mg PO Q6 PRN PRN Reason: Pain, moderate (4-7) Last Admin: 11/27/18 20:08 Dose: 650 mg Amlodipine Besylate (Norvasc) 10 mg PO DAILY [facility] Last Admin: 12/01/18 10:25 Dose: Not Given Aspirin (Ecotrin) 81 mg PO DAILY [facility] Last Admin: 12/01/18 09:15 Dose: Not Given Clopidogrel Bisulfate (Plavix) 75 mg PO DAILY [facility] Last Admin: 12/01/18 09:16 Dose: Not Given Cyclobenzaprine HCl (Flexeril) 10 mg PO DAILY [facility] Last Admin: 12/01/18 09:15 Dose: Not Given Enoxaparin Sodium (Lovenox) 30 mg SC DAILY [facility] Last Admin: 12/01/18 09:15 Dose: Not Given Epoetin Shahram (Procrit) 10,000 unit IV [facility] Last Admin: 12/01/18 12:34 Dose: 10,000 unit Hydroxyzine HCl (Atarax) 25 mg PO DAILY [facility] Last Admin: 12/01/18 09:14 Dose: Not Given Vancomycin HCl 1 gm/ Sodium (Chloride) 250 mls @ 166.7 mls/hr IVPB [facility]; Protocol Last Admin: 12/01/18 08:56 Dose: 166.7 mls/hr Cefepime HCl (Maxipime Iv 1 Gm Premix) 1 gm in 50 mls @ 100 mls/hr IVPB Q24H [facility]; Protocol Stop: 12/23/18 10:01 Last Admin: 12/01/18 09:15 Dose: Not Given Insulin Human Regular (Novolin R) 0 unit SC ACHS [facility]; Protocol Last Admin: 12/01/18 17:25 Dose: 3 units Levetiracetam (Keppra) 500 mg PO BID [facility] Last Admin: 12/01/18 17:25 Dose: 500 mg Metoprolol Succinate (Toprol Xl) 25 mg PO Q12 [facility] Last Admin: 12/01/18 09:16 Dose: Not Given Sevelamer Carbonate (Renvela) 800 mg PO TID [facility] Last Admin: 12/01/18 17:25 Dose: 800 mg Vitamin B Complex/Vit C/Folic Acid (Nephro-Yany) 1 tab PO DAILY [facility] Last Admin: 12/01/18 10:25 Dose: Not Given - Labs Labs: 12/01/18 07:19 12/01/18 07:19 PT 12.7 SECONDS (9.7-12.2) H 12/01/18 07:19 INR 1.2 12/01/18 07:19 APTT 34 SECONDS (21-34) 12/01/18 07:19 - Constitutional Appears: Non-toxic, Cachectic, Chronically Ill - Head Exam Head Exam: NORMOCEPHALIC - Eye Exam Eye Exam: absent: Scleral icterus Pupil Exam: NORMAL ACCOMODATION - ENT Exam ENT Exam: Mucous Membranes Dry, Normal External Ear Exam, Normal Oropharynx - Neck Exam Neck Exam: Normal Inspection - Respiratory Exam Respiratory Exam: Decreased Breath Sounds - Cardiovascular Exam Cardiovascular Exam: REGULAR RHYTHM, +S1, +S2 - GI/Abdominal Exam GI & Abdominal Exam: Distended, Soft - Rectal Exam Rectal Exam: Deferred - Exam Exam: Scrotal Swelling - Extremities Exam Extremities Exam: Pedal Edema Additional comments: gangrenous changes to left great toe pulses diminished - Back Exam Back Exam: absent: CVA tenderness (L), CVA tenderness (R) - Neurological Exam Neurological Exam: Alert, Awake, CN II-XII Intact Neuro motor strength exam: Left Upper Extremity: 3, Right Upper Extremity: 2/1, Left Lower Extremity: 3, Right Lower Extremity: 2/1 - Psychiatric Exam Psychiatric exam: Depressed - Skin Skin Exam: Dry Assessment and Plan (1) Dry gangrene Status: Acute (2) CVA, old, aphasia Status: Acute (3) Chronic toe ulcer Status: Acute (4) DM2 (diabetes mellitus, type 2) Status: Acute (5) ESRD (end stage renal disease) on dialysis Status: Acute (6) HTN (hypertension) Status: Acute (7) Osteomyelitis of great toe of left foot Status: Acute (8) PVD (peripheral vascular disease) Status: Acute - Assessment and Plan (Free Text) Assessment: OM with pseudomonas may need amputation IV antibiotics renewed
[2018-12-02] MEDS ORDERED: Iodixanol 320 MG/ML 200 ML BOTTLE IV ONE ×2 (07:15→08:34)
[2018-12-02] MEDS ORDERED: Lidocaine Hydrochloride 10 ML INJ ONE (07:16)
[2018-12-02] MEDS: (Novolin R) Insulin Human Regular 100 units/ml vial SC SCH ×4 (07:48→21:49)
[2018-12-02] MEDS ORDERED: Midazolam 2 MG/2 ML VIAL ONE (07:49)
[2018-12-02] MEDS ORDERED: Verapamil 2 ML ONE (08:34)
--- NOTE | 2018-12-02 09:43 | CARD ---
APPROVED REPORT Date of service: 11/30/2018 EXAM: Two-dimensional and M-mode echocardiogram with Doppler and color Doppler. Other Information Quality : GoodRhythm : INDICATION Atrial Fibrillation LV Function:Systolic dialysis RISK FACTORS Hypertension Diabetes 2D DIMENSIONS IVSd0.9 (0.7-1.1cm)Aortic Root (2D)3.7 (2.0-3.7cm) LVDd6.9 (3.9-5.9cm)PWd1.0 (0.7-1.1cm) LA Bzjggg09 (18-58mL)LVDs4.5 (2.5-4.0cm) FS (%) 34.0 %LVEF (%)61.6 (>50%) LVEF (Winkler's)58.08 %IVC0.00 cm M-Mode DIMENSIONS Left Atrium (MM)4.10 (2.5-4.0cm)IVSd0.94 (0.7-1.1cm) Aortic Root4.16 (2.2-3.7cm)LVDd6.49 (4.0-5.6cm) Aortic Cusp Exc.2.29 (1.5-2.0cm)PWd0.97 (0.7-1.1cm) FS (%) 37 %LVDs4.10 (2.0-3.8cm) LVEF (%)66 (>50%) Mitral Valve MV E Bqwfmyzt882.2cm/sMV A Irdqmkcp47.8cm/sE/A ratio2.7 TDI Lateral E' Peak V7.06cm/sMedial E' Peak V6.55cm/sE/Lateral E'18.9 E/Medial E'20.3 Tricuspid Valve TR Peak Nkpqwvvt827ph/sTR Peak [id number] <Conclusion> Left ventricle: thickness: normal; size: dilated; overall ejection fraction: 60%: diastolic filling pressures: elevated Mitral valve: annulus: normal: leaflets: normal: excursion: normal; no significant trans-mitral gradient: mild incompetence: left atrium: dilated Aortic valve: leaflets: normal: excursion: normal; no significant trans-aortic gradient: mild incompetence: aortic root: moderate dilatation Right sided Structures: Pulmonary valve: normal; no significant incompetence; Tricuspid valve: normal; mild to moderate incompetence: catheter in right ventricle Intra-cardiac hemodynamics: pulmonary systolic pressures: 50 mmHg; central venous pressures: normal Trace pericardial effusion
--- NOTE | 2018-12-02 10:10 | CP.PCM.PN ---
Subjective - Date & Time of Evaluation Date of Evaluation: 12/02/18 Time of Evaluation: 10:07 - Subjective Subjective: for LE angiogram now stable dialysis sessions BP controlled has usual sluggishness; no new complaints reported on IV ABs for + wound infection, possible osteomyelitis No CPs, dyspnea, f, chills, n, v Objective - Vital Signs/Intake and Output Vital Signs (last 24 hours): Temp Pulse Resp BP Pulse Ox 98.4 F 60 20 146/63 96 12/02/18 00:00 12/02/18 00:00 12/02/18 00:00 12/02/18 00:00 12/02/18 00:00 Intake and Output: 12/02/18 12/02/18 06:59 18:59 Intake Total 250 Output Total 300 Balance -50 - Medications Medications: Current Medications Acetaminophen (Tylenol 325mg Tab) 650 mg PO Q6 PRN PRN Reason: Pain, moderate (4-7) Last Admin: 11/27/18 20:08 Dose: 650 mg Amlodipine Besylate (Norvasc) 10 mg PO DAILY [facility] Last Admin: 12/01/18 10:25 Dose: Not Given Aspirin (Ecotrin) 81 mg PO DAILY [facility] Last Admin: 12/01/18 09:15 Dose: Not Given Clopidogrel Bisulfate (Plavix) 75 mg PO DAILY [facility] Last Admin: 12/01/18 09:16 Dose: Not Given Cyclobenzaprine HCl (Flexeril) 10 mg PO DAILY [facility] Last Admin: 12/01/18 09:15 Dose: Not Given Enoxaparin Sodium (Lovenox) 30 mg SC DAILY [facility] Last Admin: 12/01/18 09:15 Dose: Not Given Epoetin Shahram (Procrit) 10,000 unit IV [facility] Last Admin: 12/01/18 12:34 Dose: 10,000 unit Hydroxyzine HCl (Atarax) 25 mg PO DAILY [facility] Last Admin: 12/01/18 09:14 Dose: Not Given Vancomycin HCl 1 gm/ Sodium (Chloride) 250 mls @ 166.7 mls/hr IVPB MWF [facility]; Protocol Last Admin: 12/01/18 08:56 Dose: 166.7 mls/hr Cefepime HCl (Maxipime Iv 1 Gm Premix) 1 gm in 50 mls @ 100 mls/hr IVPB Q24H [facility]; Protocol Stop: 04/18/19 10:01 Last Admin: 12/01/18 09:15 Dose: Not Given Insulin Human Regular (Novolin R) 0 unit SC ACHS [facility]; Protocol Last Admin: 12/02/18 07:48 Dose: Not Given Levetiracetam (Keppra) 500 mg PO BID [facility] Last Admin: 12/01/18 17:25 Dose: 500 mg Metoprolol Succinate (Toprol Xl) 25 mg PO Q12 [facility] Last Admin: 12/01/18 21:12 Dose: 25 mg Sevelamer Carbonate (Renvela) 800 mg PO TID [facility] Last Admin: 12/01/18 17:25 Dose: 800 mg Vitamin B Complex/Vit C/Folic Acid (Nephro-Yany) 1 tab PO DAILY [facility] Last Admin: 12/01/18 10:25 Dose: Not Given - Labs Labs: 12/01/18 07:19 12/01/18 07:19 PT 12.7 SECONDS (9.7-12.2) H 12/01/18 07:19 INR 1.2 12/01/18 07:19 APTT 34 SECONDS (21-34) 12/01/18 07:19 - Constitutional Appears: No Acute Distress, Chronically Ill - Head Exam Head Exam: ATRAUMATIC, NORMAL INSPECTION - Eye Exam Eye Exam: EOMI, Normal appearance - Neck Exam Neck Exam: Normal Inspection. absent: Tenderness - Respiratory Exam Respiratory Exam: Clear to Ausculation Bilateral, NORMAL BREATHING PATTERN - Cardiovascular Exam Cardiovascular Exam: REGULAR RHYTHM, +S1 - GI/Abdominal Exam GI & Abdominal Exam: Soft. absent: Tenderness - Extremities Exam Extremities Exam: Normal Inspection. absent: Tenderness - Neurological Exam Neurological Exam: Awake, CN II-XII Intact - Skin Skin Exam: Dry, Warm Assessment and Plan (1) Dry gangrene Status: Acute (2) ESRD (end stage renal disease) on dialysis Status: Acute (3) HTN (hypertension) Status: Acute (4) Type 2 diabetes mellitus with diabetic nephropathy Status: Acute (5) History of CVA (cerebrovascular accident) Status: Chronic (6) Bacteremia due to Gram-negative bacteria Status: Acute - Assessment and Plan (Free Text) Plan: LE angiogram IV ABs Dialysis MWF Same meds
--- NOTE | 2018-12-02 10:37 | CP.PCM.PN ---
Subjective - Date & Time of Evaluation Date of Evaluation: 12/02/18 Time of Evaluation: 10:37 - Subjective Subjective: Progress note dictated # [id number] Objective - Vital Signs/Intake and Output Vital Signs (last 24 hours): Temp Pulse Resp BP Pulse Ox 98.4 F 60 20 146/63 96 12/02/18 00:00 12/02/18 00:00 12/02/18 00:00 12/02/18 00:00 12/02/18 00:00 Intake and Output: 12/02/18 12/02/18 06:59 18:59 Intake Total 250 Output Total 300 Balance -50 - Medications Medications: Current Medications Acetaminophen (Tylenol 325mg Tab) 650 mg PO Q6 PRN PRN Reason: Pain, moderate (4-7) Last Admin: 11/27/18 20:08 Dose: 650 mg Amlodipine Besylate (Norvasc) 10 mg PO DAILY [facility] Last Admin: 12/01/18 10:25 Dose: Not Given Aspirin (Ecotrin) 81 mg PO DAILY [facility] Last Admin: 12/01/18 09:15 Dose: Not Given Clopidogrel Bisulfate (Plavix) 75 mg PO DAILY [facility] Last Admin: 12/01/18 09:16 Dose: Not Given Cyclobenzaprine HCl (Flexeril) 10 mg PO DAILY [facility] Last Admin: 12/01/18 09:15 Dose: Not Given Enoxaparin Sodium (Lovenox) 30 mg SC DAILY [facility] Last Admin: 12/01/18 09:15 Dose: Not Given Epoetin Shahram (Procrit) 10,000 unit IV [place] Last Admin: 12/01/18 12:34 Dose: 10,000 unit Hydroxyzine HCl (Atarax) 25 mg PO DAILY [facility] Last Admin: 12/01/18 09:14 Dose: Not Given Vancomycin HCl 1 gm/ Sodium (Chloride) 250 mls @ 166.7 mls/hr IVPB MWF [facility]; Protocol Last Admin: 12/01/18 08:56 Dose: 166.7 mls/hr Cefepime HCl (Maxipime Iv 1 Gm Premix) 1 gm in 50 mls @ 100 mls/hr IVPB Q24H [facility]; Protocol Stop: 12/23/18 10:01 Last Admin: 12/01/18 09:15 Dose: Not Given Insulin Human Regular (Novolin R) 0 unit SC [facility]; Protocol Last Admin: 12/02/18 07:48 Dose: Not Given Levetiracetam (Keppra) 500 mg PO BID [facility] Last Admin: 12/01/18 17:25 Dose: 500 mg Metoprolol Succinate (Toprol Xl) 25 mg PO Q12 [facility] Last Admin: 12/01/18 21:12 Dose: 25 mg Sevelamer Carbonate (Renvela) 800 mg PO TID [facility] Last Admin: 12/01/18 17:25 Dose: 800 mg Vitamin B Complex/Vit C/Folic Acid (Nephro-Yany) 1 tab PO DAILY [facility] Last Admin: 12/01/18 10:25 Dose: Not Given - Labs Labs: 12/01/18 07:19 12/01/18 07:19 PT 12.7 SECONDS (9.7-12.2) H 12/01/18 07:19 INR 1.2 12/01/18 07:19 APTT 34 SECONDS (21-34) 12/01/18 07:19
[2018-12-02] MEDS: Multivitamin Vitamin B Complex (Nephro-Vite) Tab PO SCH (10:51)
[2018-12-02] MEDS: Enoxaparin 30 mg Syringe SC SCH (10:51)
[2018-12-02] MEDS: Cefepime IV 1 gm in Dextrose 1 GM/50 ML BAG IVPB SCH (10:51)
[2018-12-02] MEDS: Metoprolol Succinate 25 mg XL Tab PO SCH ×2 (10:52→21:49)
--- NOTE | 2018-12-02 19:19 | CP.PCM.PN ---
Subjective - Date & Time of Evaluation Date of Evaluation: 12/02/18 Time of Evaluation: 19:16 - Subjective Subjective: Nelda Zheng, PGY-1, Cardiology Progress Note for Dr. Ozuna Patient was seen and evaluated at bedside. Patient had no acute overnight events. Patient denies any acute symptoms at this time. Objective - Vital Signs/Intake and Output Vital Signs (last 24 hours): Temp Pulse Resp BP Pulse Ox 98.7 F 63 18 129/65 97 12/02/18 15:00 12/02/18 15:00 12/02/18 15:00 12/02/18 15:00 12/02/18 15:00 - Medications Medications: Current Medications Acetaminophen (Tylenol 325mg Tab) 650 mg PO Q6 PRN PRN Reason: Pain, moderate (4-7) Last Admin: 11/27/18 20:08 Dose: 650 mg Amlodipine Besylate (Norvasc) 10 mg PO DAILY [facility] Last Admin: 12/02/18 10:51 Dose: Not Given Aspirin (Ecotrin) 81 mg PO DAILY [facility] Last Admin: 12/02/18 10:51 Dose: Not Given Clopidogrel Bisulfate (Plavix) 75 mg PO DAILY [facility] Last Admin: 12/02/18 10:52 Dose: Not Given Cyclobenzaprine HCl (Flexeril) 10 mg PO DAILY [facility] Last Admin: 12/02/18 10:51 Dose: Not Given Epoetin Shahram (Procrit) 10,000 unit IV [facility] Last Admin: 12/01/18 12:34 Dose: 10,000 unit Hydroxyzine HCl (Atarax) 25 mg PO DAILY [facility] Last Admin: 12/02/18 10:51 Dose: Not Given Vancomycin HCl 1 gm/ Sodium (Chloride) 250 mls @ 166.7 mls/hr IVPB MWF [facility]; Protocol Last Admin: 12/01/18 08:56 Dose: 166.7 mls/hr Cefepime HCl (Maxipime Iv 1 Gm Premix) 1 gm in 50 mls @ 100 mls/hr IVPB Q24H [facility]; Protocol Stop: 12/23/18 10:01 Last Admin: 12/02/18 10:51 Dose: Not Given Insulin Human Regular (Novolin R) 0 unit SC [facility]; Protocol Last Admin: 12/02/18 17:17 Dose: 3 units Levetiracetam (Keppra) 500 mg PO BID [facility] Last Admin: 12/02/18 17:15 Dose: 500 mg Metoprolol Succinate (Toprol Xl) 25 mg PO Q12 [facility] Last Admin: 12/02/18 10:52 Dose: Not Given Sevelamer Carbonate (Renvela) 800 mg PO TID [facility] Last Admin: 12/02/18 17:15 Dose: 800 mg Vitamin B Complex/Vit C/Folic Acid (Nephro-Yany) 1 tab PO DAILY [facility] Last Admin: 12/02/18 10:51 Dose: Not Given - Labs Labs: 12/01/18 07:19 12/01/18 07:19 PT 12.7 SECONDS (9.7-12.2) H 12/01/18 07:19 INR 1.2 12/01/18 07:19 APTT 34 SECONDS (21-34) 12/01/18 07:19 - Constitutional Appears: Well - Head Exam Head Exam: ATRAUMATIC, NORMAL INSPECTION, NORMOCEPHALIC - Eye Exam Eye Exam: EOMI, Normal appearance, PERRL Pupil Exam: NORMAL ACCOMODATION, PERRL - ENT Exam ENT Exam: Mucous Membranes Moist, Normal Exam - Neck Exam Neck Exam: Full ROM, Normal Inspection. absent: Lymphadenopathy - Respiratory Exam Respiratory Exam: Clear to Ausculation Bilateral, NORMAL BREATHING PATTERN - Cardiovascular Exam Cardiovascular Exam: REGULAR RHYTHM, +S1, +S2. absent: Murmur - GI/Abdominal Exam GI & Abdominal Exam: Soft, Normal Bowel Sounds. absent: Tenderness - Extremities Exam Extremities Exam: Full ROM, Normal Capillary Refill, Normal Inspection. absent: Joint Swelling, Pedal Edema - Back Exam Back Exam: NORMAL INSPECTION - Neurological Exam Neurological Exam: Alert, Awake Neuro motor strength exam: Right Upper Extremity: 3, Right Lower Extremity: 2/1 - Psychiatric Exam Psychiatric exam: Normal Affect, Normal Mood - Skin Skin Exam: Dry, Intact, Normal Color, Warm Assessment and Plan - Assessment and Plan (Free Text) Plan: (1) Dry gangrene Assessment & Plan: Peripheral angiogram complete Continue aspirin Status: Acute (2) Bacteremia due to Gram-negative bacteria Assessment & Plan: Continue with IV Abx Status: Acute (3) ESRD (end stage renal disease) on dialysis Assessment & Plan: continue HD Status: Acute (4) HTN (hypertension) Status: Acute Continue with norvasc and toprol (5) Pacemaker Status: Chronic (6) CHF (congestive heart failure) Status: Acute Continue with toprol.
--- NOTE | 2018-12-02 21:45 | PN ---
DATE: 12/02/2018 SUBJECTIVE: The patient is seen and examined after angiogram and . The patient denies any complaints. PHYSICAL EXAMINATION: GENERAL: Middle-aged male, lying in bed, in no acute distress. VITAL SIGNS: Blood pressure 129/65, pulse 65, respirations 20, temperature 98.7 degrees Fahrenheit, O2 sat is 97% on room air. HEENT: Pupils equal, round and reacting to light and accommodation. Extraocular muscles intact. No icterus. No pallor. No oral thrush. No pharyngeal congestion. NECK: Supple. No JVD. LUNGS: Bilateral vesicular breath sounds. No wheezing. No rhonchi. CARDIOVASCULAR SYSTEM: S1 and S2 present, regular. ABDOMEN: Soft. Nontender. Bowel sounds present. No guarding. No rigidity. No rebound tenderness noted. CENTRAL NERVOUS SYSTEM: Alert, awake, and oriented x3. No focal deficits noted. EXTREMITIES: Left foot has dressing in place. MEDICATIONS: Include Tylenol as needed, Norvasc 10 mg daily, aspirin 81 mg daily, Maxipime 1 g IV daily, Plavix 75 mg daily, Flexeril 10 mg daily, Procrit 10,000 units on Thursday, Thursday and Thursday, Atarax 25 mg daily, Keppra 500 mg p.o. b.i.d., Toprol-XL 25 mg every 12 hours, Renvela, vancomycin 1 g IV during the dialysis. LABORATORY DATA: Labs from today: Accu-Cheks: 187, 183, 296, 242, 272. ASSESSMENT AND PLAN: Middle-aged male with hypertension, hyperlipidemia, coronary artery disease, history of cerebrovascular accident, end-stage renal disease, on hemodialysis. Admitted for left foot cellulitis with dry gangrene, status post atherectomy this morning by Dr. Ozuna. Discussed with the Podiatry. If the patient's family agrees for debridement, Podiatry recommending debridement. Continue with current antibiotics for Pseudomonas in the wound culture and also blood cultures positive for gram-negative rods. I will continue with other current medication. Follow up with Infectious Disease regarding the length of intravenous antibiotics. guest services representative for discharge planning. Aydee Winston MD
--- NOTE | 2018-12-03 02:45 | VAS ---
DATE: 12/02/2018 INDICATIONS: Mr. Castañeda is a 63-year-old male who was admitted for gangrene of the left big toe. The patient has known history of hypertension, diabetes, CVA. He is essentially bedbound but because of worsening gangrene, he was brought to the phlebotomy lab assistant for evaluation and treatment. PROCEDURES PERFORMED: Distal abdominal aortogram with bilateral iliac runoff, selective bilateral iliofemoral angiogram with runoff, percutaneous transluminal angioplasty atherectomy of left anterior tibial artery with the use of 1.25 solid CSI atherectomy device, additional balloon angioplasty with a 2.5 x 3.0 x 2.10 balloon, lesion reduction from 80-90% down to 0% SANDER-3 flow, percutaneous transluminal angioplasty of left peroneal artery with the use of 3.0 x 1.50 long balloon lesion reduction from 210-80% lesion down to 0% SANDER-3 flow . ANGIOGRAPHIC FINDINGS: Right lower extremity: Right common iliac, external iliac patent. SFA is heavily calcified but patent, popliteal artery patent, one-vessel runoff below the knee. Left lower extremity: Left common iliac and external iliac patent, SFA is heavily calcified but patent vessel, popliteal patent with moderate lesion. At the trifurcation, popliteal has high grade ostial lesion. Peroneal had multiple tandem 80% lesions and anterior tibial artery had a mid 99% stenosis, distal 80%, at the distal end of dorsalis pedis had diffused 80% stenosis. INTERVENTION PERFORMED: A successful atherectomy angioplasty of anterior tibial artery with the use of 1.25 CSI atherectomy device. Additional balloon angioplasty with 2.5 x 3.0 serial dilatation balloons, lesion reduction down to 0% improvement in flow. IMPRESSION: Successful revascularization with anabaptist of the flow to the superficial plantar arch feeding the digital arches. RECOMMENDATIONS: The patient can be transferred back to the floor. Continue the patient on dual antiplatelet therapy. Guideline directed therapy for peripheral vascular disease. Thank you Dr. Winston for letting me to participate in the care of your patient. We will continue to monitor the patient's closely, antiplatelet therapy as needed. Yonatan Ozuna MD
[2018-12-03] MEDS: (Novolin R) Insulin Human Regular 100 units/ml vial SC SCH ×4 (07:52→21:28)
--- NOTE | 2018-12-03 08:35 | CP.PCM.PN ---
Subjective - Date & Time of Evaluation Date of Evaluation: 12/03/18 Time of Evaluation: 08:32 - Subjective Subjective: Nelda Zheng, PGY-1, Cardiology Progress Note for Dr. Ozuna Patient was seen and evaluated at bedside. Patient had no acute overnight events. Patient denies any acute symptoms at this time. Objective - Vital Signs/Intake and Output Vital Signs (last 24 hours): Temp Pulse Resp BP Pulse Ox 98.5 F 63 20 164/74 H 99 12/03/18 08:10 12/03/18 08:10 12/03/18 08:10 12/03/18 08:10 12/03/18 08:10 - Medications Medications: Current Medications Acetaminophen (Tylenol 325mg Tab) 650 mg PO Q6 PRN PRN Reason: Pain, moderate (4-7) Last Admin: 11/27/18 20:08 Dose: 650 mg Amlodipine Besylate (Norvasc) 10 mg PO DAILY [facility] Last Admin: 12/02/18 10:51 Dose: Not Given Aspirin (Ecotrin) 81 mg PO DAILY [facility] Last Admin: 12/02/18 10:51 Dose: Not Given Clopidogrel Bisulfate (Plavix) 75 mg PO DAILY [facility] Last Admin: 12/02/18 10:52 Dose: Not Given Cyclobenzaprine HCl (Flexeril) 10 mg PO DAILY [facility] Last Admin: 12/02/18 10:51 Dose: Not Given Epoetin Shahram (Procrit) 10,000 unit IV [facility] [place] Last Admin: 12/01/18 12:34 Dose: 10,000 unit Hydroxyzine HCl (Atarax) 25 mg PO DAILY [facility] Last Admin: 12/02/18 10:51 Dose: Not Given Vancomycin HCl 1 gm/ Sodium (Chloride) 250 mls @ 166.7 mls/hr IVPB MWF [facility]; Pro tocol Last Admin: 12/01/18 08:56 Dose: 166.7 mls/hr Cefepime HCl (Maxipime Iv 1 Gm Premix) 1 gm in 50 mls @ 100 mls/hr IVPB Q24H [facility]; Protocol Stop: 12/23/18 10:01 Last Admin: 12/02/18 10:51 Dose: Not Given Insulin Human Regular (Novolin R) 0 unit SC [facility]; Protocol Last Admin: 12/03/18 07:52 Dose: Not Given Levetiracetam (Keppra) 500 mg PO BID [facility] Last Admin: 12/02/18 17:15 Dose: 500 mg Metoprolol Succinate (Toprol Xl) 25 mg PO Q12 [facility] Last Admin: 12/02/18 21:49 Dose: 25 mg Sevelamer Carbonate (Renvela) 800 mg PO TID [facility] Last Admin: 12/02/18 17:15 Dose: 800 mg Vitamin B Complex/Vit C/Folic Acid (Nephro-Yany) 1 tab PO DAILY [facility] Last Admin: 12/02/18 10:51 Dose: Not Given - Labs Labs: 12/01/18 07:19 12/01/18 07:19 PT 12.7 SECONDS (9.7-12.2) H 12/01/18 07:19 INR 1.2 12/01/18 07:19 APTT 34 SECONDS (21-34) 12/01/18 07:19 - Constitutional Appears: Well - Head Exam Head Exam: ATRAUMATIC, NORMAL INSPECTION, NORMOCEPHALIC - Eye Exam Eye Exam: EOMI, Normal appearance, PERRL Pupil Exam: NORMAL ACCOMODATION, PERRL - ENT Exam ENT Exam: Mucous Membranes Moist, Normal Exam - Neck Exam Neck Exam: Full ROM, Normal Inspection. absent: Lymphadenopathy - Respiratory Exam Respiratory Exam: Clear to Ausculation Bilateral, NORMAL BREATHING PATTERN - Cardiovascular Exam Cardiovascular Exam: REGULAR RHYTHM, +S1, +S2. absent: Murmur - GI/Abdominal Exam GI & Abdominal Exam: Soft, Normal Bowel Sounds. absent: Tenderness - Extremities Exam Extremities Exam: Full ROM, Normal Capillary Refill, Normal Inspection. absent: Joint Swelling, Pedal Edema - Back Exam Back Exam: NORMAL INSPECTION - Neurological Exam Neurological Exam: Alert, Awake Neuro motor strength exam: Right Upper Extremity: 3, Right Lower Extremity: 2/1 - Psychiatric Exam Psychiatric exam: Normal Affect, Normal Mood - Skin Skin Exam: Dry, Intact, Normal Color, Warm Assessment and Plan (1) Dry gangrene Assessment & Plan: Peripheral angiogram complete Continue aspirin Status: Acute (2) Bacteremia due to Gram-negative bacteria Assessment & Plan: Continue with IV Abx Status: Acute (3) CHF (congestive heart failure) Assessment & Plan: Continue with toprol. Status: Acute (4) End stage renal disease Assessment & Plan: continue HD Status: Acute (5) HTN (hypertension) Assessment & Plan: Continue with norvasc and toprol Status: Acute - Assessment and Plan (Free Text) Plan: From a cardiac standpoint, patient can be discharged and should follow up with Dr. Ozuna within 2 weeks.
[2018-12-03] MEDS: Epoetin Alfa 10,000 unit/ml Dialysis IV SCH (12:46)
--- NOTE | 2018-12-03 13:02 | CP.PCM.PN ---
Subjective - Date & Time of Evaluation Date of Evaluation: 12/03/18 Time of Evaluation: 12:59 - Subjective Subjective: Seen at dialysis To UF 3000ml s/p LE angiogram L LE bandages just changed Remains on IV ABs for osteo not verbalizing now Objective - Vital Signs/Intake and Output Vital Signs (last 24 hours): Temp Pulse Resp BP Pulse Ox 98 F 62 16 103/47 L 99 12/03/18 09:30 12/03/18 09:30 12/03/18 09:30 12/03/18 11:30 12/03/18 09:30 - Medications Medications: Current Medications Acetaminophen (Tylenol 325mg Tab) 650 mg PO Q6 PRN PRN Reason: Pain, moderate (4-7) Last Admin: 11/27/18 20:08 Dose: 650 mg Amlodipine Besylate (Norvasc) 10 mg PO DAILY [facility] Last Admin: 12/02/18 10:51 Dose: Not Given Aspirin (Ecotrin) 81 mg PO DAILY [facility] Last Admin: 12/02/18 10:51 Dose: Not Given Clopidogrel Bisulfate (Plavix) 75 mg PO DAILY [facility] Last Admin: 12/02/18 10:52 Dose: Not Given Cyclobenzaprine HCl (Flexeril) 10 mg PO DAILY [facility] Last Admin: 12/02/18 10:51 Dose: Not Given Epoetin Sharham (Procrit) 10,000 unit IV MWF [facility] Last Admin: 12/03/18 12:46 Dose: 10,000 unit Hydroxyzine HCl (Atarax) 25 mg PO DAILY [facility] Last Admin: 12/02/18 10:51 Dose: Not Given Cefepime HCl (Maxipime Iv 1 Gm Premix) 1 gm in 50 mls @ 100 mls/hr IVPB Q24H [facility]; Protocol Stop: 12/23/18 10:01 Last Admin: 12/02/18 10:51 Dose: Not Given Vancomycin HCl 1 gm/ Sodium (Chloride) 250 mls @ 166.7 mls/hr IVPB MWF@1600 [facility]; Protocol Insulin Human Regular (Novolin R) 0 unit SC ACHS [facility]; Protocol Last Admin: 12/03/18 12:10 Dose: Not Given Levetiracetam (Keppra) 500 mg PO BID [facility] Last Admin: 12/02/18 17:15 Dose: 500 mg Metoprolol Succinate (Toprol Xl) 25 mg PO Q12 [facility] Last Admin: 12/02/18 21:49 Dose: 25 mg Sevelamer Carbonate (Renvela) 800 mg PO TID [facility] Last Admin: 12/02/18 17:15 Dose: 800 mg Vitamin B Complex/Vit C/Folic Acid (Nephro-Yany) 1 tab PO DAILY [facility] Last Admin: 12/02/18 10:51 Dose: Not Given - Labs Labs: 12/01/18 07:19 12/01/18 07:19 PT 12.7 SECONDS (9.7-12.2) H 12/01/18 07:19 INR 1.2 12/01/18 07:19 APTT 34 SECONDS (21-34) 12/01/18 07:19 - Constitutional Appears: No Acute Distress, Confused, Chronically Ill - Head Exam Head Exam: ATRAUMATIC, NORMAL INSPECTION - Eye Exam Eye Exam: EOMI, Normal appearance - Neck Exam Neck Exam: Normal Inspection. absent: Tenderness - Respiratory Exam Respiratory Exam: Clear to Ausculation Bilateral, NORMAL BREATHING PATTERN - Cardiovascular Exam Cardiovascular Exam: REGULAR RHYTHM, +S1 - GI/Abdominal Exam GI & Abdominal Exam: Soft. absent: Tenderness - Extremities Exam Extremities Exam: Normal Inspection. absent: Tenderness - Neurological Exam Neurological Exam: Awake, CN II-XII Intact - Skin Skin Exam: Dry, Warm Assessment and Plan (1) Dry gangrene Status: Acute (2) ESRD (end stage renal disease) on dialysis Status: Acute (3) HTN (hypertension) Status: Acute (4) Type 2 diabetes mellitus with diabetic nephropathy Status: Acute (5) History of CVA (cerebrovascular accident) Status: Chronic (6) Bacteremia due to Gram-negative bacteria Status: Acute - Assessment and Plan (Free Text) Plan: IV ABs Dialysis MWF Wound care review angio findings
[2018-12-03] MEDS: Metoprolol Succinate 25 mg XL Tab PO SCH ×2 (14:14→21:29)
[2018-12-03] MEDS: Multivitamin Vitamin B Complex (Nephro-Vite) Tab PO SCH (14:25)
[2018-12-03] MEDS: Cefepime IV 1 gm in Dextrose 1 GM/50 ML BAG IVPB SCH ×3 (14:26→18:13)
--- NOTE | 2018-12-03 17:07 | CP.PCM.PN ---
Subjective - Date & Time of Evaluation Date of Evaluation: 12/03/18 Time of Evaluation: 17:06 - Subjective Subjective: pt is seen and examined, covering dr. vy simmons,progress note is dictated #[id number] Objective - Vital Signs/Intake and Output Vital Signs (last 24 hours): Temp Pulse Resp BP Pulse Ox 98.3 F 64 16 132/69 100 12/03/18 13:00 12/03/18 13:00 12/03/18 13:00 12/03/18 13:00 12/03/18 13:00 Intake and Output: 12/03/18 12/03/18 06:59 18:59 Intake Total 360 Balance 360 - Medications Medications: Current Medications Acetaminophen (Tylenol 325mg Tab) 650 mg PO Q6 PRN PRN Reason: Pain, moderate (4-7) Last Admin: 11/27/18 20:08 Dose: 650 mg Amlodipine Besylate (Norvasc) 10 mg PO DAILY [facility] Last Admin: 12/03/18 14:25 Dose: 10 mg Aspirin (Ecotrin) 81 mg PO DAILY [facility] Last Admin: 12/03/18 14:25 Dose: 81 mg Clopidogrel Bisulfate (Plavix) 75 mg PO DAILY [facility] Last Admin: 12/03/18 14:25 Dose: 75 mg Cyclobenzaprine HCl (Flexeril) 10 mg PO DAILY [facility] Last Admin: 12/03/18 14:25 Dose: 10 mg Epoetin Shahram (Procrit) 10,000 unit IV MWF [facility] Last Admin: 12/03/18 12:46 Dose: 10,000 unit Hydroxyzine HCl (Atarax) 25 mg PO DAILY [facility] Last Admin: 12/03/18 14:24 Dose: 25 mg Vancomycin HCl 1 gm/ Sodium (Chloride) 250 mls @ 166.7 mls/hr IVPB MWF@1600 [facility]; Protocol Last Admin: 12/03/18 16:03 Dose: 166.7 mls/hr Cefepime HCl (Maxipime Iv 1 Gm Premix) 1 gm in 50 mls @ 100 mls/hr IVPB Q24H [facility]; Protocol Insulin Human Regular (Novolin R) 0 unit SC ACHS [facility]; Protocol Last Admin: 12/03/18 12:10 Dose: Not Given Levetiracetam (Keppra) 500 mg PO BID [facility] Last Admin: 12/03/18 14:13 Dose: Not Given Metoprolol Succinate (Toprol Xl) 25 mg PO Q12 [facility] Last Admin: 12/03/18 14:14 Dose: Not Given Sevelamer Carbonate (Renvela) 800 mg PO TID [facility] Last Admin: 12/03/18 14:25 Dose: 800 mg Vitamin B Complex/Vit C/Folic Acid (Nephro-Yany) 1 tab PO DAILY [facility] Last Admin: 12/03/18 14:25 Dose: 1 tab - Labs Labs: 12/01/18 07:19 12/01/18 07:19 PT 12.7 SECONDS (9.7-12.2) H 12/01/18 07:19 INR 1.2 12/01/18 07:19 APTT 34 SECONDS (21-34) 12/01/18 07:19
--- NOTE | 2018-12-03 18:24 | CP.PCM.PN ---
Subjective - Date & Time of Evaluation Date of Evaluation: 12/03/18 Time of Evaluation: 16:00 - Subjective Subjective: Podiatry Progress Note- Dr. Scanlon 63 year old male patient seen and evaluated for left hallux necrotic ulceration with likely underlying osteomyelitis. Patient is resting comfortably in bed, alert and awake and in NAD. is at bedside during the encounter. Denies of pain at this moment. Multipodus on at bedside. Dressing clean, dry, and intact. Denies nausea/vomiting/fever/shortness of breath. Objective - Vital Signs/Intake and Output Vital Signs (last 24 hours): Temp Pulse Resp BP Pulse Ox 98.2 F 66 20 160/68 H 98 12/03/18 16:00 12/03/18 16:00 12/03/18 16:00 12/03/18 16:00 12/03/18 16:00 Intake and Output: 12/03/18 12/03/18 06:59 18:59 Intake Total 360 Balance 360 - Medications Medications: Current Medications Acetaminophen (Tylenol 325mg Tab) 650 mg PO Q6 PRN PRN Reason: Pain, moderate (4-7) Last Admin: 11/27/18 20:08 Dose: 650 mg Amlodipine Besylate (Norvasc) 10 mg PO DAILY [facility] Last Admin: 12/03/18 14:25 Dose: 10 mg Aspirin (Ecotrin) 81 mg PO DAILY [facility] Last Admin: 12/03/18 14:25 Dose: 81 mg Clopidogrel Bisulfate (Plavix) 75 mg PO DAILY [facility] Last Admin: 12/03/18 14:25 Dose: 75 mg Cyclobenzaprine HCl (Flexeril) 10 mg PO DAILY [facility] Last Admin: 12/03/18 14:25 Dose: 10 mg Epoetin Shahram (Procrit) 10,000 unit IV MWF [facility] Last Admin: 12/03/18 12:46 Dose: 10,000 unit Hydroxyzine HCl (Atarax) 25 mg PO DAILY [facility] Last Admin: 12/03/18 14:24 Dose: 25 mg Vancomycin HCl 1 gm/ Sodium (Chloride) 250 mls @ 166.7 mls/hr IVPB MWF@1600 [facility]; Protocol Last Admin: 12/03/18 16:03 Dose: 166.7 mls/hr Cefepime HCl (Maxipime Iv 1 Gm Premix) 1 gm in 50 mls @ 100 mls/hr IVPB Q24H [facility]; Protocol Last Admin: 12/03/18 18:13 Dose: 100 mls/hr Insulin Human Regular (Novolin R) 0 unit SC ACHS [facility]; Protocol Last Admin: 12/03/18 16:30 Dose: 1 units Levetiracetam (Keppra) 500 mg PO BID [facility] Last Admin: 12/03/18 18:13 Dose: 500 mg Metoprolol Succinate (Toprol Xl) 25 mg PO Q12 [facility] Last Admin: 12/03/18 14:14 Dose: Not Given Sevelamer Carbonate (Renvela) 800 mg PO TID [facility] Last Admin: 12/03/18 18:14 Dose: 800 mg Vitamin B Complex/Vit C/Folic Acid (Nephro-Yany) 1 tab PO DAILY [facility] Last Admin: 12/03/18 14:25 Dose: 1 tab - Labs Labs: 12/01/18 07:19 12/01/18 07:19 PT 12.7 SECONDS (9.7-12.2) H 12/01/18 07:19 INR 1.2 12/01/18 07:19 APTT 34 SECONDS (21-34) 12/01/18 07:19 - Constitutional Appears: Well, Non-toxic, No Acute Distress - Extremities Exam Extremities Exam: absent: Calf Tenderness Additional comments: VASC: pulses non palpable bilaterally, CFT is slightly delayed to the digits 1- 10. temperature gradient to the left lower extremity is warm to warm, temperature to the left lower extremity is warm to cool NEURO: gross sensation intact, protective sensation diminished ORTHO: pain with palpation to the left hallux DERM: eschar noted to the dorsum aspect of the hallux, + malodor (improved), no abscess or fluctuance appreciated. Hyperpigmentation appreciated to entire left forefoot. - Neurological Exam Neurological Exam: Alert, Awake, Oriented x3 - Psychiatric Exam Psychiatric exam: Normal Affect, Normal Mood Assessment and Plan - Assessment and Plan (Free Text) Assessment: 63M with PMH of HTN, DM, ESRD, two CVA in 2011, multiple [place] with pacemaker placement with infected left hallux eschar with likely underlying osteomyelitis s/p vascular intervention Plan: Discussed plan with attending Dr. Scanlon Chart, lab, vitals reviewed ESR 111, CRP 231.6 Left foot X-ray Impression: No radiographic evidence for osteomyelitis. Soft tissue swelling in the great toe likely related to cellulitis. If there is a persistent clinical concern, correlation with MRI may be performed to evaluate for early osteomyelitis. Patient is not a good candidate for MRI as he has pacemaker Bone scan was ordered to r/o OM of left foot, will follow up ESR elevated with CRP likely secondary to OM of left hallux Wound culture taken left hallux Pseudomonas aeruginosa Continue abx per ID recommendations , recommendations appreciated Cleansed hallux with betadine and dressed with betadine w2d Vascular studies reviewed- Dr. Ozuna consulted- recommendations appreciated Today spoke with and patient regarding surgical intervention with left foot hallux amputation/partial 1st ray amputation secondary to infected gangrenous hallux with likely underlying OM ands/p vascular intervention. and patient are agreeable to surgical intervention after careful explaination of risks, bene fits, complications and alternatives Will book patient for surgery pending medical and cardiac clearance, thank you Will continue to follow patient while in house
--- NOTE | 2018-12-04 02:55 | PN ---
DATE: 12/03/2018 The patient is seen and examined and covering for Dr. Aydee Winston. LOCATION: The patient is located in room 564, bed B. HISTORY OF PRESENT ILLNESS: Mr. Castañeda is a 63-year-old male with a past medical history significant for hypertension, diabetes, end-stage renal disease, CVA, AL, and coronary artery disease with a pacemaker who was admitted on 11/24/2018 with fever x1 day prior to the admission while the patient was on dialysis, and the patient was brought to the hospital for the persistent fever. The patient is being treated for left foot cellulitis with dry gangrene and status post atherectomy by Dr. Ozuna, switch box installer. The patient underwent hemodialysis today. Denies any complaints. Resting comfortably. PHYSICAL EXAMINATION: VITAL SIGNS: As follows: Blood pressure 160/68, pulse 64, respirations about 20, temperature 98, saturation 98% on room air. Height 5 feet 6 inches, weight is 157 pounds. GENERAL: Mr. Castañeda is a 63-year-old elderly male, moderately built, moderately nourished, not in distress. HEENT: Pupils normal and reactive to light and accommodation. Conjunctivae pink. Sclerae anicteric. Tongue is moist. Trachea is midline. LUNGS: Symmetric on both sides. Bilateral breath sounds present. Clear to auscultation. CARDIOVASCULAR SYSTEM: [place] at the fifth intercostal space, midclavicular line. S1, S2 audible. No murmur or gallop. ABDOMEN: Normal in appearance, soft, tympanitic. No guarding. No rigidity. No hepatosplenomegaly. CENTRAL NERVOUS SYSTEM: The patient is alert, awake, oriented x3. Nonfocal neuro examination. Cranial nerves II through XII grossly intact. Sensory and motor system is within normal limits. EXTREMITIES: No cyanosis, no clubbing. The patient has a dressing to the left foot. CURRENT MEDICATIONS: Include as follows: Hydroxyzine 25 mg p.o. daily, aspirin 81 mg daily, Flexeril 10 mg p.o. daily, Keppra of 500 mg p.o. b.i.d., cefepime 1 g every 24 hours, Nephro-Yany 1 tablet daily, amlodipine 10 mg daily, Novolin R for sliding scale, Plavix 75 mg p.o. daily, Procrit 10,000 units three times a week, Renvela 800 mg p.o. t.i.d., Toprol XL 25 mg p.o. every 12 hours, Tylenol, and vancomycin 1 g three times a week Thursday, Thursday, and Thursday. LABORATORY DATA: Include as follows: As of 12/03/2018, Accu-Cheks 116, 145, 191. As of 12/01/2018, WBC 7.4, hemoglobin 9.9, hematocrit is 29.9, platelets 537, PT 12.7, PTT 34. Sodium 132, potassium 4.6, chloride 89, CO2 of 33, BUN 44, creatinine 7.5, glucose 172, calcium 9.6, phosphorus is 4, magnesium 2.4. Total bili 0.5, AST 54, ALT 17, alkaline phos is 231, total protein 6.9, albumin is 3.7. As of 11/25, blood culture x2 negative day five x2 and wound culture is positive for aeruginosa Pseudomonas. IMPRESSION AND PLAN: In summary, Mr. Castañeda is a 63-year-old elderly male with a history of hypertension, diabetes, cerebrovascular accident, coronary artery disease, status post pacemaker placement, questionable seizure disorder, end-stage renal disease, on hemodialysis three times a week Thursday, Thursday, and Thursday who was admitted with fever and being treated for dry gangrene of the left foot. The patient underwent angioplasty yesterday. 1. End-stage renal disease. Continue hemodialysis three times a week, Thursday, Thursday, and Thursday. 2. Hypertension. Blood pressure is stable. Continue his current medications, amlodipine and metoprolol. 3. Left foot infection with dry gangrene. Continue antibiotics as per ID recommendations, and continue to follow up with Podiatry and also with Dr. Ozuna. The patient is seen and examined for Dr. Aydee Winston. Soraya Winston MD
[2018-12-04] MEDS: (Novolin R) Insulin Human Regular 100 units/ml vial SC SCH ×4 (09:21→21:22)
--- NOTE | 2018-12-04 10:02 | CP.PCM.PN ---
Subjective - Date & Time of Evaluation Date of Evaluation: 12/04/18 Time of Evaluation: 09:59 - Subjective Subjective: pt seen and examined no distress had HD yesterday being fed breakfast by licensed nursing assistant afebrile ROS- unable to obtain due to aphasia Objective - Vital Signs/Intake and Output Vital Signs (last 24 hours): Temp Pulse Resp BP Pulse Ox 97.8 F 66 20 172/52 H 97 12/04/18 07:00 12/04/18 07:00 12/04/18 07:00 12/04/18 07:00 12/04/18 07:00 - Medications Medications: Current Medications Acetaminophen (Tylenol 325mg Tab) 650 mg PO Q6 PRN PRN Reason: Pain, moderate (4-7) Last Admin: 11/27/18 20:08 Dose: 650 mg Amlodipine Besylate (Norvasc) 10 mg PO DAILY [facility] Last Admin: 12/03/18 14:25 Dose: 10 mg Aspirin (Ecotrin) 81 mg PO DAILY [facility] Last Admin: 12/03/18 14:25 Dose: 81 mg Clopidogrel Bisulfate (Plavix) 75 mg PO DAILY [facility] Last Admin: 12/03/18 14:25 Dose: 75 mg Cyclobenzaprine HCl (Flexeril) 10 mg PO DAILY [facility] Last Admin: 12/03/18 14:25 Dose: 10 mg Epoetin Shahram (Procrit) 10,000 unit IV MWF [facility] Last Admin: 12/03/18 12:46 Dose: 10,000 unit Hydroxyzine HCl (Atarax) 25 mg PO DAILY [facility] Last Admin: 12/03/18 14:24 Dose: 25 mg Vancomycin HCl 1 gm/ Sodium (Chloride) 250 mls @ 166.7 mls/hr IVPB MWF@1600 [facility]; Protocol Last Admin: 12/03/18 16:03 Dose: 166.7 mls/hr Cefepime HCl (Maxipime Iv 1 Gm Premix) 1 gm in 50 mls @ 100 mls/hr IVPB Q24H [facility]; Protocol Last Admin: 12/03/18 18:13 Dose: 100 mls/hr Insulin Human Regular (Novolin R) 0 unit SC ACHS [facility]; Protocol Last Admin: 12/04/18 09:21 Dose: 1 units Levetiracetam (Keppra) 500 mg PO BID [facility] Last Admin: 12/03/18 18:13 Dose: 500 mg Metoprolol Succinate (Toprol Xl) 25 mg PO Q12 [facility] Last Admin: 12/03/18 21:29 Dose: 25 mg Sevelamer Carbonate (Renvela) 800 mg PO TID [facility] Last Admin: 12/03/18 18:14 Dose: 800 mg Vitamin B Complex/Vit C/Folic Acid (Nephro-Yany) 1 tab PO DAILY [facility] Last Admin: 12/03/18 14:25 Dose: 1 tab - Labs Labs: 12/01/18 07:19 12/01/18 07:19 PT 12.7 SECONDS (9.7-12.2) H 12/01/18 07:19 INR 1.2 12/01/18 07:19 APTT 34 SECONDS (21-34) 12/01/18 07:19 - Constitutional Appears: Non-toxic, Chronically Ill - Head Exam Head Exam: ATRAUMATIC, NORMOCEPHALIC - Eye Exam Eye Exam: EOMI, PERRL - ENT Exam ENT Exam: Mucous Membranes Moist - Neck Exam Neck Exam: Full ROM - Respiratory Exam Respiratory Exam: Clear to Ausculation Bilateral. absent: Rhonchi, Wheezes - Cardiovascular Exam Cardiovascular Exam: REGULAR RHYTHM, +S1, +S2 - GI/Abdominal Exam GI & Abdominal Exam: Soft. absent: Tenderness - Extremities Exam Extremities Exam: absent: Joint Swelling, Pedal Edema - Neurological Exam Neurological Exam: Alert, Awake - Psychiatric Exam Psychiatric exam: Normal Affect - Skin Skin Exam: Intact, Warm Assessment and Plan (1) Dry gangrene Status: Acute (2) Osteomyelitis of great toe of left foot Status: Acute (3) PVD (peripheral vascular disease) Status: Acute (4) CVA (cerebral vascular accident) Status: Acute (5) DM2 (diabetes mellitus, type 2) Status: Acute (6) ESRD (end stage renal disease) on dialysis Status: Acute - Assessment and Plan (Free Text) Plan: maintain HD MWF next HD thursday Monitor BP ABx as per ID vascular follow up
[2018-12-04] MEDS: Multivitamin Vitamin B Complex (Nephro-Vite) Tab PO SCH (10:30)
[2018-12-04] MEDS: Metoprolol Succinate 25 mg XL Tab PO SCH ×2 (10:30→22:00)
--- NOTE | 2018-12-04 11:04 | CP.PCM.PN ---
Subjective - Date & Time of Evaluation Date of Evaluation: 12/04/18 Time of Evaluation: 11:02 - Subjective Subjective: Podiatry Progress Note- Dr. Scanlon 63 year old male patient seen and evaluated for left hallux necrotic ulceration with likely underlying osteomyelitis. at bedside AAOx3 and in NAD> Denies of pain at this moment. Multipodus on at bedside. Dressing clean, dry, and intact. Denies nausea/vomiting/fever/shortness of breath. Objective - Vital Signs/Intake and Output Vital Signs (last 24 hours): Temp Pulse Resp BP Pulse Ox 97.8 F 66 20 172/52 H 97 12/04/18 07:00 12/04/18 07:00 12/04/18 07:00 12/04/18 07:00 12/04/18 07:00 - Medications Medications: Current Medications Acetaminophen (Tylenol 325mg Tab) 650 mg PO Q6 PRN PRN Reason: Pain, moderate (4-7) Last Admin: 11/27/18 20:08 Dose: 650 mg Amlodipine Besylate (Norvasc) 10 mg PO DAILY [facility] Last Admin: 12/04/18 10:30 Dose: 10 mg Aspirin (Ecotrin) 81 mg PO DAILY [facility] Last Admin: 12/04/18 10:30 Dose: 81 mg Clopidogrel Bisulfate (Plavix) 75 mg PO DAILY [facility] Last Admin: 12/04/18 10:30 Dose: 75 mg Cyclobenzaprine HCl (Flexeril) 10 mg PO DAILY [facility] Last Admin: 12/04/18 10:30 Dose: 10 mg Epoetin Shahram (Procrit) 10,000 unit IV MWF [facility] Last Admin: 12/03/18 12:46 Dose: 10,000 unit Hydroxyzine HCl (Atarax) 25 mg PO DAILY [facility] Last Admin: 12/04/18 10:33 Dose: Not Given Vancomycin HCl 1 gm/ Sodium (Chloride) 250 mls @ 166.7 mls/hr IVPB MWF@1600 [facility]; Protocol Last Admin: 12/03/18 16:03 Dose: 166.7 mls/hr Cefepime HCl (Maxipime Iv 1 Gm Premix) 1 gm in 50 mls @ 100 mls/hr IVPB Q24H [facility]; Protocol Last Admin: 12/03/18 18:13 Dose: 100 mls/hr Insulin Human Regular (Novolin R) 0 unit SC ACHS [facility]; Protocol Last Admin: 12/04/18 09:21 Dose: 1 units Levetiracetam (Keppra) 500 mg PO BID [facility] Last Admin: 12/04/18 10:30 Dose: 500 mg Metoprolol Succinate (Toprol Xl) 25 mg PO Q12 [facility] Last Admin: 12/04/18 10:30 Dose: 25 mg Sevelamer Carbonate (Renvela) 800 mg PO TID [facility] Last Admin: 12/04/18 10:31 Dose: 800 mg Vitamin B Complex/Vit C/Folic Acid (Nephro-Yany) 1 tab PO DAILY [facility] Last Admin: 12/04/18 10:30 Dose: 1 tab - Labs Labs: 12/01/18 07:19 12/01/18 07:19 PT 12.7 SECONDS (9.7-12.2) H 12/01/18 07:19 INR 1.2 12/01/18 07:19 APTT 34 SECONDS (21-34) 12/01/18 07:19 - Constitutional Appears: Well, Non-toxic, No Acute Distress - Head Exam Head Exam: ATRAUMATIC, NORMOCEPHALIC - Eye Exam Eye Exam: Normal appearance - ENT Exam ENT Exam: Mucous Membranes Moist - Cardiovascular Exam Cardiovascular Exam: REGULAR RHYTHM, +S1, +S2 - Extremities Exam Additional comments: VASC: pulses non palpable bilaterally, CFT is slightly delayed to the digits 1- 10. temperature gradient to the left lower extremity is warm to warm, temperature to the left lower extremity is warm to cool NEURO: gross sensation intact, protective sensation diminished ORTHO: pain with palpation to the left hallux DERM: eschar noted to the dorsum aspect of the hallux, + malodor (improved), no abscess or fluctuance appreciated. Hyperpigmentation appreciated to entire left forefoot. - Neurological Exam Neurological Exam: Alert, Awake Assessment and Plan - Assessment and Plan (Free Text) Assessment: 63M with PMH of HTN, DM, ESRD, two CVA in 2011, multiple [place] with pacemaker placement with infected left hallux eschar with likely underlying osteomyelitis s/p vascular intervention Plan: Discussed plan with attending Dr. Scanlon Chart, lab, vitals reviewed ESR 111, CRP 231.6 Left foot X-ray Impression: No radiographic evidence for osteomyelitis. Soft tissue swelling in the great toe likely related to cellulitis. If there is a persistent clinical concern, correlation with MRI may be performed to evaluate for early osteomyelitis. Patient is not a good candidate for MRI as he has pacemaker Bone scan was ordered to r/o OM of left foot, will follow up ESR elevated with CRP likely secondary to OM of left hallux Wound culture taken left hallux Pseudomonas aeruginosa Continue abx per ID recommendations , recommendations appreciated Cleansed hallux with betadine and dressed with betadine w2d Vascular studies reviewed- Dr. Ozuna consulted- recommendations appreciated Agreeable to amputation of the left first ray. Please provide medical and cardiac clearance. Will continue to follow patient while in house
--- NOTE | 2018-12-04 15:24 | CP.PCM.PN ---
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 Objective - Vital Signs/Intake and Output Vital Signs (last 24 hours): Temp Pulse Resp BP Pulse Ox 97.8 F 66 20 172/52 H 97 12/04/18 07:00 12/04/18 07:00 12/04/18 07:00 12/04/18 07:00 12/04/18 07:00 - Medications Medications: Current Medications Acetaminophen (Tylenol 325mg Tab) 650 mg PO Q6 PRN PRN Reason: Pain, moderate (4-7) Last Admin: 11/27/18 20:08 Dose: 650 mg Amlodipine Besylate (Norvasc) 10 mg PO DAILY [facility] Last Admin: 12/04/18 10:30 Dose: 10 mg Aspirin (Ecotrin) 81 mg PO DAILY [facility] Last Admin: 12/04/18 10:30 Dose: 81 mg Clopidogrel Bisulfate (Plavix) 75 mg PO DAILY [facility] Last Admin: 12/04/18 10:30 Dose: 75 mg Cyclobenzaprine HCl (Flexeril) 10 mg PO DAILY [facility] Last Admin: 12/04/18 10:30 Dose: 10 mg Epoetin Shahram (Procrit) 10,000 unit IV MWF [facility] Last Admin: 12/03/18 12:46 Dose: 10,000 unit Hydroxyzine HCl (Atarax) 25 mg PO DAILY [facility] Last Admin: 12/04/18 10:33 Dose: Not Given Vancomycin HCl 1 gm/ Sodium (Chloride) 250 mls @ 166.7 mls/hr IVPB MWF@1600 [facility]; Protocol Last Admin: 12/03/18 16:03 Dose: 166.7 mls/hr Cefepime HCl (Maxipime Iv 1 Gm Premix) 1 gm in 50 mls @ 100 mls/hr IVPB Q24H [facility]; Protocol Last Admin: 12/03/18 18:13 Dose: 100 mls/hr Insulin Human Regular (Novolin R) 0 unit SC ACHS [facility]; Protocol Last Admin: 12/04/18 13:48 Dose: 2 units Levetiracetam (Keppra) 500 mg PO BID [facility] Last Admin: 12/04/18 10:30 Dose: 500 mg Metoprolol Succinate (Toprol Xl) 25 mg PO Q12 [facility] Last Admin: 12/04/18 10:30 Dose: 25 mg Sevelamer Carbonate (Renvela) 800 mg PO TID [facility] Last Admin: 12/04/18 13:48 Dose: 800 mg Vitamin B Complex/Vit C/Folic Acid (Nephro-Yany) 1 tab PO DAILY [facility] Last Admin: 12/04/18 10:30 Dose: 1 tab - Labs Labs: 12/01/18 07:19 12/01/18 07:19 PT 12.7 SECONDS (9.7-12.2) H 12/01/18 07:19 INR 1.2 12/01/18 07:19 APTT 34 SECONDS (21-34) 12/01/18 07:19 - Constitutional Appears: Well - Head Exam Head Exam: ATRAUMATIC, NORMAL INSPECTION, NORMOCEPHALIC - Eye Exam Eye Exam: EOMI, Normal appearance, PERRL Pupil Exam: NORMAL ACCOMODATION, PERRL - ENT Exam ENT Exam: Mucous Membranes Moist, Normal Exam - Neck Exam Neck Exam: Full ROM, Normal Inspection. absent: Lymphadenopathy - Respiratory Exam Respiratory Exam: Clear to Ausculation Bilateral, NORMAL BREATHING PATTERN - Cardiovascular Exam Cardiovascular Exam: REGULAR RHYTHM, +S1, +S2. absent: Murmur - GI/Abdominal Exam GI & Abdominal Exam: Soft, Normal Bowel Sounds. absent: Tenderness - Extremities Exam Extremities Exam: Full ROM, Normal Capillary Refill, Normal Inspection. absent: Joint Swelling, Pedal Edema - Back Exam Back Exam: NORMAL INSPECTION - Neurological Exam Neurological Exam: Alert, Awake, CN II-XII Intact, Normal Gait, Oriented x3 - Psychiatric Exam Psychiatric exam: Normal Affect, Normal Mood - Skin Skin Exam: Dry, Intact, Normal Color, Warm Assessment and Plan (1) Dry gangrene Status: Acute (2) Bacteremia due to Gram-negative bacteria Status: Acute (3) ESRD (end stage renal disease) on dialysis Status: Acute (4) HTN (hypertension) Status: Acute (5) Pacemaker Status: Chronic (6) CHF (congestive heart failure) Status: Acute
--- NOTE | 2018-12-04 16:26 | CP.PCM.PN ---
Subjective - Date & Time of Evaluation Date of Evaluation: 12/04/18 Time of Evaluation: 16:25 - Subjective Subjective: pt is seen and examined,follow up consult is dictated #[id number] Objective - Vital Signs/Intake and Output Vital Signs (last 24 hours): Temp Pulse Resp BP Pulse Ox 97.8 F 66 20 172/52 H 97 12/04/18 07:00 12/04/18 07:00 12/04/18 07:00 12/04/18 07:00 12/04/18 07:00 - Medications Medications: Current Medications Acetaminophen (Tylenol 325mg Tab) 650 mg PO Q6 PRN PRN Reason: Pain, moderate (4-7) Last Admin: 11/27/18 20:08 Dose: 650 mg Amlodipine Besylate (Norvasc) 10 mg PO DAILY [facility] Last Admin: 12/04/18 10:30 Dose: 10 mg Aspirin (Ecotrin) 81 mg PO DAILY [facility] Last Admin: 12/04/18 10:30 Dose: 81 mg Clopidogrel Bisulfate (Plavix) 75 mg PO DAILY [facility] Last Admin: 12/04/18 10:30 Dose: 75 mg Cyclobenzaprine HCl (Flexeril) 10 mg PO DAILY [facility] Last Admin: 12/04/18 10:30 Dose: 10 mg Epoetin Shahram (Procrit) 10,000 unit IV MWF [facility] Last Admin: 12/03/18 12:46 Dose: 10,000 unit Hydroxyzine HCl (Atarax) 25 mg PO DAILY [facility] Last Admin: 12/04/18 10:33 Dose: Not Given Vancomycin HCl 1 gm/ Sodium (Chloride) 250 mls @ 166.7 mls/hr IVPB MWF@1600 [facility]; Protocol Last Admin: 12/03/18 16:03 Dose: 166.7 mls/hr Cefepime HCl (Maxipime Iv 1 Gm Premix) 1 gm in 50 mls @ 100 mls/hr IVPB Q24H [facility]; Protocol Last Admin: 12/03/18 18:13 Dose: 100 mls/hr Insulin Human Regular (Novolin R) 0 unit SC ACHS [facility]; Protocol Last Admin: 12/04/18 13:48 Dose: 2 units Levetiracetam (Keppra) 500 mg PO BID [facility] Last Admin: 12/04/18 10:30 Dose: 500 mg Metoprolol Succinate (Toprol Xl) 25 mg PO Q12 [facility] Last Admin: 12/04/18 10:30 Dose: 25 mg Sevelamer Carbonate (Renvela) 800 mg PO TID [facility] Last Admin: 12/04/18 13:48 Dose: 800 mg Vitamin B Complex/Vit C/Folic Acid (Nephro-Yany) 1 tab PO DAILY [facility] Last Admin: 12/04/18 10:30 Dose: 1 tab - Labs Labs: 12/01/18 07:19 12/01/18 07:19 PT 12.7 SECONDS (9.7-12.2) H 12/01/18 07:19 INR 1.2 12/01/18 07:19 APTT 34 SECONDS (21-34) 12/01/18 07:19
[2018-12-04] MEDS: Cefepime IV 1 gm in Dextrose 1 GM/50 ML BAG IVPB SCH (17:23)
--- NOTE | 2018-12-05 03:17 | PN ---
DATE: 12/04/2018 LOCATION: The patient is located in room 564, bed B. The patient is seen and examined, and the progress note is dictated for Aydee Winston MD, covering. SUBJECTIVE: Mr. Castañeda is a 63-year-old elderly male, looks older than his age, with a history of hypertension, diabetes, end-stage renal disease, CVA x2, CAD, multiple heart attacks and pacemaker placement, peripheral vascular disease, who was admitted with fever on 11/24/2018. The patient was found to have a dry gangrene of the left big toe, status post TPA and atherectomy of the anterior tibial artery and peroneal by Dr. Ozuna, analysis internship. The patient is not in acute distress, following simple commands. As per the patient's family, the patient is mostly wheelchair-bound. Denies any chest pain or palpitation. Denies any fever or cough. No abdominal pain. No nausea, vomiting or diarrhea. The patient underwent hemodialysis yesterday and had ultrafiltration of about 3 L. PHYSICAL EXAMINATION: VITAL SIGNS: Blood pressure 123/70, pulse 63, respirations 20, temperature 97.8. Height 5 feet 6 inches, weight is 157 pounds. GENERAL: Mr. Castañeda is a 63-year-old elderly male, moderately built, moderately nourished, not in acute distress. HEENT: Pupils are normal and reactive to light and accommodation. Conjunctivae pink. Sclerae anicteric. Tongue is moist. NECK: Trachea is midline. LUNGS: Symmetric on both sides. Bilateral breath sounds present, clear to auscultation. CARDIOVASCULAR SYSTEM: [place] at the fifth intercostal space, midclavicular line. S1 and S2 audible. No murmur, no gallop. ABDOMEN: Normal in appearance, soft, tympanitic. No guarding. No rigidity. No hepatosplenomegaly. CENTRAL NERVOUS SYSTEM: The patient is alert, awake and oriented x2 to x3. Sensory and motor system is within normal limits. EXTREMITIES: No cyanosis, no clubbing, no edema. The patient has a dressing to the left big toe and left foot. MEDICATIONS: His current medications include as follows: Hydroxyzine 25 mg p.o. daily, aspirin 81 mg daily, Flexeril 10 mg daily, Keppra 500 mg b.i.d., cefepime 1 g every 24 hours, Nephro-Yany one tablet daily, amlodipine 10 mg, Plavix 75 mg daily, Procrit 10,000 units three times a week, Renvela 800 mg t.i.d., Toprol-XL 25 mg p.o. every 12 hours, Tylenol and vancomycin 1 g three times a week. LABORATORY DATA: No new labs available. His Accu-Cheks are as follows: 179, 201 and 255. ASSESSMENT AND PLAN: In summary, Mr. Castañeda is a 63-year-old elderly male with a history of longstanding hypertension; diabetes; end-stage renal disease; hyperlipidemia; cerebrovascular accident; coronary artery disease, status post pacemaker; peripheral vascular disease; was admitted with a dry gangrene of the left big toe, status post TPA and atherectomy of the anterior tibial artery and peroneal artery on the left side by analysis internship, Dr. Ozuna. Podiatry is thinking of amputation sometime next week. 1. End-stage renal disease. Continue hemodialysis three times a week as per Dr. Juarez. 2. Hypertension. Blood pressure is stable. Continue his current medications, metoprolol and amlodipine. 3. Diabetes. Sugars are under control. Continue Accu-Chek coverage. 4. Left big toe infection. Continue antibiotics, vancomycin and cefepime. Continue Plavix. Continue Renvela and Procrit. The patient is seen and examined, and progress note dictated for Aydee Winston MD. Follow up with Cardiology, Podiatry and also Renal. We will obtain cardiology clearance prior to the medical clearance. Soraya Winston MD
[2018-12-05] MEDS: (Novolin R) Insulin Human Regular 100 units/ml vial SC SCH ×4 (08:43→22:08)
[2018-12-05] MEDS: Multivitamin Vitamin B Complex (Nephro-Vite) Tab PO SCH (11:42)
[2018-12-05] MEDS: Metoprolol Succinate 25 mg XL Tab PO SCH ×3 (11:46→22:09)
--- NOTE | 2018-12-05 12:03 | CP.PCM.PN ---
Subjective - Date & Time of Evaluation Date of Evaluation: 12/05/18 Time of Evaluation: 12:02 - Subjective Subjective: Podiatry Progress Note- Dr. Scanlon 63 year old male patient seen and evaluated for left hallux necrotic ulceration with likely underlying osteomyelitis. at bedside AAOx3 and in NAD> Denies of pain at this moment. Multipodus on at bedside. Dressing clean, dry, and intact. Denies nausea/vomiting/fever/shortness of breath. Objective - Vital Signs/Intake and Output Vital Signs (last 24 hours): Temp Pulse Resp BP Pulse Ox 97.8 F 60 18 143/61 94 L 12/05/18 07:00 12/05/18 11:47 12/05/18 07:00 12/05/18 11:47 12/05/18 10:36 Intake and Output: 12/05/18 12/05/18 06:59 18:59 Intake Total 450 Balance 450 - Medications Medications: Current Medications Acetaminophen (Tylenol 325mg Tab) 650 mg PO Q6 PRN PRN Reason: Pain, moderate (4-7) Last Admin: 11/27/18 20:08 Dose: 650 mg Amlodipine Besylate (Norvasc) 10 mg PO DAILY [facility] Last Admin: 12/05/18 11:43 Dose: 10 mg Aspirin (Ecotrin) 81 mg PO DAILY [facility] Last Admin: 12/05/18 11:42 Dose: 81 mg Clopidogrel Bisulfate (Plavix) 75 mg PO DAILY [facility] Last Admin: 12/05/18 11:42 Dose: 75 mg Cyclobenzaprine HCl (Flexeril) 10 mg PO DAILY [facility] Last Admin: 12/05/18 11:42 Dose: 10 mg Epoetin Shahram (Procrit) 10,000 unit IV MWF [facility] Last Admin: 12/03/18 12:46 Dose: 10,000 unit Hydroxyzine HCl (Atarax) 25 mg PO DAILY [facility] Last Admin: 12/05/18 11:43 Dose: 25 mg Vancomycin HCl 1 gm/ Sodium (Chloride) 250 mls @ 166.7 mls/hr IVPB MWF@1600 [facility]; Protocol Last Admin: 12/03/18 16:03 Dose: 166.7 mls/hr Cefepime HCl (Maxipime Iv 1 Gm Premix) 1 gm in 50 mls @ 100 mls/hr IVPB Q24H [facility]; Protocol Last Admin: 12/04/18 17:23 Dose: 100 mls/hr Insulin Human Regular (Novolin R) 0 unit SC ACHS [facility]; Protocol Last Admin: 12/05/18 08:43 Dose: Not Given Levetiracetam (Keppra) 500 mg PO BID [facility] Last Admin: 12/05/18 11:43 Dose: 500 mg Metoprolol Succinate (Toprol Xl) 25 mg PO Q12 [facility] Last Admin: 12/05/18 11:46 Dose: Not Given Sevelamer Carbonate (Renvela) 800 mg PO TID [facility] Last Admin: 12/05/18 11:43 Dose: 800 mg Vitamin B Complex/Vit C/Folic Acid (Nephro-Yany) 1 tab PO DAILY [facility] Last Admin: 12/05/18 11:42 Dose: 1 tab - Labs Labs: 12/01/18 07:19 12/01/18 07:19 PT 12.7 SECONDS (9.7-12.2) H 12/01/18 07:19 INR 1.2 12/01/18 07:19 APTT 34 SECONDS (21-34) 12/01/18 07:19 - Constitutional Appears: Well, Non-toxic, No Acute Distress - Head Exam Head Exam: ATRAUMATIC, NORMOCEPHALIC - Eye Exam Eye Exam: Normal appearance - ENT Exam ENT Exam: Mucous Membranes Moist - Cardiovascular Exam Cardiovascular Exam: REGULAR RHYTHM, +S1, +S2 - Extremities Exam Additional comments: VASC: pulses non palpable bilaterally, CFT is slightly delayed to the digits 1- 10. temperature gradient to the left lower extremity is warm to warm, temperature to the left lower extremity is warm to cool NEURO: gross sensation intact, protective sensation diminished ORTHO: pain with palpation to the left hallux DERM: eschar noted to the dorsum aspect of the hallux, + malodor (improved), no abscess or fluctuance appreciated. Hyperpigmentation appreciated to entire left forefoot. - Neurological Exam Neurological Exam: Alert, Normal Gait - Psychiatric Exam Psychiatric exam: Normal Affect Assessment and Plan - Assessment and Plan (Free Text) Assessment: 63M with PMH of HTN, DM, ESRD, two CVA in 2011, multiple [place] with pacemaker placement with infected left hallux eschar with likely underlying osteomyelitis s/p vascular intervention Plan: Discussed plan with attending Dr. Scanlon Chart, lab, vitals reviewed ESR 111, CRP 231.6 Left foot X-ray Impression: No radiographic evidence for osteomyelitis. Soft tissue swelling in the great toe likely related to cellulitis. If there is a persistent clinical concern, correlation with MRI may be performed to evaluate for early osteomyelitis. Patient is not a good candidate for MRI as he has pacemaker Bone scan was ordered to r/o OM of left foot, will follow up ESR elevated with CRP likely secondary to OM of left hallux Wound culture taken left hallux Pseudomonas aeruginosa Continue abx per ID recommendations , recommendations appreciated Cleansed hallux with betadine and dressed with betadine w2d Vascular studies reviewed- Dr. Ozuna consulted- recommendations appreciated Agreeable to amputation of the left first ray. Patient for OR tomorrow morning, Please provide medical and cardiac clearance. aspirin/plavix on hold NPO after midnight diet placed Will continue to follow patient while in house
--- NOTE | 2018-12-05 15:32 | CP.PCM.PN ---
Subjective - Date & Time of Evaluation Date of Evaluation: 12/05/18 Time of Evaluation: 15:31 - Subjective Subjective: pt is seen and examined,progress note is dictated #[id number] covering dr. Bass pre op cardiology clearance for surgery Objective - Vital Signs/Intake and Output Vital Signs (last 24 hours): Temp Pulse Resp BP Pulse Ox 97.8 F 60 18 143/61 94 L 12/05/18 07:00 12/05/18 11:47 12/05/18 07:00 12/05/18 11:47 12/05/18 10:36 Intake and Output: 12/05/18 12/05/18 06:59 18:59 Intake Total 450 Balance 450 - Medications Medications: Current Medications Acetaminophen (Tylenol 325mg Tab) 650 mg PO Q6 PRN PRN Reason: Pain, moderate (4-7) Last Admin: 11/27/18 20:08 Dose: 650 mg Amlodipine Besylate (Norvasc) 10 mg PO DAILY [facility] Last Admin: 12/05/18 11:43 Dose: 10 mg Aspirin (Ecotrin) 81 mg PO DAILY [facility] Last Admin: 12/05/18 11:42 Dose: 81 mg Clopidogrel Bisulfate (Plavix) 75 mg PO DAILY [facility] Last Admin: 12/05/18 11:42 Dose: 75 mg Cyclobenzaprine HCl (Flexeril) 10 mg PO DAILY [facility] Last Admin: 12/05/18 11:42 Dose: 10 mg Epoetin Shahram (Procrit) 10,000 unit IV MWF [facility] Last Admin: 12/03/18 12:46 Dose: 10,000 unit Hydroxyzine HCl (Atarax) 25 mg PO DAILY [facility] Last Admin: 12/05/18 11:43 Dose: 25 mg Vancomycin HCl 1 gm/ Sodium (Chloride) 250 mls @ 166.7 mls/hr IVPB MWF@1600 [facility]; Protocol Last Admin: 12/03/18 16:03 Dose: 166.7 mls/hr Cefepime HCl (Maxipime Iv 1 Gm Premix) 1 gm in 50 mls @ 100 mls/hr IVPB Q24H [facility]; Protocol Last Admin: 12/04/18 17:23 Dose: 100 mls/hr Insulin Human Regular (Novolin R) 0 unit SC ACHS [facility]; Protocol Last Admin: 12/05/18 13:36 Dose: 2 units Levetiracetam (Keppra) 500 mg PO BID [facility] Last Admin: 12/05/18 11:43 Dose: 500 mg Metoprolol Succinate (Toprol Xl) 25 mg PO Q12 [facility] Last Admin: 12/05/18 11:46 Dose: Not Given Sevelamer Carbonate (Renvela) 800 mg PO TID [facility] Last Admin: 12/05/18 13:37 Dose: 800 mg Vitamin B Complex/Vit C/Folic Acid (Nephro-Yany) 1 tab PO DAILY [facility] Last Admin: 12/05/18 11:42 Dose: 1 tab - Labs Labs: 12/01/18 07:19 12/01/18 07:19 PT 12.7 SECONDS (9.7-12.2) H 12/01/18 07:19 INR 1.2 12/01/18 07:19 APTT 34 SECONDS (21-34) 12/01/18 07:19
--- NOTE | 2018-12-05 16:02 | CP.PCM.PN ---
Subjective - Date & Time of Evaluation Date of Evaluation: 12/05/18 Time of Evaluation: 10:00 - Subjective Subjective: chart reviewed patient examined no new complaints orders signed Objective - Vital Signs/Intake and Output Vital Signs (last 24 hours): Temp Pulse Resp BP Pulse Ox 97.8 F 60 18 143/61 94 L 12/05/18 07:00 12/05/18 11:47 12/05/18 07:00 12/05/18 11:47 12/05/18 10:36 Intake and Output: 12/05/18 12/05/18 06:59 18:59 Intake Total 450 Balance 450 - Medications Medications: Current Medications Acetaminophen (Tylenol 325mg Tab) 650 mg PO Q6 PRN PRN Reason: Pain, moderate (4-7) Last Admin: 11/27/18 20:08 Dose: 650 mg Amlodipine Besylate (Norvasc) 10 mg PO DAILY [facility] Last Admin: 12/05/18 11:43 Dose: 10 mg Aspirin (Ecotrin) 81 mg PO DAILY [facility] Last Admin: 12/05/18 11:42 Dose: 81 mg Clopidogrel Bisulfate (Plavix) 75 mg PO DAILY [facility] Last Admin: 12/05/18 11:42 Dose: 75 mg Cyclobenzaprine HCl (Flexeril) 10 mg PO DAILY [facility] Last Admin: 12/05/18 11:42 Dose: 10 mg Epoetin Hsahram (Procrit) 10,000 unit IV MWF [facility] Last Admin: 12/03/18 12:46 Dose: 10,000 unit Hydroxyzine HCl (Atarax) 25 mg PO DAILY [facility] Last Admin: 12/05/18 11:43 Dose: 25 mg Vancomycin HCl 1 gm/ Sodium (Chloride) 250 mls @ 166.7 mls/hr IVPB MWF@1600 [facility]; Protocol Last Admin: 12/03/18 16:03 Dose: 166.7 mls/hr Cefepime HCl (Maxipime Iv 1 Gm Premix) 1 gm in 50 mls @ 100 mls/hr IVPB Q24H [facility]; Protocol Last Admin: 12/04/18 17:23 Dose: 100 mls/hr Insulin Human Regular (Novolin R) 0 unit SC ACHS [facility]; Protocol Last Admin: 12/05/18 13:36 Dose: 2 units Levetiracetam (Keppra) 500 mg PO BID [facility] Last Admin: 12/05/18 11:43 Dose: 500 mg Metoprolol Succinate (Toprol Xl) 25 mg PO Q12 [facility] Last Admin: 12/05/18 11:46 Dose: Not Given Sevelamer Carbonate (Renvela) 800 mg PO TID [facility] Last Admin: 12/05/18 13:37 Dose: 800 mg Vitamin B Complex/Vit C/Folic Acid (Nephro-Yany) 1 tab PO DAILY [facility] Last Admin: 12/05/18 11:42 Dose: 1 tab - Labs Labs: 12/01/18 07:19 12/01/18 07:19 PT 12.7 SECONDS (9.7-12.2) H 12/01/18 07:19 INR 1.2 12/01/18 07:19 APTT 34 SECONDS (21-34) 12/01/18 07:19 - Constitutional Appears: Non-toxic, Chronically Ill - Head Exam Head Exam: NORMOCEPHALIC - Eye Exam Eye Exam: absent: Scleral icterus Pupil Exam: NORMAL ACCOMODATION - ENT Exam ENT Exam: Mucous Membranes Dry - Neck Exam Neck Exam: absent: Lymphadenopathy - Respiratory Exam Respiratory Exam: Decreased Breath Sounds - Cardiovascular Exam Cardiovascular Exam: REGULAR RHYTHM - GI/Abdominal Exam GI & Abdominal Exam: Distended - Rectal Exam Rectal Exam: Deferred - Exam Exam: NORMAL INSPECTION - Extremities Exam Extremities Exam: Pedal Edema - Back Exam Back Exam: absent: CVA tenderness (L), CVA tenderness (R) - Neurological Exam Neurological Exam: Alert, CN II-XII Intact, Motor Sensory Deficit, Oriented x3 Assessment and Plan (1) Dry gangrene Status: Acute (2) CVA, old, aphasia Status: Acute (3) Chronic toe ulcer Status: Acute (4) DM2 (diabetes mellitus, type 2) Status: Acute (5) ESRD (end stage renal disease) on dialysis Status: Acute (6) HTN (hypertension) Status: Acute (7) Osteomyelitis of great toe of left foot Status: Acute (8) PVD (peripheral vascular disease) Status: Acute - Assessment and Plan (Free Text) Assessment: Pseudomonas infectionm great toe IV rtx in progress Bone scan neg MRI could not be don e concern for false neg bone scan in view of vascular issues Dr Ozuna on boad cont IV rx
[2018-12-05 16:23] LABS: HEMOGLOBIN 10.3 g/dL (12.0-18.0); MEAN CELL VOLUME 84.9 fL (80.0-94.0); MEAN CORPUSCULAR HEMOGLOBIN 27.6 pg (27.0-31.0); MEAN CORPUSCULAR HGB CONC 32.6 g/dL (33.0-37.0); MEAN PLATELET VOLUME 7.3 fL (7.2-11.7); RBC 3.71 Mil/uL (4.40-5.90); RED CELL DISTRIBUTION WIDTH 16.1 % (11.5-14.5); WHITE BLOOD COUNT 8.5 K/uL (4.8-10.8)
[2018-12-05 16:31] LABS: INR 1.3; PROTHROMBIN TIME 13.7 SECONDS (9.7-12.2)
[2018-12-05 17:09] LABS: ALB/GLOB RATIO 1.2 (1.0-2.1); ALBUMIN 3.8 g/dL (3.5-5.0); ALT/SGPT < 6 U/L (21-72); AST/SGOT 18 U/L (17-59); BLOOD UREA NITROGEN 43 mg/dL (9-20); CALCIUM 9.4 mg/dl (8.6-10.4); GFR NON-AFRICAN AMERICAN 7
[2018-12-05] MEDS: Cefepime IV 1 gm in Dextrose 1 GM/50 ML BAG IVPB SCH (18:12)
[2018-12-06] MEDS: (Novolin R) Insulin Human Regular 100 units/ml vial SC SCH ×4 (08:11→21:12)
--- NOTE | 2018-12-06 08:11 | CP.PCM.PN ---
Subjective - Date & Time of Evaluation Date of Evaluation: 12/06/18 Time of Evaluation: 08:08 - Subjective Subjective: Nelda Zheng, PGY-1, Cardiology Progress Note for Dr. Ozuna Patient was seen and evaluated at bedside. Patient had no acute overnight events. Patient denies any acute symptoms at this time. Objective - Vital Signs/Intake and Output Vital Signs (last 24 hours): Temp Pulse Resp BP Pulse Ox 98.4 F 60 20 156/72 H 98 12/06/18 00:00 12/06/18 00:00 12/06/18 00:00 12/06/18 00:00 12/06/18 00:00 Intake and Output: 12/06/18 12/06/18 06:59 18:59 Intake Total 550 Balance 550 - Medications Medications: Current Medications Acetaminophen (Tylenol 325mg Tab) 650 mg PO Q6 PRN PRN Reason: Pain, moderate (4-7) Last Admin: 11/27/18 20:08 Dose: 650 mg Amlodipine Besylate (Norvasc) 10 mg PO DAILY [facility] Last Admin: 12/05/18 11:43 Dose: 10 mg Aspirin (Ecotrin) 81 mg PO DAILY [facility] Last Admin: 12/05/18 11:42 Dose: 81 mg Clopidogrel Bisulfate (Plavix) 75 mg PO DAILY [facility] Last Admin: 12/05/18 11:42 Dose: 75 mg Cyclobenzaprine HCl (Flexeril) 10 mg PO DAILY [facility] Last Admin: 12/05/18 11:42 Dose: 10 mg Epoetin Shahram (Procrit) 10,000 unit IV MWF [facility] Last Admin: 12/03/18 12:46 Dose: 10,000 unit Hydroxyzine HCl (Atarax) 25 mg PO DAILY [facility] Last Admin: 12/05/18 11:43 Dose: 25 mg Vancomycin HCl 1 gm/ Sodium (Chloride) 250 mls @ 166.7 mls/hr IVPB MWF@1600 [facility]; Protocol Last Admin: 12/03/18 16:03 Dose: 166.7 mls/hr Cefepime HCl (Maxipime Iv 1 Gm Premix) 1 gm in 50 mls @ 100 mls/hr IVPB Q24H [facility]; Protocol Last Admin: 12/05/18 18:12 Dose: 100 mls/hr Insulin Human Regular (Novolin R) 0 unit SC ACHS [facility]; Protocol Last Admin: 12/05/18 22:08 Dose: Not Given Levetiracetam (Keppra) 500 mg PO BID [facility] Last Admin: 12/05/18 18:13 Dose: 500 mg Metoprolol Succinate (Toprol Xl) 25 mg PO Q12 [facility] Last Admin: 12/05/18 22:09 Dose: 25 mg Sevelamer Carbonate (Renvela) 800 mg PO TID [facility] Last Admin: 12/05/18 18:13 Dose: 800 mg Vitamin B Complex/Vit C/Folic Acid (Nephro-Yany) 1 tab PO DAILY [facility] Last Admin: 12/05/18 11:42 Dose: 1 tab - Labs Labs: 12/05/18 16:19 12/05/18 16:19 PT 13.7 SECONDS (9.7-12.2) H 12/05/18 16:19 INR 1.3 12/05/18 16:19 APTT 30 SECONDS (21-34) 12/05/18 16:19 - Constitutional Appears: Well - Head Exam Head Exam: ATRAUMATIC, NORMAL INSPECTION, NORMOCEPHALIC - Eye Exam Eye Exam: EOMI, Normal appearance, PERRL Pupil Exam: NORMAL ACCOMODATION, PERRL - ENT Exam ENT Exam: Mucous Membranes Moist, Normal Exam - Neck Exam Neck Exam: Full ROM, Normal Inspection. absent: Lymphadenopathy - Respiratory Exam Respiratory Exam: Clear to Ausculation Bilateral, NORMAL BREATHING PATTERN - Cardiovascular Exam Cardiovascular Exam: REGULAR RHYTHM, +S1, +S2. absent: Murmur - GI/Abdominal Exam GI & Abdominal Exam: Soft, Normal Bowel Sounds. absent: Tenderness - Extremities Exam Extremities Exam: Full ROM, Normal Capillary Refill, Normal Inspection. absent: Joint Swelling, Pedal Edema - Back Exam Back Exam: NORMAL INSPECTION - Neurological Exam Neurological Exam: Alert, Awake Neuro motor strength exam: Right Upper Extremity: 3, Right Lower Extremity: 2/1 - Psychiatric Exam Psychiatric exam: Normal Affect, Normal Mood - Skin Skin Exam: Dry, Intact, Normal Color, Warm Assessment and Plan (1) Dry gangrene Assessment & Plan: Peripheral angiogram 12/02: Right SFA heavily calcified but patent, right popliteal artery patent, one vessel runoff below the right knee. On the left, p opliteal has high grade ostial lesion at the trifurcation, peroneal had multiple tandem 80% lesions and anterior tibial artery and had mid 99% stenosis, distal 80%, at distal end of dorsalis pedis had diffused 80% stenosis. Atherectomy angioplasty of anterior tibial artery performed. Additional balloon angioplasty with 2.5x3 serial dilatation balloons, lesion reduction down to 0%, improvement in flow. Patient scheduled for amputation of left 1st ray today. Hold aspirin Patient is moderate risk from cardiac standpoint for surgery today with local anesthesia. Status: Acute (2) Bacteremia due to Gram-negative bacteria Assessment & Plan: Continue with IV Abx Status: Acute (3) CHF (congestive heart failure) Assessment & Plan: Continue with toprol. Status: Acute (4) End stage renal disease Assessment & Plan: continue HD Status: Acute (5) HTN (hypertension) Assessment & Plan: Continue with norvasc and toprol Status: Acute
--- NOTE | 2018-12-06 08:51 | PN ---
DATE: 12/05/2018 LOCATION: The patient is located in room 564, bed B. The patient is seen and examined. Progress note is dictated for Dr. Aydee Winston. SUBJECTIVE: Mr. Castañeda is a 63-year-old elderly male with a past medical history significant for longstanding hypertension, diabetes, end-stage renal disease, CVA x2, multiple MIs, coronary artery disease, status post pacemaker placement, was admitted through the emergency room on ____ with chief complaints of fever and also dry gangrene of the left big toe, status post angiogram, status post atherectomy and TPA of the anterior tibial artery and also peroneal on the left side. The patient is scheduled for possible amputation of the left foot. The patient is not in acute distress and denies any complaints. No chest pain, no palpation. No fever, no cough. No abdominal pain. No nausea, vomiting, diarrhea. PHYSICAL EXAMINATION: VITAL SIGNS: As follows: Blood pressure 143/61, pulse 60, respirations 18, temperature 97.8, saturation 100% on 2 liters nasal cannula. Height 5 feet 6 inches, weight is 157 pounds. GENERAL: Mr. Castañeda is a 63-year-old elderly male who looks older than his age. The patient is moderately built, moderately nourished, not in distress. HEENT: Pupils normal, reactive to light and accommodation. Conjunctivae pink. Sclerae anicteric. Tongue is moist. Trachea is midline. LUNGS: Symmetric on both sides. Bilateral breath sounds present. Clear to auscultation. CARDIOVASCULAR SYSTEM: [place] at the fifth intercostal space, midclavicular line. S1, S2 audible. No murmur, no gallop. ABDOMEN: Normal in appearance. Soft, tympanitic. No guarding. No rigidity. No hepatosplenomegaly. CENTRAL NERVOUS SYSTEM: The patient is alert, awake, oriented x2-3. Sensory system is grossly within normal limits. EXTREMITIES: No cyanosis, no clubbing, no edema. The patient has a dressing to the left foot and left big toe. CURRENT MEDICATIONS: As follows: Atarax 25 mg p.o. daily, aspirin on hold, Flexeril 10 mg p.o. daily, Keppra 500 mg p.o. b.i.d., cefepime 1 gram every 24 hours, Nephro-Yany one tablet daily, Norvasc 10 mg daily, Novolin Ortho sliding scale, Plavix on hold,Procrit 10,000 units three times a week, Renvela 800 mg p.o. t.i.d., metoprolol 25 mg p.o. every 12 hours, Tylenol, and vancomycin 1 gram three times a week. LABORATORY DATA: Include as follows: As of 12/05/2018, WBC 8.5, hemoglobin 10.3, hematocrit is 31.5, and platelets of 588. PT 13.7, PTT 30. Sodium 131, potassium 5.2, chloride 92, CO2 27, BUN 43, creatinine 7.7, glucose 214, calcium 9.4, phosphorus 4.5, magnesium 2.4. Total bili 0.5, AST 18, ALT 6, alkaline phosphatase 230, total protein 6.9, and albumin 3.8. ASSESSMENT AND PLAN: In summary, Mr. Castañeda is a 63-year-old elderly male with a history of longstanding hypertension, diabetes, cerebrovascular accident x2, multiple myocardial infarction, status post pacemaker placement, end-stage renal disease on hemodialysis three times a week Thursday, Thursday and Thursday, was admitted with fever and dry gangrene of the left big toe. The patient is status post angioplasty, atherectomy, tissue plasminogen activator of the anterior tibial artery and peroneal artery on the left side. The patient is scheduled for a possible amputation of the left big toe tomorrow. 1. Hypertension. Blood pressure is stable. Continue his current medications, metoprolol and amlodipine. 2. Diabetes. Continue Accu-Chek coverage. 3. End-stage renal disease. Continue hemodialysis three times a week, Thursday, Thursday and Thursday, as per Dr. Juarez. 4. Left big toe dry gangrene, for possible amputation in the morning. Waiting for Cardiology preoperative clearance. Once Cardiology is cleared for cardiac standpoint, the patient can go for the left big toe amputation. The patient is in optimal medical condition for simple procedure benefits outweigh the risk at this time and we will give Kayexalate 30 g p.o. x1 dose and repeat potassium in morning, try to coordinate hemodialysis and surgery tomorrow. Discussed with the patient's nurse in rounds regarding the coordination and tried to contact Podiatry resident for the timing of the procedure. Soraya Winston MD
[2018-12-06] MEDS ORDERED: Lidocaine 2% MPF (5 ml) Inj ONE (09:06)
[2018-12-06] MEDS ORDERED: ceFAZolin 1 gm in NS 0 GM/0 ML BAG IVPB ONE (09:06)
[2018-12-06] MEDS ORDERED: Bupivacaine 0.25% 20 ML INJ IJ ONE (09:07)
[2018-12-06 09:14] LABS: CALCIUM 9.7 mg/dl (8.6-10.4)
[2018-12-06] MEDS ORDERED: Midazolam 2 MG/2 ML VIAL ONE (10:11)
--- NOTE | 2018-12-06 11:28 | CP.PCM.PN ---
Subjective - Date & Time of Evaluation Date of Evaluation: 12/06/18 Time of Evaluation: 11:26 - Subjective Subjective: for toe amputation now K elevated-will have dialysis today appears same otherwise Objective - Vital Signs/Intake and Output Vital Signs (last 24 hours): Temp Pulse Resp BP Pulse Ox 98.2 F 61 20 155/65 H 100 12/06/18 07:00 12/06/18 08:29 12/06/18 07:00 12/06/18 07:00 12/06/18 07:00 Intake and Output: 12/06/18 12/06/18 06:59 18:59 Intake Total 550 0 Balance 550 0 - Medications Medications: Current Medications Acetaminophen (Tylenol 325mg Tab) 650 mg PO Q6 PRN PRN Reason: Pain, moderate (4-7) Last Admin: 11/27/18 20:08 Dose: 650 mg Amlodipine Besylate (Norvasc) 10 mg PO DAILY [facility] Last Admin: 12/05/18 11:43 Dose: 10 mg Aspirin (Ecotrin) 81 mg PO DAILY [facility] Last Admin: 12/05/18 11:42 Dose: 81 mg Clopidogrel Bisulfate (Plavix) 75 mg PO DAILY [facility] Last Admin: 12/05/18 11:42 Dose: 75 mg Cyclobenzaprine HCl (Flexeril) 10 mg PO DAILY [facility] Last Admin: 12/05/18 11:42 Dose: 10 mg Epoetin Shahram (Procrit) 10,000 unit IV MWF [facility] Last Admin: 12/03/18 12:46 Dose: 10,000 unit Hydroxyzine HCl (Atarax) 25 mg PO DAILY [facility] Last Admin: 12/05/18 11:43 Dose: 25 mg Vancomycin HCl 1 gm/ Sodium (Chloride) 250 mls @ 166.7 mls/hr IVPB MWF@1600 [facility]; Protocol Last Admin: 12/03/18 16:03 Dose: 166.7 mls/hr Cefepime HCl (Maxipime Iv 1 Gm Premix) 1 gm in 50 mls @ 100 mls/hr IVPB Q24H [facility]; Protocol Last Admin: 12/05/18 18:12 Dose: 100 mls/hr Insulin Human Regular (Novolin R) 0 unit SC ACHS [facility]; Protocol Last Admin: 12/06/18 08:11 Dose: Not Given Levetiracetam (Keppra) 500 mg PO BID [facility] Last Admin: 12/05/18 18:13 Dose: 500 mg Metoprolol Succinate (Toprol Xl) 25 mg PO Q12 [facility] Last Admin: 12/05/18 22:09 Dose: 25 mg Sevelamer Carbonate (Renvela) 800 mg PO TID [facility] Last Admin: 12/05/18 18:13 Dose: 800 mg Vitamin B Complex/Vit C/Folic Acid (Nephro-Yany) 1 tab PO DAILY [facility] Last Admin: 12/05/18 11:42 Dose: 1 tab - Labs Labs: 12/05/18 16:19 12/06/18 08:44 PT 13.7 SECONDS (9.7-12.2) H 12/05/18 16:19 INR 1.3 12/05/18 16:19 APTT 30 SECONDS (21-34) 12/05/18 16:19 - Constitutional Appears: No Acute Distress, Chronically Ill - Head Exam Head Exam: ATRAUMATIC, NORMAL INSPECTION - Eye Exam Eye Exam: EOMI, Normal appearance - Neck Exam Neck Exam: Normal Inspection. absent: Tenderness - Respiratory Exam Respiratory Exam: Clear to Ausculation Bilateral, NORMAL BREATHING PATTERN - Cardiovascular Exam Cardiovascular Exam: REGULAR RHYTHM, +S1 - GI/Abdominal Exam GI & Abdominal Exam: Soft. absent: Tenderness - Extremities Exam Extremities Exam: Normal Inspection. absent: Tenderness - Neurological Exam Neurological Exam: Altered - Skin Skin Exam: Dry, Warm Assessment and Plan (1) Dry gangrene Status: Acute (2) ESRD (end stage renal disease) on dialysis Status: Acute (3) HTN (hypertension) Status: Acute (4) Type 2 diabetes mellitus with diabetic nephropathy Status: Acute (5) History of CVA (cerebrovascular accident) Status: Chronic (6) Bacteremia due to Gram-negative bacteria Status: Acute - Assessment and Plan (Free Text) Plan: toe amputation IV ABs dialysis today, then [facility]
--- NOTE | 2018-12-06 11:41 | PCM.SURG1 ---
Surgeon's Initial Post Op Note - Surgeon's Notes Surgeon: Dr. Scanlon, DPM Business Services Officer: Dr. Javid Dinh, PGY1 Type of Anesthesia: IV Sedation, Local Anesthesia Administered By: Dr. Lopez Pre-Operative Diagnosis: Left hallux necrotic ulceration with osteomyelitis Operative Findings: see dictation. I: 2 cc 1:1 2% Lidocaine plain with 0.25% Marcaine plain. M: 2-0 Prolene, 3-0 Nylon, 1/4 Iodoform Packing Post-Operative Diagnosis: same as above Operation Performed: Left partial first ray amputation Specimen/Specimens Removed: left hallux with bone and soft tissue, left sesamoid apparatus Estimated Blood Loss: EBL {In ML}: 30 Blood Products Given: N/A Drains Used: No Drains Post-Op Condition: Good Date of Surgery/Procedure: 12/06/18 Time of Surgery/Procedure: 11:41
[2018-12-06] MEDS: Multivitamin Vitamin B Complex (Nephro-Vite) Tab PO SCH (11:58)
[2018-12-06] MEDS: Metoprolol Succinate 25 mg XL Tab PO SCH ×2 (11:59→21:09)
--- NOTE | 2018-12-06 13:03 | CP.PCM.PN ---
Subjective - Date & Time of Evaluation Date of Evaluation: 12/06/18 Time of Evaluation: 13:02 - Subjective Subjective: pt is seen and examined, progress note is dictated #[id number] Objective - Vital Signs/Intake and Output Vital Signs (last 24 hours): Temp Pulse Resp BP Pulse Ox 97.3 F L 60 18 152/66 H 100 12/06/18 12:30 12/06/18 12:30 12/06/18 12:30 12/06/18 12:30 12/06/18 12:30 Intake and Output: 12/06/18 12/06/18 06:59 18:59 Intake Total 550 200 Balance 550 200 - Medications Medications: Current Medications Acetaminophen (Tylenol 325mg Tab) 650 mg PO Q6 PRN PRN Reason: Pain, moderate (4-7) Last Admin: 11/27/18 20:08 Dose: 650 mg Amlodipine Besylate (Norvasc) 10 mg PO DAILY [facility] Last Admin: 12/06/18 11:59 Dose: Not Given Aspirin (Ecotrin) 81 mg PO DAILY [facility] Last Admin: 12/05/18 11:42 Dose: 81 mg Clopidogrel Bisulfate (Plavix) 75 mg PO DAILY [facility] Last Admin: 12/05/18 11:42 Dose: 75 mg Cyclobenzaprine HCl (Flexeril) 10 mg PO DAILY [facility] Last Admin: 12/06/18 11:58 Dose: Not Given Epoetin Shahram (Procrit) 10,000 unit IV MWF [facility] Last Admin: 12/03/18 12:46 Dose: 10,000 unit Hydroxyzine HCl (Atarax) 25 mg PO DAILY [facility] Last Admin: 12/06/18 11:58 Dose: Not Given Vancomycin HCl 1 gm/ Sodium (Chloride) 250 mls @ 166.7 mls/hr IVPB MWF@1600 [facility]; Protocol Last Admin: 12/03/18 16:03 Dose: 166.7 mls/hr Cefepime HCl (Maxipime Iv 1 Gm Premix) 1 gm in 50 mls @ 100 mls/hr IVPB Q24H [facility]; Protocol Last Admin: 12/05/18 18:12 Dose: 100 mls/hr Insulin Human Regular (Novolin R) 0 unit SC ACHS [facility]; Protocol Last Admin: 12/06/18 11:59 Dose: Not Given Levetiracetam (Keppra) 500 mg PO BID [facility] Last Admin: 12/06/18 11:58 Dose: Not Given Metoprolol Succinate (Toprol Xl) 25 mg PO Q12 [facility] Last Admin: 12/06/18 11:59 Dose: Not Given Sevelamer Carbonate (Renvela) 800 mg PO TID [facility] Last Admin: 12/06/18 11:59 Dose: Not Given Vitamin B Complex/Vit C/Folic Acid (Nephro-Yany) 1 tab PO DAILY [facility] Last Admin: 12/06/18 11:58 Dose: Not Given - Labs Labs: 12/05/18 16:19 12/06/18 08:44 PT 13.7 SECONDS (9.7-12.2) H 12/05/18 16:19 INR 1.3 12/05/18 16:19 APTT 30 SECONDS (21-34) 12/05/18 16:19
[2018-12-06] MEDS: Epoetin Alfa 10,000 unit/ml Dialysis IV SCH (17:29)
--- NOTE | 2018-12-06 18:09 | RAD ---
Date of service: 12/06/2018 PROCEDURE: Left Foot Radiographs. HISTORY: s/p left first ray partial amp COMPARISON: Preoperative study 11/25/2018. TECHNIQUE: 3 views obtained. FINDINGS: BONES: Expected postoperative findings following resection of the 1st ray. Additional osteotomy changes noted 4th digit. JOINTS: Stable hammertoe deformities. SOFT TISSUES: Expected postoperative soft tissue swelling OTHER FINDINGS: None. IMPRESSION: Satisfactory postoperative status.
[2018-12-06] MEDS: Cefepime IV 1 gm in Dextrose 1 GM/50 ML BAG IVPB SCH (18:43)
--- NOTE | 2018-12-07 04:45 | PN ---
DATE: 12/06/2018 LOCATION: The patient is located in room 564, bed B. The patient is seen and examined for Dr. Aydee Winston. REASON FOR FOLLOWUP: End-stage renal disease, hypertension, diabetes, possible osteomyelitis of the left big toe. SUBJECTIVE: Mr. Castañeda is a 63-year-old elderly male with a past medical history significant for longstanding hypertension, diabetes, end-stage renal disease, CVA x2, CAD, status post pacemaker placement, on hemodialysis three times a week, was admitted with fever and also dry gangrene of the left big toe, status post TPA atherectomy of the anterior tibial artery and peroneal artery by needle grinder, Dr. Ozuna. The patient was scheduled for first ray amputation of the left foot. The patient was seen and examined in the recovery room. Denies any pain. Status post amputation of the left big toe this morning. No chest pain. No palpitation. No fever. No cough. No abdominal pain. No nausea, vomiting or diarrhea. PHYSICAL EXAMINATION: VITAL SIGNS: Blood pressure this morning 148/60, pulse 60, respirations 15, temperature 97.3 and saturation 100% on 4 L nasal cannula. Height 5 feet 6 inches, weight is 157 pounds. GENERAL: Mr. Castañeda is a 63-year-old elderly male, moderately built, moderately nourished, not in acute distress. HEENT: Pupils are normal and reactive to light and accommodation. Conjunctivae pink. Sclerae anicteric. Tongue is moist. NECK: Trachea is midline. LUNGS: Symmetric on both sides. Bilateral breath sounds present, clear to auscultation. CARDIOVASCULAR SYSTEM: [place] at the fifth intercostal space, midclavicular line. S1 and S2 audible. No murmur or gallop. ABDOMEN: Normal in appearance, soft, tympanitic. No guarding. No rigidity. No hepatosplenomegaly. CENTRAL NERVOUS SYSTEM: The patient is alert, awake and oriented x2 to x3. Sensory and motor system is within normal limits. EXTREMITIES: No cyanosis, no clubbing. No edema of the leg. Status post amputation of the left big toe. MEDICATIONS: His current medications include as follows: Atarax 25 mg p.o. daily, Flexeril 10 mg p.o. daily, Keppra 500 mg p.o. b.i.d., cefepime 1 g every 24 hours, Nephro-Yany one tablet p.o. daily, Norvasc 10 mg p.o. daily, Procrit 10,000 units three times a week, Renvela 800 mg p.o. t.i.d., Toprol-XL 25 mg p.o. every 12 hours and Tylenol. LABORATORY DATA: Include as follows: As of 12/06/2018, sodium 131, potassium 5.4, chloride 90, CO2 of 30, BUN 55, creatinine 9.6, glucose 200, calcium 9.7. Accu-Cheks, 175 and 226. His wound culture is positive for Pseudomonas aeruginosa. ASSESSMENT AND PLAN: In summary, Mr. Castañeda is a 63-year-old elderly male with a history of longstanding hypertension, diabetes, end-stage renal disease, cerebrovascular accident and coronary artery disease, was admitted with fever and dry gangrene of the left big toe. The patient underwent amputation of the left big toe this morning. 1. Hypertension. Blood pressure is stable. Continue his current medications, amlodipine and metoprolol 25 mg p.o. every 12 hours. 2. Diabetes. Sugars are slightly high. Continue Accu-Chek coverage. 3. End-stage renal disease. Continue hemodialysis three times a week; Thursday, Thursday and Thursday. 4. Mild hyperkalemia, status post Kayexalate 30 g p.o. x1 dose last night. 5. Status post amputation of the left big toe. Continue intravenous antibiotics as per Infectious Disease recommendation, cefepime. The patient is seen and examined. Dictated for Aydee Winston MD, covering today. Continue followup with Renal for continuation of the hemodialysis. Soraya Winston MD
--- NOTE | 2018-12-07 07:43 | CP.PCM.PN ---
Subjective - Date & Time of Evaluation Date of Evaluation: 12/07/18 Time of Evaluation: 07:41 - Subjective Subjective: Nelda Zheng, PGY-1, Cardiology Progress Note for Dr. Ozuna Patient was seen and evaluated at bedside. Patient had no acute overnight events. Patient denies any acute symptoms at this time. Objective - Vital Signs/Intake and Output Vital Signs (last 24 hours): Temp Pulse Resp BP Pulse Ox 98.1 F 61 20 150/54 L 96 12/07/18 00:00 12/07/18 01:00 12/07/18 00:00 12/07/18 00:00 12/07/18 00:00 - Medications Medications: Current Medications Acetaminophen (Tylenol 325mg Tab) 650 mg PO Q6 PRN PRN Reason: Pain, moderate (4-7) Last Admin: 12/06/18 21:08 Dose: 650 mg Amlodipine Besylate (Norvasc) 10 mg PO DAILY [facility] Last Admin: 12/06/18 11:59 Dose: Not Given Aspirin (Ecotrin) 81 mg PO DAILY [facility] Last Admin: 12/05/18 11:42 Dose: 81 mg Clopidogrel Bisulfate (Plavix) 75 mg PO DAILY [facility] Last Admin: 12/05/18 11:42 Dose: 75 mg Cyclobenzaprine HCl (Flexeril) 10 mg PO DAILY [facility] Last Admin: 12/06/18 11:58 Dose: Not Given Epoetin Shahram (Procrit) 10,000 unit IV MWF [facility] Last Admin: 12/06/18 17:29 Dose: 10,000 unit Hydroxyzine HCl (Atarax) 25 mg PO DAILY [facility] Last Admin: 12/06/18 11:58 Dose: Not Given Cefepime HCl (Maxipime Iv 1 Gm Premix) 1 gm in 50 mls @ 100 mls/hr IVPB Q24H [facility]; Protocol Last Admin: 12/06/18 18:43 Dose: 100 mls/hr Insulin Human Regular (Novolin R) 0 unit SC ACHS [facility]; Protocol Last Admin: 12/06/18 21:12 Dose: Not Given Levetiracetam (Keppra) 500 mg PO BID [facility] Last Admin: 12/06/18 18:42 Dose: 500 mg Metoprolol Succinate (Toprol Xl) 25 mg PO Q12 [facility] Last Admin: 12/06/18 21:09 Dose: 25 mg Sevelamer Carbonate (Renvela) 800 mg PO TID [facility] Last Admin: 12/06/18 18:42 Dose: 800 mg Vitamin B Complex/Vit C/Folic Acid (Nephro-Yany) 1 tab PO DAILY [facility] Last Admin: 12/06/18 11:58 Dose: Not Given - Labs Labs: 12/05/18 16:19 12/06/18 08:44 PT 13.7 SECONDS (9.7-12.2) H 12/05/18 16:19 INR 1.3 12/05/18 16:19 APTT 30 SECONDS (21-34) 12/05/18 16:19 - Constitutional Appears: Well - Head Exam Head Exam: ATRAUMATIC, NORMAL INSPECTION, NORMOCEPHALIC - Eye Exam Eye Exam: EOMI, Normal appearance, PERRL Pupil Exam: NORMAL ACCOMODATION, PERRL - ENT Exam ENT Exam: Mucous Membranes Moist, Normal Exam - Neck Exam Neck Exam: Full ROM, Normal Inspection. absent: Lymphadenopathy - Respiratory Exam Respiratory Exam: Clear to Ausculation Bilateral, NORMAL BREATHING PATTERN - Cardiovascular Exam Cardiovascular Exam: REGULAR RHYTHM, +S1, +S2. absent: Murmur - GI/Abdominal Exam GI & Abdominal Exam: Soft, Normal Bowel Sounds. absent: Tenderness - Extremities Exam Extremities Exam: Full ROM, Normal Capillary Refill, Normal Inspection, amputated left first metatarsal. absent: Joint Swelling, Pedal Edema - Back Exam Back Exam: NORMAL INSPECTION - Neurological Exam Neurological Exam: Alert, Awake Neuro motor strength exam: Right Upper Extremity: 3, Right Lower Extremity: 2/1 - Psychiatric Exam Psychiatric exam: Normal Affect, Normal Mood - Skin Skin Exam: Dry, Intact, Normal Color, Warm Assessment and Plan (1) Dry gangrene Assessment & Plan: Peripheral angiogram 12/02: Right SFA heavily calcified but patent, right popliteal artery patent, one vessel runoff below the right knee. On the left, popliteal has high grade ostial lesion at the trifurcation, peroneal had multiple tandem 80% lesions and anterior tibial artery and had mid 99% stenosis, distal 80%, at distal end of dorsalis pedis had diffused 80% stenosis. Atherectomy angioplasty of anterior tibial artery performed. Additional balloon angioplasty with 2.5x3 serial dilatation balloons, lesion reduction down to 0%, improvement in flow. Patient status post amputation of left 1st ray. Will resume aspirin Status: Acute (2) Bacteremia due to Gram-negative bacteria Assessment & Plan: Continue with IV Abx Status: Acute (3) CHF (congestive heart failure) Assessment & Plan: Continue with toprol. Status: Acute (4) End stage renal disease Assessment & Plan: Patient's BUN/Cr worsening with hyponatremia and hyperkalemia Continue hemodialysis for improvement in electrolyte imbalance. Status: Acute (5) HTN (hypertension) Assessment & Plan: Continue with norvasc and toprol Status: Acute
[2018-12-07] MEDS: (Novolin R) Insulin Human Regular 100 units/ml vial SC SCH ×4 (09:05→21:55)
[2018-12-07] MEDS: Metoprolol Succinate 25 mg XL Tab PO SCH ×2 (09:06→21:57)
[2018-12-07] MEDS: Multivitamin Vitamin B Complex (Nephro-Vite) Tab PO SCH (09:06)
--- NOTE | 2018-12-07 10:21 | CP.PCM.PN ---
Subjective - Date & Time of Evaluation Date of Evaluation: 12/07/18 Time of Evaluation: 10:20 - Subjective Subjective: afebrile bp stable very lethargic on keppra bid ROS unable to obtain not answering questions Objective - Vital Signs/Intake and Output Vital Signs (last 24 hours): Temp Pulse Resp BP Pulse Ox 97.3 F L 60 20 157/57 H 100 12/07/18 08:30 12/07/18 08:30 12/07/18 08:30 12/07/18 08:30 12/07/18 08:30 - Medications Medications: Current Medications Acetaminophen (Tylenol 325mg Tab) 650 mg PO Q6 PRN PRN Reason: Pain, moderate (4-7) Last Admin: 12/06/18 21:08 Dose: 650 mg Amlodipine Besylate (Norvasc) 10 mg PO DAILY [facility] Last Admin: 12/07/18 09:06 Dose: 10 mg Aspirin (Ecotrin) 81 mg PO DAILY [facility] Last Admin: 12/05/18 11:42 Dose: 81 mg Clopidogrel Bisulfate (Plavix) 75 mg PO DAILY [facility] Last Admin: 12/05/18 11:42 Dose: 75 mg Cyclobenzaprine HCl (Flexeril) 10 mg PO DAILY [facility] Last Admin: 12/07/18 09:06 Dose: 10 mg Epoetin Shahram (Procrit) 10,000 unit IV MWF [facility] Last Admin: 12/06/18 17:29 Dose: 10,000 unit Hydroxyzine HCl (Atarax) 25 mg PO DAILY [facility] Last Admin: 12/07/18 09:10 Dose: 25 mg Cefepime HCl (Maxipime Iv 1 Gm Premix) 1 gm in 50 mls @ 100 mls/hr IVPB Q24H [facility]; Protocol Last Admin: 12/06/18 18:43 Dose: 100 mls/hr Insulin Human Regular (Novolin R) 0 unit SC ACHS [facility]; Protocol Last Admin: 12/07/18 09:05 Dose: 1 units Levetiracetam (Keppra) 500 mg PO BID [facility] Last Admin: 12/07/18 09:06 Dose: 500 mg Metoprolol Succinate (Toprol Xl) 25 mg PO Q12 [facility] Last Admin: 12/07/18 09:06 Dose: 25 mg Sevelamer Carbonate (Renvela) 800 mg PO TID [facility] Last Admin: 12/07/18 09:05 Dose: 800 mg Vitamin B Complex/Vit C/Folic Acid (Nephro-Yany) 1 tab PO DAILY [facility] Last Admin: 12/07/18 09:06 Dose: 1 tab - Labs Labs: 12/05/18 16:19 12/06/18 08:44 PT 13.7 SECONDS (9.7-12.2) H 12/05/18 16:19 INR 1.3 12/05/18 16:19 APTT 30 SECONDS (21-34) 12/05/18 16:19 - Constitutional Appears: No Acute Distress - Eye Exam Eye Exam: Normal appearance - Respiratory Exam Respiratory Exam: Clear to Ausculation Bilateral - Cardiovascular Exam Cardiovascular Exam: REGULAR RHYTHM. absent: JVD - GI/Abdominal Exam GI & Abdominal Exam: Soft. absent: Distended, Tenderness - Extremities Exam Extremities Exam: absent: Calf Tenderness, Pedal Edema - Skin Skin Exam: Dry, Warm Assessment and Plan (1) Altered mental status Status: Acute (2) CVA (cerebral vascular accident) Status: Acute (3) Chronic toe ulcer Status: Acute (4) DM2 (diabetes mellitus, type 2) Status: Acute (5) ESRD (end stage renal disease) on dialysis Status: Acute (6) HTN (hypertension) Status: Acute - Assessment and Plan (Free Text) Plan: repeat chems obtain keppra level would obtain neuro follow up to possibly lower keppra dose dialysis tentatively 12/08
--- NOTE | 2018-12-07 11:41 | CP.PCM.PN ---
Subjective - Date & Time of Evaluation Date of Evaluation: 12/07/18 Time of Evaluation: 11:30 - Subjective Subjective: Progress note dictated # [id number] Objective - Vital Signs/Intake and Output Vital Signs (last 24 hours): Temp Pulse Resp BP Pulse Ox 97.3 F L 60 20 157/57 H 100 12/07/18 08:30 12/07/18 11:30 12/07/18 08:30 12/07/18 08:30 12/07/18 08:30 - Medications Medications: Current Medications Acetaminophen (Tylenol 325mg Tab) 650 mg PO Q6 PRN PRN Reason: Pain, moderate (4-7) Last Admin: 12/07/18 11:15 Dose: 650 mg Amlodipine Besylate (Norvasc) 10 mg PO DAILY [facility] Last Admin: 12/07/18 09:06 Dose: 10 mg Aspirin (Ecotrin) 81 mg PO DAILY [facility] Last Admin: 12/05/18 11:42 Dose: 81 mg Clopidogrel Bisulfate (Plavix) 75 mg PO DAILY [facility] Last Admin: 12/05/18 11:42 Dose: 75 mg Cyclobenzaprine HCl (Flexeril) 10 mg PO DAILY [facility] Last Admin: 12/07/18 09:06 Dose: 10 mg Epoetin Shahram (Procrit) 10,000 unit IV MWF [facility] Last Admin: 12/06/18 17:29 Dose: 10,000 unit Hydroxyzine HCl (Atarax) 25 mg PO DAILY [facility] Last Admin: 12/07/18 09:10 Dose: 25 mg Cefepime HCl (Maxipime Iv 1 Gm Premix) 1 gm in 50 mls @ 100 mls/hr IVPB Q24H [facility]; Protocol Last Admin: 12/06/18 18:43 Dose: 100 mls/hr Insulin Human Regular (Novolin R) 0 unit SC ACHS [facility]; Protocol Last Admin: 12/07/18 09:05 Dose: 1 units Levetiracetam (Keppra) 500 mg PO BID [facility] Last Admin: 12/07/18 09:06 Dose: 500 mg Metoprolol Succinate (Toprol Xl) 25 mg PO Q12 [facility] Last Admin: 12/07/18 09:06 Dose: 25 mg Sevelamer Carbonate (Renvela) 800 mg PO TID [facility] Last Admin: 12/07/18 09:05 Dose: 800 mg Vitamin B Complex/Vit C/Folic Acid (Nephro-Yany) 1 tab PO DAILY [facility] Last Admin: 12/07/18 09:06 Dose: 1 tab - Labs Labs: 12/05/18 16:19 12/06/18 08:44 PT 13.7 SECONDS (9.7-12.2) H 12/05/18 16:19 INR 1.3 12/05/18 16:19 APTT 30 SECONDS (21-34) 12/05/18 16:19
--- NOTE | 2018-12-07 11:45 | CP.PCM.PN ---
Subjective - Date & Time of Evaluation Date of Evaluation: 12/07/18 Time of Evaluation: 11:42 - Subjective Subjective: Podiatry Progress Note for Dr. Capo RachelM seen and evaluated at bedside one day s/p left partial first ray amputation. Patient is seen to be resting comfortably in bed with NAD present. Per nursing, no acute overnight events Objective - Vital Signs/Intake and Output Vital Signs (last 24 hours): Temp Pulse Resp BP Pulse Ox 97.3 F L 60 20 157/57 H 100 12/07/18 08:30 12/07/18 11:30 12/07/18 08:30 12/07/18 08:30 12/07/18 08:30 - Medications Medications: Current Medications Acetaminophen (Tylenol 325mg Tab) 650 mg PO Q6 PRN PRN Reason: Pain, moderate (4-7) Last Admin: 12/07/18 11:15 Dose: 650 mg Amlodipine Besylate (Norvasc) 10 mg PO DAILY [facility] Last Admin: 12/07/18 09:06 Dose: 10 mg Aspirin (Ecotrin) 81 mg PO DAILY [facility] Last Admin: 12/05/18 11:42 Dose: 81 mg Clopidogrel Bisulfate (Plavix) 75 mg PO DAILY [facility] Last Admin: 12/05/18 11:42 Dose: 75 mg Cyclobenzaprine HCl (Flexeril) 10 mg PO DAILY [facility] Last Admin: 12/07/18 09:06 Dose: 10 mg Epoetin Shahram (Procrit) 10,000 unit IV MWF [facility] Last Admin: 12/06/18 17:29 Dose: 10,000 unit Hydroxyzine HCl (Atarax) 25 mg PO DAILY [facility] Last Admin: 12/07/18 09:10 Dose: 25 mg Cefepime HCl (Maxipime Iv 1 Gm Premix) 1 gm in 50 mls @ 100 mls/hr IVPB Q24H [facility]; Protocol Last Admin: 12/06/18 18:43 Dose: 100 mls/hr Insulin Human Regular (Novolin R) 0 unit SC ACHS [facility]; Protocol Last Admin: 12/07/18 09:05 Dose: 1 units Levetiracetam (Keppra) 500 mg PO BID [facility] Last Admin: 12/07/18 09:06 Dose: 500 mg Metoprolol Succinate (Toprol Xl) 25 mg PO Q12 [facility] Last Admin: 12/07/18 09:06 Dose: 25 mg Sevelamer Carbonate (Renvela) 800 mg PO TID [facility] Last Admin: 12/07/18 09:05 Dose: 800 mg Vitamin B Complex/Vit C/Folic Acid (Nephro-Yany) 1 tab PO DAILY [facility] Last Admin: 12/07/18 09:06 Dose: 1 tab - Labs Labs: 12/05/18 16:19 12/06/18 08:44 PT 13.7 SECONDS (9.7-12.2) H 12/05/18 16:19 INR 1.3 12/05/18 16:19 APTT 30 SECONDS (21-34) 12/05/18 16:19 - Constitutional Appears: Well, Non-toxic, No Acute Distress - Extremities Exam Additional comments: LLE focused exam: Vasc: DP/PT pulses nonpalpable b/l. Skin temperature warm to warm from proximal to distal WNL. CFT < 3 seconds to all remaining digits. Minimal edema consistent with postoperative status noted to surgical site Neuro: Epicritic and protective sensation grossly diminished Derm: Open partial first ray amputation site noted to level of left hallux. Minimal erythema noted to surgical site consistent with postoperative status. 1/4 inch iodoform packing noted with minimal serosanguinous drainage noted to amputation site. No malodor, no other clinical signs of infection. MSK: Pain at surgical site with palpation. MMT and ROM not assessed secondary to postoperative status - Neurological Exam Neurological Exam: Alert, Altered, Awake - Psychiatric Exam Psychiatric exam: Normal Affect, Normal Mood Assessment and Plan - Assessment and Plan (Free Text) Assessment: 63M seen and evaluated at bedside one day s/p left partial first ray amputation Plan: Patient seen and evaluated Plan discussed with Dr. Scanlon Afebrile Continue abx per ID No plan for further surgical intervention at this time Iodoform packing advanced, will be removed tomorrow Wound dressed with DSD, [facility] will continue to follow while patient in house Following discharge, patient will follow up with Dr. Scanlon
[2018-12-07 14:11] LABS: CALCIUM 9.3 mg/dl (8.6-10.4)
[2018-12-07] MEDS: Cefepime IV 1 gm in Dextrose 1 GM/50 ML BAG IVPB SCH (17:51)
--- NOTE | 2018-12-07 22:22 | CP.PCM.PN ---
Subjective - Date & Time of Evaluation Date of Evaluation: 12/07/18 Time of Evaluation: 08:00 - Subjective Subjective: discussed on rouinds s/p amputation IV rx to cont for min & days post op Objective - Vital Signs/Intake and Output Vital Signs (last 24 hours): Temp Pulse Resp BP Pulse Ox 98.5 F 60 18 128/55 L 100 12/07/18 15:42 12/07/18 19:50 12/07/18 15:42 12/07/18 15:42 12/07/18 15:42 Intake and Output: 12/07/18 12/08/18 18:59 06:59 Intake Total 450 Balance 450 - Medications Medications: Current Medications Acetaminophen (Tylenol 325mg Tab) 650 mg PO Q6 PRN PRN Reason: Pain, moderate (4-7) Last Admin: 12/07/18 11:15 Dose: 650 mg Amlodipine Besylate (Norvasc) 10 mg PO DAILY [facility] Last Admin: 12/07/18 09:06 Dose: 10 mg Aspirin (Ecotrin) 81 mg PO DAILY [facility] Last Admin: 12/05/18 11:42 Dose: 81 mg Clopidogrel Bisulfate (Plavix) 75 mg PO DAILY [facility] Last Admin: 12/05/18 11:42 Dose: 75 mg Cyclobenzaprine HCl (Flexeril) 10 mg PO DAILY [facility] Last Admin: 12/07/18 09:06 Dose: 10 mg Epoetin Shahram (Procrit) 10,000 unit IV MWF [facility] Last Admin: 12/06/18 17:29 Dose: 10,000 unit Hydroxyzine HCl (Atarax) 25 mg PO DAILY [facility] Last Admin: 12/07/18 09:10 Dose: 25 mg Cefepime HCl (Maxipime Iv 1 Gm Premix) 1 gm in 50 mls @ 100 mls/hr IVPB Q24H [facility]; Protocol Last Admin: 12/07/18 17:51 Dose: 100 mls/hr Insulin Human Regular (Novolin R) 0 unit SC ACHS [facility]; Protocol Last Admin: 12/07/18 21:55 Dose: Not Given Levetiracetam (Keppra) 500 mg PO BID [facility] Last Admin: 12/07/18 17:51 Dose: 500 mg Metoprolol Succinate (Toprol Xl) 25 mg PO Q12 [facility] Last Admin: 12/07/18 21:57 Dose: 25 mg Sevelamer Carbonate (Renvela) 800 mg PO TID [facility] Last Admin: 12/07/18 17:51 Dose: 800 mg Vitamin B Complex/Vit C/Folic Acid (Nephro-Yany) 1 tab PO DAILY [facility] Last Admin: 12/07/18 09:06 Dose: 1 tab - Labs Labs: 12/05/18 16:19 12/07/18 13:55 PT 13.7 SECONDS (9.7-12.2) H 12/05/18 16:19 INR 1.3 12/05/18 16:19 APTT 30 SECONDS (21-34) 12/05/18 16:19 - Head Exam Head Exam: NORMOCEPHALIC - Eye Exam Eye Exam: absent: Scleral icterus Pupil Exam: NORMAL ACCOMODATION - ENT Exam ENT Exam: Mucous Membranes Dry - Neck Exam Neck Exam: absent: Lymphadenopathy - Respiratory Exam Respiratory Exam: Prolonged Expiratory Phase - GI/Abdominal Exam GI & Abdominal Exam: Normal Bowel Sounds - Rectal Exam Rectal Exam: Deferred - Exam Exam: NORMAL INSPECTION - Extremities Exam Extremities Exam: Full ROM - Back Exam Back Exam: absent: CVA tenderness (L), CVA tenderness (R) Assessment and Plan (1) Dry gangrene Status: Acute (2) CVA, old, aphasia Status: Acute (3) Chronic toe ulcer Status: Acute (4) DM2 (diabetes mellitus, type 2) Status: Acute (5) ESRD (end stage renal disease) on dialysis Status: Acute (6) HTN (hypertension) Status: Acute (7) Osteomyelitis of great toe of left foot Status: Acute (8) PVD (peripheral vascular disease) Status: Acute - Assessment and Plan (Free Text) Assessment: cont iv cefeopime for min 7 days post op
--- NOTE | 2018-12-08 01:54 | PN ---
DATE: 12/07/2018 SUBJECTIVE: The patient is seen and examined at bedside. Events from the weekend noted. The patient underwent amputation of the first toe yesterday without any events. The patient denies any complaints. PHYSICAL EXAMINATION: GENERAL: Middle aged male, lying in bed, in no acute distress. VITAL SIGNS: Blood pressure 128/55, pulse 60, respirations 18, temperature 98.5 degrees Fahrenheit, O2 sat is 100% on 2 L nasal cannula. HEENT: Pupils are equal, round, reacting to light and accommodation. Extraocular muscles intact. No icterus. No pallor. No oral thrush. No oropharyngeal congestion. NECK: Supple. No JVD. LUNGS: Bilateral vesicular breath sounds. No wheezing. No rhonchi. CARDIOVASCULAR SYSTEM: S1 and S2 present, regular. ABDOMEN: Soft, nontender. Bowel sounds present. No guarding. No rigidity. No rebound tenderness noted. CENTRAL NERVOUS SYSTEM: Alert, awake, and oriented x3. EXTREMITIES: No edema. Left foot with dressing in place, status post amputation. MEDICATIONS: Include Tylenol as needed, amlodipine 10 mg daily, cefepime 1 g IV daily, Flexeril, Procrit, Atarax, insulin coverage, Keppra 500 mg p.o. b.i.d., metoprolol 25 mg p.o. every 12 hours, Renvela, vitamin B complex. LABORATORY DATA: Labs from today: Sodium 133, potassium 4.6, chloride 91, bicarb 33, BUN 36, creatinine 6.2. Glucose: 190, 263, 275, 236, 254. Calcium 9.3. Tissue culture, negative growth after 24 hours. ASSESSMENT AND PLAN: Middle-aged male with history of hypertension; coronary artery disease; status post cerebrovascular accident; end-stage renal disease, on hemodialysis. Admitted for left foot cellulitis and dry gangrene. Underwent first ray amputation yesterday. Underwent angioplasty with atherectomy done by Dr. Ozuna. Continue with [facility]. Discussed with Dr. Danielle recommending one week of intravenous antibiotics post surgery. Continue with other current therapy. Follow up with Podiatry. If cleared by Podiatry, we will plan discharging the patient home with subacute rehabilitation versus home. Follow up with protective services social worker for discharge planning. Continue with hemodialysis as per Renal. Discussed with the patient's who is at bedside. Aydee Winston MD [facility] # [id number]
--- NOTE | 2018-12-08 05:09 | PCM.OP ---
Operative Report - Operative Report Date of Surgery/Procedure: 12/06/18 Time of Surgery/Procedure: 09:00 Surgeon: Dr. Sofiya Scanlon DPM Bar Staff: Dr. Javid Dinh PGY1 Anesthesia/Sedation: Anesthesiologist: Dr. Lopez Anesthesia: IV Sedation with Local Anesthesia Pre-Operative Diagnosis: Left hallux necrotic ulceration with osteomyelitis Post-Operative Diagnosis: same as above Indication for Surgery: Name of Procedure: Left Foot Partial First Ray Amputation Indications: The patient is a 63 year-old male with the above diagnosis. The patient has exhausted all conservative treatment at this time and now requires surgical intervention. The patient signed the consent after careful explanation of risks, benefits, complications and alternatives for surgical procedure. No guarantees were given nor implied. NPO status was confirmed prior to taking patient to the OR. Operative Findings: Preparation: The patient was brought in to the operating room and placed on the operating room table in the supine position. Timeout was performed for identification of the correct patient and procedure. After induction of intravenous sedation, the patient received a total of 20 mL of a 1:1 mixture of 2% lidocaine plain and 0.25% Marcaine plain in a Lozoya block fashion to the left first ray. The left foot was then prepped and draped in normal sterile manner and the procedure began. No tourniquet was utilized during the procedure. Procedure/Operation Description: Procedure: Attention was drawn to the left hallux where a necrotic ulceration measuring approximately 2 cm X 3.5 cm was noted to the dorsal aspect. Taking a skin marker, a raquet type incision was planned at the first metatarso- phalangeal joint with the arm of the raquet at the medial aspect of the first metatarsal. Care was also taken to preserve the plantar skin flap of the hallux for adequate closure. With the use of a sterile #15 blade, the incision was extended down through the subcutaneous layers down to the level of bone. The proximal and distal hallucal phalanges were carefully dissected. At this time, using a bone clamp, the hallucal bones were disarticulated from the first metatarsal at the level of the metatarso-phalangeal joint. The specimen was passed off the field. Next, using a sagittal saw, the first metatarsal was resected approxmately 2 cm proximal to the neck. The resected first metatarsal was passed off the field for specimen. Next, the sesamoid apparatus was clearly visualized and dissected out with the use of [id number]. Using a fresh #15 blade, all necrotic and non-viable tissue as well as tendons were excisionally debrided from surgical site, with additional soft tissue removed to allow for adequate skin closure without tension. The wound was then copiously flushed with Iricept. The surgical site was then sutured closed using 2-0 Prolene and 3-0 nylon with horizontal mattress and simple type sutures. 1/4 inch Iodoform Packing was utilized at the distal most end of the incision. The surgical site was then dressed with betadine, Adaptic, 4x4 gauze, and kerlix and MIRACLE bandage. Estimated Blood Loss: 30 mL Complications: none Discharge & Condition: The patient tolerated the anesthesia and procedure well and was escorted to the recovery room with vital signs stable and neurovascular status intact to the left foot. Patient is to non-weight bearing to left lower extremity at this time. Patient is to return to floors and podiatry will continue to follow patient. Upon discharge, patient will follow up with Dr. Scanlon in the office.
--- NOTE | 2018-12-08 09:14 | CP.PCM.PN ---
Subjective - Date & Time of Evaluation Date of Evaluation: 12/08/18 Time of Evaluation: 09:11 - Subjective Subjective: Podiatry Progress Note for Dr. Capo RachelM seen and evaluated at bedside two days s/p left partial first ray amputation. Patient is seen to be resting comfortably in bed with NAD. Patient is slightly more coherent than yesterday. Per nursing, no acute overnight events Objective - Vital Signs/Intake and Output Vital Signs (last 24 hours): Temp Pulse Resp BP Pulse Ox 98.3 F 60 20 150/54 L 100 12/08/18 07:15 12/08/18 08:12 12/08/18 07:15 12/08/18 07:15 12/08/18 07:15 Intake and Output: 12/08/18 12/08/18 06:59 18:59 Intake Total 300 Output Total 0 Balance 300 - Medications Medications: Current Medications Acetaminophen (Tylenol 325mg Tab) 650 mg PO Q6 PRN PRN Reason: Pain, moderate (4-7) Last Admin: 12/07/18 11:15 Dose: 650 mg Amlodipine Besylate (Norvasc) 10 mg PO DAILY [facility] Last Admin: 12/07/18 09:06 Dose: 10 mg Aspirin (Ecotrin) 81 mg PO DAILY [facility] Last Admin: 12/05/18 11:42 Dose: 81 mg Clopidogrel Bisulfate (Plavix) 75 mg PO DAILY [facility] Last Admin: 12/05/18 11:42 Dose: 75 mg Cyclobenzaprine HCl (Flexeril) 10 mg PO DAILY [facility] Last Admin: 12/07/18 09:06 Dose: 10 mg Epoetin Shahram (Procrit) 10,000 unit IV MWF [facility] Last Admin: 12/06/18 17:29 Dose: 10,000 unit Hydroxyzine HCl (Atarax) 25 mg PO DAILY [facility] Last Admin: 12/07/18 09:10 Dose: 25 mg Cefepime HCl (Maxipime Iv 1 Gm Premix) 1 gm in 50 mls @ 100 mls/hr IVPB Q24H [facility]; Protocol Last Admin: 12/07/18 17:51 Dose: 100 mls/hr Insulin Human Regular (Novolin R) 0 unit SC ACHS [facility]; Protocol Last Admin: 12/07/18 21:55 Dose: Not Given Levetiracetam (Keppra) 500 mg PO BID [facility] Last Admin: 12/07/18 17:51 Dose: 500 mg Metoprolol Succinate (Toprol Xl) 25 mg PO Q12 [facility] Last Admin: 12/07/18 21:57 Dose: 25 mg Sevelamer Carbonate (Renvela) 800 mg PO TID [facility] Last Admin: 12/07/18 17:51 Dose: 800 mg Vitamin B Complex/Vit C/Folic Acid (Nephro-Yany) 1 tab PO DAILY [facility] Last Admin: 12/07/18 09:06 Dose: 1 tab - Labs Labs: 12/05/18 16:19 12/07/18 13:55 PT 13.7 SECONDS (9.7-12.2) H 12/05/18 16: INR 1.3 12/05/18 16: APTT 30 SECONDS (21-34) 12/05/18 16:19 - Constitutional Appears: Well, Non-toxic, No Acute Distress - Extremities Exam Additional comments: LLE focused exam: Vasc: DP/PT pulses nonpalpable b/l. Skin temperature warm to warm from proximal to distal WNL. CFT < 3 seconds to all remaining digits. Minimal edema consistent with postoperative status noted to surgical site, improved since yesterday Neuro: Epicritic and protective sensation grossly diminished Derm: Open partial first ray amputation site noted to level of left hallux. Minimal erythema noted to surgical site consistent with postoperative status and noted to be improving. 1/4 inch iodoform packing noted with minimal serosanguinous drainage noted to amputation site. No malodor, no other clinical signs of infection. MSK: Pain at surgical site with palpation. MMT and ROM not assessed secondary to postoperative status - Neurological Exam Neurological Exam: Alert, Awake, Oriented x3 - Psychiatric Exam Psychiatric exam: Normal Affect, Normal Mood Assessment and Plan - Assessment and Plan (Free Text) Assessment: 63M seen and evaluated at bedside two days s/p left partial first ray amputation Plan: Patient seen and evaluated Plan discussed with Dr. Scanlon Afebrile Continue abx per ID No plan for further surgical intervention at this time Iodoform packing fully removed from surgical site with one suture removed to allow for complete removal of packing Wound dressed with wet to dry DSD and multipodus boots placed back on feet Podiatry will continue to follow while patient in house Following discharge, patient will follow up with Dr. Scanlon
[2018-12-08] MEDS: (Novolin R) Insulin Human Regular 100 units/ml vial SC SCH ×3 (09:17→17:02)
[2018-12-08] MEDS: Metoprolol Succinate 25 mg XL Tab PO SCH (10:45)
[2018-12-08] MEDS: Multivitamin Vitamin B Complex (Nephro-Vite) Tab PO SCH (10:45)
--- NOTE | 2018-12-08 11:31 | CP.PCM.PN ---
Subjective - Date & Time of Evaluation Date of Evaluation: 12/08/18 Time of Evaluation: 11:31 Objective - Vital Signs/Intake and Output Vital Signs (last 24 hours): Temp Pulse Resp BP Pulse Ox 97.8 F 59 L 16 114/84 96 12/08/18 09:45 12/08/18 09:45 12/08/18 09:45 12/08/18 09:45 12/08/18 09:45 Intake and Output: 12/08/18 12/08/18 06:59 18:59 Intake Total 300 Output Total 0 Balance 300 - Medications Medications: Current Medications Acetaminophen (Tylenol 325mg Tab) 650 mg PO Q6 PRN PRN Reason: Pain, moderate (4-7) Last Admin: 12/07/18 11:15 Dose: 650 mg Amlodipine Besylate (Norvasc) 10 mg PO DAILY [facility] Last Admin: 12/08/18 10:45 Dose: Not Given Aspirin (Ecotrin) 81 mg PO DAILY [facility] Last Admin: 12/05/18 11:42 Dose: 81 mg Clopidogrel Bisulfate (Plavix) 75 mg PO DAILY [facility] Last Admin: 12/05/18 11:42 Dose: 75 mg Cyclobenzaprine HCl (Flexeril) 10 mg PO DAILY [facility] Last Admin: 12/08/18 10:45 Dose: Not Given Epoetin Shahram (Procrit) 10,000 unit IV MWF [facility] Last Admin: 12/06/18 17:29 Dose: 10,000 unit Hydroxyzine HCl (Atarax) 25 mg PO DAILY [facility] Last Admin: 12/08/18 10:45 Dose: Not Given Cefepime HCl (Maxipime Iv 1 Gm Premix) 1 gm in 50 mls @ 100 mls/hr IVPB Q24H [facility]; Protocol Last Admin: 12/07/18 17:51 Dose: 100 mls/hr Insulin Human Regular (Novolin R) 0 unit SC ACHS [facility]; Protocol Last Admin: 12/08/18 09:17 Dose: 1 units Levetiracetam (Keppra) 500 mg PO BID [facility] Last Admin: 12/08/18 10:45 Dose: Not Given Metoprolol Succinate (Toprol Xl) 25 mg PO Q12 [facility] Last Admin: 12/08/18 10:45 Dose: Not Given Sevelamer Carbonate (Renvela) 800 mg PO TID [facility] Last Admin: 12/08/18 10:45 Dose: Not Given Vitamin B Complex/Vit C/Folic Acid (Nephro-Yany) 1 tab PO DAILY [facility] Last Admin: 12/08/18 10:45 Dose: Not Given - Labs Labs: 12/05/18 16:19 12/07/18 13:55 PT 13.7 SECONDS (9.7-12.2) H 12/05/18 16:19 INR 1.3 12/05/18 16:19 APTT 30 SECONDS (21-34) 12/05/18 16:19
[2018-12-08] MEDS: Epoetin Alfa 10,000 unit/ml Dialysis IV SCH (12:22)
--- NOTE | 2018-12-08 13:05 | CP.PCM.PN ---
Subjective - Date & Time of Evaluation Date of Evaluation: 12/08/18 Time of Evaluation: 13:02 - Subjective Subjective: seen at dialysis more arousable today UF 2800ml with HD- tolerated well s/p partial toe amputation not verbalizing Objective - Vital Signs/Intake and Output Vital Signs (last 24 hours): Temp Pulse Resp BP Pulse Ox 97.8 F 62 16 119/51 L 96 12/08/18 09:45 12/08/18 11:37 12/08/18 09:45 12/08/18 12:35 12/08/18 09:45 Intake and Output: 12/08/18 12/08/18 06:59 18:59 Intake Total 300 Output Total 0 Balance 300 - Medications Medications: Current Medications Acetaminophen (Tylenol 325mg Tab) 650 mg PO Q6 PRN PRN Reason: Pain, moderate (4-7) Last Admin: 12/07/18 11:15 Dose: 650 mg Amlodipine Besylate (Norvasc) 10 mg PO DAILY [facility] Last Admin: 12/08/18 10:45 Dose: Not Given Aspirin (Ecotrin) 81 mg PO DAILY [facility] Last Admin: 12/05/18 11:42 Dose: 81 mg Clopidogrel Bisulfate (Plavix) 75 mg PO DAILY [facility] Last Admin: 12/05/18 11:42 Dose: 75 mg Cyclobenzaprine HCl (Flexeril) 10 mg PO DAILY [facility] Last Admin: 12/08/18 10:45 Dose: Not Given Epoetin Shahram (Procrit) 10,000 unit IV MWF [facility] Last Admin: 12/08/18 12:22 Dose: 10,000 unit Hydroxyzine HCl (Atarax) 25 mg PO DAILY [facility] Last Admin: 12/08/18 10:45 Dose: Not Given Cefepime HCl (Maxipime Iv 1 Gm Premix) 1 gm in 50 mls @ 100 mls/hr IVPB Q24H [facility]; Protocol Last Admin: 12/07/18 17:51 Dose: 100 mls/hr Insulin Human Regular (Novolin R) 0 unit SC ACHS [facility]; Protocol Last Admin: 12/08/18 12:43 Dose: Not Given Levetiracetam (Keppra) 500 mg PO BID [facility] Last Admin: 12/08/18 10:45 Dose: Not Given Metoprolol Succinate (Toprol Xl) 25 mg PO Q12 [facility] Last Admin: 12/08/18 10:45 Dose: Not Given Sevelamer Carbonate (Renvela) 800 mg PO TID [facility] Last Admin: 12/08/18 10:45 Dose: Not Given Vitamin B Complex/Vit C/Folic Acid (Nephro-Yany) 1 tab PO DAILY [facility] Last Admin: 12/08/18 10:45 Dose: Not Given - Labs Labs: 12/05/18 16:19 12/07/18 13:55 PT 13.7 SECONDS (9.7-12.2) H 12/05/18 16:19 INR 1.3 12/05/18 16:19 APTT 30 SECONDS (21-34) 12/05/18 16:19 - Constitutional Appears: No Acute Distress, Confused, Chronically Ill - Head Exam Head Exam: ATRAUMATIC, NORMAL INSPECTION - Eye Exam Eye Exam: EOMI, Normal appearance - Neck Exam Neck Exam: Normal Inspection. absent: Tenderness - Cardiovascular Exam Cardiovascular Exam: REGULAR RHYTHM, +S1 - GI/Abdominal Exam GI & Abdominal Exam: Soft. absent: Tenderness - Extremities Exam Extremities Exam: Tenderness - Neurological Exam Neurological Exam: Altered, Awake - Skin Skin Exam: Dry, Warm Assessment and Plan (1) Dry gangrene Status: Acute (2) ESRD (end stage renal disease) on dialysis Status: Acute (3) HTN (hypertension) Status: Acute (4) Type 2 diabetes mellitus with diabetic nephropathy Status: Acute (5) History of CVA (cerebrovascular accident) Status: Chronic (6) Bacteremia due to Gram-negative bacteria Status: Acute - Assessment and Plan (Free Text) Plan: surgical wound care dialysis MWF 'Adequate fluid removal follow up labs
--- NOTE | 2018-12-08 15:36 | CP.PCM.PN ---
Subjective - Date & Time of Evaluation Date of Evaluation: 12/08/18 Time of Evaluation: 15:33 - Subjective Subjective: Nelda Zheng, PGY-1, Cardiology Progress Note for Dr. Ozuna Patient was seen and evaluated at bedside. Patient had no acute overnight events. Patient denies any acute symptoms at this time. Objective - Vital Signs/Intake and Output Vital Signs (last 24 hours): Temp Pulse Resp BP Pulse Ox 97.1 F L 60 16 118/52 L 97 12/08/18 13:15 12/08/18 13:15 12/08/18 13:15 12/08/18 13:15 12/08/18 13:15 Intake and Output: 12/08/18 12/08/18 06:59 18:59 Intake Total 300 800 Output Total 0 Balance 300 800 - Medications Medications: Current Medications Acetaminophen (Tylenol 325mg Tab) 650 mg PO Q6 PRN PRN Reason: Pain, moderate (4-7) Last Admin: 12/07/18 11:15 Dose: 650 mg Amlodipine Besylate (Norvasc) 10 mg PO DAILY [facility] Last Admin: 12/08/18 10:45 Dose: Not Given Aspirin (Ecotrin) 81 mg PO DAILY [facility] Last Admin: 12/05/18 11:42 Dose: 81 mg Clopidogrel Bisulfate (Plavix) 75 mg PO DAILY [facility] Last Admin: 12/05/18 11:42 Dose: 75 mg Cyclobenzaprine HCl (Flexeril) 10 mg PO DAILY [facility] Last Admin: 12/08/18 10:45 Dose: Not Given Epoetin Shahram (Procrit) 10,000 unit IV MWF [facility] Last Admin: 12/08/18 12:22 Dose: 10,000 unit Hydroxyzine HCl (Atarax) 25 mg PO DAILY [facility] Last Admin: 12/08/18 10:45 Dose: Not Given Cefepime HCl (Maxipime Iv 1 Gm Premix) 1 gm in 50 mls @ 100 mls/hr IVPB Q24H [facility]; Protocol Last Admin: 12/07/18 17:51 Dose: 100 mls/hr Insulin Human Regular (Novolin R) 0 unit SC ACHS [facility]; Protocol Last Admin: 12/08/18 12:43 Dose: Not Given Levetiracetam (Keppra) 500 mg PO BID [facility] Last Admin: 12/08/18 10:45 Dose: Not Given Metoprolol Succinate (Toprol Xl) 25 mg PO Q12 [facility] Last Admin: 12/08/18 10:45 Dose: Not Given Sevelamer Carbonate (Renvela) 800 mg PO TID [facility] Last Admin: 12/08/18 14:21 Dose: 800 mg Vitamin B Complex/Vit C/Folic Acid (Nephro-Yany) 1 tab PO DAILY [facility] Last Admin: 12/08/18 10:45 Dose: Not Given - Labs Labs: 12/05/18 16:19 12/07/18 13:55 PT 13.7 SECONDS (9.7-12.2) H 12/05/18 16:19 INR 1.3 12/05/18 16:19 APTT 30 SECONDS (21-34) 12/05/18 16:19 - Constitutional Appears: Well - Head Exam Head Exam: ATRAUMATIC, NORMAL INSPECTION, NORMOCEPHALIC - Eye Exam Eye Exam: EOMI, Normal appearance, PERRL Pupil Exam: NORMAL ACCOMODATION, PERRL - ENT Exam ENT Exam: Mucous Membranes Moist, Normal Exam - Neck Exam Neck Exam: Full ROM, Normal Inspection. absent: Lymphadenopathy - Respiratory Exam Respiratory Exam: Clear to Ausculation Bilateral, NORMAL BREATHING PATTERN - Cardiovascular Exam Cardiovascular Exam: REGULAR RHYTHM, +S1, +S2. absent: Murmur - GI/Abdominal Exam GI & Abdominal Exam: Soft, Normal Bowel Sounds. absent: Tenderness - Extremities Exam Extremities Exam: Full ROM, Normal Capillary Refill, Normal Inspection, amputated left first metatarsal. absent: Joint Swelling, Pedal Edema - Back Exam Back Exam: NORMAL INSPECTION - Neurological Exam Neurological Exam: Alert, Awake Neuro motor strength exam: Right Upper Extremity: 3, Right Lower Extremity: 2/1 - Psychiatric Exam Psychiatric exam: Normal Affect, Normal Mood - Skin Skin Exam: Dry, Intact, Normal Color, Warm Assessment and Plan (1) Dry gangrene Assessment & Plan: Peripheral angiogram 12/02: Right SFA heavily calcified but patent, right popliteal artery patent, one vessel runoff below the right knee. On the left, popliteal has high grade ostial lesion at the trifurcation, peroneal had multiple tandem 80% lesions and anterior tibial artery and had mid 99% stenosis, distal 80%, at distal end of dorsalis pedis had diffused 80% stenosis. Atherectomy angioplasty of anterior tibial artery performed. Additional balloon angioplasty with 2.5x3 serial dilatation balloons, lesion reduction down to 0%, improvement in flow. Patient status post amputation of left 1st ray. Continue aspirin and plavix Status: Acute (2) Bacteremia due to Gram-negative bacteria Assessment & Plan: Continue with IV Abx Status: Acute (3) CHF (congestive heart failure) Assessment & Plan: Continue with toprol. Will start lisinopril Status: Acute (4) End stage renal disease Assessment & Plan: Continue hemodialysis for improvement in electrolyte imbalance. Status: Acute (5) HTN (hypertension) Assessment & Plan: Continue with norvasc, lisinopril, and toprol Status: Acute
[2018-12-08 16:47] VITALS: PULSE 59; RESP 20; TEMP 99; O2SAT 96
[2018-12-08 16:48] VITALS: BP 150/64
[2018-12-08] MEDS: Cefepime IV 1 gm in Dextrose 1 GM/50 ML BAG IVPB SCH (17:03)
--- NOTE | 2018-12-08 17:36 | CP.PCM.PN ---
Subjective - Date & Time of Evaluation Date of Evaluation: 12/08/18 Time of Evaluation: 17:36 Objective - Vital Signs/Intake and Output Vital Signs (last 24 hours): Temp Pulse Resp BP Pulse Ox 99.0 F 59 L 20 150/64 96 12/08/18 15:00 12/08/18 15:00 12/08/18 15:00 12/08/18 15:00 12/08/18 15:00 Intake and Output: 12/08/18 12/08/18 06:59 18:59 Intake Total 300 800 Output Total 0 Balance 300 800 - Medications Medications: Current Medications Acetaminophen (Tylenol 325mg Tab) 650 mg PO Q6 PRN PRN Reason: Pain, moderate (4-7) Last Admin: 12/07/18 11:15 Dose: 650 mg Amlodipine Besylate (Norvasc) 10 mg PO DAILY [facility] Last Admin: 12/08/18 10:45 Dose: Not Given Aspirin (Ecotrin) 81 mg PO DAILY [facility] Last Admin: 12/05/18 11:42 Dose: 81 mg Clopidogrel Bisulfate (Plavix) 75 mg PO DAILY [facility] Last Admin: 12/05/18 11:42 Dose: 75 mg Cyclobenzaprine HCl (Flexeril) 10 mg PO DAILY [facility] Last Admin: 12/08/18 10:45 Dose: Not Given Epoetin Shahram (Procrit) 10,000 unit IV MWF [facility] Last Admin: 12/08/18 12:22 Dose: 10,000 unit Hydroxyzine HCl (Atarax) 25 mg PO DAILY [facility] Last Admin: 12/08/18 10:45 Dose: Not Given Cefepime HCl (Maxipime Iv 1 Gm Premix) 1 gm in 50 mls @ 100 mls/hr IVPB Q24H [facility]; Protocol Last Admin: 12/08/18 17:03 Dose: 100 mls/hr Insulin Human Regular (Novolin R) 0 unit SC ACHS [facility]; Protocol Last Admin: 12/08/18 17:02 Dose: 2 units Levetiracetam (Keppra) 500 mg PO BID [facility] Last Admin: 12/08/18 17:03 Dose: 500 mg Lisinopril (Zestril) 2.5 mg PO DAILY [facility] Metoprolol Succinate (Toprol Xl) 25 mg PO Q12 [facility] Last Admin: 12/08/18 10:45 Dose: Not Given Sevelamer Carbonate (Renvela) 800 mg PO TID [facility] Last Admin: 12/08/18 17:03 Dose: 800 mg Vitamin B Complex/Vit C/Folic Acid (Nephro-Yany) 1 tab PO DAILY [facility] Last Admin: 12/08/18 10:45 Dose: Not Given - Labs Labs: 12/05/18 16:19 12/07/18 13:55 PT 13.7 SECONDS (9.7-12.2) H 12/05/18 16:19 INR 1.3 12/05/18 16:19 APTT 30 SECONDS (21-34) 12/05/18 16:19 Assessment and Plan - Assessment and Plan (Free Text) Assessment: PLACE UNDER THE SERVICE OF DR SHIRLEY AT [facility]-----CALL FOR ADMITTING ORDER CONTINUE HOME MEDICATION PER MED REC ACTIVITY TOLERATED AND FACILITY PROTOCOL No plan for further surgical intervention at this time Iodoform packing fully removed from surgical site with one suture removed to allow for complete removal of packing Wound dressed with wet to dry DSD and multipodus boots placed back on feet Podiatry will continue to follow while patient in house Following discharge, patient will follow up with Dr. Scanlon CALL DR SHIRLEY FOR FURTHER ORDER
== END 2018-12-08 17:51 | disposition home or self-care (01) | DRG 270 ==
LOC: C.ER 23:17 → C.3T 11-25 01:47 → C.5S 12-02 12:53
PROVIDERS: ADMIT Internal Medicine; ATTEND Internal Medicine
PROC: 04CQ3ZZ Extirpation of Matter from Left Anterior Tibial Artery, Percutaneous Approach (ICD-10-PCS; principal; 2018-12-02)
PROC: 047Q3ZZ Dilation of Left Anterior Tibial Artery, Percutaneous Approach (ICD-10-PCS; 2018-12-02)
PROC: 5A1D70Z Performance of Urinary Filtration, Intermittent, Less than 6 Hours Per Day (ICD-10-PCS; 2018-12-03)
PROC: 0Y6N0Z9 Detachment at Left Foot, Partial 1st Ray, Open Approach (ICD-10-PCS; 2018-12-06)
PROC: 5A1D70Z Performance of Urinary Filtration, Intermittent, Less than 6 Hours Per Day (ICD-10-PCS; 2018-12-06)
PROC: 5A1D70Z Performance of Urinary Filtration, Intermittent, Less than 6 Hours Per Day (ICD-10-PCS; 2018-12-08)
DX: E11.52 Type 2 diabetes mellitus with diabetic peripheral angiopathy with gangrene (principal); M86.172 Other acute osteomyelitis, left ankle and foot; L97.529 Non-pressure chronic ulcer of other part of left foot with unspecified severity; L03.116 Cellulitis of left lower limb; R78.81 Bacteremia; I13.2 Hypertensive heart and chronic kidney disease with heart failure and with stage 5 chronic kidney disease, or end stage renal disease; N18.6 End stage renal disease; I69.351 Hemiplegia and hemiparesis following cerebral infarction affecting right dominant side; E11.69 Type 2 diabetes mellitus with other specified complication; E87.1 Hypo-osmolality and hyponatremia; L03.032 Cellulitis of left toe; E11.22 Type 2 diabetes mellitus with diabetic chronic kidney disease; B96.89 Other specified bacterial agents as the cause of diseases classified elsewhere; E11.621 Type 2 diabetes mellitus with foot ulcer; E11.21 Type 2 diabetes mellitus with diabetic nephropathy; E87.5 Hyperkalemia; E03.9 Hypothyroidism, unspecified; B96.5 Pseudomonas (aeruginosa) (mallei) (pseudomallei) as the cause of diseases classified elsewhere; I69.320 Aphasia following cerebral infarction; I50.9 Heart failure, unspecified; I25.10 Atherosclerotic heart disease of native coronary artery without angina pectoris; I48.91 Unspecified atrial fibrillation; E78.5 Hyperlipidemia, unspecified; E78.00 Pure hypercholesterolemia, unspecified; Z95.0 Presence of cardiac pacemaker; Z79.4 Long term (current) use of insulin; I25.2 Old myocardial infarction; Z79.02 Long term (current) use of antithrombotics/antiplatelets; Z99.2 Dependence on renal dialysis; Z79.82 Long term (current) use of aspirin; Z74.01 Bed confinement status; Z99.3 Dependence on wheelchair